=== PATIENT | male | born 1935 | race Caucasian/White ===

== ENCOUNTER 2017-09-07 17:22 | Inpatient (IN) | payer MEDICARE, MEDICAID ==
[2017-09-07] MEDS: IPRATROPIUM 0.5MG/ALBUTEROL 2.5MG INH SOL UD 3ML (DUONEB)(J7620) NEB ×3 (19:32)
[2017-09-07 21:39] LABS: BASO % 0.5 % (0.0-1.0); EOS # 0.1 10^3/uL (0.0-0.50); EOS % 0.8 % (0.0-3.0); HEMATOCRIT 44.6 % (42.0-52.0); HEMOGLOBIN 14.3 g/dl (14.0-18.0); IMMATURE GRANULOCYTE % 0.5 % (0-0); LYMPH # 0.6 10^3/uL (1.5-4.5); LYMPH % 8.6 % (24.0-44.0); MEAN CORPUSCULAR HEMOGLOBIN 29.2 pg (27.0-33.0); MEAN CORPUSCULAR HGB CONC 32.1 g/dl (32.0-36.5); MONO # 0.8 10^3/uL (0.0-0.8); MONO % 11.8 % (0.0-5.0); NEUTROPHILS # 5.1 10^3/uL (1.8-7.7); NEUTROPHILS % 77.8 % (36.0-66.0); PLATELET COUNT, AUTOMATED 203 10^3/uL (150-450); RED CELL DISTRIBUTION WIDTH 14.1 % (11.5-14.5); WHITE BLOOD COUNT 6.5 10^3/uL (4.0-10.0)
[2017-09-07 21:44] LABS: VENOUS BASE EXCESS 1.9 (-2.0-2.0); VENOUS HCO3 29.7 MEQ/L (23.0-27.0); VENOUS PARTIAL PRESSURE CO2 60.1 mmHg (38.0-50.0); VENOUS PARTIAL PRESSURE O2 45.7 mmHg (30.0-50.0); VENOUS PH 7.312 UNITS (7.330-7.430); VENOUS STANDARD HCO3 25.6 MEQ/L; VENOUS TOTAL CO2 31.6 MEQ/L (24.0-28.0)
[2017-09-07 22:04] LABS: LACTIC ACID SEPSIS PROTOCOL 1.9 MMOL/L (0.4-2.0)
[2017-09-07 22:06] LABS: ALBUMIN 3.6 GM/DL (3.2-5.2); ALKALINE PHOSPHATASE 68 U/L (45-117); ALT/SGPT 26 U/L (12-78); ANION GAP 6 MEQ/L (8-16); AST/SGOT 12 U/L (7-37); BILIRUBIN,DIRECT 0.2 MG/DL (0.0-0.2); BILIRUBIN,TOTAL 0.5 MG/DL (0.2-1.0); BLOOD UREA NITROGEN 23 MG/DL (7-18); C REACTIVE PROTEIN QUANTITATIV 3.38 MG/DL (0.00-0.30); CALCIUM LEVEL 8.3 MG/DL (8.8-10.2); CARBON DIOXIDE LEVEL 29 MEQ/L (21-32); CHLORIDE LEVEL 104 MEQ/L (98-107); CPK CREATINE PHOSPHOKINASE 77 U/L (39-308); GLOMERULAR FILTRATION RATE > 60.0 (>35); GLUCOSE, FASTING 155 MG/DL (83-110); POTASSIUM SERUM 4.3 MEQ/L (3.5-5.1); SODIUM LEVEL 139 MEQ/L (136-145); THYROXINE (T4) 8.3 UG/DL (4.5-12.0); TOTAL PROTEIN 6.6 GM/DL (6.4-8.2); TROPONIN I < 0.02 NG/ML (< 0.10)
[2017-09-07 22:11] LABS: CK-MB VALUE MASS 1.6 NG/ML (0.0-3.6); MB/CK RELATIVE INDEX 2.07 (< OR =4); NT-PRO BNP 329 PG/ML (<450); THYROID STIMULATING HORMONE 0.772 uIU/ML (0.358-3.740)
[2017-09-07] MEDS ORDERED: ISOVUE-370 76% 100ML VIAL (Q9967) As Ordered (22:22)
[2017-09-07] MEDS ORDERED: ONDANSETRON 4MG/2ML VIAL (J2405) IV (22:30)
[2017-09-07] MEDS: CEFTRIAXONE SOD 2 GM in APPROPRIATE DILUENT 1 EA IV (22:49)
[2017-09-07] MEDS: FUROSEMIDE 40 MG/4 ML VIAL (J1940) IV (22:49)
[2017-09-07] MEDS: methylPREDNISolone INJ 125 MG/2 ML VIAL (J2930) IV (22:49)
[2017-09-07] MEDS: AZITHROMYCIN INJ 500 MG, VIAL MATE ADAPTER 1 EACH in D5W 250 ML IV (23:31)
[2017-09-08] MEDS: CYANOCOBALAMIN 500 MCG TAB PO ×2 (02:34→21:46)
[2017-09-08] MEDS: VITAMIN D 1,000 INTERNATIONAL UNITS TABLET PO ×2 (02:34→21:46)
[2017-09-08] MEDS: guaiFENesin ER 600 MG TAB PO ×3 (02:35→21:46)
[2017-09-08] MEDS: LOSARTAN 50 MG TAB PO ×2 (02:35→21:47)
[2017-09-08] MEDS: BENZONATATE 100 MG CAP PO ×4 (02:38→21:46)
[2017-09-08 07:09] LABS: MEAN CORPUSCULAR HEMOGLOBIN 28.9 pg (27.0-33.0); MEAN CORPUSCULAR HGB CONC 31.8 g/dl (32.0-36.5); MEAN CORPUSCULAR VOLUME 90.7 fl (80.0-96.0); PLATELET COUNT, AUTOMATED 191 10^3/uL (150-450); RED BLOOD COUNT 4.85 10^6/uL (4.30-6.10); RED CELL DISTRIBUTION WIDTH 14.2 % (11.5-14.5); WHITE BLOOD COUNT 5.9 10^3/uL (4.0-10.0)
[2017-09-08] MEDS: IPRATROPIUM 0.5MG/ALBUTEROL 2.5MG INH SOL UD 3ML (DUONEB)(J7620) NEB ×5 (07:13→23:36)
[2017-09-08 07:22] LABS: ANION GAP 4 MEQ/L (8-16); BLOOD UREA NITROGEN 27 MG/DL (7-18); CALCIUM LEVEL 8.6 MG/DL (8.8-10.2); CARBON DIOXIDE LEVEL 31 MEQ/L (21-32); CHLORIDE LEVEL 101 MEQ/L (98-107); CREATININE FOR GFR 1.19 MG/DL (0.70-1.30); GLOMERULAR FILTRATION RATE > 60.0 (>35); GLUCOSE, FASTING 227 MG/DL (83-110); MAGNESIUM LEVEL 2.4 MG/DL (1.8-2.4); POTASSIUM SERUM 4.8 MEQ/L (3.5-5.1); SODIUM LEVEL 136 MEQ/L (136-145)
[2017-09-08] MEDS: methylPREDNISolone INJ 40 MG/1 ML VIAL (J2920) IV ×4 (07:41→22:25)
[2017-09-08] MEDS: HEPARIN SOD (PORCINE) 5000 UNITS/ML VIAL SC (07:41)
[2017-09-08] MEDS: PANTOPRAZOLE 40MG TAB (PROTONIX) PO (09:17)
[2017-09-08] MEDS: AZITHROMYCIN 250 MG TAB PO (09:17)
[2017-09-08] MEDS: SPIRONOLACTONE 25 MG TAB PO (09:17)
[2017-09-08] MEDS: hydroCHLOROthiazide 25 MG TAB PO (09:17)
[2017-09-08] MEDS: ENOXAPARIN 40 MG/0.4 ML SYRINGE (J1650) SC (12:24)
[2017-09-08] MEDS: CEFTRIAXONE SOD 1 GM in APPROPRIATE DILUENT 1 EA IV (22:25)
[2017-09-09] MEDS: IPRATROPIUM 0.5MG/ALBUTEROL 2.5MG INH SOL UD 3ML (DUONEB)(J7620) NEB ×5 (04:00→20:56)
[2017-09-09] MEDS: methylPREDNISolone INJ 40 MG/1 ML VIAL (J2920) IV ×4 (05:55→22:31)
[2017-09-09 07:37] LABS: HEMATOCRIT 43.3 % (42.0-52.0); HEMOGLOBIN 13.6 g/dl (14.0-18.0); MEAN CORPUSCULAR HEMOGLOBIN 28.5 pg (27.0-33.0); MEAN CORPUSCULAR HGB CONC 31.4 g/dl (32.0-36.5); MEAN CORPUSCULAR VOLUME 90.6 fl (80.0-96.0); PLATELET COUNT, AUTOMATED 214 10^3/uL (150-450); RED BLOOD COUNT 4.78 10^6/uL (4.30-6.10); WHITE BLOOD COUNT 8.8 10^3/uL (4.0-10.0)
[2017-09-09 07:59] LABS: ANION GAP 4 MEQ/L (8-16); BLOOD UREA NITROGEN 35 MG/DL (7-18); CALCIUM LEVEL 8.8 MG/DL (8.8-10.2); CARBON DIOXIDE LEVEL 32 MEQ/L (21-32); CHLORIDE LEVEL 100 MEQ/L (98-107); CREATININE FOR GFR 1.17 MG/DL (0.70-1.30); GLOMERULAR FILTRATION RATE > 60.0 (>35); GLUCOSE, FASTING 172 MG/DL (83-110); MAGNESIUM LEVEL 2.7 MG/DL (1.8-2.4); POTASSIUM SERUM 4.6 MEQ/L (3.5-5.1); SODIUM LEVEL 136 MEQ/L (136-145)
[2017-09-09] MEDS: BENZONATATE 100 MG CAP PO ×3 (09:23→21:19)
[2017-09-09] MEDS: hydroCHLOROthiazide 25 MG TAB PO (09:23)
[2017-09-09] MEDS: guaiFENesin ER 600 MG TAB PO ×2 (09:23→21:18)
[2017-09-09] MEDS: ENOXAPARIN 40 MG/0.4 ML SYRINGE (J1650) SC (09:23)
[2017-09-09] MEDS: SPIRONOLACTONE 25 MG TAB PO (09:23)
[2017-09-09] MEDS: PANTOPRAZOLE 40MG TAB (PROTONIX) PO (09:23)
[2017-09-09] MEDS: AZITHROMYCIN 250 MG TAB PO (09:23)
[2017-09-09] MEDS: ALBUTEROL SULFATE 2.5 MG/0.5 ML INH NEB SOLN INH (15:13)
[2017-09-09 20:24] LABS: BEDSIDE GLUCOSE 237 MG/DL (83-110)
[2017-09-09] MEDS: CYANOCOBALAMIN 500 MCG TAB PO (21:18)
[2017-09-09] MEDS: VITAMIN D 1,000 INTERNATIONAL UNITS TABLET PO (21:18)
[2017-09-09] MEDS: LOSARTAN 50 MG TAB PO (21:19)
[2017-09-10] MEDS: IPRATROPIUM 0.5MG/ALBUTEROL 2.5MG INH SOL UD 3ML (DUONEB)(J7620) NEB ×6 (00:09→21:08)
[2017-09-10 02:52] LABS: BEDSIDE GLUCOSE 269 MG/DL (83-110)
[2017-09-10] MEDS: methylPREDNISolone INJ 40 MG/1 ML VIAL (J2920) IV ×3 (05:58→21:15)
[2017-09-10 07:08] LABS: HEMATOCRIT 42.7 % (42.0-52.0); HEMOGLOBIN 13.6 g/dl (14.0-18.0); MEAN CORPUSCULAR HEMOGLOBIN 29.1 pg (27.0-33.0); MEAN CORPUSCULAR HGB CONC 31.9 g/dl (32.0-36.5); MEAN CORPUSCULAR VOLUME 91.4 fl (80.0-96.0); PLATELET COUNT, AUTOMATED 218 10^3/uL (150-450); RED BLOOD COUNT 4.67 10^6/uL (4.30-6.10); RED CELL DISTRIBUTION WIDTH 14.1 % (11.5-14.5); WHITE BLOOD COUNT 8.8 10^3/uL (4.0-10.0)
[2017-09-10 07:30] LABS: ANION GAP 5 MEQ/L (8-16); BLOOD UREA NITROGEN 42 MG/DL (7-18); CALCIUM LEVEL 8.8 MG/DL (8.8-10.2); CARBON DIOXIDE LEVEL 32 MEQ/L (21-32); CHLORIDE LEVEL 97 MEQ/L (98-107); CREATININE FOR GFR 1.22 MG/DL (0.70-1.30); GLOMERULAR FILTRATION RATE > 60.0 (>35); GLUCOSE, FASTING 217 MG/DL (83-110); MAGNESIUM LEVEL 2.6 MG/DL (1.8-2.4); SODIUM LEVEL 134 MEQ/L (136-145)
[2017-09-10] MEDS: PANTOPRAZOLE 40MG TAB (PROTONIX) PO (09:33)
[2017-09-10] MEDS: guaiFENesin ER 600 MG TAB PO ×2 (09:33→21:16)
[2017-09-10] MEDS: hydroCHLOROthiazide 25 MG TAB PO (09:33)
[2017-09-10] MEDS: SPIRONOLACTONE 25 MG TAB PO (09:33)
[2017-09-10] MEDS: ENOXAPARIN 40 MG/0.4 ML SYRINGE (J1650) SC (09:34)
[2017-09-10] MEDS: BENZONATATE 100 MG CAP PO ×3 (09:34→21:16)
[2017-09-10] MEDS: ACETAMINOPHEN TAB 650MG DOSE (2X325MG) PO (09:39)
[2017-09-10] MEDS: CYANOCOBALAMIN 500 MCG TAB PO (21:16)
[2017-09-10] MEDS: VITAMIN D 1,000 INTERNATIONAL UNITS TABLET PO (21:16)
[2017-09-10] MEDS: LOSARTAN 50 MG TAB PO (21:16)
[2017-09-11] MEDS: IPRATROPIUM 0.5MG/ALBUTEROL 2.5MG INH SOL UD 3ML (DUONEB)(J7620) NEB ×6 (04:00→20:14)
[2017-09-11] MEDS: methylPREDNISolone INJ 40 MG/1 ML VIAL (J2920) IV ×2 (05:43→12:57)
[2017-09-11 06:54] LABS: HEMATOCRIT 43.7 % (42.0-52.0); HEMOGLOBIN 14.2 g/dl (14.0-18.0); MEAN CORPUSCULAR HEMOGLOBIN 28.7 pg (27.0-33.0); MEAN CORPUSCULAR HGB CONC 32.5 g/dl (32.0-36.5); MEAN CORPUSCULAR VOLUME 88.5 fl (80.0-96.0); PLATELET COUNT, AUTOMATED 233 10^3/uL (150-450); RED BLOOD COUNT 4.94 10^6/uL (4.30-6.10); RED CELL DISTRIBUTION WIDTH 13.8 % (11.5-14.5); WHITE BLOOD COUNT 7.7 10^3/uL (4.0-10.0)
[2017-09-11 07:19] LABS: ANION GAP 4 MEQ/L (8-16); BLOOD UREA NITROGEN 36 MG/DL (7-18); CALCIUM LEVEL 8.6 MG/DL (8.8-10.2); CARBON DIOXIDE LEVEL 31 MEQ/L (21-32); CHLORIDE LEVEL 99 MEQ/L (98-107); CREATININE FOR GFR 1.12 MG/DL (0.70-1.30); GLOMERULAR FILTRATION RATE > 60.0 (>35); GLUCOSE, FASTING 189 MG/DL (83-110); MAGNESIUM LEVEL 2.7 MG/DL (1.8-2.4); SODIUM LEVEL 134 MEQ/L (136-145)
[2017-09-11 07:21] LABS: POTASSIUM SERUM 5.2 MEQ/L (3.5-5.1)
[2017-09-11] MEDS: ENOXAPARIN 40 MG/0.4 ML SYRINGE (J1650) SC (08:51)
[2017-09-11] MEDS: hydroCHLOROthiazide 25 MG TAB PO (08:52)
[2017-09-11] MEDS: BENZONATATE 100 MG CAP PO ×3 (08:52→20:19)
[2017-09-11] MEDS: guaiFENesin ER 600 MG TAB PO ×2 (08:52→20:19)
[2017-09-11] MEDS: ACETAMINOPHEN TAB 650MG DOSE (2X325MG) PO ×2 (08:52→12:57)
[2017-09-11] MEDS: SPIRONOLACTONE 25 MG TAB PO (08:52)
[2017-09-11] MEDS: PANTOPRAZOLE 40MG TAB (PROTONIX) PO (08:52)
[2017-09-11] MEDS: ADVAIR HFA 230/21MCG INHALER INH ×2 (09:00→20:11)
[2017-09-11] MEDS: amLODIPine 5 MG TAB PO (14:51)
[2017-09-11] MEDS: CYANOCOBALAMIN 500 MCG TAB PO (20:18)
[2017-09-11] MEDS: LOSARTAN 50 MG TAB PO (20:19)
[2017-09-11] MEDS: VITAMIN D 1,000 INTERNATIONAL UNITS TABLET PO (20:19)
[2017-09-12] MEDS: methylPREDNISolone INJ 40 MG/1 ML VIAL (J2920) IV (01:03)
[2017-09-12] MEDS: IPRATROPIUM 0.5MG/ALBUTEROL 2.5MG INH SOL UD 3ML (DUONEB)(J7620) NEB ×6 (01:36→20:00)
[2017-09-12 07:13] LABS: HEMATOCRIT 44.4 % (42.0-52.0); HEMOGLOBIN 14.3 g/dl (14.0-18.0); MEAN CORPUSCULAR HEMOGLOBIN 28.8 pg (27.0-33.0); MEAN CORPUSCULAR HGB CONC 32.2 g/dl (32.0-36.5); MEAN CORPUSCULAR VOLUME 89.5 fl (80.0-96.0); PLATELET COUNT, AUTOMATED 222 10^3/uL (150-450); RED BLOOD COUNT 4.96 10^6/uL (4.30-6.10); RED CELL DISTRIBUTION WIDTH 13.7 % (11.5-14.5)
[2017-09-12 07:31] LABS: ANION GAP 4 MEQ/L (8-16); BLOOD UREA NITROGEN 34 MG/DL (7-18); CALCIUM LEVEL 8.8 MG/DL (8.8-10.2); CARBON DIOXIDE LEVEL 33 MEQ/L (21-32); CHLORIDE LEVEL 98 MEQ/L (98-107); CREATININE FOR GFR 1.19 MG/DL (0.70-1.30); GLOMERULAR FILTRATION RATE > 60.0 (>35); GLUCOSE, FASTING 196 MG/DL (83-110); MAGNESIUM LEVEL 2.8 MG/DL (1.8-2.4); SODIUM LEVEL 135 MEQ/L (136-145)
[2017-09-12 07:36] LABS: POTASSIUM SERUM 5.2 MEQ/L (3.5-5.1)
[2017-09-12] MEDS: ADVAIR HFA 230/21MCG INHALER INH ×2 (07:40→20:23)
[2017-09-12] MEDS: guaiFENesin ER 600 MG TAB PO ×2 (08:39→21:06)
[2017-09-12] MEDS: ENOXAPARIN 40 MG/0.4 ML SYRINGE (J1650) SC (08:39)
[2017-09-12] MEDS: PANTOPRAZOLE 40MG TAB (PROTONIX) PO (08:40)
[2017-09-12] MEDS: BENZONATATE 100 MG CAP PO ×3 (08:40→21:06)
[2017-09-12] MEDS: SPIRONOLACTONE 25 MG TAB PO (08:40)
[2017-09-12] MEDS: hydroCHLOROthiazide 25 MG TAB PO (08:40)
[2017-09-12] MEDS: amLODIPine 5 MG TAB PO (08:42)
[2017-09-12] MEDS: predniSONE 20 MG TAB PO ×2 (11:17→21:07)
[2017-09-12] MEDS: ACETAMINOPHEN TAB 650MG DOSE (2X325MG) PO (17:07)
[2017-09-12] MEDS: VITAMIN D 1,000 INTERNATIONAL UNITS TABLET PO (21:06)
[2017-09-12] MEDS: LOSARTAN 50 MG TAB PO (21:07)
[2017-09-12] MEDS: CYANOCOBALAMIN 500 MCG TAB PO (21:07)
[2017-09-13] MEDS: IPRATROPIUM 0.5MG/ALBUTEROL 2.5MG INH SOL UD 3ML (DUONEB)(J7620) NEB ×2 (00:01→03:40)
[2017-09-13 06:49] LABS: HEMATOCRIT 44.4 % (42.0-52.0); HEMOGLOBIN 14.4 g/dl (14.0-18.0); MEAN CORPUSCULAR HEMOGLOBIN 28.7 pg (27.0-33.0); MEAN CORPUSCULAR HGB CONC 32.4 g/dl (32.0-36.5); MEAN CORPUSCULAR VOLUME 88.6 fl (80.0-96.0); PLATELET COUNT, AUTOMATED 241 10^3/uL (150-450); RED BLOOD COUNT 5.01 10^6/uL (4.30-6.10); RED CELL DISTRIBUTION WIDTH 13.8 % (11.5-14.5); WHITE BLOOD COUNT 8.2 10^3/uL (4.0-10.0)
[2017-09-13 07:04] LABS: ANION GAP 5 MEQ/L (8-16); BLOOD UREA NITROGEN 34 MG/DL (7-18); CALCIUM LEVEL 8.7 MG/DL (8.8-10.2); CARBON DIOXIDE LEVEL 32 MEQ/L (21-32); CHLORIDE LEVEL 98 MEQ/L (98-107); GLOMERULAR FILTRATION RATE > 60.0 (>35); GLUCOSE, FASTING 204 MG/DL (83-110); MAGNESIUM LEVEL 2.6 MG/DL (1.8-2.4); POTASSIUM SERUM 4.8 MEQ/L (3.5-5.1); SODIUM LEVEL 135 MEQ/L (136-145)
[2017-09-13] MEDS: ADVAIR HFA 230/21MCG INHALER INH (08:14)
[2017-09-13] MEDS: ENOXAPARIN 40 MG/0.4 ML SYRINGE (J1650) SC (08:19)
[2017-09-13] MEDS: BENZONATATE 100 MG CAP PO (08:19)
[2017-09-13] MEDS: amLODIPine 5 MG TAB PO (08:19)
[2017-09-13] MEDS: guaiFENesin ER 600 MG TAB PO (08:19)
[2017-09-13] MEDS: SPIRONOLACTONE 25 MG TAB PO (08:19)
[2017-09-13] MEDS: SOD POLYSTYRENE SULFONATE SUSP 15 GM/60 ML UD PO (08:19)
[2017-09-13] MEDS: predniSONE 20 MG TAB PO (08:19)
[2017-09-13] MEDS: PANTOPRAZOLE 40MG TAB (PROTONIX) PO (08:19)
[2017-09-13] MEDS: hydroCHLOROthiazide 25 MG TAB PO (08:19)
== END 2017-09-13 11:57 | disposition home or self-care (01) | DRG 190 ==
LOC: M MS5PR 09-08 01:10 → M ED 17:22 → M ED INP 22:30
DX: J44.1 Chronic obstructive pulmonary disease with (acute) exacerbation (principal); J96.01 Acute respiratory failure with hypoxia; Z68.43 Body mass index [BMI] 50.0-59.9, adult; I10 Essential (primary) hypertension; M19.90 Unspecified osteoarthritis, unspecified site; B97.4 Respiratory syncytial virus as the cause of diseases classified elsewhere; E66.01 Morbid (severe) obesity due to excess calories; Z85.118 Personal history of other malignant neoplasm of bronchus and lung; Z90.2 Acquired absence of lung [part of]; Z96.612 Presence of left artificial shoulder joint; Z79.899 Other long term (current) drug therapy; Z88.8 Allergy status to other drugs, medicaments and biological substances

== ENCOUNTER 2018-10-30 14:21 | Inpatient (IN) | payer MEDICARE, MEDICAID ==
[~2018-10-30] VITALS: Ht 182.9 cm; Wt 160.7 kg
[~2018-10-30 14:21] MED LIST: ADV250INH INH; ALBU83IN INH; AMLO5TAB6 PO; D 1010004 PO; FURO40TA2 PO; LOSA100T50 PO; MELO7.5T7 PO; MUCI600T37 PO; PRED10TA2 PO; SPIR1TAB34 PO; VITA500T53 PO; vitamin B 12 PO; vitamin D 3 PO
[2018-10-30] MEDS ORDERED: [UNRECOGNIZED DRUG - CODE] (14:34)
[2018-10-30] MEDS ORDERED: GLIP5TAB20 PO (14:34)
[2018-10-30] MEDS ORDERED: TRAMADOL (14:34)
[2018-10-30] MEDS ORDERED: XARE20TA PO (14:34)
[2018-10-30] MEDS ORDERED: ATOR1TAB19 PO (14:34)
[2018-10-30] MEDS ORDERED: COZA50TA PO (14:34)
[2018-10-30] MEDS ORDERED: CARV6.25 PO (14:39)
[2018-10-30 15:01] LABS: BASO % 0.6 % (0.0-1.0); EOS # 0.1 10^3/uL (0.0-0.50); EOS % 1.9 % (0.0-3.0); HEMATOCRIT 41.8 % (42.0-52.0); HEMOGLOBIN 13.2 g/dl (13.5-17.5); LYMPH # 0.9 10^3/uL (1.5-4.5); LYMPH % 12.9 % (24.0-44.0); MEAN CORPUSCULAR HEMOGLOBIN 27.5 pg (27.0-33.0); MEAN CORPUSCULAR HGB CONC 31.6 g/dl (32.0-36.5); MEAN CORPUSCULAR VOLUME 87.1 fl (80.0-96.0); MONO # 0.8 10^3/uL (0.0-0.8); MONO % 11.2 % (0.0-5.0); PLATELET COUNT, AUTOMATED 260 10^3/uL (150-450); WHITE BLOOD COUNT 6.8 10^3/uL (4.0-10.0)
[2018-10-30 15:14] LABS: INR 1.41; PARTIAL THROMBOPLASTIN TIME 31.1 SECONDS (25.4-37.6); PROTHROMBIN TIME 17.5 SECONDS (12.1-14.4)
[2018-10-30 15:40] LABS: ALBUMIN 3.5 GM/DL (3.2-5.2); ALT/SGPT 29 U/L (12-78); BILIRUBIN,DIRECT 0.2 MG/DL (0.0-0.2); BILIRUBIN,TOTAL 0.5 MG/DL (0.2-1.0); BLOOD UREA NITROGEN 20 MG/DL (7-18); CALCIUM LEVEL 7.8 MG/DL (8.8-10.2); CARBON DIOXIDE LEVEL 27 MEQ/L (21-32); CHLORIDE LEVEL 104 MEQ/L (98-107); CREATININE FOR GFR 1.19 MG/DL (0.70-1.30); GLOMERULAR FILTRATION RATE > 60.0 (>35); GLUCOSE, FASTING 97 MG/DL (70-100); LIPASE 147 U/L (73-393); POTASSIUM SERUM 4.6 MEQ/L (3.5-5.1); SODIUM LEVEL 138 MEQ/L (136-145); TOTAL PROTEIN 6.2 GM/DL (6.4-8.2)
[2018-10-30] MEDS ORDERED: ISOVUE-370 76% 100ML VIAL (Q9967) As Ordered ONE (15:53)
[2018-10-30] MEDS ORDERED: NS 500 ML IV ONE (16:00)
--- NOTE | 2018-10-30 16:41 | REP ---
CT ABDOMEN AND PELVIS WITH IV CONTRAST: TECHNIQUE: Axial contrast enhanced images from the lung bases to the pubic symphysis using 100 mL Isovue 370 intravenous contrast material with multiplanar reformations. In the visualized lung base there is a stable pulmonary nodule in the right lower lobe measuring 9 mm in diameter. There is elevation of the left hemidiaphragm with stable fibro atelectatic change along the left hemidiaphragm. Heart is not enlarged. The liver demonstrates a cyst in the right lobe measuring 1.8 cm. Spleen, adrenals, and pancreas are unremarkable. There is no hydronephrosis bilaterally. There is a small cyst in the mid right kidney. There are a couple of left renal cysts, larger is in the left lower pole measuring about 6.3 cm in maximum diameter. There is moderate atherosclerotic calcification of the abdominal aorta without aneurysm. There is no adenopathy. There is no free air or free fluid. No bowel wall thickening is seen. There is no evidence of appendicitis. There is sigmoid diverticulosis without acute diverticulitis. I see no pelvic mass. Urinary bladder is mildly distended and grossly unremarkable. There are bilateral inguinal hernias containing fat, larger on the right side. There are degenerative changes of the spine. IMPRESSION: No acute abnormalities. No appendicitis. Sigmoid diverticulosis without acute diverticulitis. No free air or free fluid. Bilateral inguinal hernias. Sigmoid diverticulosis without acute diverticulitis. Electronically Signed by Steven Mcdaniel MD 11/02/2018 12:06 P
--- NOTE | 2018-10-30 17:05 | REP ---
Chest x-ray: Single view. History: Near-syncope. Comparison study September 07, 2017. Findings: EKG monitoring electrodes overlie the chest. Oxygen delivery tubing is seen. A prosthetic left shoulder is noted in place. There is elevation of the left hemidiaphragm and tenting with blunting of its lateral pleural angle. These findings are unchanged from September 07, 2017 consistent with pleural fibrosis. There are surgical clips superimposed on the left apex. The lung up are clear. Heart is not enlarged. The aorta is somewhat tortuous. Impression: Chronic pleuroparenchymal scarring left base. Otherwise no acute disease. Electronically Signed by Jeremy Ferrera MD 10/30/2018 06:58 P
[2018-10-30] MEDS ORDERED: ADV250INH INH (17:17)
[2018-10-30] MEDS ORDERED: TRAM50TA2 PO (17:17)
[2018-10-30] MEDS ORDERED: MUPI2OI TOP (17:19)
--- NOTE | 2018-10-30 18:55 | ECGEPIP ---
Stationary ECG Study [facility] - ED Test Date: 2018-10-30 Pat Name: KRISTEL LUKE Department: Room: - Gender: M Patient Access Director: ct : 1935 Requested By: RAVEN Andrew Order Number: [id number] Reading MD: Finesse Sam Measurements Intervals [place] Rate: 73 P: ID: 0 QRS: -2 QRSD: 98 T: -2 QT: 379 QTc: 418 Interpretive Statements ATRIAL FIBRILLATION LOW QRS VOLTAGE IN PRECORDIAL LEADS INCOMPLETE RIGHT BUNDLE BRANCH BLOCK RHYTHM/RATE CHANGE COMPARED TO 09/07/17 Electronically Signed On 10-30-2018 18:55:18 EST by Finesse Sam
[2018-10-30 19:54] LABS: HEMATOCRIT 38.3 % (42.0-52.0); HEMOGLOBIN 12.2 g/dl (13.5-17.5)
[2018-10-30] MEDS ORDERED: ALBUTEROL SULFATE 2.5 MG/0.5 ML INH NEB SOLN INH PRN (20:00)
[2018-10-30] MEDS ORDERED: DEXTROSE 50% 50 ML SYRINGE IV PRN (20:15)
[2018-10-30] MEDS ORDERED: GLUCAGON FOR INJ 1 MG VIAL (J1610) SC PRN (20:15)
[2018-10-30] MEDS ORDERED: GLUCOSE 4 GM CHEW TABLET PO PRN (20:15)
[2018-10-30] MEDS ORDERED: ACETAMINOPHEN TAB 650MG DOSE (2X325MG) PO PRN (20:15)
[2018-10-30] MEDS ORDERED: ONDANSETRON 4MG/2ML VIAL (J2405) IV PRN (20:15)
[2018-10-30] MEDS ORDERED: PANTOPRAZOLE 40MG INJ (PROTONIX) (C9113) IV SCH (21:00)
[2018-10-30] MEDS: ATORVASTATIN 10 MG TAB PO SCH (21:00)
[2018-10-30] MEDS: CYANOCOBALAMIN 500 MCG TAB PO SCH (21:27)
[2018-10-30] MEDS: CARVedilol 6.25 MG TAB PO SCH (21:27)
[2018-10-30] MEDS: VITAMIN D 1,000 INTERNATIONAL UNITS TABLET PO SCH (21:27)
[2018-10-30] MEDS: NS 1,000 ML IV SCH (21:28)
--- NOTE | 2018-10-30 21:43 | HPE ---
DATE OF ADMISSION: 10/30/2018 CHIEF COMPLAINT: Rectal bleeding. HISTORY OF PRESENT ILLNESS: This is an 83-year-old gentleman with a past medical history of hypertension, chronic obstructive pulmonary disease (COPD), diabetes, atrial fibrillation on Xarelto, myocardial infarction (PA) in September 2017, requiring hospitalization at [facility], who presents with chief complaint of blood stools for the last couple of months, worse for two weeks. The patient reports that he has been on Xarelto for approximately one year for a diagnosis of atrial fibrillation. He did not have any rectal bleeding prior to two months ago. Beginning about two months ago, he started having rectal bleeding that had worsened over the last two weeks. He said his blood fills with bright red blood and his stool appears black at times. However in the last couple of days his stool has been entirely just bright red fresh blood. He denies ever having a colonoscopy, but does report that Dr. Garcia had planned on doing one. He does not know he has any diverticulosis, but does report a history of hemorrhoids. No significant history of nonsteroidal antiinflammatory drugs (NSAID) use. No significant history of alcohol abuse. He decided to come in today because he started to have symptoms of lightheadedness and near syncope. He denies any chest pain. In the emergency room, the patient was noted to be orthostatic. He was given 1 liter of fluid bolus. His hemoglobin was stable at 13.2, but he was admitted for observation given the new rectal bleeding. Dr. Garcia saw him while he was in the emergency room (ER) and recommended admission for observation. PAST MEDICAL HISTORY: As noted above in the history of present illness. 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 HOME MEDICATIONS: The patient's home medications are glipizide 5 mg daily, losartan 50 mg at bedtime (q.h.s.), Xarelto 20 mg at bedtime, tramadol 50 mg twice a day as needed for pain, Bactroban ointment topical as needed for itching, hydrochlorothiazide, spironolactone combination 25-25 mg one tab by mouth daily, albuterol every 6 hours as needed for shortness of breath, Lipitor 10 mg at bedtime, Coreg 6.25 mg twice a daily, vitamin D 1000 units daily, vitamin B12 500 mcg by mouth at bedtime (q.h.s.), Advair one puff inhaled twice daily as needed for shortness of breath. ALLERGIES: CORTISONE. SOCIAL HISTORY: The patient lives with his of 60 years. No smoking, alcohol or drugs. FAMILY HISTORY: Father had a history of leukemia. PHYSICAL EXAMINATION: On exam, the patient is currently hemodynamically stable with a blood pressure of 142/67, heart rate of 79, respirations 18, saturating while on room air. He was orthostatic and his sitting blood pressure had dropped to 101/55 from 120/60 and he met criteria for orthostasis. In general, he is an obese male, who is in no acute distress, breathing comfortably with normal color. HEENT exam: Oropharynx clear. CARDIOVASCULAR: He is irregularly irregular. No murmurs, rubs or gallops. LUNGS: Clear to auscultation bilaterally. ABDOMEN: Obese, nontender. Positive bowel sounds. EXTREMITIES: Trace edema, which is stable. NEURO: He is alert and oriented times three, follows simple commands. No focal neurologic deficits. SKIN: Intact. PSYCHIATRIC: Mood stable. LABORATORY: Admission complete blood count (CBC) with a white count of 6.8, hemoglobin of 13.2, hematocrit of 41, platelets of 260. His hemoglobin repeat at 7:30 is 12.2. His chemistry shows a creatinine of 1.19, which is stable for him, potassium 4.6. Coags show an INR of 1.4, PT of 1.41. Imaging shows an abdominal CT that shows no acute abnormalities, no appendicitis or sigmoid diverticulosis without diverticulitis. Chest x-ray shows chronic pleural parenchymal scarring at the left base, otherwise no acute disease. ASSESSMENT AND PLAN: This is an 83-year-old gentleman with past medical history of atrial fibrillation on Xarelto, diabetes who presents with chief complaint of rectal bleeding for two months, worse for two weeks. PROBLEMS: 1. Rectal bleeding. At this time, the patient is hemodynamically stable with no bleeding in the emergency room (ER). He was guaiac by the emergency room doctor and it was positive. Dr. Garcia from general surgery saw the patient and recommended to continue following his hemoglobin and hematocrit. He may have a colonoscopy this admission or as an outpatient. For now, we will put him on nothing by mouth IV fluids and check hemoglobin and hematocrit every 6 hours. I will put him on IV proton pump inhibitor (PPI) twice daily. He is going to be admitted to the PCU for closer monitoring. I will also obviously hold his home Xarelto in the setting of gastrointestinal (GI) bleed. 2. Near syncope. Of note, the patient is also having these episodes of lightheadedness. This could be from the rectal bleeding and orthostasis. However, will evaluate him for cardiac etiology. He follows with Dr. Walsh in [place] as his mid level clinician: He does report a myocardial infarction (PA) in 2018, which was "mild". I will place him on telemetry and check an echocardiogram. He also did not have troponins checked in the emergency room, so I will check for that as well. He is currently denying any chest pain. 3. Atrial fibrillation. Obviously, the patient's home Xarelto will be held. I am going to continue his home Coreg for rate control He is currently rate controlled in atrial fibrillation. 4. Hypertension. At this time, I am holding his home losartan, hydrochlorothiazide and spironolactone in the setting of gastrointestinal (GI) bleed. 5. Diabetes. I am holding his oral hypoglycemics and will place him on a sliding scale. 6. Fluid, electrolytes and nutrition. At this time, he is nothing by mouth and on IV fluids. 7. Deep vein thrombosis (DVT) prophylaxis. Not indicated at this time. MTDD
[2018-10-30 23:30] VITALS: BP 141/63
[2018-10-31 04:00] VITALS: BP 114/53
[2018-10-31 05:01] LABS: HEMATOCRIT 36.3 % (42.0-52.0); HEMOGLOBIN 11.4 g/dl (13.5-17.5); MEAN CORPUSCULAR HEMOGLOBIN 27.3 pg (27.0-33.0); MEAN CORPUSCULAR HGB CONC 31.4 g/dl (32.0-36.5); MEAN CORPUSCULAR VOLUME 86.8 fl (80.0-96.0); PLATELET COUNT, AUTOMATED 203 10^3/uL (150-450); RED BLOOD COUNT 4.18 10^6/uL (4.30-6.10); WHITE BLOOD COUNT 5.5 10^3/uL (4.0-10.0)
[2018-10-31 05:29] LABS: BLOOD UREA NITROGEN 18 MG/DL (7-18); CALCIUM LEVEL 7.7 MG/DL (8.8-10.2); CARBON DIOXIDE LEVEL 28 MEQ/L (21-32); CHLORIDE LEVEL 104 MEQ/L (98-107); CREATININE FOR GFR 1.11 MG/DL (0.70-1.30); GLOMERULAR FILTRATION RATE > 60.0 (>35); GLUCOSE, FASTING 96 MG/DL (70-100); POTASSIUM SERUM 3.8 MEQ/L (3.5-5.1); SODIUM LEVEL 136 MEQ/L (136-145)
[2018-10-31] MEDS: HumaLOG INSULIN (NovoLOG) PER UNIT SC SCH ×5 (06:00→21:33)
[2018-10-31] MEDS: NS 1,000 ML IV SCH (06:15)
[2018-10-31] MEDS: ADVAIR HFA 115/21MCG INHALER INH PRN ×2 (07:39→20:36)
[2018-10-31 08:00] VITALS: BP 139/63
--- NOTE | 2018-10-31 09:36 | IPN ---
DATE OF SERVICE: 10/31/2018 Zach is seen in PCU. He was admitted with lower gastrointestinal (GI) bleed. He is on Xarelto for thromboembolic prophylaxis, for atrial fibrillation. He has history of coronary artery disease with myocardial infarction ([place]) 10/12, hypertension, type 2 diabetes. Denies any further rectal bleeding. Denies chest pain or shortness of breath. Surgery has already been consulted. Dr. Garcia is on the case. Blood pressure is 139/63, vital signs are stable. General appearance: Resting comfortable, no distress. Lung: Clear. Heart: Regular rate and rhythm. Abdomen obese, nontender, no masses. Trace peripheral edema. Moves arms and legs with equal strength. LABS: White count 5.5, hemoglobin is down to 11.4, platelets 203. Electrolytes unremarkable. IMPRESSION: 1. Gastrointestinal bleed probably lower. Patient's hemoglobin is fairly stable when accounting for hydration. I have got a communication out to Dr. Garcia to find out when they plan colonoscopy. Put him on a clear liquid diet pending the procedure. His Xarelto is on hold. 2. Atrial fibrillation. His rate is controlled. His Xarelto is on hold. 3. Diabetes. He is on sliding scale of insulin with fingerstick blood sugars per protocol. 4. Hyperlipidemia. Continue atorvastatin 10 mg daily.
[2018-10-31] MEDS: CARVedilol 6.25 MG TAB PO SCH ×2 (09:38→21:22)
[2018-10-31] MEDS ORDERED: SLF 3 ML SYR IV PRN (10:00)
[2018-10-31] MEDS: PANTOPRAZOLE 40MG TAB (PROTONIX) PO SCH (10:11)
--- NOTE | 2018-10-31 11:01 | IPN ---
DATE: 10/31/2018 The patient seems to be doing well since last night, has not had any additional rectal bleeding. He has not any bowel movements and states that when he does not have any bowel movements, he does not have bleeding. Thus, I do feel that two possibilities of diverticular versus hemorrhoidal bleeding are the most likely etiologies, and I discussed with him other possibilities, which include benign versus malignant lesions. He understands at this point and will see how he does by starting him up with some suppositories and stool softeners, and if he has ongoing rectal bleeding with the minimal treatment or minimal bowel movements, we may need to stop these and wait another 24-48 hours prior to starting some gentle bowel prep. Will see how the stool softeners work with him and determine our next step based on that.
--- NOTE | 2018-10-31 11:16 | CR ---
DATE OF CONSULTATION: 10/30/2018 CHIEF COMPLAINT: Gastrointestinal (GI) bleeding with feeling faint. BRIEF HISTORY OF PRESENT ILLNESS: The patient has had some rectal bleeding that is been quite heavy for the last couple months and worse in the last 2 weeks. He thought it was his hemorrhoids giving him problems for awhile now. Is on anticoagulation and presents now for additional recommendations given that he has been quite faint and was concerned about his GI blood loss. States that it is a significant amount. When he has bowel movement, it is bright red blood. He has had no nausea or vomiting. No weight loss issues. He has not had any blood per rectum since earlier this morning since his first bowel movement. He has had a polyp removed in the past he describes and I am not sure if that was associated with some hemorrhoids that were treated but he states he has not had a colonoscopy previously. PAST MEDICAL HISTORY: Significant for: History of chronic obstructive pulmonary disease (COPD). Diabetes mellitus. Atrial fibrillation on Xarelto. Myocardial infarction in 2018. History of hemorrhoids, hemorrhoid surgery. MEDICATIONS: Include: - glipizide - Losartan - Xarelto - tramadol - Bactroban - spironolactone - albuterol - Lipitor - Coreg - vitamin D - vitamin B12 - Advair PHYSICAL EXAM: Reveals a morbidly obese male who looks stated age. HEENT is unremarkable. Neck: Supple without adenopathy. Lungs are clear to auscultation anteriorly, diminished posteriorly. Heart is regular. Abdomen: Regular with multiple irregular beats. Abdomen is morbidly obese, nontender without guarding, without rebound. No peritoneal signs. Extremities: Warm, well-perfused. IMPRESSION AND PLAN: The patient has rectal bleeding, seems as though it is bright red blood per rectum. Most likely etiology is diverticular bleeding, although diverticular bleeding that has been occurring for several weeks is unlikely but still possible. The most recent bleeding associated with the orthostasis is diverticular although it also could be hemorrhoidal bleeding given the Xarelto. I do feel that it is reasonable to keep him n.p.o., IV fluids and see how he does over the next 12-24 hours and then start him on clear liquid diet and progress his diet depending on his symptoms and depending on his bleeding. I anticipate this should resolve with time as his Xarelto gets out of his system. I have discussed with him benign versus malignant etiologies for his rectal bleeding and any of the above could be the source. He understands and would like to proceed with colonoscopy while he is in the hospital and we will plan on this once his anticoagulation has been out of his system for long enough. However if he develops urgent or emergent bleeding, then we can decide on the next course of action which may include endoscopy versus angiography, etc..
[2018-10-31 12:00] VITALS: BP 122/63
[2018-10-31] MEDS ORDERED: PREPARATION H SUPP (HEMORRHOID) PR ONE (12:00)
[2018-10-31] MEDS: SENNA 8.6 MG TAB (SENOKOT) PO SCH ×2 (12:49→21:21)
[2018-10-31] MEDS: DOCUSATE SODIUM 100 MG CAP PO SCH ×2 (12:49→21:20)
--- NOTE | 2018-10-31 13:10 | ECHO ---
DATE OF PROCEDURE: 10/31/2018 REFERRING PHYSICIAN: Dr. Jannie Martinez INDICATION: Syncope. Weight is 155 kg. Height is 180 cm. DIMENSIONS: IVS: 1.1 LV: 3.5 LVPW: 1.1 LA: 4.2 Mitral E wave velocity : 61 A wave: 79 E prime septal: 6.3 E prime lateral: 6.0 IVC: 2.8 FINDINGS: The study is of extremely limited technical quality corresponding to patient's body habitus. Left ventricle is of normal size. I cannot comment on systolic function. Based on very limited views, it looks probably normal. But the visualization was so poor that I cannot be certain. Right ventricle surprisingly also does not look grossly enlarged. Both atria are at least mildly enlarged. There was limited visualization of aortic and mitral valves that appear grossly normal. Right-sided valves were not visualized. No pericardial effusion, but pericardial fat pad is noted. Inferior vena cava is dilated. Aortic root is normal. Aortic arch grossly appears normal. Abdominal aorta was not visualized. Doppler interrogation was very limited. There is no gross mitral and aortic valvular disease. Mitral inflow pattern and tissue Doppler imaging of mitral annulus reveal grade 1 diastolic dysfunction. CONCLUSIONS: 1. Study is of very limited technical quality. 2. Probably normal or near normal systolic function based on limited views. This is not very reliable information. 3. No significant aortic and mitral valvular disease. 4. Likely high central venous pressure. 5. Unable to estimate pulmonary artery pressure. COMMENT: Subacute bacterial endocarditis (SBE) prophylaxis is not recommended. Study does not provide much useful information due to poor visualization. [facility]
[2018-10-31] MEDS: SLF 3 ML SYR IV SCH ×2 (14:00→21:24)
[2018-10-31 16:00] VITALS: BP 135/67
[2018-10-31 20:00] VITALS: BP 105/58
[2018-10-31] MEDS: VITAMIN D 1,000 INTERNATIONAL UNITS TABLET PO SCH (21:00)
[2018-10-31] MEDS: ATORVASTATIN 10 MG TAB PO SCH (21:22)
[2018-10-31] MEDS: CYANOCOBALAMIN 500 MCG TAB PO SCH (21:22)
[2018-10-31] MEDS: PREPARATION H SUPP (HEMORRHOID) PR SCH (21:23)
[2018-11-01] VITALS (7 sets, daily range): BP systolic 108–141; BP diastolic 58–69
[2018-11-01] MEDS: SLF 3 ML SYR IV SCH ×3 (04:59→20:48)
[2018-11-01 05:36] LABS: HEMATOCRIT 35.5 % (42.0-52.0); HEMOGLOBIN 11.3 g/dl (13.5-17.5); MEAN CORPUSCULAR HEMOGLOBIN 27.6 pg (27.0-33.0); MEAN CORPUSCULAR HGB CONC 31.8 g/dl (32.0-36.5); MEAN CORPUSCULAR VOLUME 86.8 fl (80.0-96.0); PLATELET COUNT, AUTOMATED 198 10^3/uL (150-450); RED BLOOD COUNT 4.09 10^6/uL (4.30-6.10)
[2018-11-01 06:01] LABS: BLOOD UREA NITROGEN 15 MG/DL (7-18); CALCIUM LEVEL 7.9 MG/DL (8.8-10.2); CARBON DIOXIDE LEVEL 26 MEQ/L (21-32); CHLORIDE LEVEL 106 MEQ/L (98-107); CREATININE FOR GFR 1.06 MG/DL (0.70-1.30); GLOMERULAR FILTRATION RATE > 60.0 (>35); GLUCOSE, FASTING 103 MG/DL (70-100); POTASSIUM SERUM 3.8 MEQ/L (3.5-5.1); SODIUM LEVEL 138 MEQ/L (136-145)
[2018-11-01] MEDS: ADVAIR HFA 115/21MCG INHALER INH PRN ×2 (07:24→20:16)
[2018-11-01] MEDS: HumaLOG INSULIN (NovoLOG) PER UNIT SC SCH ×4 (07:30→20:48)
[2018-11-01] MEDS: PREPARATION H SUPP (HEMORRHOID) PR SCH ×2 (08:25→20:33)
[2018-11-01] MEDS: SENNA 8.6 MG TAB (SENOKOT) PO SCH ×2 (08:25→20:31)
[2018-11-01] MEDS: DOCUSATE SODIUM 100 MG CAP PO SCH ×2 (08:25→20:30)
[2018-11-01] MEDS: PANTOPRAZOLE 40MG TAB (PROTONIX) PO SCH (08:25)
[2018-11-01] MEDS: CARVedilol 6.25 MG TAB PO SCH ×2 (08:26→20:32)
[2018-11-01] MEDS ORDERED: MOM 30ML SUSPENSION UDC PO ONE (13:00)
[2018-11-01] MEDS: MAGNESIUM CITRATE 300 ML BTL PO SCH ×3 (14:18→22:14)
[2018-11-01] MEDS: ATORVASTATIN 10 MG TAB PO SCH (20:30)
[2018-11-01] MEDS: CYANOCOBALAMIN 500 MCG TAB PO SCH (20:30)
[2018-11-01] MEDS: VITAMIN D 1,000 INTERNATIONAL UNITS TABLET PO SCH (20:31)
[2018-11-01] MEDS: MOM 30ML SUSPENSION UDC PO SCH ×2 (20:32→22:14)
[2018-11-02 04:32] LABS: HEMATOCRIT 37.1 % (42.0-52.0); HEMOGLOBIN 11.7 g/dl (13.5-17.5); MEAN CORPUSCULAR HEMOGLOBIN 27.6 pg (27.0-33.0); MEAN CORPUSCULAR HGB CONC 31.5 g/dl (32.0-36.5); MEAN CORPUSCULAR VOLUME 87.5 fl (80.0-96.0); PLATELET COUNT, AUTOMATED 204 10^3/uL (150-450); RED BLOOD COUNT 4.24 10^6/uL (4.30-6.10); WHITE BLOOD COUNT 5.5 10^3/uL (4.0-10.0)
[2018-11-02 04:45] VITALS: BP 122/64
[2018-11-02 04:53] LABS: CALCIUM LEVEL 8.3 MG/DL (8.8-10.2); CREATININE FOR GFR 1.24 MG/DL (0.70-1.30); GLOMERULAR FILTRATION RATE 59.6 (>35); POTASSIUM SERUM 3.9 MEQ/L (3.5-5.1)
[2018-11-02] MEDS: SLF 3 ML SYR IV SCH ×3 (05:43→20:58)
[2018-11-02] MEDS: HumaLOG INSULIN (NovoLOG) PER UNIT SC SCH ×4 (07:30→20:56)
[2018-11-02 08:00] VITALS: BP 112/61
[2018-11-02] MEDS: SENNA 8.6 MG TAB (SENOKOT) PO SCH (08:49)
[2018-11-02] MEDS: MAGNESIUM CITRATE 300 ML BTL PO SCH (08:49)
[2018-11-02] MEDS: MOM 30ML SUSPENSION UDC PO SCH (08:49)
[2018-11-02] MEDS: PANTOPRAZOLE 40MG TAB (PROTONIX) PO SCH (08:50)
[2018-11-02] MEDS: DOCUSATE SODIUM 100 MG CAP PO SCH (08:50)
[2018-11-02] MEDS: CARVedilol 6.25 MG TAB PO SCH ×2 (08:51→20:58)
[2018-11-02] MEDS: PREPARATION H SUPP (HEMORRHOID) PR SCH ×2 (09:00→20:55)
--- NOTE | 2018-11-02 09:03 | IPN ---
DATE: 11/01/2018 Patient in the progressive care unit. He was admitted with lower gastrointestinal (GI) bleed. He is on Xarelto for thromboembolic prophylaxis for atrial fibrillation, history of coronary artery disease with myocardial infarction 09/2017, hypertension, type 2 diabetes. Consult was obtained from Dr. Garcia. Blood pressure 127/65, pulse 69, respirations 20, temperature 99, oxygen saturation 95% on room air. Patient is alert and oriented times three. Pharynx, tongue and gums pink and moist. Tongue is midline. Neck is supple without lymphadenopathy, no thyromegaly. No goiter. Chest clear to auscultation without wheeze or retraction. Heart is regular. Abdomen is sotf. Bowel sounds positive. Genitourinary ()/rectal not done. Extremities no cyanosis, clubbing or edema. Peripheral pulses equal and palpable bilaterally. Skin is warm and dry. IMPRESSION/PLAN: Gastrointestinal (GI) bleed. Xarelto remains on hold. Per consult of Dr. Garcia feels two possibilities, diverticular versus hemorrhoidal bleeding as the most likely etiologies. Other possibilities include benign versus malignant lesions. He has been placed on stool softeners. I spoke with Dr. Garcia. He stated he was going to discuss with Dr. Mercado to see if he could do a colonoscopy on him. If it is hemorrhoids, Dr. Garcia can band them in the office on Friday. Will plan a colonoscopy when his Xarelto has been out of his system long enough. He is on a clear liquid diet. Atrial fibrillation. Rhythm is controlled. Xarelto remains on hold. Diabetes. Continue sliding scale insulin with fingerstick blood sugars. Hyperlipidemia. Continue with atorvastatin 10 mg daily. MTDD
--- NOTE | 2018-11-02 10:09 | IPN ---
DATE: 11/02/2018 Zach is seen in the progressive care unit (PCU). He has had no recurrence of rectal bleeding. His Xarelto is on hold and he has a colonoscopy pending today, per patient. He has atrial fibrillation and his rate is well controlled. He diabetes is managed with fingerstick blood sugars and sliding scale coverage. No rectal bleeding chest pain or shortness of breath. PHYSICAL EXAMINATION: Vital signs stable. Blood pressure 112/61. General appearance: Well-developed, well-nourished, resting comfortably. Lungs clear. Heart irregular rate and rhythm. Rate of 60. Abdomen soft, nontender. No masses. No peripheral edema. LABS: White count 5.1, hemoglobin 11.7, platelets 204. Sodium 142, potassium 3.9, BUN 14, creatinine 1.2, glucose 118. IMPRESSION: 1. Rectal bleeding probably hemorrhoidal. Colonoscopy is pending. 2. Atrial fibrillation: Xarelto is on hold. This is to be restarted after discharge. 3. Diabetes: Sliding scale insulin till he is back on an assured diabetic diet. 4. Echocardiogram was ordered on admission. I am not sure why, but it looks essentially normal.
--- NOTE | 2018-11-02 12:03 | IPNPDOC ---
Text Note Date of Service The patient was seen on 11/02/18. NOTE 83y/o male with lower GI bleeding. He was evaluated by Dr. Garcia, and Dr. Mercado over the weekend. He had colonoscopy planned for this am, but Dr. Mercado is unavailable now. Therefore, I have been asked to do the procedure. No more complaints of bleeding overnight, and he claims that the prep worked well. He will be scheduled for the procedure this am. No changes to the H+P, consent is signed. Orville Meraz DO VS,Zack, I+O VS, Zack, I+O Laboratory Tests 11/02/18 04:20 Red Blood Count 4.24 L, Mean Corpuscular Volume 87.5, Mean Corpuscular Hemoglobin 27.6, Mean Corpuscular Hemoglobin Concent 31.5 L, Red Cell D istribution Width 14.9 H, Calcium Level 8.3 L Vital Signs Date Time Temp Pulse Resp B/P (MAP) Pulse Ox O2 Delivery O2 Flow Rate FiO2 11/02/18 08:51 64 112/61 11/02/18 08:00 98.0 18 99 10/30/18 15:07 Nasal Cannula 2.0 I&O- Last 24 Hours up to 6 AM 11/02/18 05:59 Intake Total 3000 ml Output Total 570 ml Balance 2430 ml KOFI MERAZ DO Nov 02, 2018 12:03
[2018-11-02] MEDS ORDERED: PROPOFOL 500 MG/50 ML VIAL As Ordered ONE (13:25)
--- NOTE | 2018-11-02 13:49 | ROOR ---
Patient Name: Zach Herbert Procedure Date: 11/02/2018 1:22 PM Date of : 1935 Age: 83 Room: [facility] Gender: Male Note Status: Finalized Procedure: Colonoscopy Indications: Hematochezia Providers: DO Chandan Fraser MD: 2. Inpatient 2. Inpatient Requesting Provider: Medicines: Propofol per Anesthesia Complications: No immediate complications. Procedure: Pre-Anesthesia Assessment: - Prior to the procedure, a History and Physical was performed, and patient medications and allergies were reviewed. The patient is competent. The risks and benefits of the procedure and the sedation options and risks were discussed with the patient. All questions were answered and informed consent was obtained. Patient identification and proposed procedure were verified by the physician, the nurse, the anesthesiologist and the process maintenance technician in the endoscopy suite. Mental Status Examination: alert and oriented. Airway Examination: normal oropharyngeal airway and neck mobility. Respiratory Examination: clear to auscultation. CV Examination: normal. Prophylactic Antibiotics: The patient does not require prophylactic antibiotics. Prior Anticoagulants: The patient has taken no previous anticoagulant or antiplatelet agents. ASA Grade Assessment: III - A patient with severe systemic disease. After reviewing the risks and benefits, the patient was deemed in satisfactory condition to undergo the procedure. The anesthesia plan was to use monitored anesthesia care (MAC). Immediately prior to administration of medications, the patient was re-assessed for adequacy to receive sedatives. The heart rate, respiratory rate, oxygen saturations, blood pressure, adequacy of pulmonary ventilation, and response to care were monitored throughout the procedure. The physical status of the patient was re-assessed after the procedure. The Colonoscope was introduced through the anus and advanced to the cecum, identified by appendiceal orifice and ileocecal valve. The colonoscopy was performed without difficulty. The patient tolerated the procedure well. Findings: Hemorrhoids were found on perianal exam. The perianal exam findings include non-thrombosed internal hemorrhoids and internal hemorrhoids that prolapse with straining, but spontaneously regress to the resting position (Grade II). Multiple small and large-mouthed diverticula were found in the entire colon. A 9 mm polyp was found in the ascending colon. The polyp was semi-pedunculated. The polyp was removed with a hot snare. Resection and retrieval were complete. Estimated blood loss was minimal. The exam was otherwise without abnormality on direct and retroflexion views. Impression: - Hemorrhoids found on perianal exam. - Non-thrombosed internal hemorrhoids and internal hemorrhoids that prolapse with straining, but spontaneously regress to the resting position (Grade II) found on perianal exam. - Diverticulosis in the entire examined colon. - One 9 mm polyp in the ascending colon, removed with a hot snare. Resected and retrieved. - The examination was otherwise normal on direct and retroflexion views. Recommendation: - [facility]. - Resume regular diet today. Steven Meraz DO 11/02/2018 1:49:16 PM This report has been signed electronically. Number of Addenda: 0 Note Initiated On: 11/02/2018 1:22 PM Estimated Blood Loss: Estimated blood loss was minimal.
[2018-11-02 14:45] VITALS: BP 140/58
[2018-11-02 16:00] VITALS: BP 148/62
[2018-11-02] MEDS: ADVAIR HFA 115/21MCG INHALER INH PRN (19:35)
[2018-11-02 20:00] VITALS: BP 164/72
[2018-11-02] MEDS: CYANOCOBALAMIN 500 MCG TAB PO SCH (20:55)
[2018-11-02] MEDS: ATORVASTATIN 10 MG TAB PO SCH (20:56)
[2018-11-02] MEDS: VITAMIN D 1,000 INTERNATIONAL UNITS TABLET PO SCH (20:56)
[2018-11-03] VITALS: BP 119/57
[2018-11-03 04:00] VITALS: BP 137/65
[2018-11-03] MEDS: SLF 3 ML SYR IV SCH (04:41)
[2018-11-03 06:13] LABS: HEMATOCRIT 34.8 % (42.0-52.0); HEMOGLOBIN 10.9 g/dl (13.5-17.5); MEAN CORPUSCULAR HEMOGLOBIN 27.4 pg (27.0-33.0); MEAN CORPUSCULAR HGB CONC 31.3 g/dl (32.0-36.5); MEAN CORPUSCULAR VOLUME 87.4 fl (80.0-96.0); PLATELET COUNT, AUTOMATED 192 10^3/uL (150-450); RED BLOOD COUNT 3.98 10^6/uL (4.30-6.10); WHITE BLOOD COUNT 5.1 10^3/uL (4.0-10.0)
[2018-11-03 06:41] LABS: BLOOD UREA NITROGEN 18 MG/DL (7-18); CALCIUM LEVEL 7.9 MG/DL (8.8-10.2); CARBON DIOXIDE LEVEL 29 MEQ/L (21-32); CHLORIDE LEVEL 107 MEQ/L (98-107); CREATININE FOR GFR 1.15 MG/DL (0.70-1.30); GLOMERULAR FILTRATION RATE > 60.0 (>35); GLUCOSE, FASTING 101 MG/DL (70-100); POTASSIUM SERUM 3.8 MEQ/L (3.5-5.1); SODIUM LEVEL 141 MEQ/L (136-145)
[2018-11-03] MEDS: ADVAIR HFA 115/21MCG INHALER INH PRN (07:14)
[2018-11-03] MEDS: HumaLOG INSULIN (NovoLOG) PER UNIT SC SCH ×2 (07:30→12:00)
[2018-11-03 08:00] VITALS: BP 137/65
[2018-11-03 08:38] VITALS: BP 146/52
[2018-11-03] MEDS: PREPARATION H SUPP (HEMORRHOID) PR SCH (08:38)
[2018-11-03] MEDS: PANTOPRAZOLE 40MG TAB (PROTONIX) PO SCH (08:38)
[2018-11-03] MEDS: CARVedilol 6.25 MG TAB PO SCH (08:38)
--- NOTE | 2018-11-03 21:49 | DSES ---
DATE OF ADMISSION: 10/30/2018 DATE OF DISCHARGE: 11/03/2018 CONSULTANTS: General surgery. PRIMARY CARE PROVIDER: Payal GUTIERREZ DIAGNOSES: Lower GI bleed. Atrial fibrillation. Diabetes. Chronic obstructive pulmonary disease (COPD). Hypertension. History of myocardial infarction ([place]). Morbid Obesity HOSPITALIZATION COURSE: Patient is 83-year-old male, presented to [facility] on October 30, 2018 with a complaint of blood per rectum. Patient seen by general surgery in the emergency room. Patient admitted under hospitalist service, place nothing by mouth, supported by IV fluids. Hemoglobin and hematocrit were monitored closely in the PCU. Patient Xarelto has been on hold since admission. Patient had a colonoscopy performed November 02, 2018. Patient was found to have hemorrhoids and diverticulosis. Patient tolerated the colonoscopy well. Later, patient restored on diet. Patient evaluated by physical therapy. On November 03, 2018, patient returned to his baseline. VITAL SIGNS ON DISCHARGE: Temperature 96.6, pulse 72, respiration rate is 20, blood pressure is 137/65, pulse oximetry 95% on room air. LABORATORY DATA ON DAY OF DISCHARGE: WBC 5.1, hemoglobin 10.9, hematocrit 34.8, platelet count is 192. Sodium is 141, potassium 3.8, chloride 107, carbon dioxide 29, BUN 19, creatinine 1.15. GFR greater than 60, fasting glucose is 101. Calcium is 7.9. IMAGING STUDIES: CT of the abdomen and pelvis with IV contrast demonstrated no acute abnormalities. No appendicitis. Sigmoid diverticulosis without acute diverticulitis. No free air or free fluid. Bilateral inguinal hernias. Sigmoid diverticulosis without acute diverticulitis. Chest x-ray demonstrates chronic pleural parenchymal scarring in left base. Otherwise, no acute disease. DISCHARGE MEDICATIONS: - albuterol 2.5 mg inhalation every 6 hours as needed for shortness of breath - atorvastatin 10 mg by mouth at bedtime - carvedilol 6.25 mg by mouth twice a day - vitamin D 1000 units by mouth at bedtime - vitamin B12 500 mcg by mouth at bedtime - glipizide 5 mg by mouth every day - hydrochlorothiazide/spironolactone 1 tablet by mouth every day - losartan 50 mg by mouth at bedtime - Xarelto 20 mg by mouth at bedtime - Advair 1 puff inhalation twice a day as needed - tramadol 50 mg by mouth twice a day as needed for pain DISCHARGE INSTRUCTIONS: Discontinue lines. Discharge home. Activity as tolerated. Low salt consistent carbohydrate diet as tolerated. Patient should followup with primary care provider in one week. Due to the significant cardiac history risks and benefits explained to the patient. Patient agreed with starting the Xarelto, but he is aware of the recurrence of the bleeding and patient instructed to contact healthcare provider if there is a recurrence of the symptoms. Patient is instructed to followup with primary care provider in one week after discharge. DISCHARGE CONDITION: Fair. DISCHARGE TIME: Greater than 30 minutes. MTDD
== END 2018-11-03 12:55 | disposition home or self-care (01) | DRG 378 ==
LOC: M ED 14:21 → M ED INP 20:03 → M PCU 22:45
PROVIDERS: ADMIT Internal Medicine; ATTEND Internal Medicine
PROC: 0DBK8ZX Excision of Ascending Colon, Via Natural or Artificial Opening Endoscopic, Diagnostic (ICD-10-PCS; principal; 2018-11-02 15:00)
DX: K62.5 Hemorrhage of anus and rectum (principal); Z68.42 Body mass index [BMI] 45.0-49.9, adult; K64.1 Second degree hemorrhoids; I10 Essential (primary) hypertension; J44.9 Chronic obstructive pulmonary disease, unspecified; E11.9 Type 2 diabetes mellitus without complications; I48.91 Unspecified atrial fibrillation; I25.2 Old myocardial infarction; E66.01 Morbid (severe) obesity due to excess calories; K57.31 Diverticulosis of large intestine without perforation or abscess with bleeding; D12.2 Benign neoplasm of ascending colon; Z79.01 Long term (current) use of anticoagulants; Z96.612 Presence of left artificial shoulder joint; Z90.2 Acquired absence of lung [part of]; Z79.891 Long term (current) use of opiate analgesic; Z79.84 Long term (current) use of oral hypoglycemic drugs; Z79.899 Other long term (current) drug therapy; Z88.8 Allergy status to other drugs, medicaments and biological substances

== ENCOUNTER 2018-11-20 14:39 | Observation (INO) | payer MEDICARE, MEDICAID ==
[~2018-11-20] VITALS: Ht 182.9 cm; Wt 160.2 kg
[~2018-11-20 14:39] MED LIST changes: +ATOR1TAB19 PO; +CARV6.25 PO; +COZA50TA PO; +GLIP5TAB20 PO; +MUPI2OI TOP; +TRAM50TA2 PO; +TRAMADOL; +XARE20TA PO; +[UNRECOGNIZED DRUG - CODE]
[2018-11-20] MEDS ORDERED: CARB1CAP3 PO (15:14)
[2018-11-20] MEDS ORDERED: VALA1TAB2 PO (15:14)
[2018-11-20] MEDS ORDERED: NS 1,000 ML IV SCH (15:18)
[2018-11-20 15:25] LABS: BASO % 0.4 % (0.0-1.0); HEMATOCRIT 41.4 % (42.0-52.0); HEMOGLOBIN 13.4 g/dl (13.5-17.5); LYMPH % 9.5 % (24.0-44.0); MEAN CORPUSCULAR HGB CONC 32.4 g/dl (32.0-36.5); MEAN CORPUSCULAR VOLUME 86.6 fl (80.0-96.0); MONO # 0.9 10^3/uL (0.0-0.8); MONO % 9.1 % (0.0-5.0); NEUTROPHILS # 8.2 10^3/uL (1.8-7.7); NEUTROPHILS % 80.4 % (36.0-66.0); PLATELET COUNT, AUTOMATED 322 10^3/uL (150-450); RED BLOOD COUNT 4.78 10^6/uL (4.30-6.10); WHITE BLOOD COUNT 10.1 10^3/uL (4.0-10.0)
[2018-11-20 15:30] LABS: INR 1.36
[2018-11-20] MEDS ORDERED: PANTOPRAZOLE 40MG INJ (PROTONIX) (C9113) IV ONE (15:30)
[2018-11-20 15:42] LABS: ALBUMIN 3.5 GM/DL (3.2-5.2); ALT/SGPT 26 U/L (12-78); BILIRUBIN,DIRECT 0.1 MG/DL (0.0-0.2); BILIRUBIN,TOTAL 0.4 MG/DL (0.2-1.0); BLOOD UREA NITROGEN 27 MG/DL (7-18); CALCIUM LEVEL 8.7 MG/DL (8.8-10.2); CARBON DIOXIDE LEVEL 25 MEQ/L (21-32); CHLORIDE LEVEL 103 MEQ/L (98-107); CK-MB VALUE MASS < 1.0 NG/ML (<3.6); CPK CREATINE PHOSPHOKINASE 40 U/L (39-308); GLOMERULAR FILTRATION RATE 56.4 (>35); GLUCOSE, FASTING 89 MG/DL (70-100); LIPASE 196 U/L (73-393); POTASSIUM SERUM 4.7 MEQ/L (3.5-5.1); SODIUM LEVEL 137 MEQ/L (136-145); TOTAL PROTEIN 6.3 GM/DL (6.4-8.2); TROPONIN I < 0.02 NG/ML (< 0.10)
--- NOTE | 2018-11-20 16:10 | REP ---
CT abdomen and pelvis without IV or oral contrast: History: Gastrointestinal bleeding. Comparison CT study October 30, 2018. 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 The lung bases show fibroatelectatic changes in the left lung base, unchanged from the comparison study. There is a cyst in the right lobe of the liver, which is also unchanged. This measures 2.1 cm in greatest diameter. No other focal lesion is seen in the liver. The spleen is unremarkable. There is a small accessory splenule. No adrenal lesion is seen. No pancreatic abnormality is observed. There are renal cysts bilaterally including a hyperdense cyst at the mid pole level on the right which measures 1.8 cm, a lower pole cyst on the left measuring 7.7 cm, and an upper pole cyst on the left measuring 2.3 cm in diameter. There is no evidence of hydronephrosis on either side. No intrarenal calculus is seen. Vascular calcifications noted. No retroperitoneal mass or adenopathy is seen. Small bowel loops are unremarkable. There is diverticulosis affecting the colon. There is evidence of a small bowel anastomosis to the right of midline as before. No colonic mass lesion is seen. There is no CT evidence of diverticulitis. The diverticulosis is most pronounced in the left colon. Seminal vesicles, prostate and urinary bladder are unremarkable. Impression: Pancolonic diverticulosis. Status post small bowel anastomosis. Bilateral renal cortical cysts. Otherwise negative. Electronically Signed by Jeremy Ferrera MD 11/20/2018 04:28 P
[2018-11-20] MEDS ORDERED: GLUCAGON FOR INJ 1 MG VIAL (J1610) SC PRN (19:00)
[2018-11-20] MEDS ORDERED: ALBUTEROL SULFATE 2.5 MG/0.5 ML INH NEB SOLN INH PRN (19:00)
[2018-11-20] MEDS ORDERED: GLUCOSE 4 GM CHEW TABLET PO PRN (19:00)
[2018-11-20] MEDS ORDERED: ADVAIR HFA 115/21MCG INHALER INH PRN (19:00)
[2018-11-20] MEDS ORDERED: DEXTROSE 50% 50 ML SYRINGE IV PRN (19:00)
[2018-11-20] MEDS: NS 1,000 ML IV SCH (20:19)
--- NOTE | 2018-11-20 20:23 | HPE ---
DATE OF ADMISSION: 11/20/2018 This is an 83-year-old male with a past medical history of non-oxygen dependant COPD, diabetes, atrial fibrillation on Xarelto, coronary artery disease status-post MO in 09/2017 who presents to the emergency room with a chief complaint of bright red blood per rectum during bowel movements. It is painless in nature, similar to what he had in his prior admission where he was discharged approximately 2 weeks ago for the same thing. Dr. Garcia did a colonoscopy which did not show any obvious sites for bleeding. Patient was sent home on Xarelto once again and patient stated as of 2 days ago he started having active bleeding again but again he says it is only during his bowel movements. He denies any chest pain, shortness of breath, abdominal pain, nausea or vomiting, vertigo or headache. Vitals are stable. He will be admitted for further management. PAST MEDICAL HISTORY: Non-oxygen dependant COPD, history of atrial fibrillation on Xarelto, coronary artery disease status-post MO 09/2017. ALLERGIES: Cortisone. FAMILY HISTORY: Noncontributory. SOCIAL HISTORY: Patient denies tobacco, alcohol or illicit drugs. MEDICATIONS AT HOME: Albuterol as needed, atorvastatin 10 mg orally at bedtime, carbamazepine 200 mg twice a day, Coreg 6.25 mg orally twice a day, cholecalciferol 1000 units orally at bedtime, cyanocobalamin 500 mcg orally at bedtime, glipizide 5 mg orally daily, hydrochlorothiazide / spironolactone 1 tablet orally daily, losartan 50 mg orally at bedtime, rivaroxaban 20 mg orally at bedtime, fluticasone 1 puff inhaled twice daily as needed, valacyclovir 1 mg by mouth three times a day. REVIEW OF SYSTEMS: Negative for all 10 major systems except what was mentioned in the HPI. VITALS: Blood pressure 123/70, heart rate 73 and regular, respiratory rate 16, temperature 98.5, oxygen saturation 95% on room air. Head is atraumatic normocephalic. Neck is supple with no JVD Lungs are clear to auscultation S1, S2 audible. No murmurs appreciated. Abdomen soft and positive bowel sounds. No pedal edema. Skin is intact. Neurologic examination, patient is awake and alert times three. LABS: WBC 10.1, hemoglobin 13.4, hematocrit 41.4, platelets 322,000, sodium 137, potassium 4.7, chloride 103, CO2 25, BUN 27, creatinine 1.3, glucose 89. IMPRESSION: 1. GI bleed. PLAN: The patient is to be admitted to med-surg floor. I feel this is likely secondary to hemorrhoidal bleeding. Since only 2 weeks ago the colonoscopy was clean patient did note that after he wipes, he does not have another blood bowel movement until he has another bowel movement. We will not get Dr. Garcia just yet, I think we should observe this patient for 24 hours without Xarelto. If the patient does not have any further bleeding he should what his intended plan was as an outpatient with Dr. Garcia to have the hemorrhoids removed. We will continue his other preadmission medications other than Xarelto and monitor his hemoglobin and hematocrit. We will continue his care on the med-surg floor.
[2018-11-20 21:00] VITALS: BP 162/92
[2018-11-20] MEDS: VITAMIN D 1,000 INTERNATIONAL UNITS TABLET PO SCH (21:49)
[2018-11-20] MEDS: CYANOCOBALAMIN 500 MCG TAB PO SCH (21:49)
[2018-11-20] MEDS: ATORVASTATIN 10 MG TAB PO SCH (21:49)
[2018-11-20] MEDS: LOSARTAN 50 MG TAB PO SCH (21:50)
[2018-11-20] MEDS: CARVedilol 6.25 MG TAB PO SCH (21:50)
[2018-11-20 22:25] VITALS: BP 140/88
[2018-11-20] MEDS: carBAMazepine XR 100 MG TAB PO SCH (22:26)
[2018-11-21] MEDS: NS 1,000 ML IV SCH ×3 (01:38→21:52)
[2018-11-21 06:00] VITALS: BP 100/51
[2018-11-21 06:13] LABS: BASO % 0.6 % (0.0-1.0); EOS # 0.1 10^3/uL (0.0-0.50); HEMATOCRIT 37.8 % (42.0-52.0); LYMPH # 1.3 10^3/uL (1.5-4.5); LYMPH % 19.4 % (24.0-44.0); MEAN CORPUSCULAR HEMOGLOBIN 27.3 pg (27.0-33.0); MEAN CORPUSCULAR HGB CONC 31.7 g/dl (32.0-36.5); MEAN CORPUSCULAR VOLUME 85.9 fl (80.0-96.0); MONO # 0.9 10^3/uL (0.0-0.8); MONO % 12.5 % (0.0-5.0); NEUTROPHILS # 4.5 10^3/uL (1.8-7.7); NEUTROPHILS % 65.9 % (36.0-66.0); PLATELET COUNT, AUTOMATED 245 10^3/uL (150-450); WHITE BLOOD COUNT 6.8 10^3/uL (4.0-10.0)
[2018-11-21 06:32] LABS: BLOOD UREA NITROGEN 24 MG/DL (7-18); CARBON DIOXIDE LEVEL 25 MEQ/L (21-32); CHLORIDE LEVEL 105 MEQ/L (98-107); CREATININE FOR GFR 1.16 MG/DL (0.70-1.30); GLOMERULAR FILTRATION RATE > 60.0 (>35); GLUCOSE, FASTING 76 MG/DL (70-100); POTASSIUM SERUM 3.8 MEQ/L (3.5-5.1); SODIUM LEVEL 139 MEQ/L (136-145)
[2018-11-21] MEDS ORDERED: HumaLOG INSULIN (NovoLOG) PER UNIT SC SCH (07:30)
[2018-11-21] MEDS ORDERED: GLUCAGON FOR INJ 1 MG VIAL (J1610) SC PRN (07:45)
[2018-11-21] MEDS ORDERED: DEXTROSE 50% 50 ML SYRINGE IV PRN (07:45)
[2018-11-21] MEDS ORDERED: GLUCOSE 4 GM CHEW TABLET PO PRN (07:45)
[2018-11-21] MEDS: SPIRONOLACTONE 25 MG TAB PO SCH (09:11)
[2018-11-21] MEDS: carBAMazepine XR 100 MG TAB PO SCH ×2 (09:11→21:50)
[2018-11-21] MEDS: hydroCHLOROthiazide 25 MG TAB PO SCH (09:11)
[2018-11-21] MEDS: CARVedilol 6.25 MG TAB PO SCH ×2 (09:15→21:51)
[2018-11-21] MEDS: traMADol 50 MG TAB PO PRN ×2 (11:30→21:54)
[2018-11-21] MEDS: HumaLOG INSULIN (NovoLOG) PER UNIT SC SCH ×3 (12:00→21:46)
[2018-11-21 14:00] VITALS: BP 112/62
[2018-11-21] MEDS: VITAMIN D 1,000 INTERNATIONAL UNITS TABLET PO SCH (21:50)
[2018-11-21] MEDS: LOSARTAN 50 MG TAB PO SCH (21:50)
[2018-11-21] MEDS: ATORVASTATIN 10 MG TAB PO SCH (21:51)
[2018-11-21] MEDS: CYANOCOBALAMIN 500 MCG TAB PO SCH (21:51)
[2018-11-21 22:00] VITALS: BP 124/59
[2018-11-22 06:00] VITALS: BP 149/72
--- NOTE | 2018-11-22 07:13 | IPN ---
DATE OF VISIT: 11/21/2018 SUBJECTIVE: Patient is seen and examined in the room today. The patient's last bowel movement was yesterday in the morning. Since then, the patient has not had any stool production. So, he is not sure whether he is continuing to have gastrointestinal (GI) bleed. During the encounter, patient is complaining about headache on the right temporal region. The patient had a similar episode in the past. The patient denies any acute complaints. OBJECTIVE: VITAL SIGNS: Temperature 97.9, pulse 61, respirations 18, blood pressure 100/51, pulse oximetry 94% in room air. GENERAL: Patient is alert and awake, mild distress, persistent right sided headache. HEENT: Normocephalic, atraumatic. Extraocular motors grossly intact. CARDIOVASCULAR: Positive S1 and S2. Regular rate. LUNGS: Clear to auscultation bilaterally. ABDOMEN: Soft, nontender, nondistended. Bowel sounds present. EXTREMITIES: No edema. LABORATORY DATA: WBC is 6.8, hemoglobin 12, hematocrit 37.8, platelet count is 245, sodium is 139, potassium 3.8, chloride 105, carbon dioxide 25, BUN 24, creatinine 1.16, GFR greater than 65, hemoglobin 76, calcium is 8. ASSESSMENT/PLAN: 1. Lower GI bleed. The patient had a similar episode previously. Patient was hospitalized from October 30 through November 03, 2018. The patient had a colonoscopy performed at that time. The patient was thought to have prolapsing internal hemorrhoids and patient also has diverticulosis throughout the entire colon. On the day of his last hospitalization, the patient's bleeding stopped, however due to significant cardiac history the patient's anticoagulant was restarted. According to the patient, the patient's bleeding started 2-3 days after discharge. Since admission, the patient has not had any stool production. Continue to follow the hemoglobin and hematocrit. The Xarelto is on hold at this moment. 2. Atrial fibrillation. Due to GI bleed, Xarelto is on hold. The patient's heart rate has been in the satisfactory range. The patient is on Coreg. 3. Diabetes, on insulin. The patient is currently nothing by mouth. 4. Chronic obstructive pulmonary disease (COPD). No exacerbation at this moment. 5. History of myocardial infarction in September 2017, on Coreg and atorvastatin. 6. Hypertension. On Coreg, hydrochlorothiazide, Cozaar. 7. Headache. Trial of tramadol. 8. Deep vein thrombosis (DVT) prophylaxis. Due to current GI bleed, anticoagulation is on hold. The patient will be on thromboembolic deterrent stockings (TEDS) and compression devices.
[2018-11-22] MEDS: HumaLOG INSULIN (NovoLOG) PER UNIT SC SCH ×4 (07:26→21:00)
[2018-11-22 08:32] LABS: HEMATOCRIT 37.4 % (42.0-52.0); HEMOGLOBIN 11.8 g/dl (13.5-17.5); MEAN CORPUSCULAR HEMOGLOBIN 27.5 pg (27.0-33.0); MEAN CORPUSCULAR HGB CONC 31.6 g/dl (32.0-36.5); MEAN CORPUSCULAR VOLUME 87.2 fl (80.0-96.0); PLATELET COUNT, AUTOMATED 209 10^3/uL (150-450); RED BLOOD COUNT 4.29 10^6/uL (4.30-6.10); WHITE BLOOD COUNT 5.9 10^3/uL (4.0-10.0)
[2018-11-22 08:51] LABS: BLOOD UREA NITROGEN 21 MG/DL (7-18); CALCIUM LEVEL 7.7 MG/DL (8.8-10.2); CARBON DIOXIDE LEVEL 27 MEQ/L (21-32); CHLORIDE LEVEL 105 MEQ/L (98-107); CREATININE FOR GFR 1.12 MG/DL (0.70-1.30); GLOMERULAR FILTRATION RATE > 60.0 (>35); GLUCOSE, FASTING 85 MG/DL (70-100); MAGNESIUM LEVEL 2.3 MG/DL (1.8-2.4); POTASSIUM SERUM 4.1 MEQ/L (3.5-5.1); SODIUM LEVEL 137 MEQ/L (136-145)
[2018-11-22] MEDS: carBAMazepine XR 100 MG TAB PO SCH ×2 (08:55→21:15)
[2018-11-22] MEDS: SPIRONOLACTONE 25 MG TAB PO SCH (08:56)
[2018-11-22] MEDS: hydroCHLOROthiazide 25 MG TAB PO SCH (08:56)
[2018-11-22] MEDS: CARVedilol 6.25 MG TAB PO SCH ×2 (08:59→21:17)
[2018-11-22] MEDS: traMADol 50 MG TAB PO PRN ×2 (09:01→21:16)
[2018-11-22] MEDS ORDERED: MIRALAX *UNIT DOSE* 17GM PACKET PO PRN (11:45)
[2018-11-22 14:00] VITALS: BP 141/66
--- NOTE | 2018-11-22 15:07 | IPNPDOC ---
Text Note Date of Service The patient was seen on 11/22/18. NOTE SUBJECTIVE: Patient is seen and examined in the room today. Patient has had no bowel movement since admission. He is not sure if he has active GI bleeding. Headache improved. Denies fever or chill. OBJECTIVE: VITAL SIGNS: Listed below. GENERAL: Alert and awake. No distress. HEENT: Normocephalic, atraumatic. Extraocular motors grossly intact. CARDIOVASCULAR: Positive S1 and S2. Regular rate. LUNGS: Clear to auscultation bilaterally. ABDOMEN: Soft, nontender, nondistended. Bowel sounds present. EXTREMITIES: No edema. LABORATORY DATA: Listed below. ASSESSMENT/PLAN: #. Lower GI bleed. - Similar episode occurred previously and patient was hospitalized from October 30 through November 03, 2018. Colonoscopy on 11/02/18 demonstrated prolapsing internal hemorrhoids and diverticulosis throughout the entire colon. Bleeding started 2-3 days after he restarted. - Since admission, the patient has not had any stool production. Continue to follow the hemoglobin and hematocrit. The Xarelto is on hold at this moment. Restart oral diet. - Physical therapy ordered. #. Atrial fibrillation. - Due to GI bleed, Xarelto is on hold. The patient's heart rate has been in the satisfactory range. The patient is on Coreg. #. Diabetes, on insulin. The patient is currently nothing by mouth. #. Chronic obstructive pulmonary disease (COPD). - No exacerbation at this moment. #. History of myocardial infarction in September 2017, on Coreg and atorvastatin. #. Hypertension. On Coreg, hydrochlorothiazide, Cozaar. #. Headache. Trial of tramadol. #. Deep vein thrombosis (DVT) prophylaxis. - Due to current GI bleed, anticoagulation is on hold. The patient will be on thromboembolic deterrent stockings (TEDS) and compression devices. VS,Fishbone, I+O VS, Fishbone, I+O Laboratory Tests 11/22/18 08:05 Red Blood Count 4.29 L, Mean Corpuscular Volume 87.2, Mean Corpuscular Hemoglobin 27.5, Mean Corpuscular Hemoglobin Concent 31.6 L, Red Cell Distribution Width 15.1 H, Calcium Level 7.7 L Vital Signs Date Time Temp Pulse Resp B/P (MAP) Pulse Ox O2 Delivery O2 Flow Rate FiO2 11/22/18 09:31 18 11/22/18 08:59 62 114/56 11/22/18 06:00 97.4 92 11/20/18 20:17 Room Air I&O- Last 24 Hours up to 6 AM 11/22/18 06:00 Intake Total 2850 ml Output Total 2775 ml Balance 75 ml LYNETTE CHUA DO Nov 22, 2018 15:07
[2018-11-22] MEDS: CYANOCOBALAMIN 500 MCG TAB PO SCH (21:14)
[2018-11-22] MEDS: LOSARTAN 50 MG TAB PO SCH (21:14)
[2018-11-22] MEDS: VITAMIN D 1,000 INTERNATIONAL UNITS TABLET PO SCH (21:14)
[2018-11-22] MEDS: ATORVASTATIN 10 MG TAB PO SCH (21:16)
[2018-11-22 22:00] VITALS: BP 123/57
[2018-11-23 06:00] VITALS: BP 138/69
[2018-11-23 06:08] LABS: HEMATOCRIT 37.1 % (42.0-52.0); HEMOGLOBIN 11.9 g/dl (13.5-17.5); MEAN CORPUSCULAR HEMOGLOBIN 27.7 pg (27.0-33.0); MEAN CORPUSCULAR HGB CONC 32.1 g/dl (32.0-36.5); MEAN CORPUSCULAR VOLUME 86.5 fl (80.0-96.0); PLATELET COUNT, AUTOMATED 196 10^3/uL (150-450); RED BLOOD COUNT 4.29 10^6/uL (4.30-6.10); WHITE BLOOD COUNT 5.4 10^3/uL (4.0-10.0)
[2018-11-23 06:35] LABS: BLOOD UREA NITROGEN 22 MG/DL (7-18); CALCIUM LEVEL 8.3 MG/DL (8.8-10.2); CARBON DIOXIDE LEVEL 27 MEQ/L (21-32); CHLORIDE LEVEL 105 MEQ/L (98-107); CREATININE FOR GFR 1.14 MG/DL (0.70-1.30); GLOMERULAR FILTRATION RATE > 60.0 (>35); GLUCOSE, FASTING 101 MG/DL (70-100); MAGNESIUM LEVEL 2.2 MG/DL (1.8-2.4); POTASSIUM SERUM 3.9 MEQ/L (3.5-5.1); SODIUM LEVEL 138 MEQ/L (136-145)
[2018-11-23] MEDS: HumaLOG INSULIN (NovoLOG) PER UNIT SC SCH ×2 (07:30→12:52)
[2018-11-23] MEDS: carBAMazepine XR 100 MG TAB PO SCH (09:20)
[2018-11-23] MEDS: SPIRONOLACTONE 25 MG TAB PO SCH (09:20)
[2018-11-23] MEDS: hydroCHLOROthiazide 25 MG TAB PO SCH (09:21)
[2018-11-23 09:24] VITALS: BP 114/68
[2018-11-23] MEDS: CARVedilol 6.25 MG TAB PO SCH (09:24)
--- NOTE | 2018-11-23 18:24 | DSES ---
DATE OF ADMISSION: 11/20/2018 DATE OF DISCHARGE: 11/23/2018 CONSULTANTS: None. PROCEDURES: None. PRIMARY CARE PROVIDER: YOLA Renae DISCHARGE DIAGNOSES: 1. Lower gastrointestinal (GI) bleed. 2. Atrial fibrillation on Xarelto. 3. Diabetes. 4. Chronic obstructive pulmonary disease (COPD). 5. History of myocardial infarction. 6. Hypertension. 7. Chronic headaches. HOSPITALIZATION COURSE: Patient is an 83-year-old gentleman who presented to [facility] on 11/20/2018 with complaint of lower GI bleed. Patient is admitted under hospitalist service. Patient's Xarelto is on hold. Patient's hemoglobin and hematocrit were observed closely, no transfusion needed. Prior to current admission, patient had a similar episode in the last hospitalization. Patient had a colonoscopy performed. Patient was found to have diverticulosis throughout the whole colon. Patient also has prolapsing hemorrhoid. The risks and benefits for anticoagulation were explained to the patient. On 11/23/2018, patient was determined to be stable for discharge. Patient has established with Dr. Garcia with regard to his internal hemorrhoids. After a long discussion, patient agreed to continue to hold the Xarelto. Patient will have possible prolapsing internal hemorrhoid fixation by Dr. Garcia within a week and patient should be evaluated by his senior it engineer and primary care provider with regard to his Xarelto continuation. OBJECTIVE: VITAL SIGNS: Temperature 97.9, pulse 80, respiratory rate 17, blood pressure 138/69, pulse oximetry 91% in room air. LABORATORY DATA: WBC 5.4, hemoglobin 11.9, hematocrit 37.1, platelet count 196, sodium 138, potassium 3.9, chloride 105, carbon dioxide 27, BUN 22, creatinine 1.14, GFR greater than 60, fasting glucose 101, calcium 8.3, magnesium 2.2. IMAGING STUDIES: CT of the abdomen and pelvis without contrast demonstrates pericolonic diverticulosis. Status post small bowel anastomosis. Bilateral renal cortical cysts. DISCHARGE MEDICATIONS: - albuterol 2.5 mg inhalation every 6 hours as needed for shortness of breath - atorvastatin 10 mg by mouth nightly - carbamazepine 100 mg by mouth twice a day - carvedilol 6.25 mg by mouth twice a day - vitamin D 1000 units by mouth nightly - vitamin B12 500 mcg by mouth nightly - glipizide 5 mg by mouth daily - hydrochlorothiazide/spironolactone 25/25 one tablet by mouth daily - losartan 50 mg by mouth nightly - Advair one puff inhalation twice a day as needed for shortness of breath DISCHARGE INSTRUCTIONS: Discontinue lines. Discharge home. Activity as tolerated. Consistent carbohydrate diet as tolerated. Patient agreed to continue to hold Xarelto. Patient has established with Dr. Garcia in the outpatient setting. Patient should follow with Dr. Garcia in 1 week with regard to his prolapsing internal hemorrhoid and patient should be evaluated by primary care provider and senior it engineer with regard to his long-term anticoagulation. DISCHARGE TIME: Greater than 30 minutes. DISCHARGE CONDITION: Fair.
== END 2018-11-23 17:06 | disposition home or self-care (01) ==
LOC: M ED 14:39 → M ED INP 17:46 → M MSPAV 20:45
PROVIDERS: ADMIT Internal Medicine; ATTEND Internal Medicine
DX: K92.2 Gastrointestinal hemorrhage, unspecified (principal); I48.91 Unspecified atrial fibrillation; Z79.01 Long term (current) use of anticoagulants; E11.9 Type 2 diabetes mellitus without complications; J44.9 Chronic obstructive pulmonary disease, unspecified; I25.10 Atherosclerotic heart disease of native coronary artery without angina pectoris; I25.2 Old myocardial infarction; I10 Essential (primary) hypertension; R51 Headache; K57.90 Diverticulosis of intestine, part unspecified, without perforation or abscess without bleeding; Z79.51 Long term (current) use of inhaled steroids; Z79.84 Long term (current) use of oral hypoglycemic drugs; Z79.899 Other long term (current) drug therapy
CPT/HCPCS: 36415; 74176; 80048; 80076; 81001; 82550; 82553; 83690; 83735; 84484; 85025; 85027; 85610; 86850; 86900; 86901; 93041; 94640; 96361; 96374; 97161; 99285; C9113; G0378

== ENCOUNTER → 2018-12-04 | Outpatient (CLI) | payer MEDICARE, MEDICAID ==
[~2018-12-04] MED LIST changes: +CARB1CAP3 PO; +VALA1TAB2 PO; +VITA500T17 PO; -VITA500T53 PO
--- NOTE | 2018-12-04 15:17 | REP ---
CT BRAIN WITHOUT CONTRAST: HISTORY: Occipital neuralgia. Neck pain. Comparison head CT study is from December 11, 2010. CT FINDINGS: Digital preliminary tub attendant radiograph is unremarkable. The patient is edentulous. Bone window settings demonstrate an intact bony calvarium. There is partial opacification of the left maxillary sinus. Other paranasal sinuses are clear. Vascular calcification is seen in the distal carotid and distal vertebral artery distribution. There is diffuse cerebral atrophy again noted. There is no evidence of intracranial hemorrhage, extra-axial fluid collection, mass, or infarction. IMPRESSION: Vascular calcification and diffuse atrophy. Otherwise negative. No acute intracranial abnormality. Electronically Signed by Jeremy Ferrera MD 12/04/2018 08:08 P
--- NOTE | 2018-12-04 15:24 | REP ---
Study of the cervical spine without contrast: History: Occipital neuralgia. Neck pain. Spondylosis. Numbness. Comparison CT study of the cervical spine is from December 11, 2010. Technique: Helical scanning is acquired. 2 mm axial high resolution images are reformatted. Coronal and sagittal MPR images are generated. CT findings: Cervical vertebral body heights are preserved. There are degenerative spondylosis changes. 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 Osteoarthritic facet changes are noted in the mid cervical spine bilaterally. The right C2-3 facet joint is ankylosed. There is partial fusion of the C2-3 disc. There is no evidence of fracture or collapse. No malalignment is seen. A mild levoconvex curvature is noted on coronal multiplanar reformation images. No bony destructive lesion is seen. At the C4-5 disc level, there is moderate left-sided uncovertebral spurring producing neural foraminal narrowing. At C5-6, there is diffuse disc bulging and posterior osteophytic ridging. This appears to narrow the central canal. Bilateral uncovertebral spurring is present at C5-6. At C6-C7 and C7-T1, there is no significant abnormality. Impression: Degenerative spondylosis as noted above. Uncovertebral spurring is noted bilaterally at C5-6 and on the left at C4-5. These findings appear somewhat more prominent than on the November 2010 prior study. Electronically Signed by Jeremy Ferrera MD 12/04/2018 08:09 P
== END ==
LOC: M RAD 11:51
PROVIDERS: ATTEND Psychiatry & Neurology Neurology
DX: M54.81 Occipital neuralgia (principal); M54.2 Cervicalgia; M47.812 Spondylosis without myelopathy or radiculopathy, cervical region

== ENCOUNTER 2019-03-21 13:34 | Emergency (ER) | payer MEDICARE, MEDICAID ==
[~2019-03-21] VITALS: Ht 182.9 cm; Wt 154.6 kg
[2019-03-21 14:27] LABS: BASO % 0.5 % (0.0-1.0); EOS # 0.1 10^3/uL (0.0-0.50); EOS % 2.2 % (0.0-3.0); HEMOGLOBIN 13.7 g/dl (13.5-17.5); LYMPH # 0.9 10^3/uL (1.5-4.5); LYMPH % 15.7 % (24.0-44.0); MEAN CORPUSCULAR HEMOGLOBIN 27.8 pg (27.0-33.0); MEAN CORPUSCULAR HGB CONC 31.9 g/dl (32.0-36.5); MEAN CORPUSCULAR VOLUME 87.2 fl (80.0-96.0); MONO # 0.7 10^3/uL (0.0-0.8); MONO % 12.6 % (0.0-5.0); NEUTROPHILS # 3.8 10^3/uL (1.8-7.7); NEUTROPHILS % 68.6 % (36.0-66.0); PLATELET COUNT, AUTOMATED 234 10^3/uL (150-450); RED BLOOD COUNT 4.93 10^6/uL (4.30-6.10); WHITE BLOOD COUNT 5.6 10^3/uL (4.0-10.0)
[2019-03-21 14:57] LABS: BLOOD UREA NITROGEN 30 MG/DL (7-18); CARBON DIOXIDE LEVEL 25 MEQ/L (21-32); CHLORIDE LEVEL 107 MEQ/L (98-107); CPK CREATINE PHOSPHOKINASE 55 U/L (39-308); CREATININE FOR GFR 1.21 MG/DL (0.70-1.30); GLOMERULAR FILTRATION RATE > 60.0 (>35); GLUCOSE, FASTING 116 MG/DL (70-100); MB/CK RELATIVE INDEX 1.82 (< OR =4); POTASSIUM SERUM 4.6 MEQ/L (3.5-5.1); SODIUM LEVEL 140 MEQ/L (136-145); TROPONIN I < 0.02 NG/ML (< 0.10)
[2019-03-21 15:30] LABS: NT-PRO BNP 260 PG/ML (<450)
[2019-03-21] MEDS ORDERED: ISOVUE-370 76% 100ML VIAL (Q9967) As Ordered ONE (15:37)
[2019-03-21] MEDS ORDERED: MECLIZINE 25 MG TABLET PO ONE (17:00)
[2019-03-21] MEDS ORDERED: MECL-68 PO (18:48)
[2019-03-21 18:57] VITALS: BP 113/56
--- NOTE | 2019-03-21 21:31 | ECGEPIP ---
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
--- NOTE | 2019-03-22 07:53 | REP ---
CT of the chest with IV contrast, CT pulmonary angiography: The study is performed contiguous with the abdomen/pelvis CT. There are no emboli in the pulmonary trunk. There are no emboli in the pulmonary artery lobe or segment branches. There are no infiltrates. There are no pleural effusions. There is a 1.1 cm nodule in the right lower lobe on image 57. This nodule measured 1.0 cm 12/11/2010. This nodule measured 1.1 centimeters on 09/07/2017. This is a stable lung nodule. No other lung nodules or masses are identified. There are no mediastinal, hilar or axillary, enlarged lymph nodes. The thoracic aorta is unremarkable. Cardiac size is normal. Impression: There are no pulmonary emboli. There are no infiltrates or pleural effusions. There is a stable right lower lobe 11 mm lung nodule Electronically Signed by Steven Mojica MD 03/21/2019 04:01 P
--- NOTE | 2019-03-22 07:53 | REP ---
CT of the abdomen and pelvis with IV contrast, without bowel contrast: The study is performed contiguous with the chest CT. Comparison is 11/20/2018. There is a hypodensity in the right lobe of the liver, unchanged, compatible with cyst. The hepatic parenchyma is otherwise unremarkable. The gallbladder is unremarkable. The pancreas, spleen, adrenals and kidneys are unchanged. There is a Bosniak type 1 right renal 2.0 cm cyst, unchanged. There is a Bosniak type 1 2.3 cm left renal cyst, unchanged. There is a Bosniak type 1 6.9 cm left renal cyst, unchanged. There is no hydronephrosis. No solid renal masses are identified. The abdominal aorta is R. There is no retroperitoneal adenopathy or mass. There is no bowel distension or obstruction. There is a small bowel anastomosis. This is unchanged. There are diverticula in the descending colon and sigmoid colon. There is no CT evidence of diverticulitis. Pelvis: The appendix is unremarkable. The terminal ileum is unremarkable. The bladder is unremarkable. There is no adenopathy or ascites. The pelvic bowel loops are unremarkable except for diverticulosis without diverticulitis. Impression: Descending colon and sigmoid colon diverticulosis without diverticulitis. Hepatic cyst, unchanged. Bilateral renal cortical cysts, unchanged. The appendix and terminal ileum are unremarkable. Electronically Signed by Steven Mojica MD 03/21/2019 04:07 P
--- NOTE | 2019-03-23 16:30 | REP ---
Portable chest, 02:09 p.m., single AP view with the patient semi upright: Comparisons are the PA and lateral chest day 09/07/2017 and portable chest dated 10/30/2018. There is chronic effacement of the left costophrenic angle, unchanged from both prior studies, likely a combination of parenchymal scarring and pleural adhesion. Lung up otherwise clear. Cardiac size is normal. The jimmie, mediastinum, skeletal structures are unremarkable. Impression: No acute cardiopulmonary findings. 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 Electronically Signed by Steven Mojica MD 03/21/2019 02:42 P
== END 2019-03-21 19:09 | disposition home or self-care (01) ==
LOC: M ED 13:34
DX: R06.00 Dyspnea, unspecified (principal); I44.0 Atrioventricular block, first degree; R91.1 Solitary pulmonary nodule; R42 Dizziness and giddiness; K57.30 Diverticulosis of large intestine without perforation or abscess without bleeding; K76.89 Other specified diseases of liver; N28.1 Cyst of kidney, acquired; I48.91 Unspecified atrial fibrillation; I25.10 Atherosclerotic heart disease of native coronary artery without angina pectoris; I25.2 Old myocardial infarction; I10 Essential (primary) hypertension; E78.5 Hyperlipidemia, unspecified; J44.9 Chronic obstructive pulmonary disease, unspecified; G89.29 Other chronic pain; R51 Headache; Z87.891 Personal history of nicotine dependence; E11.9 Type 2 diabetes mellitus without complications; Z79.84 Long term (current) use of oral hypoglycemic drugs; Z79.899 Other long term (current) drug therapy; Z88.8 Allergy status to other drugs, medicaments and biological substances
CPT/HCPCS: 71045; 71275; 74177; 80048; 82550; 82553; 83880; 84484; 85025; 93005; 93041; 94760; 99285; Q9967

== ENCOUNTER 2020-09-10 15:12 | Inpatient (IN) | payer MEDICARE, MEDICAID ==
[~2020-09-10] VITALS: Ht 182.9 cm; Wt 170.7 kg
[~2020-09-10 15:12] MED LIST changes: +AMLO1TAB24 PO; -AMLO5TAB6 PO; +MECL1TAB31 PO; -VALA1TAB2 PO; +VALA1TAB5 PO
--- OUTSIDE RECORDS SUMMARY | 2020-09-10 15:19 | CCD ---
Author Author [facility] Organization [facility] Address [address] [place] [address] Phone Care Team Providers Care Logistics Team Lead Name Role Phone Gama Fu PP [phone] [place], [facility] Unavailable [phone] [facility] Nurse, Practitioners Unavailable [phone] Ekta FARFAN, Dhaval Unavailable [phone] Serena FARFAN, Stanley Unavailable [phone] Reason for Referral No Reason for Referral Recorded Problems Includes: Active, inactive, and resolved Problems All Visits Effective Date(s) Provider Condition Stat us Sprain Thoracic 03/15/2020 Mackenzie L Ray DO Active Chest Pain 03/15/2020 Mackenzie L Ray DO Active Carcinoma in situ of skin, unspecified 04/22/2019 Donna white RN Active Note: per dermatology note d ated 04/22/19- located on upper back #1. Here for suture removal. Basal cell carcinoma of skin, unspecified 04/07/2019 Donna Andrade RN Active Note: per dermatology note d ated 04/07/19-BCC located on his upper back #2. by carolyn Irby Squamous cell carcinoma of skin, unspecified 04/07/2019 Annia Andrade RN Active Note: per dermatology note d ated 04/07/19- scc located on upper back #1 - carolyn Irby History of falling 02/03/2019 Pito Cheng DO Active Other abnormalities of gait and mobility 02/03/2019 Pito Cheng DO Active Mixed hyperlipidemia 01/05/2019 [facility] Nurse Active Hemorrhoids External 12/01/2018 [facility] Nurse Active Note: Dr. Edwards- enlarged an d needs to be excised under general anesthesia. Surgery will be scheduled in the near future. Blood in the Stool 11/05/2018 Gama JENNINGS Active Note: Unchanged - see 11/04 n ote Basal cell carcinoma skin/ right upper limb, inc shoulder Donna Andrade RN Active Note: 09/01/18- Carolyn Obri en DIE STAMPING PRESS OPERATOR 04/22/19 per dermatology note- located on upper back #2. Here for suture removal Sinusitis 07/06/2018 Kathryn Manley NP Active Headache Syndromes 11/24/2017 Gama JENNINGS Active Note: 12/09/17 [facility]--headache has improved signigicantly after prednisone and antibiotic treatment Diabetes Mellitus 10/20/2017 Gama JENNINGS Active Note: Unchanged Atrial Fibrillation 10/20/2017 Gama JENNINGS Active Note: Unchanged Heart disease, unspecified 12/25/2016 Gama JENNINGS Ac tive Note: 12/25/16 - [facility], Physician Care - Diastolic dysfunction12/09/17- cardiology consult-started atorvastatin Encounter for screening, unspecified 12/25/2016 Gama White Active Note: 12/25/16 - [facility], Physician Care Cardiology - Rish and functional assessment Imaging Studies Nonspecific Abnormal Findings Heart an d Coronary Circulation 12/13/2016 Gama JENNINGS Active Note: Steven Alcala 0 12/13L [facility] , mildly enlarged, L Ventricular - Pts ejection fractions estimated to be 60-65%. LV diastolic doppler - Altered Ventriculat relaxation with reversal of E/A pattern of flow. Mitral valve - mild valve insufficency . 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/2016 Gama JENNINGS Active Note: Unchanged - wall thick ening with hydrocele, referral to urology for eval Osteoarthritis Knee 09/17/2016 Gama JENNINGS Active Note: Unchanged Lumbar Radiculopathy 09/17/2016 Gama JENNINGS Active Note: Unchanged Vitamin D deficiency, unspecified 09/17/2016 Gama JENNINGS Active Note: Unchanged Chronic Obstructive Pulmonary Disease 07/14/2015 Pito Cheng DO Active Difficulty Breathing (dyspnea) 03/19/2015 Gama Callahan Active Note: Unchanged - baseline s abhishek lung changes, seen by dr garcía post infection, declines workup-- weight loss encouraged-- Esophageal Reflux 03/19/2015 Gama JENNINGS Active Note: Unchanged Impaired Fasting Glucose 03/19/2015 Gama JENNINGS Acti ve Note: Unchanged Internal Derangement of Knee 03/19/2015 Gama JENNINGS Active Note: Unchanged - 09/2015 [facility]- aggressive weight loss, options of vascosupplementation, cane use, physical therapy Obesity 11/30/2013 Gama JENNINGS Active Note: Unchanged - patient is working on activity-- LARYNGOPHARYNGEAL REFLUX 04/12/2013 Gama JENNINGS Acti ve Note: 06/09/12 ENT consult Sameera Kenny Seborrheic Keratosis 03/03/2013 Gama JENNINGS Active Note: 03/01/13 Carolyn Montelongo en, DIE STAMPING PRESS OPERATOR. Vitamin B12 Deficiency 01/20/2012 [place] JENNINGS Acti ve Note: Recheck 04/05. Allergic Rhinitis - Pollen 12/31/2011 Gama JENNINGS Ac tive Edema 12/31/2011 [place] JENNINGS Active Essential Hypertension Benign 12/31/2011 Gama JENNINGS Active Vocal Cord Polyp 12/31/2011 Gama JENNINGS Active Note: benign pathology Speech Phonation Dysphonia 09/26/2011 [place] JENNINGS Active Note: See report from Dr. Chu jackson dated 09/03/11. Assessment: reflux disease, right vocal process granuloma, a mass of the cricoid region on the left. Barium swallow will be done. Ulcer 08/01/2011 [place] JENNINGS Active Note: ulcer right vocal cord see report from [facility] dated 07/12/11 Concussion Unspecified 12/24/2010 [place] JENNINGS Acti ve Plan of Treatment Pending Tests Order Diagnosis Results Due Ordering Provi dixon Lab D-DIMER 05/22/20 Gama JENNINGS Lab PROBNP 05/22/20 Gama JENNINGS Referrals To Diagnosis Dermatology Routine General Medi beatriz Examination At a Health Care [facility] Note: Please schedule patient with provi dixon [facility] FOR EVAL AND REMOVAL RAISED LESION LEFT CHEEK AND BEHIND LEFT EAR, FULL SKIN CHECK, PT'S CONTACT #[phone] Cardiology Benign Essential Hyp ertension Note: patient with hx abnormal EKG, comp laining of CP and SOB, 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 see 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 yard 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 Dr Lyons for cataract clearance before april 12 patient's contact # [phone] Ortho Unilateral primary o steoarthritis, unspecified knee Note: Please schedule patient with [facility] for ongoing bilateral knee pain Ultrasound Referral Spermatocele of epid idymis, unspecified Note: Please schedule patient for test- dx is testicular pain and swelling Urology Left testicular pain Note: Please schedule patient with provi dixon swelling bilat, large hydroceles with wall thickening, enlarging, notes to Dr Dash please Cardiology Essential (primary) hypertension Note: Please schedule patient with provi dixon testicular surgery next friday, needs cardiac clearance [facility] please GI Lexx Cabrera Note: Anthony - sees Radha- erika eds colonoscopy General Surgery Melfely Note: Please schedule patient with provi dixon suzie Ortezjose for hemmorhoids hospital f.u for blood in stool, he saw him there-- Neurology Migraine w/o aura, n ot intractable, with status migrainosus Note: Please schedule patient with provi dixon sharp, right sided, recurrent headaches, to dr valentin's group please General Surgery Gaurang Cabrera Note: blood in the stool-- needs surgeon dr mock--hospital f.u bleeding, causing weakness ? internal hemmorhoids-- daily-- on xarelto-- has appt derm for basal cell removal fri and friday CT of his head-- Home Health Other abnormalities of gait and mobility Note: Please schedule patient with provi dixon for home health services- SN, PT Future Appointments Date Time Location Provider Chronic Disease Follow-up 09/11/2020 2:30PM [facility] Gama JENNINGS Future Tests Order Diagnosis Results Due Ordering Provid er Lab (CBC)COMPLETE BLOOD CNT 10/22/20 Gama JENNINGS Lab COMPREHENSIVE METABOLIC PANEL 10/22/20 Gama JENNINGS Lab HEMOGLOBIN A1C 10/22/20 Gama JENNINGS Lab LIPID PANEL 10/22/20 Gama JENNINGS Lab PROBNP 10/22/20 Gama JENNINGS Lab TSH 10/22/20 G[facility] JENNINGS Lab Vitamin D,25-HYDROXY 10/22/20 Gama JENNINGS Findings Encounter Date Ordered Clinical summary transmitted to referring provider electronically with reasonable certainty of receipt or receiving provider electronically through [employer] [facility] Acute L2 with Gama JENNINGS 05/22/2020 Ordered return to the clinic if conditio n worsens or new symptoms arise 6 months, sooner if quest or problems Acute L2 with Gama JENNINGS 05/22/2020 Ordered Clinical summary transmitted to referring provider electronically with reasonable certainty of receipt or receiving provider electronically through [employer] [facility] Acute L2 with Gama JENNINGS 04/18/2020 Ordered return to the clinic if conditio n worsens or new symptoms arise 6 months, sooner if quest or problems Acute L2 with Gama JENNINGS 04/18/2020 Ordered Clinical summary transmitted to referring provider electronically with reasonable certainty of receipt or receiving provider electronically through [employer] IO AHR with Gama JENNINGS 04/04/2020 Ordered return to the clinic if conditio n worsens or new symptoms arise 6 months, sooner if quest or problems AHR with Gama JENNINGS 04/04/2020 Ordered Clinical summary transmitted to referring provider electronically with reasonable certainty of receipt or receiving provider electronically through [employer] Acute L2 with Yi Drake FOREST FIRE EQUIPMENT OPERATOR 03/23/2020 Ordered Clinical summary transmitted to referring provider electronically with reasonable certainty of receipt or receiving provider electronically through [employer] [facility] Acute L1 with Mackenzie L Ray DO 03/15/2020 Return to the clinic if condition worsens or new sympt oms arise Acute L1 with Mackenzie L Ray DO 03/15/2020 Ordered Clinical summary transmitted to referring provider electronically with reasonable certainty of receipt or receiving provider electronically through [employer] [facility] Chronic Disease Follow-up with Gama JENNINGS 11/24/2019 Ordered return to the clinic if conditio n worsens or new symptoms arise 6 months, sooner if quest or problems Chronic Disease Follow-up with Gama JENNINGS 11/24/2019 Ordered Clinical summary transmitted to referring provider electronically or receiving provider electronically through [facility] Chronic Disease Follow-up with Gama JENNINGS 05/25/2019 Ordered return to the clinic if conditio n worsens or new symptoms arise 6 months, sooner if quest or problems Chronic Disease Follow-up with Gama JENNINGS 05/25/2019 Ordered Clinical summary transmitted to referring provider electronically or receiving provider electronically through [facility] AHR with Gama JENNINGS 02/02/2019 Ordered return to the clinic if condition worsens or n ew symptoms arise AHR with Gama JENNINGS 02/02/2019 Ordered Clinical summary transmitted to referring provider electronically or receiving provider electronically through [facility] Follow-up with Gama JENNINGS 11/30/2018 Ordered follow-up visit 7-10 days , any worsening symptoms before surgeon appt warrants reeval to the ER and stat surgeon referral due to weakness and continued bleeding he agrees, he also has recheck with dr madiha rangel this month Hospital Follow-up with Gama JENNINGS 11/30/2018 Ordered return to the clinic if condition worsens or n ew symptoms arise Hospital Follow-up with Gama JENNINGS 11/30/2018 Ordered Clinical summary transmitted to referring provider electronically or receiving provider electronically through [facility] Walk-In with Gama JENNINGS 11/20/2018 Ordered follow-up visit 3 months, any w orsening symptoms before surgeon appt warrants reeval to the ER he agrees, he also has recheck with dr madiha rnagel next month-- Walk-In with Gama JENNINGS 11/20/2018 Ordered return to the clinic if condition worsens or n ew symptoms arise Walk-In with Gama JENNINGS 11/20/2018 Ordered Clinical summary transmitted to referring provider electronically or receiving provider electronically through [facility] Hospital Follow-up with Gama JENNINGS 11/04/2018 Ordered follow-up visit 3 months, any w orsening symptoms before surgeon appt warrants reeval to the ER he agrees, he also has recheck with dr madiha rangel next month-- Hospital Follow-up with Gama JENNINGS 11/04/2018 Ordered return to the clinic if condition worsens or n ew symptoms arise Hospital Follow-up with Gama JENNINGS 11/04/2018 Ordered Clinical summary transmitted to referring provider electronically or receiving provider electronically through [employer] [facility] Chronic Disease Follow-up with Gama JENNINGS 09/21/2018 Ordered return to the clinic if condition worsens or n ew symptoms arise Chronic Disease Follow-up with Gama JENNINGS 09/21/2018 Ordered Clinical summary transmitted to referring provider electronically or receiving provider electronically through [employer] [facility] Walk-In with Pito Cheng DO 09/11/2018 Ordered fluids Walk-In with iPto Cheng DO 08/25 Ordered return to the clinic if condition worsens or n ew symptoms arise Walk-In with Pito Cheng DO 09/11/2018 Ordered Clinical summary transmitted to referring provider electronically or receiving provider electronically through [employer] [facility] Walk-In with Kathryn Manley NP 07/06/2018 Ordered return to the clinic if condition worsens or n ew symptoms arise Walk-In with Kathryn Manley NP 07/06/2018 Ordered Clinical summary transmitted to referring provider electronically or receiving provider electronically through [employer] [facility] Chronic Disease Follow-up with Gama JENNINGS 05/26/2018 Ordered return to the clinic if condition worsens or n ew symptoms arise Chronic Disease Follow-up with Gama JENNINGS 05/26/2018 Ordered Clinical summary transmitted to referring provider electronically or receiving provider electronically through [employer] [facility] Walk-In with Bessie Hayes NP 05/06/2018 Ordered disposition - Patient or zahra dhaliwal was instructed in use of antipyretics and decongestants. Also, the patient is to return if there is persistnece of fever for more than 48 hours, pain or other new significant symptoms Walk-In with Bessie Hayes NP 05/06/2018 Ordered return to the clinic if condition worsens or n ew symptoms arise Walk-In with Bessie Hayes NP 05/06/2018 Ordered Clinical summary transmitted to referring provider electronically or receiving provider electronically through [employer] [facility] Chronic Disease Follow-up with Gama JENNINGS 01/07/2018 Ordered return to the clinic if condition worsens or n ew symptoms arise Chronic Disease Follow-up with Gama JENNINGS 01/07/2018 Ordered Clinical summary transmitted to referring provider electronically or receiving provider electronically through [facility] Walk-In with Gama JENNINGS 11/28/2017 Ordered disposition - Also, the patient is to return or call for appointment if there is persistence of fever for more than 48 hours, pain or other new significant symptoms Walk-In with Gama JENNINGS 11/28/2017 Ordered follow-up visit Walk-In with Gama JENNINGS 01/2018 Ordered return to the clinic if condition worsens or n ew symptoms arise Walk-In with Gama JENNINGS 11/28/2017 Ordered Clinical summary transmitted to referring provider electronically or receiving provider electronically through [facility] Walk-In with Kathryn Manley NP 11/24/2017 Ordered return to the clinic if condition worsens or n ew symptoms arise Walk-In with Kathryn Manley NP 11/24/2017 Ordered Clinical summary transmitted to referring provider electronically or receiving provider electronically through [facility] Chronic Disease Follow-up with Gama JENNINGS 11/21/2017 Ordered return to the clinic if conditio n worsens or new symptoms arise keep appt in December sooner if quest or problems Chronic Disease Follow-up with Gama JENNINGS 11/21/2017 Ordered Clinical summary transmitted to referring provider electronically or receiving provider electronically through [facility] Hospital Follow-up with Gama JENNINGS 10/20/2017 Ordered return to the clinic if conditio n worsens or new symptoms arise with cardiology as discussed and here in 6 weeks, sooner if quest or problems Hospital Follow-up with Gama JENNINGS 10/20/2017 Ordered an ECG Emergency with Gama JENNINGS 2017 Ordered hospitalization admission to the emergency department (ER) to ER via ACLS; ER notified Emergency with Gama JENNINGS 10/14/2017 Ordered patient will call for appointment as needed Em ergency with Gama JENNINGS 10/14/2017 Ordered return to the clinic if condition worsens or n ew symptoms arise Emergency with Gama JENNINGS 10/14/2017 Ordered follow-up visit 6 months AHR--soooner if ques tions or problems Chronic Disease Follow-up with Gama JENNINGS 09/23/2017 Ordered home range of motion exercises Chronic Disease Follow-up with Gama JENNINGS 09/23/2017 Ordered moist heat Chronic Disease Follow-up with Gama JENNINGS 09/23/2017 Ordered return to the clinic if condition worsens or n ew symptoms arise Chronic Disease Follow-up with Gama JENNINGS 09/23/2017 Ordered Transition in care, clinical sum gama provided electronically through [employer] Chronic Disease Follow-up with Gama JENNINGS 09/23/2017 Ordered follow-up visit 6 months AHR--soooner if ques tions or problems Chronic Disease Follow-up with Gama JENNINGS 05/19/2017 Ordered home range of motion exercises Chronic Disease Follow-up with Gama JENNINGS 05/19/2017 Ordered moist heat Chronic Disease Follow-up with Gama JENNINGS 05/19/2017 Ordered return to the clinic if condition worsens or n ew symptoms arise Chronic Disease Follow-up with Gama JENNINGS 05/19/2017 Ordered Transition in care, clinical sum gama provided electronically through [employer] [facility] Chronic Disease Follow-up with Gama JENNINGS 05/19/2017 Ordered follow-up visit 6 months AHR--soooner if ques tions or problems Pre Op with Gama JENNINGS 12/09/2016 Ordered home range of motion exercises Pre Op with Gama JENNINGS 12/09/2016 Ordered moist heat Pre Op with Gama JENNINGS 7 Ordered return to the clinic if condition worsens or n ew symptoms arise Pre Op with Gama JENNINGS 12/09/2016 Ordered Transition in care, clinical sum gama provided electronically through [employer] [facility] Pre Op with Gama JENNINGS 12/09/2016 Ordered return to the clinic if condition worsens or n ew symptoms arise Same Day- In House Add On with Gama JENNINGS 10/31/2016 Ordered follow-up visit 6 months AHR--soooner if ques tions or problems Chronic Disease Follow-up with Gama JENNINGS 09/16/2016 Ordered home range of motion exercises Chronic Disease Follow-up with Gama JENNINGS 09/16/2016 Ordered moist heat Chronic Disease Follow-up with Gama JENNINGS 09/16/2016 Ordered return to the clinic if condition worsens or n ew symptoms arise Chronic Disease Follow-up with Gama JENNINGS 09/16/2016 Instructions for patient Walk-In with Pito Cheng DO 08/15/2016 Ordered follow-up visit Walk-In with Pito Cheng DO 08/15/2016 Ordered return to the clinic if condition worsens or n ew symptoms arise Walk-In with Pito Cheng DO 08/15/2016 OTC pain and fever relief as needed O TC plain Mucinex as needed push clear liquids finish all antibiotics as directed f/u if no improvement pt verbalizes understanding of plan of care Walk-In with Marisela Baltazar NP 07/24/2016 Ordered return to the clinic if condition worsens or n ew symptoms arise Walk-In with Marisela Baltazar NP 07/24/2016 Advised to push oral fluids and increa se rest. Call if no improvement in 48 hours or sooner with any new or worsening symptoms. Patient expressed understanding and agreed with plan Walk-In with Aidee Lopez NP 06/25/2016 Ordered return to the clinic if condition worsens or n ew symptoms arise Walk-In with Aidee Lopez NP 06/25/2016 Ordered follow-up visit 6 months AHR--soooner if ques tions or problems HTN Follow-up with Gama JENNINGS 03/12/2016 Ordered return to the clinic if condition worsens or n ew symptoms arise HTN Follow-up with Gama JENNINGS 03/12/2016 Ordered follow-up visit 6 months HTN an d chronic review--soooner if questions or problems AHR with Gama JENNINGS 09/13/2015 Ordered return to the clinic if condition worsens or n ew symptoms arise AHR with Gama JENNINGS 09/13/2015 Ordered return to the clinic if condition worsens or n ew symptoms arise Walk-In with Pito Cheng DO 07/07/2015 Ordered fluids Follow-up Acute with Gama juan NP 04/21/2015 Ordered return to the clinic if condition worsens or n ew symptoms arise Follow- up Acute with Gama Zambrano NP 04/21/2015 Ordered disposition - tylenol and/or mo akin as needed for pain or fever, and warm salt water gargles if tolerated. Change toothbrush in 2-3 days. Finish all antibiotics. Also, the patient is to return or call for appointment if there is persistence of fever for more than 48 hours, pain or other new significant symptoms Walk-In with Gama JENNINGS 04/12/2015 Ordered fluids Walk-In with Gama JENNINGS 04/12/20 15 Ordered return to the clinic if condition worsens or n ew symptoms arise Walk-In with Gama JENNINGS 04/12/2015 Ordered soft diet Walk-In with Gama JENNINGS 04/12/20 15 Ordered follow-up visit 4 months AHR, sooner if quest or problems HTN Follow-up with Gama JENNINGS 03/13/2015 Ordered return to the clinic if condition worsens or n ew symptoms arise HTN Follow-up with Gama JENNINGS 03/13/2015 Ordered follow-up visit 3 months for ht n and dyspnea, sooner if quest or problems Chronic Disease Follow-up with Gama JENNINGS 08/25 Ordered return to the clinic if condition worsens or n ew symptoms arise Chronic Disease Follow-up with Gama JENNINGS 09/05/2014 Ordered return to the clinic if condition worsens or n ew symptoms arise Diabetes Follow-up with Gama JENNINGS 07/04/2014 Ordered disposition - Patient or zahra dhaliwal was instructed in use of tylenol and/or motrin as needed for pain or fever, and mucinex if tolerated. Fluids, rest was advised. Also, the patient is to return or call for appointment if there is persistence of fever for more than 48 hours, pain or other new significant symptoms FOLLOW UP RECHECK with Gama JENNINGS 06/15/2014 Ordered return to the clinic if condition worsens or n ew symptoms arise FOLLOW UP RECHECK with Gama JENNINGS 06/15/2014 Ordered return to the clinic if conditio n worsens or new symptoms arise f/u three months, sooner if quest or problems HTN Follow-up with Gama JENNINGS 06/01/2014 Ordered follow-up visit 6 months HTN an d chronic review--soooner if questions or problems AHR with Gama JENNINGS 11/30/2013 Ordered return to the clinic if condition worsens or n ew symptoms arise AHR with Gama JENNINGS 11/30/2013 Discussed concerns about exercise Chronic Disease Foll ow-up with Gama JENNINGS 07/16/2013 Ordered follow-up visit three -four months, sooner if quest or problems Chronic Disease Follow-up with Gama JENNINGS 07/16/2013 Patient education about a proper diet Chronic Disease Follow-up with Gama JENNINGS 07/16/2013 Patient education about pain management Chronic Diseas e Follow-up with Gama JENNINGS 07/16/2013 Plan of care reviewed and agreed to : hypertension ma nagement Chronic Disease Follow-up with Gama JENNINGS 07/16/2013 This note to be sent along with proble m list, labs and EKG (if ordered) once reviewed. f/u here for chronic review, htn, etc in Nov, sooner if questions or problems PATIENT IS CLEARED FOR CATARACT SURGERY THE CASE WAS DISCUSSED WITH DR YESICA DAVEY WHO DID NOT SEE THE PATIENT BUT AGREES WITH PLAN OF CARE HTN Follow-up with Gama JENNINGS 03/22/2013 Ordered return to the clinic if condition worsens or n ew symptoms arise HTN Follow-up with Gama JENNINGS 03/22/2013 Discussed concerns about exercise Medication Follow-up with Gama JENNINGS 12/21/2012 Ordered follow-up visit three months, sooner if quest or problems Medication Follow-up with Gama JENNINGS 12/21/2012 Patient education about a proper diet Medication Follo w-up with Gama JENNINGS 12/21/2012 Patient education about pain management Medication Fol low-up with Gama JENNINGS 12/21/2012 Plan of care reviewed and agreed to : hypertension ma nagement Medication Follow-up with Gama JENNINGS 12/21/2012 Ordered follow-up visit in 3 months with Gama Gibson PA-C M 20 Minutes with Virginia JENNINGS 09/24/2012 Ordered return to the clinic if condition worsens or n ew symptoms arise M 20 Minutes with Virginia JENNINGS 09/24/2012 Ordered follow-up visit in 6 months M 20 Minutes with Garrick JENNINGS 07/06/2012 Ordered return to the clinic if condition worsens or n ew symptoms arise M 20 Minutes with Virginia JENNINGS 07/06/2012 Ordered follow-up visit in 6 months M 20 Minutes with Garrick JENNINGS 12/31/2011 Ordered return to the clinic if condition worsens or n ew symptoms arise M 20 Minutes with Virginia JENNINGS 12/31/2011 OTC MEDS [place] PRN PAIN. I WILL GRAN T REQUEST FOR ROUTINE MEDS HE HAS A F/U APPT WITH PCP MARLENA. [facility] IS AWARE THAT I GRANTED REQUEST M Same Day with Gama Zambrano NP 10/07/2011 Ordered return to the clinic if condition worsens or n ew symptoms arise M Same Day with Gama Zambrano [employer] O[employer] 10/07/2011 Ordered cool mist vaporizer M Same Day with Niya Larsen NP 09/10/2011 Ordered fluids M Same Day with Niya Larsen NP 09/10 Ordered return to the clinic if condition worsens or n ew symptoms arise M Same Day with Niya Larsen NP 09/10/2011 Ordered follow-up visit in 3 months M 20 Minutes with Garrick JENNINGS 07/16/2011 Ordered return to the clinic if condition worsens or n ew symptoms arise M 20 Minutes with Virginia JENNINGS 07/16/2011 Ordered return to the clinic if condition worsens or n ew symptoms arise M Same Day with Pito Cheng DO 07/04/2011 Ordered follow-up visit S/P hospitalization for lung resection M 20 Minutes with Virginia JENNINGS 01/15/2011 Ordered return to the clinic if condition worsens or n ew symptoms arise M 20 Minutes with Virginia JENNINGS 01/15/2011 Ordered follow-up visit in one week. Dr. Cheng read EKG as well, no acute problems, EKG sent to [facility]. Will call patient with results of labs and xray once available M 20 Minutes with Virginia JENNINGS 01/07/2011 Ordered return to the clinic if condition worsens or n ew symptoms arise M 20 Minutes with Virginia JENNINGS 01/07/2011 Ordered return to the clinic if condition worsens or n ew symptoms arise M 20 Minutes with Virginia JENNINGS 12/20/2010 Ordered return to the clinic if condition worsens or n ew symptoms arise M Same Day with Virginia JENNINGS 11/22/2010 Ordered fluids soft mechanical diet ad vised until ENT eval, will send paperwork to Dr smith for eval on Friday am-- spoke to his bilingual secretary today who will fax us a referral form, but advised pt as it is already 4pm, we will be unable to get him an appt time and date until early next week-- M Same Day with Gama JENNINGS 11/09/2010 Ordered return to the clinic if condition worsens or n ew symptoms arise M Same Day with Gama JENNINGS 11/09/2010 Assessments Includes: Assessments for all patient encounters Findings Encounter Date Atrial fibrillation rate controlled, fo llows with Dr Walsh--- changed to eliquis-- some dyspnea at times VERY LIMITED ACTIVITY-- Acute L2 with Gama JENNINGS 05/22/2020 Chest pain or discomfort none since las t visit CARDIOLOGY AWARE-- REFUSES FURTHER IMAGING AT THIS TIME Acute L2 with Gama JENNINGS 05/22/2020 Chronic obstructive pulmonary disease neb as needed - =- Acute L2 with Gama JENNINGS 05/22/2020 Diabetes mellitus new onset-- continue glipizide 5mg XL , watch diet--110 -120 no falls since last visit -- encouraged watching sugars to prevent hypoglycemia-- denies dizziness or symptoms at the time-- Acute L2 with Gama JENNINGS 05/22/2020 Disturbance of gait sitting takes 15-20 minutes to get his breathing but states this is due to his weight and declines further workup-- has to sleep on his left side refuses further workup 46 MINUTES face to face time spent with pt >50% counseling, coordination of care Acute L2 with Gama JENNINGS 05/22/2020 Headache syndromes improved-- sun and a llergies are triggers saw neuro-- doesnt feel he needs f.u had injection Acute L2 with Gama JENNINGS 05/22/2020 Herpes zoster (shingles) much improved, pain resolved, crusting now-- ok for flu shot, will do shingrix in the spring Acute L2 with Gama JENNINGS 05/22/[address] walsh-- chronic goals rev iewed-- Acute L2 with Gama MeghanDamaris JENNINGS 05/22/2020 Localized primary osteoarthritis of knee having weakness and pain-- tramadol helpful-- declines PT-- declines ortho -- not really moving-- Acute L2 with Gama Rosemadeline JENNINGS 05/22/2020 Morbid obesity bilat knee pain, still h aving some weakness but better than last visit-- really limiting mobiility due to knee pain and pt doesn't want to go back to ortho-- he finally agrees to PT-- no longer taking tramadol-- doesnt want anything controlled Acute L2 with Gama MeghanDamaris JENNINGS 05/22/2020 Atrial fibrillation rate controlled, fo llows with Dr Walsh--- changed to eliquis-- some dyspnea at times VERY LIMITED ACTIVITY-- Acute L2 with Gama MeghanDamaris JENNINGS 04/18/2020 Chest pain or discomfort STATES THE LEF T SIDED PAIN IS CHRONIC AND CARDIOLOGY AWARE-- REFUSES FURTHER IMAGING AT THIS TIME Acute L2 with Gama JENNINGS 04/18/2020 Chronic obstructive pulmonary disease neb as needed - =- Acute L2 with Gama JENNINGS 04/18/2020 Diabetes mellitus new onset-- continue glipizide 5mg XL , watch diet--110 fall per pt tripped over rug since last visit, was diff for to get him up-- encouraged watching sugars to prevent hypoglycemia-- denies dizziness or symptoms at the time-- Acute L2 with Gama MeghanDamaris JENNINGS 04/18/2020 Disturbance of gait sitting takes 15-20 minutes to get his breathing but states this is due to his weight and declines further workup-- has to sleep on his left side 46 MINUTES face to face time spent with pt >50% counseling, coordination of care Acute L2 with Gama MeghanDamaris JENNINGS 04/18/2020 Headache syndromes improved-- sun and a llergies are triggers saw neuro-- doesnt feel he needs f.u Acute L2 with Gama JENNINGS 04/18/2020 Herpes zoster (shingles) much improved, pain resolved , crusting now-- Acute L2 with Gama JENNINGS 04/18/[address] walsh-- chronic goals rev iewed-- Acute L2 with Gama JENNINGS 04/18/2020 Localized primary osteoarthritis of knee having weakness and pain-- tramadol helpful-- declines PT-- declines ortho -- not really moving-- Acute L2 with Gama JENNINGS 04/18/2020 Morbid obesity bilat knee pain, still h aving some weakness but better than last visit-- really limiting mobiility due to knee pain and pt doesn't want to go back to ortho-- he finally agrees to PT-- no longer taking tramadol-- doesnt want anything controlled Acute L2 with Gama JENNINGS 04/18/2020 Atrial fibrillation rate controlled, fo llows with Dr Walsh--- changed to eliquis-- some dyspnea at times VERY LIMITED ACTIVITY-- AHR with Gama JENNINGS 04/04/2020 Benign essential hypertension medicatio ns reviewed in detail today, see scanned hospital reports, imaging, discharge from 10/14 admission-- AHR with Gama JENNINGS 04/04/2020 Chest pain back, will check labs with scot mena today, see scanned ekg-- cardio appt-- AHR with Gama JENNINGS 04/04/2020 Chest pain or discomfort STATES THE LEF T SIDED PAIN IS CHRONIC AND CARDIOLOGY AWARE-- REFUSES FURTHER IMAGING AT THIS TIME AHR with Gama JENNINGS 04/04/2020 Chronic obstructive pulmonary disease neb as needed - =- AHR with Gama JENNINGS 04/04/2020 Diabetes mellitus new onset-- continue glipizide 5mg XL , watch diet--110 AHR with Gama JENNINGS 04/04/2020 Disturbance of gait sitting takes 15-20 minutes to get his breathing-- has to sleep on his left side 48 MINUTES face to face time spent with pt >50% counseling, coordination of care AHR with Gama JENNINGS 04/04/2020 Headache syndromes improved-- sun and a llergies are triggers saw neuro-- doesnt feel he needs f.u AHR with Gama JENNINGS 04/04/2020 Herpes zoster (shingles) MEDS BELOW DUE TO SEVERITY OF PAIN AND SYMPTOMS, RECHECK NEXT WEEK-- WATCH FOR S.S INFECTION-- KEEP COVERED UNTIL CRUSTING-- AHR with Gama JENNINGS 04/04/[address] walsh-- chronic goals rev iewed-- AHR with Gama JENNINGS 04/04/2020 Localized primary osteoarthritis of knee having weakness and pain-- tramadol helpful-- declines PT-- declines ortho -- not really moving-- AHR with Gama JENNINGS 04/04/2020 Morbid obesity AHR with Gama JENNINGS 04/04/2020 Routine history and physical AHR with Gama JENNINGS 06/2020 Herpes zoster without complications Acute L2 with Yi Drake [employer] OPERATOR 03/23/2020 Chest pain XR right ribs and PA ches t today showed no acute disease. EKG performed today in the office showed no changes. His oxygen saturation is not dropping even with ambulation so the likelihood of a pulmonary embolus is low. I explained to patient that I feel since his pain is reproducible on exam and located in the area of his back over his right ribs he may have sprained the area. It is possible that he is not using his cane in her with his walker correctly. He is agreed to go to physical therapy to see if they can help with his symptoms. He was advised that if his symptoms get significantly worse or are not improving in 2 weeks after going to physical therapy, he needs to contact our office and let us know. Greater than 40 minutes spent in office and coordinating care Acute L1 with Mackenzie Gavin DO 03/15/2020 Thoracic sprain Acute L1 with Mackenzie Gavin DO 03/15/2020 Atrial fibrillation rate controlled, fo llows with Dr Walsh--- changed to eliquis-- some dyspnea at times Chronic Disease Follow-up with Gama JENNINGS 11/24/2019 Benign essential hypertension medicatio ns reviewed in detail today, see scanned hospital reports, imaging, discharge from 10/14 admission-- Chronic Disease Follow-up with Gama JENNINGS 11/24/2019 Chest pain back, will check labs with scot mena today, see scanned ekg-- cardio appt-- Chronic Disease Follow-up with Gama JENNINGS 08/2019 Chest pain or discomfort states sharp scto steward, new lasting a few seconds on his left side- made cardiology aware today, also has le edema, labs ordered, furosemide started-- they will check on sooner appt-- he has been eating a lot of canned soups and processed foods-- encouraged to hold on this-- Chronic Disease Follow-up with Gama JENNINGS 11/24/2019 Chronic obstructive pulmonary disease neb as needed - =- Chronic Disease Follow- up with Gama JENNINGS 11/24/2019 Diabetes mellitus new onset-- continue glipizide 5mg XL , watch diet--110 Chronic Disease Follow-up with Gama JENNINGS 11/24/2019 Disturbance of gait sitting takes 15-20 minutes to get his breathing-- has to sleep on his left side one hour face to face time spent with pt >50% counseling, coordination of care Chronic Disease Follow-up with Gama JENNINGS 11/24/2019 Grief reaction prlonged, offered meds, counseling, pt declines, has good support with and family- grandchildren-- monitor-- if ANY worse before next appt sooner or call--he does nto want further meds at this time -- Chronic Disease Follow-up with Gama JENNINGS 11/24/2019 Headache syndromes improved-- sun and a llergies are triggers saw neuro-- doesnt feel he needs f.u Chronic Disease Follow-up with Gama JENNINGS 11/24/[address] walsh-- chronic goals rev iewed-- Chronic Disease Follow-up with Gama JENNINGS 11/24/2019 Localized primary osteoarthritis of knee having weakness and pain-- tramadol helpful-- declines PT-- declines ortho -- not really moving-- Chronic Disease Follow-up with Gama JENNINGS 11/24/2019 Morbid obesity Chronic Disease Follow-up with Gama JENNINGS 11/24/2019 Atrial fibrillation rate controlled, fo llows with Dr Walsh--- changed to eliquis-- some dyspnea at times Chronic Disease Follow-up with Gama JENNINGS 05/25/2019 Benign essential hypertension medicatio ns reviewed in detail today, see scanned hospital reports, imaging, discharge from 10/14 admission-- Chronic Disease Follow-up with Gama JENNINGS 05/25/2019 Chest pain left sided improved-- Chronic Disease Foll ow-up with Gama JENNINGS 05/25/2019 Chronic obstructive pulmonary disease neb as needed - =- Chronic Disease Follow- up with Gama JENNINGS 05/25/2019 Diabetes mellitus new onset-- continue glipizide 5mg XL , watch diet--110 Chronic Disease Follow-up with Gama JENNINGS 05/25/2019 Disturbance of gait sitting takes 15-20 minutes to get his breathing-- has to sleep on his left side 46 minutes face to face time spent with pt >50% counseling, coordination of care Chronic Disease Follow-up with Gama JENNINGS 05/25/2019 Grief reaction prlonged, offered meds, counseling, pt declines, has good support with and family- grandchildren-- monitor-- if ANY worse before next appt sooner or call-- Chronic Disease Follow-up with Gama JENNINGS 05/25/2019 Headache syndromes improved-- sun and a llergies are triggers saw neuro-- cleared for yearly on 05/10 visit Chronic Disease Follow-up with Gama JENNINGS 05/25/[address] walsh-- chronic goals rev iewed-- Chronic Disease Follow-up with Gama JENNINGS 05/25/2019 Localized primary osteoarthritis of knee having weakness and pain-- tramadol helpful-- declines PT-- declines ortho -- Chronic Disease Follow-up with Gama JENNINGS 05/25/2019 Morbid obesity Chronic Disease Follow-up with Gama JENNINGS 05/25/2019 Atrial fibrillation rate controlled, fo llows with Dr Walsh--- was admitted to [facility] sep and november AHR with Gama JENNINGS 02/02/2019 Benign essential hypertension medicatio ns reviewed in detail today, see scanned hospital reports, imaging, discharge from 10/14 admission-- AHR with Gama JENNINGS 02/02/2019 Chest pain left sided improved-- AHR with Gama Callahan 02/02/2019 Chronic obstructive pulmonary disease n eb as needed -=- bronchitis resolved from apr AHR with Gama JENNINGS 02/02/2019 Diabetes mellitus new onset-- continue glipizide 5mg XL , watch diet--blood sugar 167 yest, missed breakfast-- == doing great with weight loss, continue AHR with Gama JENNINGS 02/02/2019 Disturbance of gait a walker with brake s and seat wheels extra large due to limited mobility, bilat knee pain, osteo has been trialing reg old walker but has diff moving without wheels and cane is limited-- needs for ADLs room to room in house, walking, tolieting and needs seat due to COPD needs to rest between rooms AHR with Gama JENNINGS 02/02/2019 Headache syndromes improved-- sun and a llergies are triggers 48 minutes face to face time spent with pt >50% counseling, coordination of care AHR with Gama JENNINGS 02/02/[address] walsh-- chronic goals rev iewed-- AHR with Gama JENNINGS 02/02/2019 Localized primary osteoarthritis of knee refuses PT-- encouraged weight loss, activities-- will call if weakness or increased symptoms--did fall using lawnmower will send PT to the home for gait and balance eval and LE strengthening-- s.s reviewed AHR with Gama JENNINGS 02/02/2019 Routine history and physical AHR with Gama JENNINGS 06/2019 Abdominal pain Hospital Follow-up with Gama JENNINGS 11/30/2018 Atrial fibrillation rate controlled, co ntinue xarelto, -- sent back to ER last week for bleeding-- Hospital Follow-up with Gama JENNINGS 11/30/2018 Benign essential hypertension Hospital Follow-up with Gama JENNINGS 11/30/2018 Blood in the stool hospitalized from 10/30 to 11/03 for blood in the stool, CT, colonoscopy and endoscopy showed only a polyp and hemmorhoids-- path pending-- referred back last visit-- requesting new referral to surgeon because he can't be seen in [place] for 6 more weeks-- Hospital Follow-up with Gama JENNINGS 11/30/2018 Chronic obstructive pulmonary disease w as a bit tight with cold weather on dx but improving-- no wheezing or productive cough, will monitor-- Hospital Follow- up with Gama JENNINGS 11/30/2018 Diabetes mellitus noninsulin dept, a1c 6.1% at hospital per pt-- -- he will continue his oral meds and his sugars are ranging 110-120 without hypoglycemia-- his has been helping him watch his diet at home-- risk factors reviewed-- Hospital Follow-up with Gama JENNINGS 11/30/2018 Headache syndromes feels better since " shots in his head" at neuro-- helping=- follow up wiht them please-- 50 minutes face to face time with pt, on eval, plan of care >50% counseling, coordination of care Hospital Follow-up with Gama JENNINGS 11/30/2018 Migraine headache Hospital Follow-up with Gama JENNINGS 11/30/2018 Osteoarthritis of knee bothersome daily -- exericise encouraged, will help stools as well-- declines Pt- or ortho f.u-- Hospital Follow-up with Gama JENNINGS 11/30/2018 Trigeminal neuralgia ? causing headache s?? -- "shots in my head" from neuro--feeling a bit better-- Hospital Follow-up with Gama JENNINGS 11/30/2018 Abdominal pain Walk-In with Gama JENNINGS 11/21/19 19 Atrial fibrillation rate controlled, co ntinue xarelto, -- to the ER if recurrent GI bleeding-- sent by car today as not currently bleeding and vitals stable, Carolynn will drive-- Walk-In with Gama JENNINGS 11/20/2018 Benign essential hypertension Walk-In with Gama Callahan 11/20/2018 Blood in the stool hospitalized from 10/30 to 11/03 for blood in the stool, CT, colonoscopy and endoscopy showed only a polyp and hemmorhoids-- path pending-- requesting referral to dr orellana for hemorrhoid, done last visit but never heard, now again three days of symptoms with weakness and wobbly, sent back to the ER Walk-In with Gama JENNINGS 11/20/2018 Chronic obstructive pulmonary disease w as a bit tight with cold weather on dx but improving-- no wheezing or productive cough, will monitor-- Walk-In with Gama JENNINGS 11/20/2018 Diabetes mellitus noninsulin dept, a1c 6.1% at hospital per pt-- -- he will continue his oral meds and his sugars are ranging 110-120 without hypoglycemia-- his has been helping him watch his diet at home-- risk factors reviewed-- Walk-In with Gama JENNINGS 11/20/2018 Headache syndromes recurrent sinus infe ction and headache but maybe blood loss which pt now states has been the past couple of months but never said anything-- risks discussed and reviewed s/s stroke and to call 911 if occurs-- at this point will start referral to neuro for discharge because of recurrent, significant symptoms 45 minutes face to face time with pt, on eval, plan of care >50% counseling, coordination of care Walk-In with Gama JENNINGS 11/20/2018 Migraine headache Walk-In with Gama JENNINGS 11/21/19 19 Osteoarthritis of knee bothersome today -- exericise encouraged, will help stools as well-- declines Pt- or ortho f.u-- Walk-In with Gama JENNINGS 11/20/2018 Atrial fibrillation rate controlled, co ntinue xarelto, -- to the ER if recurrent GI bleeding-- HTN meds reviewed-- continue current and dr walsh aware -- Hospital Follow-up with Gama JENNINGS 11/04/2018 Benign essential hypertension Hospital Follow-up with Gama JENNINGS 11/04/2018 Blood in the stool hospitalized from 10/30 to 11/03 for blood in the stool, CT, colonoscopy and endoscopy showed only a polyp and hemmorhoids-- path pending-- requesting referral to dr orellana for hemorrhoid, done today-- Hospital Follow- up with Gama JENNINGS 11/04/2018 Chronic obstructive pulmonary disease w as a bit tight with cold weather on dx but improving-- no wheezing or productive cough, will monitor-- Hospital Follow- up with Gama JENNINGS 11/04/2018 Diabetes mellitus noninsulin dept, a1c 6.1% at hospital per pt-- -- he will continue his oral meds and his sugars are ranging 110-120 without hypoglycemia-- his has been helping him watch his diet at home-- risk factors reviewed-- will keep log for next visit-- Hospital Follow-up with Gama JENNINGS 11/04/2018 Headache syndromes recurrent sinus infe ction and headache but maybe blood loss which pt now states has been the past couple of months but never said anything-- risks discussed and reviewed s/s stroke and to call 911 if occurs-- will monitor-- 43minutes face to face time with pt, on eval, plan of care >50% counseling, coordination of care Hospital Follow-up with Gama JENNINGS 11/04/2018 Osteoarthritis of knee bothersome today -- exericise encouraged, will help stools as well-- declines Pt- or ortho f.u-- Hospital Follow-up with Gama JENNINGS 11/04/2018 Atrial fibrillation rate controlled, fo llows with Dr Walsh--- was admitted to [facility] sep and november Chronic Disease Follow-up with Gama JENNINGS 09/21/2018 Benign essential hypertension medicatio ns reviewed in detail today, see scanned hospital reports, imaging, discharge from 10/14 admission-- Chronic Disease Follow-up with Gama JENNINGS 09/21/2018 Chest pain left sided improved-- Chronic Disease Foll ow-up with Gama JENNINGS 09/21/2018 Chronic obstructive pulmonary disease n eb as needed -=- bronchitis resolved from apr Chronic Disease Follow-up with Gama JENNINGS 08/26 Diabetes mellitus new onset-- continue glipizide 5mg XL well controlled with diet changes-- long discussion on exercise and risk factors-- -- take sugars at home running 118-130's == doing great with weight loss, continue Chronic Disease Follow-up with Gama JENNINGS 09/21/2018 Headache syndromes improved-- has occas ional runny nose but watching allergy and sinus symptoms-- headaches improved since treated for infection-- 45 minutes face to face time spent with pt >50% counseling, coordination of care Chronic Disease Follow-up with Gama JENNINGS 09/21/[address] walsh-- chronic goals rev iewed-- Chronic Disease Follow-up with Gama JENNINGS 09/21/2018 Localized primary osteoarthritis of knee refuses PT-- encouraged weight loss, activities-- will call if weakness or increased symptoms-- Chronic Disease Follow-up with Gama JENNINGS 09/21/2018 Sinusitis improving, meds as ordered-- labs reviewed as below-- had previous temporal biopsy and CT due to significant symptoms previously-- Chronic Disease Follow-up with Gama JENNINGS 09/21/2018 Benign essential hypertension Walk-In with Pito tong DO 09/11/2018 Headache syndromes Walk-In with Pito Cheng DO 08/25 Hematochezia Walk-In with Pito Cheng DO 08/25 Sinusitis Walk-In with Pito Cheng DO 08/25 Sinusitis Walk-In with Kathryn Manley NP 07/06 Atrial fibrillation rate controlled, fo tiburcio with Dr Walsh--- was admitted to Sep and november Chronic Disease Follow-up with Gama JENNINGS 05/26/2018 Benign essential hypertension medicatio ns reviewed in detail today, see scanned hospital reports, imaging, discharge from 10/14 admission-- Chronic Disease Follow-up with Gama JENNINGS 05/26/2018 Chest pain left sided improved-- Chronic Disease Foll ow-up with Gama JENNINGS 05/26/2018 Chronic obstructive pulmonary disease n eb as needed -=- bronchitis resolved from apr Chronic Disease Follow-up with Gama JENNINGS 09/2017 Diabetes mellitus new onset-- continue glipizide 5mg XL well controlled with diet changes-- long discussion on exercise and risk factors-- -- take sugars at home running 118-130's == doing great with weight loss, continue Chronic Disease Follow-up with Gama JENNINGS 05/26/2018 Headache syndromes improved-- has occas ional runny nose but watching allergy and sinus symptoms-- headaches improved since treated for infection-- 45 minutes face to face time spent with pt >50% counseling, coordination of care Chronic Disease Follow-up with Gama JENNINGS 05/26/[address] walsh-- chronic goals rev iewed-- Chronic Disease Follow-up with Gama JENNINGS 05/26/2018 Localized primary osteoarthritis of knee refuses PT-- encouraged weight loss, activities-- will call if weakness or increased symptoms-- Chronic Disease Follow-up with Gama JENNINGS 05/26/2018 Assessment of cough Walk-In with Bessie Hayes NP 018 Bronchitis - EXACERBATION Walk-In with Bessie Hayes NP 05/06/2018 Atrial fibrillation rate controlled, fo tiburcio with Dr Walsh--- was admitted to [facility] sep Chronic Disease Follow-up with Gama JENNINGS 12/23 Benign essential hypertension medicatio ns reviewed in detail today, see scanned hospital reports, imaging, discharge from 10/14 admission-- Chronic Disease Follow-up with Gama JENNINGS 01/07/2018 Chest pain left sided improved-- Chronic Disease Foll ow-up with Gama JENNINGS 01/07/2018 Chronic obstructive pulmonary disease H Reynaldo HAS HIS NEBULIZER WHICH HE HASN'T USED UNTIL HIS HOSPITAL VISIT-- Chronic Disease Follow-up with Gama JENNINGS 01/07/2018 Diabetes mellitus new onset-- starting glipizide 5mg XL now that he is out of hospital-- take sugars at home running 118-130's == doing great with weight loss, continue Chronic Disease Follow-up with Gama JENNINGS 12/23 Headache syndromes resolved since sinus treatment last month 47 minutes face to face time spent with pt >50% counseling, coordination of care Chronic Disease Follow-up with Gama JENNINGS 01/07/2018 Hypertension Chronic Disease Follow-up with Gama JENNINGS 01/07/2018 Sinusitis resolved Chronic Disease Follow-up with Gama JENNINGS 01/07/2018 Atrial fibrillation rate controlled, continue current meds Walk-In with Gama JENNINGS 11/28/2017 Diabetes mellitus watch sugars while on prednisone-- s.s reviewed-- he will monitor and control with diet and lifestyle-- Walk-In with Gama JENNINGS 11/28/2017 Headache syndromes likely sinus at this point-- workup so far negative- though I did ask pt to watch for s.s worsening headache, stroke, etc and to call 911 this weekend if needed-- his and pt agree with plan of care today-- the case was discussed with dr Cheng who did not see the pt but agrees with plan of care today 50 minutes face to face time spent with pt >50% counseling, coordination of care see scanned ER notes labs imaging reviewed today Walk-In with Gama JENNINGS 11/28/2017 Hypertension encouraged no decongestant s, mucinex only-- fluids, saline nasal spray-- Walk-In with Gama JENNINGS 11/28/2017 Sinusitis Walk-In with Gama JENNINGS 11/29/19 18 Headache syndromes Walk-In with Kathryn Manley NP 11/24 Atrial fibrillation rate controlled, mcarthur s appt with Dr Walsh on the -- was admitted to [facility] Chronic Disease Follow-up with Gama JENNINGS 11/21/2017 Benign essential hypertension medicatio ns reviewed in detail today, see scanned hospital reports, imaging, discharge from 10/14 admission-- Chronic Disease Follow-up with Gama JENNINGS 11/21/2017 Chest pain left sided improved-- Chronic Disease Foll ow-up with Gama JENNINGS 11/21/2017 Chronic obstructive pulmonary disease H E HAS HIS NEBULIZER WHICH HE HASN'T USED UNTIL HIS HOSPITAL VISIT-- Chronic Disease Follow-up with Gama JENNINGS 11/21/2017 Diabetes mellitus new onset-- starting glipizide 5mg XL now that he is out of hospital-- take sugars at home running 120's == 47 minutes face to face time spent with pt today >50% counseling, coordination of care Chronic Disease Follow-up with Gama JENNINGS 11/21/2017 Atrial fibrillation rate controlled, mcarthur s appt with Dr Walsh on the -- was admitted to [facility] last visit Hospital Follow-up with Gama JENNINGS 10/20/2017 Benign essential hypertension medicatio ns reviewed in detail today, see scanned hospital reports, imaging, discharge from 10/14 admission-- Hospital Follow-up with Gama JENNINGS 10/20/2017 Chest pain left sided improved-- Hospital Follow-up with Rodolfo JENNINGS 10/20/2017 Chronic obstructive pulmonary disease H E HAS HIS NEBULIZER WHICH HE HASN'T USED UNTIL HIS HOSPITAL VISIT-- Hospital Follow-up with Gama JENNINGS 10/20/2017 Diabetes mellitus new onset-- starting glipizide 5mg XL now that he is out of hospital-- take sugars at home and call to donna BENNETT as previously discussed-- 45 minutes face to face time spent with pt today >50% counseling, coordination of care Hospital Follow-up with Gama JENNINGS 10/20/2017 Angina pectoris ? vs recurrent pneumoni a? 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 and states "why is my pulse not regular"-- 109 sugar today in office-- will address sugars after discharge-- 45 minutes total face to face time with pt on eval, coordination of care and transfer today-- med, allergy, problem list and last hospital visit from [facility] was sent with pt-- pt agrees to call here for f.u upon discharge and will have all notes, labs, imaging and EKGs sent here for chart Emergency with Gama JENNINGS 10/14/2017 Working diagnosis of acute myocardial infarction Emerg ency with Gama JENNINGS 10/14/2017 Allergic rhinitis due to pollen , dyspne a on exertion related to this and weight but states he feels good; pt declines further workup, will monitor-- has neb on hadn for winter if needed Chronic Disease Follow-up with Gama JENNINGS 09/23/2017 Asthma better, watch triggers-- decline s further pulm workup, healthy weight loss encouraged Chronic Disease Follow-up with Gama JENNINGS 08/27 Benign essential hypertension goals as below meds per cardiology Chronic Disease Follow-up with Gama JENNINGS 09/23/2017 Chronic obstructive pulmonary disease wi th exacerbation finish any antibiotics from the ER -- I am sending him to the lab now for recheck on imaging, today-- since his cough is still productive-- otherwise medications were reviewed and deep breath and cough exercises were encouraged-- neb three times daily this week as needed Chronic Disease Follow-up with Gama JENNINGS 08/27 Esophageal reflux well controlled, watch diet-- Chron ic Disease Follow-up with Gama JENNINGS 09/23/2017 Impaired fasting glucose his a1c is hig h but this is his first and in the setting of prednisone -- we will recheck off meds and I will see him after we recheck labs again in three weeks-- Chronic Disease Follow-up with Gama JENNINGS 09/23/2017 Localized primary osteoarthritis of knee has meloxicam, which works for him, I would rather not raise as it can affect renal function, he agrees-- exercise is encouraged-- or other options for treatment since symptoms are really limiting his ADLs, but saw Dr Preston and surgery is not an option-- Chronic Disease Follow-up with Gama JENNINGS 09/23/2017 Lumbar radiculopathy continue exercises at home, no longer using gabapentin, no new weakness or issues, will monitor 47 minutes face to face time with pt >50% counseling, coordination of care Chronic Disease Follow-up with Gama JENNINGS 09/23/2017 Obesity , morbidgoals as below, as well as health reminders, reviewed with pt today Chronic Disease Follow-up with Gama JENNINGS 08/27 Pneumonia Chronic Disease Follow-up with Gama JENNINGS 09/23/2017 Testicular hydrocele resolved with surgery with dr mikhail ansari in november-- Chronic Disease Follow-up with Gama JENNINGS 09/23/2017 Vitamin B12 deficiency due for labs, ordered-- Chroni c Disease Follow-up with Gama JENNINGS 09/23/2017 Allergic rhinitis due to pollen , dyspne a on exertion related to this and weight but states he feels good; pt declines further workup, will monitor-- has neb on hadn for winter if needed Chronic Disease Follow-up with Gama JENNINGS 05/19/2017 Asthma better, watch triggers-- decline s further pulm workup, healthy weight loss encouraged Chronic Disease Follow-up with Gama JENNINGS 04/26 Benign essential hypertension goals as below meds per cardiology Chronic Disease Follow-up with Gama JENNINGS 05/19/2017 Esophageal reflux well controlled, watch diet-- Chron ic Disease Follow-up with Gama JENNINGS 05/19/2017 Localized primary osteoarthritis of knee has meloxicam, which works for him, I would rather not raise as it can affect renal function, he agrees-- exercise is encouraged-- or other options for treatment since symptoms are really limiting his ADLs, but saw Dr Preston and surgery is not an option-- Chronic Disease Follow-up with Gama JENNINGS 05/19/2017 Lumbar radiculopathy continue exercises at home, no longer using gabapentin, no new weakness or issues, will monitor 47 minutes face to face time with pt >50% counseling, coordination of care Chronic Disease Follow-up with Gama JENNINGS 05/19/2017 Obesity , morbidgoals as below, as well as health reminders, reviewed with pt today Chronic Disease Follow-up with Gama JENNINGS 04/26 Testicular hydrocele resolved with surgery with dr mikhail ansari in november-- Chronic Disease Follow-up with Gama JENNINGS 05/19/2017 Vitamin B12 deficiency due for labs, ordered-- Chroni c Disease Follow-up with Gama JENNINGS 05/19/2017 Allergic rhinitis due to pollen , dyspne a on exertion related to this and weight but states he feels good; pt declines further workup, will monitor-- goals as below discussed nebulizer helpful Pre Op with Gama JENNINGS 12/09/2016 Asthma better, watch triggers-- decline s further pulm workup, healthy weight loss encouraged Pre Op with Gama JENNINGS 12/09/2016 Benign essential hypertension goals as below Pre Op with Rodolfo JENNINGS 12/09/2016 Esophageal reflux well controlled, watch diet-- Pre Op with Gama JENNINGS 12/09/2016 Localized primary osteoarthritis of the knee agrees to see ortho to consider effluxa since pt cannot tolerate cortisone-- or other options for treatment since symptoms are really limiting his ADLs, but saw Dr Preston and surgery is not an option-- Pre Op with Gama JENNINGS 12/09/2016 Lumbar radiculopathy continue exercises at home, as well as gabapentin, no new weakness or issues, will monitor 47 minutes face to face time with pt >50% counseling, coordination of care Pre Op with Gama JENNINGS 12/09/2016 Obesity , morbidgoals as below, as well as health reminders, reviewed with pt today Pre Op with Gama JENNINGS 12/09/2016 Testicular hydrocele plans for surgery through urology next friday but will need cardiology clearance first, from a medical standpoint, labs pending, but chronic conditions are optimally controlled for upcoming surgery exept cardio and dyspnea--pt is aware of moderate risk with obesity and risk factors-- Pre Op with Gama JENNINGS 12/09/2016 Vitamin B12 deficiency due for labs, ordered-- Pre Op with Gama JENNINGS 12/09/2016 Testicular neoplasm benign, with hydroc eles, enlarging-- thickening scrotum wall on US-- referred to urology Same Day- In House Add On with Gama JENNINGS 10/31/2016 Allergic rhinitis due to pollen , dyspne a on exertion related to this and weight but states he feels good; pt declines further workup, will monitor-- goals as below discussed nebulizer helpful Chronic Disease Follow-up with Gama JENNINGS 09/16/2016 Asthma better, watch triggers-- decline s further pulm workup, healthy weight loss encouraged Chronic Disease Follow-up with Gama JENNINGS 08/26 Benign essential hypertension goals as below Chronic Disease Follow-up with Gama JENNINGS 09/16/2016 Esophageal reflux well controlled, watch diet-- Chron ic Disease Follow-up with Gama JENNINGS 09/16/2016 Gastroenteritis fluids,rest, conservati ve care, symptoms are improving-- with viral component of cough and cold symptoms which he will watch Chronic Disease Follow-up with Gama JENNINGS 09/16/2016 Localized primary osteoarthritis of the knee agrees to see ortho to consider effluxa since pt cannot tolerate cortisone-- or other options for treatment since symptoms are really limiting his ADLs, but saw Dr Preston and surgery is not an option-- Chronic Disease Follow-up with Gama JENNINGS 08/26 Lumbar radiculopathy continue exercises at home, as well as gabapentin, no new weakness or issues, will monitor 47 minutes face to face time with pt >50% counseling, coordination of care Chronic Disease Follow-up with Gama JENNINGS 09/16/2016 Obesity goals as below, as well as health reminders, reviewed with pt today Chronic Disease Follow-up with Gama JENNINGS 09/16/2016 Vitamin B12 deficiency due for labs, ordered-- Chroni c Disease Follow-up with Gama JENNINGS 09/16/2016 Bulging lumbar disc Walk-In with Pito Cheng DO 07/26 Spermatocele on right Walk-In with Pito Cheng DO Acute sinusitis Walk-In with Marisela Baltazar [employer]MENT OPER[employer] 07/24 Acute suppurative otitis media left Walk-In with Marisela Baltazar [employer] E[employer]IPMENT OPERATOR 07/24/2016 Bronchitis Walk-In with Aidee Lopez NP 06/25/2016 Chronic obstructive pulmonary disease Walk-In with Aidee manzo NP 06/25/2016 Allergic rhinitis due to pollen , dyspne a on exertion related to this and weight but states he feels good; pt declines further workup, will monitor-- goals as below discussed nebulizer helpful HTN Follow-up with Gama JENNINGS 03/12/2016 Asthma better, watch triggers-- HTN Follow-up with Gama JENNINGS 03/12/2016 Benign essential hypertension goals as below HTN Foll ow-up with Gama JENNINGS 03/12/2016 Esophageal reflux well controlled, watch diet-- HTN F ollow-up with Gama JENNINGS 03/12/2016 Localized primary osteoarthritis of the knee agrees to see ortho to consider effluxa since pt cannot tolerate cortisone-- or other options for treatment since symptoms are really limiting his ADLs, but saw Dr Preston and surgery is not an option-- 40 min time spent with pt >50% counseling, coordination of care HTN Follow-up with Gama JENNINGS 03/12/2016 Obesity goals as below, as well as health reminders, reviewed with pt today HTN Follow-up with Gama JENNINGS 03/12/2016 Vitamin B12 deficiency due for labs, ordered-- HTN Fo llow-up with Gama JENNINGS 03/12/2016 Allergic rhinitis due to pollen , dyspne a on exertion related to this and weight; pt declines further workup, will monitor-- goals as below discussed nebulizer helpful AHR with Gama JENNINGS 09/13/2015 Asthma AHR with Gama JENNINGS 09/13/2015 Benign essential hypertension goals as below AHR with Gama JENNINGS 09/13/2015 Esophageal reflux well controlled, watch diet-- AHR with Rodolfo JENNINGS 09/13/2015 Localized primary osteoarthritis of the knee agrees to see ortho to consider effluxa since pt cannot tolerate cortisone-- or other options for treatment since symptoms are really limiting his ADLs AHR with Gama JENNINGS 09/13/2015 Normal routine history and physical see updated problem list above for impression and plan of any problems addressed today AHR with Gama JENNINGS 09/13/2015 Obesity goals as below, as well as health reminders, reviewed with pt today AHR with Gama JENNINGS 09/13/2015 Vitamin B12 deficiency due for labs, ordered-- AHR with Mino JENNINGS 09/13/2015 Acute bronchitis Walk-In with Pito Cheng DO 06/25 Benign essential hypertension Walk-In with Pito tong DO 07/07/2015 Acute bronchitis Follow-up Acute with Gama Smith yessica MEDEL 04/21/2015 Allergic rhinitis watch triggers-- Walk-In with Gama White 04/12/2015 Bronchitis tx as below-- declines nebs for home-- will treat allergies as well 44 min time spent with pt >50% counseling and coordination of care Walk-In with Gama JENNINGS 04/12/2015 Pharyngitis strep test was negative today Walk-In with Gama JENNINGS 04/12/2015 Allergic rhinitis due to pollen well controlled in winter HTN Follow-up with Gama JENNINGS 03/13/2015 Benign essential hypertension nuclear s tress, etc in 2010 wnl, pt declines further heart workup HTN Follow-up with Gama JENNINGS 03/13/2015 Esophageal reflux well controlled HTN Follow-up with Gama JENNINGS 03/13/2015 Grief reaction son passed this year-- g ood support with family, grieving discussed in detail 45 minutes time spent with pt and on eval, plan of care >50% counseling and coordination HTN Follow-up with Gama JENNINGS 03/13/2015 Impaired fasting glucose last labs revi ewed, watch refined sugars in the diet, carbs-- keep active, will continue to monitor HTN Follow-up with Gama JENNINGS 03/13/2015 Internal derangement of knee right want s to trial brace before imaging, ortho or PT HTN Follow-up with Gama JENNINGS 03/13/2015 Obesity HTN Follow-up with Gama JENNINGS Vitamin B12 deficiency HTN Follow-up with Gama JENNINGS 03/13/2015 Vocal cord polyp chronic, has seen spec ialist in the past, declines further workup HTN Follow-up with Gama JENNINGS 03/13/2015 Acute bronchitis with bronchospasm Walk-In with Chong Jacobs Do wney RPA-C 11/21/2014 Allergic rhinitis due to pollen well controlled in winter Chronic Disease Follow-up with Gama JENNINGS 09/05/2014 Benign essential hypertension nuclear s tress, etc in 2010 wnl, pt declines further heart workup for recent dypnea symptoms-- we had a long discussion on increasing activity and trying to get to a more healthy weight, and he agrees-- will incorporate less snacking and encouraged daily activity such as walking etc Chronic Disease Follow-up with Gama JENNINGS 08/25 Esophageal reflux well controlled Chronic Disease Fol low-up with Gama JENNINGS 09/05/2014 Impaired fasting glucose last labs revi ewed, watch refined sugars in the diet, carbs-- keep active, will continue to monitor Chronic Disease Follow-up with Gama JENNINGS 09/05/2014 Obesity Chronic Disease Follow-up with Gama JENNINGS 09/05/2014 Vitamin B12 deficiency Chronic Disease Follow-up with Gama JENNINGS 09/05/2014 Vocal cord polyp chronic, has seen spec ialist in the past, declines further workup Chronic Disease Follow-up with Gama JENNINGS 08/25 Hypertension much improved, continue your current med ications Diabetes Follow- up with Gama JENNINGS 07/04/2014 Internal derangement of knee rom, heat or ice- PT encouraged pt to do improved walking per pt Diabetes Follow-up with Gama JENNINGS 07/04/2014 Pneumonia 99% clinically improved per pt, check xray 07/16/2014 Diabetes Follow-up with Gama JENNINGS 07/04/2014 Urinary frequency resolved-- urine wnl Diabetes Follo w-up with Gama JENNINGS 07/04/2014 Hypertension improved when sitting in o ffice-- will monitor as symptoms improve FOLLOW UP RECHECK with Gama JENNINGS 06/15/2014 Internal derangement of knee rom, heat or ice- PT enc ouraged pt to do FOLLOW UP RECHECK with Gama JENNINGS 06/15/2014 Pneumonia see cxr, improved with zithro max, but still with fatigue and symptoms, and not cleared on xray-- will cover with levaquin-- FOLLOW UP RECHECK with Gama JENNINGS 06/15/2014 Urinary frequency recent, check urine, no gross hemat uria per pt FOLLOW UP RECHECK with Gama JENNINGS 06/15/2014 Allergic rhinitis due to pollen HTN Follow-up with Gama JENNINGS 06/01/2014 Benign essential hypertension HTN Follow-up with Gama White 06/01/2014 Impaired fasting glucose HTN Follow-up with Gama JENNINGS 06/01/2014 Internal derangement of knee bilateral arthritis-- will trial PT-- meloxicam, so will check labs to monitor renal function HTN Follow-up with Gama JENNINGS 06/01/2014 Obesity encouraged activities-- exercis e as tolerated-- portion control discussed HTN Follow-up with Gama JENNINGS 06/01/2014 Open wound next to right eye-- 2 weeks, 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 call 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 editor if not resolving in 1-2 weeks, continue aloe as ordered HTN Follow-up with Gama JENNINGS 06/01/2014 Pneumonia found on CXR< hold flu shot-- treatment as below-- meds discussed with and pt HTN Follow-up with Gama JENNINGS 06/01/2014 Vitamin B12 deficiency HTN Follow-up with Gama JENINNGS 06/01/2014 Essential hypertriglyceridemia Lab Order with Veronica KAUR 04/13/2014 Vitamin D deficiency Lab Order with Veronica KAUR 03/26 Allergic rhinitis due to pollen , dyspne a on exertion related to this and weight; pt declines further workup at this time, will monitor-- goals as below discussed AHR with Gama JENNINGS 11/30/2013 Benign essential hypertension goals as below AHR with Gama JENNINGS 11/30/2013 Esophageal reflux well controlled, watch diet-- AHR with Rodolfo JENNINGS 11/30/2013 Normal routine history and physical see updated problem list above for impression and plan of any problems addressed today. patient agrees to watch breathing and symptoms until next appt and let us know if worse, changes before AHR with Gama JENNINGS 11/30/2013 Obesity goals as below, as well as health reminders, reviewed with pt today AHR with Gama JENNINGS 11/30/2013 Vitamin B12 deficiency due for labs, ordered-- AHR with Mino JENNINGS 11/30/2013 Allergic rhinitis due to pollen zyrtec as needed, prosper ch triggers Chronic Disease Follow-up with Gama JENNINGS 07/16/2013 Assessment of the speech was dysphonic has had workup - benign, no new changes Chronic Disease Follow-up with Gama JENNINGS 07/16/2013 Benign essential hypertension goal <140 /90 watch salt, tolerating losartan, lasix for edema-- watching potassium levels LV wnl, fm hx -- sees Cardiology Dr Dumont Chronic Disease Follow-up with Gama JENNINGS 06/26 Familial hypertriglyceridemia due for labs, low chol diet ordered Chronic Disease Follow-up with Gama JENNINGS 07/16/2013 Obesity sob with exertion, wheezing at times, pt aware weight loss to help with joint pain, fatigue, etc declines sleep apnea eval Chronic Disease Follow-up with Gama JENNINGS 07/16/2013 Routine general medical exam at a health care facility Chronic Disease Follow-up with Gama JENNINGS 07/16/2013 Vitamin B12 deficiency per hx, will macrina ck with next set of labs, some fatigue per pt., blames on weight on daily replacement oral, which has been effective Chronic Disease Follow-up with Gama JENNINGS 07/16/2013 Benign essential hypertension cardiac c learance attached, pt is cleared from a cardiology standpoint for surgery HTN Follow-up with Gama JENNINGS 03/22/2013 Cataract postop care per opthamology HTN Follow-up with Mino JENNINGS 03/22/2013 Lung mass no malignancy per Dr García 06/2013, no further followup was needed, will send for pulmonary eval after surgery, can follow with oxygen saturations and monitoring throughout procedure period. CXR shows linear density, stable, no new changes HTN Follow-up with Gama JENNINGS 03/22/2013 Normal routine history and physical ; SEE UPDATED PROBLEM LIST FOR FURTHER DISCUSSION OF IMPRESSION AND PLAN FOR TODAYS PROBLEMS which are optimally controlled for upcoming surgery HTN Follow-up with Gama JENNINGS 03/22/2013 Vitamin B12 deficiency 03/08 labs show b12 wnl, contin ue current treatment HTN Follow-up with Gama JENNINGS 03/22/2013 Benign essential hypertension Medication Follow-up with Gama JENNINGS 12/21/2012 Familial hypertriglyceridemia Medication Follow-up with Gama JENNINGS 12/21/2012 Routine general medical exam at a health care facility Medication Follow-up with Gama JENNINGS 12/21/2012 Vitamin B12 deficiency Medication Follow-up with Gama MeghanDamaris White 12/21/2012 Benign essential hypertension M 20 Minutes with Virginia avelar PA 09/24/2012 Vitamin B12 deficiency M 20 Minutes with Virginia Conde P A 09/24/2012 Benign essential hypertension M 20 Minutes with Virginia avelar PA 07/06/2012 Essential hypertriglyceridemia M 20 Minutes with Virginia fritz PA 07/06/2012 Vitamin B12 deficiency M 20 Minutes with Virginia Conde P A 07/06/2012 Allergic rhinitis due to pollen M 20 Minutes with Virginia Conde PA 12/31/2011 Benign essential hypertension M 20 Minutes with Virginia avelar PA 12/31/2011 Acute upper respiratory infection M Same Day with Gama Zambrano [employer] OPERATOR 10/07/2011 Hypertension M Same Day with Gama kontt [employer]MENT OPERATOR 10/07/2011 Acute sinusitis M Same Day with Niya Larsen [employer]IPMENT OPERATOR 09/10 Hypertension M 20 Minutes with Virginia Conde PA 1 09/15/2010 Chronic bronchitis He has been coughin g up colored sputum intermittently for a month and more antibiotic and Mucinex. Discussed chest x-ray if not resolving His chronic cough may certainly be exacerbated by his FRANKLIN inhibitor I would switch that to an angiotensin receptor nagi M Same Day with Pito Cheng DO 07/04/2011 Hypertension not controlled meds titrated M Same Day with Pito Cheng DO 07/04/2011 Lung mass M 20 Minutes with Virginia JENNINGS 0 01/15/2011 Concussion M 20 Minutes with Virginia JENNINGS 0 12/20/2010 Dysphagia M Same Day with Virginia Conde PA Lung mass STEFFI 3.7cm M Same Day with Virginia JENNINGS 0 11/22/2010 Pneumonia M Same Day with Virginia Conde PA Dysphagia elevated bp-- bottom high, n ervous due to growth, will have patient come in for recheck as no documented HTN-- M Same Day with Gama JENNINGS 11/09/2010 Instructions Instructions not supported for this document typeNo Instructions Recorded Medical Equipment - Implanted Devices Includes: Current and historical DevicesNo Medical Equipment Recorded Medications Includes: Current and historical Medications Current Medications (continue as prescribed) glipiZIDE XL 5 MG Oral Tablet Extended Release 24 Hour 07/14 - 04/10/2021 Provider: Gama JENNINGS Diagnosis: Type 2 diabetes allen itus with hypoglycemia without coma once a day traMADol HCl 50 MG Oral Tablet 06/02/2020 Provider: Gama JENNINGS Diagnosis: Unilateral primary o steoarthritis, unspecified knee twice a day One tablet PO BID MDD=2 tablets Gabapentin 100 MG Oral Capsule 04/04/2020 Provider: Gama JENNINGS 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 Walsh's office Eliquis 5 MG Oral Tablet 04/04/2020 Provider: Diagnosis: Spironolactone-HCTZ 25-25 MG Oral Tablet 04/03/2020 - 2020 Provider: Gama JENNINGS Diagnosis: Essential (primary) hypertension once a day Furosemide 20 MG Oral Tablet 02/22/2020 Provider: Gama JENNINGS Diagnosis: once a day Albuterol Sulfate (2.5 MG/3ML) 0.083% Inhalation Nebul ization solution 02/17/2020 - 09/14/2020 Provider: Gama JENNINGS Diagnosis: Unspecified chronic bronchitis four times a day PRN Alcohol Pads 70% 12/16/2019 - 10/11/2020 Provider: Gama JENNINGS Diagnosis: Type 2 diabetes allen itus with hypoglycemia without coma as directed Test blood sugars BID, fasting in AM and 2 hours after supper Accu-Chek Jody Plus In Vitro Strip 12/16/2019 - 10/11/2020 Provider: Gama JENNINGS Diagnosis: Type 2 diabetes allen itus with hypoglycemia without coma twice a day Test fasting am and 2 hours after supper dx: E11 .649 Losartan Potassium 100 MG Oral Tablet 11/01/2019 - 0 Provider: Gama JENNINGS Diagnosis: Essential (primary) hypertension once a day Vitamin D 1000 UNIT Oral Tablet 05/25/2019 Provider : Diagnosis: Vitamin B12 100 MCG Oral Tablet 05/25/2019 Provider : Diagnosis: Atorvastatin Calcium 10MG Oral Tablet 09/21/2018 Pr ovider: Gama JENNINGS Diagnosis: Persistent atrial fi brillation once a day Advair Diskus 250-50MCG/DOSE Inhalation Aerosol Powder Breath Activated 09/21/2018 Provider: Gama JENNINGS Diagnosis: Essential (primary) hypertension one puff bid rinse after Past Medications on file traMADol HCl 50 MG OR TABS 06/02/2020 - 07/14/2020 Provider: Diagnosis: Unilateral primary o steoarthritis, unspecified knee One tablet PO BID MDD=2 tablets predniSONE 20 MG Oral Tablet 04/04/2020 - 05/22/2020 Provide r: Gama JENNINGS 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 traMADol HCl 50 MG Oral Tablet 03/27/2020 - 04/04/2020 Provi dixon: Gama JENNINGS Diagnosis: Unilateral primary o steoarthritis, unspecified knee twice a day one tablet PO BID MDD 2 tablets Lidocaine 5% External Cream 03/23/2020 - 04/22/2020 Provider : Yi Drake NP Diagnosis: Zoster without compl ications Apply topically 3-4 times per day traMADol HCl 50 MG Oral Tablet 01/11/2020 - 03/27/2020 Provi dixon: Gama JENNINGS Diagnosis: Unilateral primary o steoarthritis, unspecified knee twice a day one tablet PO BID MDD 2 tablets Accu-Chek FastClix Lancets Miscellaneous 12/16/2019 - 2019 Provider: Gama JENNINGS Diagnosis: Type 2 diabetes allen itus with hypoglycemia without coma as directed Test blood sugars BID, fasti ng AM and 2 hours after supper dx:E11.649 Furosemide 20 MG Oral Tablet 11/24/2019 - 02/22/2020 Provide r: Gama JENNINGS Diagnosis: once a day traMADol HCl 50 MG Oral Tablet 11/01/2019 - 01/11/2020 Provi dixon: Gama JENNINGS Diagnosis: Unilateral primary o steoarthritis, unspecified knee twice a day one tablet PO BID MDD 2 tablets glipiZIDE XL 5 MG Oral Tablet Extended Release 24 Hour 10/04 - 07/14/2020 Provider: Gama JENNINGS Diagnosis: Type 2 diabetes allen itus with hypoglycemia without coma once a day traMADol HCl 50 MG Oral Tablet 08/23/2019 - 11/01/2019 Provi dixon: Gama JENNINGS Diagnosis: Unilateral primary o steoarthritis, unspecified knee twice a day one tablet PO BID MDD 2 tablets traMADol HCl 50 MG OR TABS 08/23/2019 - 10/04/2019 Provider: Diagnosis: Unilateral primary o steoarthritis, unspecified knee one tablet PO BID MDD 2 traMADol HCl 50 MG OR TABS 08/20/2019 - 08/23/2019 Provider: Diagnosis: Unilateral primary o steoarthritis, unspecified knee traMADol HCl 50 MG OR TABS 08/19/2019 - 08/23/2019 Provider: Diagnosis: Unilateral primary o steoarthritis, unspecified knee twice a day as needed for pain MDD: 2 Tablets Spironolactone-HCTZ 25-25 MG Oral Tablet 07/07/2019 - 2019 Provider: Gama JENNINGS Diagnosis: Essential (primary) hypertension once a day traMADol HCl 50 MG Oral Tablet 05/25/2019 - 08/19/2019 Provi dixon: Gama JENNINGS Diagnosis: Unilateral primary o steoarthritis, unspecified knee twice a day as needed for pain mdd: two tablets Eliquis 5 MG Oral Tablet 05/25/2019 - 04/04/2020 Provider: Diagnosis: Carvedilol 6.25 MG Oral Tablet 05/25/2019 - 04/04/2020 Provi dixon: Diagnosis: debbie Wallace @ Dr[facility]'s office traMADol HCl 50MG Oral Tablet 04/06/2019 - 05/25/2019 Provid er: Gama JENNINGS Diagnosis: twice a day as needed for pain mdd: two tablets Vitamin D 1000UNIT Oral Tablet 02/02/2019 - 05/25/2019 Provi dixon: Diagnosis: Vitamin B12 100MCG Oral Tablet 02/02/2019 - 05/25/2019 Provi dixon: Diagnosis: Carvedilol 6.25MG Oral Tablet 02/02/2019 - 05/25/2019 Provid er: Diagnosis: debbie Wallace @ Dr[facility] office traMADol HCl 50MG Oral Tablet 02/02/2019 - 04/06/2019 Provid er: Gama JENNINGS Diagnosis: twice a day as needed for pain mdd: two tablets Carvedilol 6.25MG Oral Tablet 12/29/2018 - 02/02/2019 Provid er: Diagnosis: debbie Wallace @ Dr[facility] office traMADol HCl 50MG Oral Tablet 11/26/2018 - 02/02/2019 Provid er: Pito Cheng DO Diagnosis: twice a day as needed for pain mdd: two tablets valACYclovir HCl 1GM Oral Tablet 11/15/2018 - 11/30/2018 Pro vider: Diagnosis: predniSONE 20MG Oral Tablet 11/15/2018 - 11/30/2018 Provider : Diagnosis: carBAMazepine ER 100MG Oral Capsule Extended Release 1 2 Hour 11/15/2018 - 11/30/2018 Provider: Diagnosis: TraMADol HCl 50MG Oral Tablet 09/21/2018 - 11/26/2018 Provid er: Gama JENNINGS Diagnosis: twice a day as needed for pain mdd: two tablets Xarelto 20MG Oral Tablet 09/21/2018 - 11/30/2018 Provider: Gama JENNINGS Diagnosis: Persistent atrial fi brillation once a day Accu-Chek Jody Plus In Vitro Strip 09/21/2018 - 12/16/2019 Provider: Gama JENNINGS Diagnosis: Type 2 diabetes allen itus with hypoglycemia without coma twice a day Test fasting am and 2 hours after supper dx: E11 .649 Albuterol Sulfate (2.5 MG/3ML)0.083% Inhalation Nebuli zation solution 09/21/2018 - 02/17/2020 Provider: Gama JENNINGS Diagnosis: Unspecified chronic bronchitis four times a day PRN Vitamin D 1000UNIT Oral Tablet 09/21/2018 - 02/02/2019 Provi dixon: Diagnosis: Alcohol Pads 70% 09/21/2018 - 12/16/2019 Provider: Gama JENNINGS Diagnosis: Type 2 diabetes allen itus with hypoglycemia without coma as directed Test blood sugars BID, fasting in AM and 2 hours after supper Vitamin B12 100MCG Oral Tablet 09/21/2018 - 02/02/2019 Provi dixon: Diagnosis: Spironolactone-HCTZ 25-25MG Oral Tablet 09/21/2018 - 019 Provider: Gama JENNINGS Diagnosis: Essential (primary) hypertension once a day Losartan Potassium 100MG Oral Tablet 09/21/2018 - 11/01/2019 Provider: Gama JENNINGS Diagnosis: Essential (primary) hypertension once a day GlipiZIDE XL 5MG Oral Tablet Extended Release 24 Hour 2018 - 10/04/2019 Provider: Gama JENNINGS Diagnosis: Type 2 diabetes allen itus with hypoglycemia without coma once a day Carvedilol 6.25MG Oral Tablet 09/21/2018 - 12/29/2018 Provid er: Gama JENNINGS Diagnosis: Persistent atrial fi brillation once a day Accu-Chek FastClix Lancets Miscellaneous 09/21/2018 - 2019 Provider: Gama JENNINGS Diagnosis: Type 2 diabetes allen itus with hypoglycemia without coma as directed Test blood sugars BID, fasti ng AM and 2 hours after supper dx:E11.649 PredniSONE 10MG Oral Tablet 09/11/2018 - 09/21/2018 Provider : Pito Cheng DO Diagnosis: Chronic sinusitis, u nspecified as directed 3 for 3 days then 2 for 3 days then 1 for 3 days Augmentin 875-125MG Oral Tablet 09/11/2018 - 11/04/2018 Prov ider: Pito Cheng DO Diagnosis: Chronic sinusitis, u nspecified twice a day RF by day 10 if not 100%- RF exp in 14 days Augmentin 875-125MG Oral Tablet 07/06/2018 - 09/21/2018 Prov ider: Kathryn Manley NP Diagnosis: twice a day TraMADol HCl 50MG Oral Tablet 07/06/2018 - 09/21/2018 Provid er: Kathryn Manley NP Diagnosis: twice a day as needed for pain mdd: two tablets PredniSONE 20MG Oral Tablet 07/06/2018 - 09/21/2018 Provider : Kathryn Manley NP Diagnosis: once a day TraMADol HCl 50MG Oral Tablet 05/26/2018 - 07/06/2018 Provid er: Gama JENNINGS Diagnosis: twice a day as needed for pain mdd: two tablets Alcohol Pads 70% 05/08/2018 - 09/21/2018 Provider: Pito Cheng DO Diagnosis: Type 2 diabetes allen itus with hypoglycemia without coma as directed Test blood sugars BID, fasting in AM and 2 hours after supper PredniSONE 20MG Oral Tablet 05/06/2018 - 05/26/2018 Provider : Bessie Hayes NP Diagnosis: once a day Augmentin 875-125MG Oral Tablet 05/06/2018 - 05/26/2018 Prov ider: Bessie Dillon Hayes LIZY Diagnosis: twice a day Atorvastatin Calcium 10MG Oral Tablet 01/07/2018 - 9 Provider: Gama JENNINGS Diagnosis: Persistent atrial fi brillation once a day Albuterol Sulfate (2.5 MG/3ML)0.083% Inhalation Nebuli zation solution 01/07/2018 - 09/21/2018 Provider: Gama JENNINGS Diagnosis: Unspecified chronic bronchitis four times a day PRN Xarelto 20MG Oral Tablet 01/07/2018 - 09/21/2018 Provider: Gama JENNINGS Diagnosis: Persistent atrial fi brillation once a day Spironolactone-HCTZ 25-25MG Oral Tablet 01/07/2018 - 019 Provider: Gama JENNINGS Diagnosis: Essential (primary) hypertension once a day Vitamin D 1000UNIT Oral Tablet 01/07/2018 - 09/21/2018 Provi dixon: Diagnosis: Vitamin B12 100MCG Oral Tablet 01/07/2018 - 09/21/2018 Provi dixon: Diagnosis: CVS Vitamin D3 [id number] Oral Capsule 01/07/2018 - 8 Provider: Diagnosis: Accu-Chek FastClix Lancets Miscellaneous 01/07/2018 - 2018 Provider: Gama JENNINGS Diagnosis: Type 2 diabetes allen itus with hypoglycemia without coma as directed Test blood sugars BID, fasti ng AM and 2 hours after supper dx:E11.649 Alcohol Pads 70% 01/07/2018 - 05/08/2018 Provider: Gama JENNINGS Diagnosis: Type 2 diabetes allen itus with hypoglycemia without coma as directed Test blood sugars BID, fasting in AM and 2 hours after supper Advair Diskus 250-50MCG/DOSE Inhalation Aerosol Powder Breath Activated 01/07/2018 - 09/21/2018 Provider: Gama JENNINGS Diagnosis: Essential (primary) hypertension one puff bid rinse after Accu-Chek Jody Plus In Vitro Strip 01/07/2018 - 09/21/2018 Provider: Gama JENNINGS Diagnosis: Type 2 diabetes allen itus with hypoglycemia without coma twice a day Test fasting am and 2 hours after supper dx: E11 .649 Losartan Potassium 100MG Oral Tablet 01/07/2018 - 09/21/2018 Provider: Gama JENNINGS Diagnosis: Essential (primary) hypertension once a day GlipiZIDE XL 5MG Oral Tablet Extended Release 24 Hour 2017 - 09/21/2018 Provider: Gama JENNINGS Diagnosis: Type 2 diabetes allen itus with hypoglycemia without coma once a day Carvedilol 6.25MG Oral Tablet 01/07/2018 - 09/21/2018 Provid er: Gama JENNINGS Diagnosis: Persistent atrial fi brillation once a day Naproxen 250MG Oral Tablet 12/10/2017 - 01/07/2018 Provider: Diagnosis: prn Losartan Potassium 50MG Oral Tablet 12/10/2017 - 01/07/2018 Provider: Diagnosis: Carvedilol 6.25MG Oral Tablet 12/10/2017 - 01/07/2018 Provid er: Diagnosis: Atorvastatin Calcium 10MG Oral Tablet 12/10/2017 - 8 Provider: Diagnosis: Losartan Potassium 100MG Oral Tablet 11/28/2017 - 12/10/2017 Provider: Diagnosis: 1 tab at bed time AmLODIPine Besylate 5MG Oral Tablet 11/28/2017 - 01/07/2018 Provider: Diagnosis: 1 tab daily per samritan PredniSONE 20MG Oral Tablet 11/28/2017 - 01/07/2018 Provider : Gama JENNINGS Diagnosis: Other acute sinusiti s once a day Augmentin 875-125MG Oral Tablet 11/28/2017 - 01/07/2018 Prov ider: Gama JENNINGS Diagnosis: Other acute sinusiti s twice a day Xarelto 20MG Oral Tablet 11/21/2017 - 01/07/2018 Provider: Diagnosis: Losartan Potassium 100MG Oral Tablet 11/21/2017 - 12/10/2017 Provider: Diagnosis: Carvedilol 3.125MG Oral Tablet 11/21/2017 - 12/10/2017 Provi dixon: Diagnosis: Meloxicam 7.5MG Oral Tablet 11/21/2017 - 01/06/2018 Provider : Diagnosis: Alcohol Pads 70% 10/20/2017 - 01/07/2018 Provider: Gama JENNINGS Diagnosis: Type 2 diabetes allen itus with hypoglycemia without coma as directed Test blood sugars BID, fasting in AM and 2 hours after supper Accu-Chek Jody Plus In Vitro Strip 10/20/2017 - 01/07/2018 Provider: Gama JENNINGS Diagnosis: Type 2 diabetes allen itus with hypoglycemia without coma twice a day Test fasting am and 2 hours after supper dx: E11 .649 Accu-Chek Jody Device 10/20/2017 - 01/07/2018 Provider: Gama JENNINGS Diagnosis: Type 2 diabetes allen itus with hypoglycemia without coma as directed Test blood sugars fasting in AM and 2 hours afte r supper Alcohol Pads 70% PADS 10/20/2017 - 01/07/2018 Provider: Diagnosis: Type 2 diabetes allen itus with hypoglycemia without coma Test blood sugars BID, fasting in AM and 2 hours after suppe r Accu-Chek FastClix Lancets MISC 10/20/2017 - 11/28/2017 Prov ider: Diagnosis: Type 2 diabetes allen itus with hypoglycemia without coma Test blood sugars BID, fasting AM and 2 hours after supper Accu-Chek Jody Plus STRP 10/20/2017 - 01/07/2018 Provide r: Diagnosis: Type 2 diabetes allen itus with hypoglycemia without coma Test fasting am and 2 hours after supper Accu-Chek Jody NEW 10/20/2017 - 11/28/2017 Provider: Diagnosis: Type 2 diabetes allen itus with hypoglycemia without coma Test blood sugars fasting in AM and 2 hours after supper Accu-Chek Jody NEW 10/20/2017 - 10/20/2017 Provider: Diagnosis: Type 2 diabetes allen itus with hypoglycemia without coma Test blood sugars fasting in AM and 2 hours after supper GlipiZIDE XL 5MG Oral Tablet Extended Release 24 Hour 2017 - 01/07/2018 Provider: Gama JENNINGS Diagnosis: Type 2 diabetes allen itus with hypoglycemia without coma once a day Advair Diskus 250-50MCG/DOSE Inhalation Aerosol Powder Breath Activated 10/20/2017 - 01/07/2018 Provider: Gama JENNINGS Diagnosis: one puff bid rinse after Accu-Chek FastClix Lancets Miscellaneous 10/20/2017 - 2017 Provider: Gama JENNINGS Diagnosis: Type 2 diabetes allen itus with hypoglycemia without coma as directed Test blood sugars BID, fasti ng AM and 2 hours after supper dx:E11.649 Advair Diskus 250-50MCG/DOSE Inhalation Aerosol Powder Breath Activated 10/17/2017 - 10/20/2017 Provider: Diagnosis: inhale BID Hydrocortisone 1% External Cream 10/17/2017 - 10/20/2017 Pro vider: Diagnosis: hospital discharge Cyanocobalamin 2500MCG Sublingual Tablet Sublingual 10/17/19 18 - 01/07/2018 Provider: Diagnosis: 5000mcg at bed time per samiritanhospital discharge Vitamin D 1000UNIT Oral Tablet 10/17/2017 - 01/07/2018 Provi dixon: Diagnosis: Spironolactone-HCTZ 25-25MG Oral Tablet 10/17/2017 - 018 Provider: Anselmo Walsh MD Cardio Diagnosis: 1 each PO QAM Losartan Potassium 100MG Oral Tablet 10/17/2017 - 11/28/2017 Provider: Diagnosis: 1 tab at bed time AmLODIPine Besylate 5MG Oral Tablet 10/17/2017 - 11/28/2017 Provider: Diagnosis: 1 tab daily per samritan Xarelto 20MG Oral Tablet 10/17/2017 - 11/28/2017 Provider: Diagnosis: with dinnerhospital discharge Carvedilol 3.125MG Oral Tablet 10/17/2017 - 11/28/2017 Provi dixon: Diagnosis: hospital discharge Advair Diskus 250-50MCG/DOSE Inhalation Aerosol Powder Breath Activated 09/23/2017 - 10/17/2017 Provider: Diagnosis: inhale BID PredniSONE 10MG Oral Tablet 09/23/2017 - 10/20/2017 Provider : Diagnosis: 4 tab po BID x 3 days, 1 tabs po qd x 3 days , 3 tabs po qd x 3 days , 2 tabs po qd x 3 days , 1 tab po qd x 3 days Mucinex 600MG Oral Tablet Extended Release 12 Hour - 10/20/2017 Provider: Diagnosis: 1 tab BID per samritan AmLODIPine Besylate 5MG Oral Tablet 09/23/2017 - 10/17/2017 Provider: Diagnosis: 1 tab daily per samritan Losartan Potassium 100MG Oral Tablet 09/23/2017 - 10/17/2017 Provider: Diagnosis: 1 tab at bed time Spironolactone-HCTZ 25-25MG Oral Tablet 09/23/2017 - 018 Provider: Anselmo Walsh MD Cardio Diagnosis: 1 each PO QAM Cyanocobalamin 2500MCG Sublingual Tablet Sublingual 09/23/19 - 10/17/2017 Provider: Diagnosis: 500mcg at bed time per samiritan Vitamin D 1000UNIT Oral Tablet 09/23/2017 - 10/17/2017 Provi dixon: Diagnosis: Cyanocobalamin 2500MCG Sublingual Tablet Sublingual 07/30/20 - 09/23/2017 Provider: Diagnosis: Albuterol Sulfate (2.5 MG/3ML)0.083% Inhalation Nebuli zation solution 05/19/2017 - 01/07/2018 Provider: Gama JENNINGS Diagnosis: Acute bronchitis, un specified four times a day PRN Vitamin D 1000UNIT Oral Tablet 05/19/2017 - 09/23/2017 Provi dixon: Diagnosis: Meloxicam 7.5MG Oral Tablet 05/19/2017 - 10/20/2017 Provider : Gama JENNINGS Diagnosis: Osteoarthritis of kn ee, unspecified TAKE ONE TABLET BY MOUTH ONCE DAILY Spironolactone-HCTZ 25-25MG Oral Tablet 05/19/2017 - 018 Provider: Anselmo Walsh MD Cardio Diagnosis: 1 each PO QAM Losartan Potassium 50MG Oral Tablet 05/19/2017 - 09/23/2017 Provider: Anselmo Walsh MD Cardio Diagnosis: Losartan Potassium 50MG Oral Tablet 12/25/2016 - 05/19/2017 Provider: Anselmo Walsh MD Cardio Diagnosis: Spironolactone-HCTZ 25-25MG Oral Tablet 12/25/2016 - 017 Provider: Anselmo Walsh MD Cardio Diagnosis: 1 each PO QAM Albuterol Sulfate (2.5 MG/3ML)0.083% Inhalation Nebuli zation solution 12/09/2016 - 05/19/2017 Provider: Gama JENNINGS Diagnosis: Acute bronchitis, un specified four times a day PRN Meloxicam 7.5MG Oral Tablet 12/09/2016 - 05/19/2017 Provider : Gama JENNINGS Diagnosis: Osteoarthritis of kn ee, unspecified TAKE ONE TABLET BY MOUTH ONCE DAILY ZyrTEC Allergy 10MG Oral Tablet 12/09/2016 - 05/19/2017 Prov ider: Gama JENNINGS Diagnosis: Other seasonal aller gic rhinitis once a day one tab po qday Cyanocobalamin 2500MCG Sublingual Tablet Sublingual 12/10/1905/19/2017 Provider: Diagnosis: once daily Vitamin D 1000UNIT Oral Tablet 12/09/2016 - 05/19/2017 Provi dixon: Diagnosis: [place] 450MG Oral Capsule 12/09/2016 - 05/19/2017 Prov ider: Diagnosis: 2 tabs bid Losartan Potassium 50MG Oral Tablet 12/09/2016 - 12/25/2016 Provider: Gama JENNINGS Diagnosis: Essential (primary) hypertension once a day Lasix 40MG Oral Tablet 12/09/2016 - 12/25/2016 Provider: Gama JENNINGS Diagnosis: Essential (primary) hypertension once a day Cyanocobalamin 2500MCG Sublingual Tablet Sublingual 11/21/19 - 12/09/2016 Provider: Diagnosis: once daily Vitamin D 1000UNIT Oral Tablet 11/20/2016 - 12/09/2016 Provi dixon: Diagnosis: Cetirizine HCl 10MG Oral Tablet 10/31/2016 - 12/09/2016 Prov ider: Gama JENNINGS Diagnosis: once a day Saw [place] 450 MG Capsule 09/16/2016 - 12/09/2016 Provider : Diagnosis: 2 tabs bid Meloxicam 7.5 MG Tablet 09/16/2016 - 12/09/2016 Provider: Gama JENNINGS Diagnosis: Osteoarthritis of kn ee, unspecified TAKE ONE TABLET BY MOUTH ONCE DAILY Lasix 40 MG Tablet 09/16/2016 - 12/09/2016 Provider: Gama JENNINGS Diagnosis: Essential (primary) hypertension once a day Vitamin D 1000 UNIT Tablet 09/16/2016 - 11/20/2016 Provider: Diagnosis: Gabapentin 300 MG Capsule 09/16/2016 - 12/09/2016 Provider: Gama JENNINGS Diagnosis: Other intervertebral disc displacement, lumbar region as directed 1 at bedtime 3 days, bid 3 days then tid after Albuterol Sulfate (2.5 MG/3ML) 0.083% Nebulization ricardo ution 09/16/2016 - 12/09/2016 Provider: Gama JENNINGS Diagnosis: Acute bronchitis, un specified four times a day PRN ZyrTEC Allergy 10 MG Tablet 09/16/2016 - 12/09/2016 Provider : Gama JENNINGS Diagnosis: Other seasonal aller gic rhinitis once a day one tab po qday Losartan Potassium 50 MG Tablet 09/16/2016 - 12/09/2016 Prov ider: Gama JENNINGS Diagnosis: Essential (primary) hypertension once a day Cyanocobalamin 2500 MCG Tablet Sublingual 09/16/2016 - 11/20 Provider: Diagnosis: once daily Meloxicam 7.5 MG Tablet 08/19/2016 - 09/16/2016 Provider: Gama JENNINGS Diagnosis: Osteoarthritis of kn ee, unspecified TAKE ONE TABLET BY MOUTH ONCE DAILY Gabapentin 300 MG Capsule 08/15/2016 - 09/16/2016 Provider: Pito Cheng DO Diagnosis: Other intervertebral disc displacement, lumbar region as directed 1 at bedtime 3 days, bid 3 days then tid after Vitamin D 1000 UNIT Tablet 08/15/2016 - 09/16/2016 Provider: Diagnosis: Doxycycline Hyclate 100 MG Tablet 07/24/2016 - 08/15/2016 Pr ovider: Marisela Baltazar [employer] Diagnosis: twice a day for 10 days Zithromax Z-Harry 250 MG Tablet 06/25/2016 - 07/24/2016 Provid er: Aidee Lopez NP Diagnosis: 2 tabs PO daily on day 1 then 1 tab PO daily on days 2-5 Losartan Potassium 50 MG Tablet 06/18/2016 - 09/16/2016 Prov ider: Pito Cheng DO Diagnosis: Essential (primary) hypertension once a day Lasix 40 MG Tablet 06/18/2016 - 09/16/2016 Provider: Pito Cheng DO Diagnosis: Essential (primary) hypertension once a day Saw [place] 450 MG Capsule 03/12/2016 - 09/16/2016 Provider : Diagnosis: 2 tabs bid Cyanocobalamin 2500 MCG Tablet Sublingual 03/12/2016 - 09/16 Provider: Diagnosis: once daily Meloxicam 7.5 MG Tablet 01/19/2016 - 08/19/2016 Provider: Gama JENNINGS Diagnosis: Osteoarthritis of kn ee, unspecified TAKE ONE TABLET BY MOUTH ONCE DAILY [place] 450 MG Capsule 09/13/2015 - 03/12/2016 Provider : Diagnosis: 2 tabs bid Vitamin D3 85447 UNIT Capsule 09/13/2015 - 08/15/2016 Provid er: Gama JENNINGS Diagnosis: Vitamin D deficiency , unspecified as directed one capsule once monthly ZyrTEC Allergy 10 MG Tablet 09/13/2015 - 09/16/2016 Provider : Gama JENNINGS Diagnosis: Other seasonal aller gic rhinitis once a day one tab po qday Lasix 40 MG Tablet 09/13/2015 - 06/18/2016 Provider: Gama JENNINGS Diagnosis: Essential (primary) hypertension once a day Losartan Potassium 50 MG Tablet 09/13/2015 - 06/18/2016 Prov ider: Gama JENNINGS Diagnosis: Essential (primary) hypertension once a day Albuterol Sulfate (2.5 MG/3ML) 0.083% Nebulization ricardo ution 09/13/2015 - 09/16/2016 Provider: Gama JENNINGS Diagnosis: Acute bronchitis, un specified four times a day PRN Cyanocobalamin 2500 MCG Tablet Sublingual 09/13/2015 - 03/12 Provider: Diagnosis: once daily Albuterol Sulfate (2.5 MG/3ML) 0.083% Nebulization ricardo ution 07/07/2015 - 09/13/2015 Provider: Pito Cheng DO Diagnosis: Acute bronchitis, un specified four times a day PRN Levofloxacin 500 MG Tablet 07/07/2015 - 09/13/2015 Provider: Pito Cheng DO Diagnosis: Acute bronchitis, un specified once a day Losartan Potassium 50 MG Tablet 06/23/2015 - 09/13/2015 Prov ider: Gaam JENNINGS Diagnosis: Essential (primary) hypertension once a day Lasix 40 MG Tablet 06/23/2015 - 09/13/2015 Provider: Gama JENNINGS Diagnosis: Essential (primary) hypertension once a day Meloxicam 7.5 MG Tablet 06/23/2015 - 01/19/2016 Provider: Gama JENNINGS Diagnosis: Osteoarthritis of kn ee, unspecified once a day ZyrTEC Allergy 10 MG Tablet 04/12/2015 - 09/13/2015 Provider : Gama JENNINGS Diagnosis: Allergic Rhinitis Du e to Other Allergen once a day one tab po qday Zithromax 250 MG Tablet 04/12/2015 - 04/21/2015 Provider: Gama JENNINGS Diagnosis: Acute Pharyngitis 2 tablets po qdaily x 5 days PredniSONE 20 MG Tablet 04/12/2015 - 04/12/2015 Provider: Gama JENNINGS Diagnosis: Acute Bronchitis once a day with food Saw [place] 450 MG Capsule, conventional 03/13/2015 - 09/13 Provider: Diagnosis: 2 tabs bid FRANKLIN Knee Brace Large/X-Large Miscellaneous (not specif ied) 03/13/2015 - 09/16/2016 Provider: Gama JENNINGS Diagnosis: Unspecified Internal Derangement of Knee fit to size, dx:717.9 use as directed Cyanocobalamin 2500 MCG Tablet, sublingual 03/13/2015 - 08/26 Provider: Diagnosis: 1qd ZyrTEC Allergy 10 MG Tablet 11/28/2014 - 04/12/2015 Provider : Gama JENNINGS Diagnosis: Allergic Rhinitis Du e to Other Allergen once a day one tab po qday Zithromax Z-Harry 250 MG Tablet 11/21/2014 - 03/13/2015 Provid er: Chong Novak RPA-C Diagnosis: 2 today then 1 daily Vitamin D3 1.25 MG (35455 UT) OR CAPS 09/05/2014 - 6 Provider: Gama JENNINGS Diagnosis: Unspecified Vitamin D Deficiency one capsule once monthly ZyrTEC Allergy 10 MG OR TABS 09/05/2014 - 11/28/2014 Provide r: Gama JENNINGS Diagnosis: Allergic Rhinitis Du e to Other Allergen one tab po qday Saw [place] 450 MG OR CAPS 09/05/2014 - 03/13/2015 Provider : Diagnosis: 2 tabs bid Meloxicam 7.5 MG OR TABS 09/05/2014 - 06/23/2015 Provider: Gama JENNINGS Diagnosis: OSTEOARTHRITIS LOCAL IZED KNEE Lasix 40 MG OR TABS 09/05/2014 - 06/23/2015 Provider: Gama JENNINGS Diagnosis: Hypertension Unspeci fied Essential Ventolin HFA 108 (90 Base) MCG/ACT IN [facility]ERS 09/05/2014 - 08/26 Provider: Gama JENNINGS Diagnosis: Bacterial Pneumonia Unspecified 2 puffs every 4 hours as needed for wheeze Cyanocobalamin 2500 MCG SL SUBL 09/05/2014 - 03/13/2015 Prov ider: Diagnosis: 1qd Losartan Potassium 50 MG OR TABS 09/05/2014 - 06/23/2015 Pro vider: Gama JENNINGS Diagnosis: Hypertension Unspeci fied Essential Levaquin 500 MG OR TABS 06/16/2014 - 07/04/2014 Provider: Gama JENNINGS Diagnosis: Ventolin HFA 108 (90 Base) MCG/ACT IN [facility]ERS 06/03/2014 - 08/25 Provider: Gama JENNINGS Diagnosis: Bacterial Pneumonia Unspecified 2 puffs tid x 14 days then every 4 hours as needed for wheez e Zithromax Z-Harry 250 MG OR TABS 06/03/2014 - 06/15/2014 Provi dixon: Gama JENNINGS Diagnosis: Bacterial Pneumonia Unspecified 2 tabs po day one, 1tab po daily days 2- 5 Meloxicam 7.5 MG OR TABS 06/01/2014 - 09/05/2014 Provider: Gama JENNINGS Diagnosis: OSTEOARTHRITIS LOCAL IZED KNEE Cyanocobalamin 2500 MCG SL SUBL 06/01/2014 - 09/05/2014 Prov ider: Diagnosis: 1qd Saw [place] 450 MG OR CAPS 06/01/2014 - 09/05/2014 Provider : Diagnosis: 2 tabs bid Lasix 40 MG OR TABS 06/01/2014 - 09/05/2014 Provider: Gama JENNINGS Diagnosis: Hypertension Unspeci fied Essential Losartan Potassium 50 MG OR TABS 06/01/2014 - 09/05/2014 Pro vider: Gama JENNINGS Diagnosis: Hypertension Unspeci fied Essential ZyrTEC Allergy 10 MG OR TABS 06/01/2014 - 09/05/2014 Provide r: Gama JENNINGS Diagnosis: Allergic Rhinitis Du e to Other Allergen one tab po qday [facility] Vitamin B-12 1000 MCG OR TABS 06/01/2014 - 09/05/2014 Pr ovider: Diagnosis: Vitamin D3 1.25 MG (97749 UT) OR CAPS 04/08/2014 - 5 Provider: Gama JENNINGS Diagnosis: Unspecified Vitamin D Deficiency one capsule once monthly Lasix 40 MG OR TABS 12/28/2013 - 06/01/2014 Provider: Gama JENNINGS Diagnosis: Hypertension Unspeci fied Essential Losartan Potassium 50 MG OR TABS 12/28/2013 - 06/01/2014 Pro vider: Gama JENNINGS Diagnosis: Hypertension Unspeci fied Essential Saw [place] 450 MG OR CAPS 11/30/2013 - 06/01/2014 Provider : Diagnosis: 2 tabs bid [facility] Vitamin B-12 1000 MCG OR TABS 11/30/2013 - 06/01/2014 Pr ovider: Diagnosis: Vitamin D3 1.25 MG (96672 UT) OR CAPS 11/30/2013 - 4 Provider: Gama JENNINGS Diagnosis: Unspecified Vitamin D Deficiency one capsule once monthly ZyrTEC Allergy 10 MG OR TABS 11/30/2013 - 06/01/2014 Provide r: Gama JENNINGS Diagnosis: Allergic Rhinitis Du e to Other Allergen one tab po qday Losartan Potassium 50 MG OR TABS 11/30/2013 - 12/28/2013 Pro vider: Gama JENNINGS Diagnosis: Hypertension Unspeci fied Essential Lasix 40 MG OR TABS 11/30/2013 - 12/28/2013 Provider: Gama JENNINGS Diagnosis: Hypertension Unspeci fied Essential Cyanocobalamin 2500 MCG SL SUBL 11/30/2013 - 06/01/2014 Prov ider: Diagnosis: 1qd Lasix 40 MG OR TABS 10/28/2013 - 11/30/2013 Provider: Gama JENNINGS Diagnosis: Hypertension Unspeci fied Essential Losartan Potassium 50 MG OR TABS 10/28/2013 - 11/30/2013 Pro vider: Gama JENNINGS Diagnosis: Hypertension Unspeci fied Essential ZyrTEC Allergy 10 MG OR TABS 07/29/2013 - 11/30/2013 Provide r: Gama JENNINGS Diagnosis: Allergic Rhinitis Du e to Other Allergen one tab po qday Losartan Potassium 50 MG OR TABS 07/29/2013 - 10/28/2013 Pro vider: Gama JENNINGS Diagnosis: Hypertension Unspeci fied Essential Lasix 40 MG OR TABS 07/29/2013 - 10/28/2013 Provider: Gama JENNINGS Diagnosis: Hypertension Unspeci fied Essential Vitamin D3 1.25 MG (80837 UT) OR CAPS 07/20/2013 - 4 Provider: Gama JENNINGS Diagnosis: Take one capsule once weekly for 12 weeks and then one capsu le once monthly [facility] Vitamin B-12 1000 MCG OR TABS 07/16/2013 - 11/30/2013 Pr ovider: Diagnosis: Cyanocobalamin 2500 MCG SL SUBL 07/16/2013 - 11/30/2013 Prov ider: Diagnosis: 1qd Saw [place] 450 MG OR CAPS 07/16/2013 - 11/30/2013 Provider : Diagnosis: 2 tabs bid ZyrTEC Allergy 10 MG OR TABS 06/29/2013 - 06/29/2013 Provide r: Gama JENNINGS Diagnosis: Allergic Rhinitis Du e to Other Allergen one tab po qday Losartan Potassium 50 MG OR TABS 06/29/2013 - 06/29/2013 Pro vider: Gama JENNINGS Diagnosis: Hypertension Unspeci fied Essential Lasix 40 MG OR TABS 06/29/2013 - 06/29/2013 Provider: Gama JENNINGS Diagnosis: Hypertension Unspeci fied Essential Cyanocobalamin 2500 MCG SL SUBL 03/22/2013 - 07/16/2013 Prov ider: Diagnosis: 1qd Vitamin B-12 1000 MCG OR TABS 03/22/2013 - 03/22/2013 Provid er: Diagnosis: Saw [place] 450 MG OR CAPS 03/22/2013 - 07/16/2013 Provider : Diagnosis: 2 tabs bid Cyanocobalamin 2500 MCG SL SUBL 12/21/2012 - 03/22/2013 Prov ider: Gama JENNINGS Diagnosis: one tab sl daily ZyrTEC Allergy 10 MG OR TABS 12/21/2012 - 06/29/2013 Provide r: Gama JENNINGS Diagnosis: Allergic Rhinitis Du e to Other Allergen one tab po qday Losartan Potassium 50 MG OR TABS 12/21/2012 - 06/29/2013 Pro vider: Gama JENNINGS Diagnosis: Hypertension Unspeci fied Essential Saw [place] 450 MG OR CAPS 12/21/2012 - 03/22/2013 Provider : Diagnosis: 2 tabs bid Lasix 40 MG OR TABS 12/21/2012 - 06/29/2013 Provider: Gama JENNINGS Diagnosis: Hypertension Unspeci fied Essential Saw [place] 450 MG OR CAPS 12/21/2012 - 12/21/2012 Provider : Diagnosis: 2 tabs bid Zostavax 06386 UNT/0.65ML SC SOLR 09/24/2012 - 12/21/2012 Pr ovider: Virginia JENNINGS Diagnosis: Benign Essential Hyp ertension one IM injection. ZyrTEC Allergy 10 MG OR TABS 07/06/2012 - 12/21/2012 Provide r: Virginia JENNINGS Diagnosis: one tab po qday Losartan Potassium 50 MG OR TABS 07/06/2012 - 12/21/2012 Pro vider: Virginia JENNINGS Diagnosis: Hypertension Unspeci fied Essential Lasix 40 MG OR TABS 07/06/2012 - 12/21/2012 Provider: Virginia JENNINGS Diagnosis: Hypertension Unspeci fied Essential Saw [place] 450 MG OR CAPS 07/06/2012 - 12/21/2012 Provider : Diagnosis: 2 tabs bid Fish Oil 1000 MG OR CAPS 07/06/2012 - 12/21/2012 Provider: Diagnosis: 2 tabs daily Cyanocobalamin 2500 MCG SL SUBL 01/20/2012 - 12/21/2012 Prov ider: Virginia JENNINGS Diagnosis: one tab sl daily Omeprazole 40 MG OR CPDR 12/31/2011 - 09/24/2012 Provider: Diagnosis: ZyrTEC Allergy 10 MG OR TABS 12/31/2011 - 07/06/2012 Provide r: Virginia JENNINGS Diagnosis: one tab po qday Losartan Potassium 50 MG OR TABS 12/31/2011 - 07/06/2012 Pro vider: Virginia JENNINGS Diagnosis: Hypertension Unspeci fied Essential Lasix 40 MG OR TABS 12/31/2011 - 07/06/2012 Provider: Virginia JENNINGS Diagnosis: Hypertension Unspeci fied Essential Zithromax Z-Harry 250 MG OR TABS 12/31/2011 - 07/06/2012 Provi dixon: Virginia JENNINGS Diagnosis: 2 tab po on day one, then 1 tab qday Losartan Potassium 50 MG OR TABS 10/07/2011 - 12/31/2011 Pro vider: Gama Zambrano [employer]MENT OPERATOR Diagnosis: Hypertension Unspeci fied Essential replaces lisinopril- (cough- intolerable) Lasix 40 MG OR TABS 10/07/2011 - 12/31/2011 Provider: Gama Zambrano [employer] EQUIPMENT OPERATOR Diagnosis: Hypertension Unspeci fied Essential Zithromax 250 MG OR TABS 10/07/2011 - 12/31/2011 Provider: Gama Zambrano [employer] EQUIPMENT OPERATOR Diagnosis: 2 TABS DAY 1, THEN 1 TAB DAILY DAYS 2 - 5 raNITIdine HCl 300 MG OR CAPS 10/07/2011 - 09/24/2012 Provid er: Diagnosis: 1 qhs Zithromax Z-Harry 250 MG OR TABS 09/10/2011 - 10/07/2011 Provi dixon: Niya Larsen NP Diagnosis: Sinusitis, Acute Uns pecified 2 tabs day 1 then 1 tab daily x 4 days Vitamin D3 1.25 MG (34398 UT) OR CAPS 07/19/2011 - 2 Provider: Virginia JENNINGS Diagnosis: one tab po qweek for 2 months then once every other week. Omeprazole 20 MG OR CPDR 07/16/2011 - 12/31/2011 Provider: Diagnosis: Dr. Zhang Lisinopril 5 MG OR TABS 07/04/2011 - 07/04/2011 Provider: Diagnosis: Dr. 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 Qiana Slater Lasix 40 MG OR TABS 07/04/2011 - 07/04/2011 Provider: Diagnosis: Dr. Stanley Lyons Zithromax Z-Harry 250 MG OR TABS 07/04/2011 - 07/16/2011 Provi dixon: Pito Cheng DO Diagnosis: Acute Bronchitis Lasix 20 MG OR TABS 01/07/2011 - 07/04/2011 Provider: Virginia JENNINGS Diagnosis: Doxycycline Hyclate 100 MG OR TABS 11/28/2010 - 12/20/2010 P rovider: Virginia JENNINGS Diagnosis: Pneumonia Organism U nspecified one tab po bid Misc. Devices MISC 11/28/2010 - 12/20/2010 Provider: Virginia JENNINGS Diagnosis: Pneumonia Organism U nspecified one neb machine and tubing Albuterol Sulf[facility] 1.25 MG/[facility]ML [facility] 11/28/2010 - 1 Provider: Virginia JENNINGS Diagnosis: Pneumonia Organism U nspecified disregard xopenex script, patient is wilfrido f payone neb inh [id number] prn sob/wheezing Xopenex 1.25 MG/3ML IN [facility] 11/28/2010 - 11/28/2010 Provider : Virginia JENNINGS Diagnosis: Pneumonia Organism U nspecified one neb inh [id number] prn sob/wheezing Proventil HFA 108 (90 Base) MCG[facility]ACT [facility] 11/28/2010 - Provider: Virginia JENNINGS Diagnosis: Pneumonia Organism U nspecified 2 puffs inh [id number] prn sob wheezing Doxycycline Hyclate 100 MG OR TABS 11/22/2010 - 12/20/2010 P rovider: Virginia JENNINGS Diagnosis: Pneumonia Organism U nspecified one tab po bid Calcium 1250 MG OR TABS 11/09/2010 - 07/04/2011 Provider: Diagnosis: Amoxicillin 500 MG OR TABS 09/16/2008 - 12/20/2010 Provider: Pito Cheng DO Diagnosis: REFILL BY DAY 10 IF SINUS SYMPTOMS ARE NOT CLEARED EXPIRES I N 14 DAYS Medications Administered Includes: Administered Medications in patient's chart Medications Administered Diagnosis Date Provi dixon Xopenex 1.25 MG/3ML IN [facility] Shortness of Breath 04/12/2015 Gama JENNINGS order per MMB along with 8L of 02 predniSONE 5 MG OR TABS 11/28/2017 Gama JENNINGS DuoNeb 0.5-2.5 (3) MG/3ML [facility] 11/21/2014 Braxton Novak RPA-C Vital Signs Includes: Vital Signs from 07/24/2019 through 07/24/2020 Vital Name 05/22/2020 09:35A 04/18/2020 08:22A 04/04/2020 04:08P 03/23/2020 02:21P 03/15/2020 01:52P Temp-Tympanic (F) 98.2 97.8 98 Weight (lb) 373.125 368 263 367 368 Pain Level 0 5 0 7 0 Oxygen Saturation (%) 93 96 95 95 96 Flow Rate (l/min) (None (Room Air)) (None (Room Air)) (None (Nereyda m Air)) (None (Room Air)) (None (Room Air)) FiO2 (%) 21 21 21 21 21 Blood Pressure Sitting L 112/68 100/58 126/80 126/72 BP Cuff Size Large Large Large Regular Large Pulse Rate-Sitting (bpm) 63 69 66 61 61 Pulse Rhythm Regular Regular Regular Regular Respiration Rate (breaths/min) 22 26 28 20 24 Blood Pressure Sitting R 98/56 Height (in) 72 Body Mass Index (kg/m2) 35.7 Body Surface Area (m2) 2.39 Temp-Oral (F) 99.2 Note: The patient am bulates with the assistance of a wheeled walker. Vital Name 11/24/2019 02:14P Temp-Tympanic (F) 98.9 Weight (lb) 370 Pain Level 0 Oxygen Saturation (%) 99 Flow Rate (l/min) (None (Room Air)) FiO2 (%) 21 Blood Pressure Sitting L 138/82 BP Cuff Size Large Pulse Rate-Sitting (bpm) 73 Pulse Rhythm Regular Respiration Rate (breaths/min) 28 Results Includes: Results from 07/24/2019 through 07/24/2020 PROBNP [facility] Ordered by Gama JENNINGS on 04/12/[address] [place] [address], [address] Collected: 04/12/2020 Reported: 04/18/2020 tel:[phone] Note: ADD TO 04/12 PROBNP 622 pg/mL (0-486) A (Abnormal) Note: The following cut-points have bee n suggested for the use of proBNP for the diagnostic evaluation of heart failure (HF) in patients with acute dyspnea: Modality Age Optimal Cut (years) Point Diagnosis (rule in HF) <50 450 pg/mL 50 - 75 900 pg/mL >75 1800 pg/mL Exclusion (rule out HF) Age independent 300 pg/mL Performed at: [facility] [address] [id number] Log Yard Manager: Dexter Stanton MD, Phone: [phone] Observer: PROBNP PROBNP [id number] [phone] (A) Reviewed by Gama JENNINGS on 2019; All test results are final unless otherwise noted. Reported Physicians [facility] Ordered by Gama JENNINGS on 04/12/[address] [place] [address], [address] Collected: 04/12/2020 Reported: 04/18/2020 tel:[phone] Reported Physicians See Note None Note: Reported Physicians:Ordering: Gama BainsAttending: Gama Gibson Reviewed by Gama JENNINGS on 2019; All test results are final unless otherwise noted. Lab Rejection [facility] Ordered by Gama JENNINGS on 04/12/[address] [place] [address], [address] Collected: 04/12/2020 Reported: 04/17/2020 tel:[phone] Note: CANT ADD ON DDIMER, TUBE NOT IN LA B-KF Lab Rejection Unable to Add On None Note: CANT ADD ON DDIMER, TUBE NOT IN L AB-KF We are unable to add on the additional testing, please submit new sample.Responsible Observer: Lab Rejection Lab Rejection 999.0100 (A) Reviewed by Gama JENNINGS on 2019; All test results are final unless otherwise noted. Reported Physicians [facility] Ordered by Gama JENNINGS on 04/12/[address] [place] [address], [address] Collected: 04/12/2020 Reported: 04/17/2020 tel:[phone] Reported Physicians See Note None Note: Reported Physicians:Ordering: Gama BainsAttending: Gama Gibson Reviewed by Gama JENNINGS on 2019; All test results are final unless otherwise noted. CBC w/ Auto Diff [facility] Ordered by Gama JENNINGS on 09/22/[address] [place] [address], [address] Collected: 04/12/2020 Reported: 04/12/2020 tel:[phone] BASO # (AUTO) 0.04 10\\^3/uL (0.00-0.20) N (Normal) Note: Responsible Observer: BASO # (AUTO ) BASO # (AUTO) 100.1500 (A) BASO % (AUTO) 0.5 % (0.0-2.0) N (Normal) Note: Responsible Observer: BASO % (AUTO ) BASO % (AUTO) 100.1250 (A) EOS # (AUTO) 0.13 10\\^3/uL (0.00-1.10) N (Normal) Note: Responsible Observer: EOS # (AUTO) EOS # (AUTO) 100.1450 (A) EOS % (AUTO) 1.7 % (0.0-11.0) N (Normal) Note: Responsible Observer: EOS % (AUTO) EOS % (AUTO) 100.1200 (A) GRAN # (AUTO) 5.23 10\\^3/uL (1.50-6.50) N (Normal) Note: Responsible Observer: GRAN # (AUTO ) GRAN #(AUTO) 100.1325 (A) GRAN % (AUTO) 70.0 % (42.0-75.0) N (Normal) Note: Responsible Observer: GRAN % (AUTO ) GRAN % (AUTO) 100.1000 (A) HEMATOCRIT 45.8 % (41.0-53.0) N (Normal) Note: Responsible Observer: HCT HEMATOCR IT 100.0400 (A) HEMOGLOBIN 14.5 G/DL (13.0-17.5) N (Normal) Note: Responsible Observer: HGB HEMOGLOB IN 100.0300 (A) IG # (AUTO) 0.1 10\\^3/uL (<0.5) None Note: Responsible Observer: IG # (AUTO) IG # (AUTO) 100.1260 (A) IG % (AUTO) 0.7 % (1.00-5.00) None Note: Responsible Observer: IG % (AUTO) IG % (AUTO) 100.1255 (A) LYMPH # (AUTO) 1.2 k/uL (1.0-5.0) N (Normal) Note: Responsible Observer: LYMPH # (AUT O) LYMPH # (AUTO) 100.1350 (A) LYMPH % (AUTO) 16.5 % (20.0-51.0) L (Low) Note: Responsible Observer: LYMPH % (AUT O) LYMPH % (AUTO) 100.1100 (A) MCH 29.2 PG (27.0-34.0) N (Normal) Note: Responsible Observer: MCH MCH 100 .0600 (A) MCHC 31.7 G/DL (32-36) L (Low) Note: Responsible Observer: MCHC MCHC 1 00.0650 (A) MCV 92.2 FL (80.0-100.0) N (Normal) Note: Responsible Observer: MCV MCV 100 .0550 (A) MONO # (AUTO) 0.79 k/uL (0.20-1.50) N (Normal) Note: Responsible Observer: MONO # (AUTO ) MONO # (AUTO) 100.1400 (A) MONO % (AUTO) 10.6 % (2.0-15.0) N (Normal) Note: Responsible Observer: MONO % (AUTO ) MONO% (AUTO) 100.1150 (A) MPV 9.7 FL (8.7-13.2) N (Normal) Note: Responsible Observer: MPV MPV 100 .0950 (A) PLATELET COUNT 243 10\\^3/uL (130-400) N (Normal) Note: Responsible Observer: PLT PLATELET COUNT 100.0850 (A) RED BLOOD COUNT 4.97 10\\^6/uL (4.30-5.80) N (Normal) Note: Responsible Observer: RBC RED BLOO D COUNT 100.0250 (A) RDW 14.6 % (11.5-14.5) H (High) Note: Responsible Observer: RDW RDW 100 .0700 (A) WHITE BLOOD COUNT 7.47 10\\^3/uL (4.00-10.50) N (Normal) Note: Responsible Observer: WBC WHITE BL OOD COUNT 100.0150 (A) Reviewed by Gmaa JENNINGS on 2019; All test results are final unless otherwise noted. COMPREHENSIVE METABOLIC PANEL [facility] Ordered by Gama JENNINGS on 09/22/[address], [address] Collected: 04/12/2020 Reported: 04/12/2020 tel:[phone] ALB/GLOB RATIO 2.6 G/DL (1.0-3.0) N (Normal) Note: Responsible Observer: A/G RATIO AL B/GLOB RATIO 300.4100 (A) ALBUMIN 3.9 G/DL (3.0-5.1) N (Normal) Note: Responsible Observer: ALB ALBUMIN 300.3900 (A) ALKALINE PHOSPHATASE 51 U/L (40-140) N (Normal) Note: Responsible Observer: ALK PHOS ALK SAMANTA PHOSPHATASE 300.3110 (A) ALT 21 U/L (5-48) N (Normal) Note: Responsible Observer: ALT/SGPT ALT 300.3100 (A) AST 9 U/L (5-40) N (Normal) Note: Responsible Observer: AST/SGOT AST 300.3050 (A) BUN/CREAT RATIO 27 (8-36) N (Normal) Note: Responsible Observer: BUN/CREAT RA MARQUIS BUN/CREAT RATIO 300.0450 (A) BILIRUBIN,TOTAL 0.7 MG/DL (0.1-1.3) N (Normal) Note: Responsible Observer: TOTAL BILI T OTAL BILIRUBIN 300.2700 (A) BLOOD UREA NITRO 33 MG/DL (7-25) H (High) Note: Responsible Observer: BUN BLOOD UR EA NITROGEN 300.0350 (A) CA 9.0 MG/DL (8.7-10.5) N (Normal) Note: Responsible Observer: CA CALCIUM 300.2200 (A) CHLORIDE 102 MEQ/L (94-110) N (Normal) Note: Responsible Observer: CL CHLORIDE 300.0200 (A) CARBON DIOXIDE 28 MEQ/L (22-33) N (Normal) Note: Responsible Observer: CO2 CARBON D IOXIDE 300.0250 (A) CREATININE 1.2 MG/DL (0.6-1.4) N (Normal) Note: Responsible Observer: CREAT CREATI NINE 300.0400 (A) ANION GAP 14 (5-16) N (Normal) Note: Responsible Observer: ANION GAP AN ION GAP 300.0300 (A) GFR 58.0 ML/MIN None Note: Stage G3a - Mildly to moderately decreased kidney function The GFR is an estimate of the Glomerular Filtration Rate. It is an aid to assess a patient's renal function. It is not a conclusive diagnosis of kidney disease. GFR normal is >=90 The MDRD GFR calculation is considered valid between the ages of 18 and 75 years only.Responsible Observer: GFR GFR 300.0410 (A) GLOBULIN 1.5 G/DL (1.5-3.5) N (Normal) Note: Responsible Observer: GLOB GLOBULI N 300.4050 (A) GLUCOSE 92 MG/DL (70-100) N (Normal) Note: Responsible Observer: GLU GLUCOSE 300.0500 (A) POTASSIUM 4.4 MEQ/L (3.5-5.3) N (Normal) Note: Responsible Observer: K POTASSIUM 300.0150 (A) SODIUM 140 MEQ/L (135-145) N (Normal) Note: Responsible Observer: NA SODIUM 3 00.0100 (A) TOTAL PROTEIN 5.4 G/DL (5.9-8.3) L (Low) Note: Responsible Observer: TP TOTAL PRO TEIN 300.3750 (A) Reviewed by Gama JENNINGS on 2019; All test results are final unless otherwise noted. GLYCOSYLATED HGBA1C [facility] Ordered by Gama JENNINGS on 09/22/[address] [place] [address], [address] Collected: 04/12/2020 Reported: 04/12/2020 tel:[phone] GLYCOSYLATED HGBA1C 5.9 % (4.1-6.5) N (Normal) Note: Responsible Observer: HGB A1C GLYC OSYLATED HGBA1C 300.0800 (A) Reviewed by Gama JENNINGS on 2019; All test results are final unless otherwise noted. LIPID PANEL [facility] Ordered by Gama JENNINGS on 09/22/[address] [place] [address], [address] Collected: 04/12/2020 Reported: 04/12/2020 tel:[phone] CHOL/HDL RATIO 2.8 (0-4.9) N (Normal) Note: Responsible Observer: CHOL/HDL RAT IO CHOL/HDL RATIO 300.4700 (A) CHOLESTEROL 145 MG/DL (125-200) N (Normal) Note: Responsible Observer: CHOL CHOLEST AGGIE 300.4350 (A) HDL CHOLESTEROL 52 MG/DL (39-96) N (Normal) Note: Responsible Observer: HDL HDL CHOL ESTEROL 300.4600 (A) LDL CHOLESTEROL 71 MG/DL (50-130) N (Normal) Note: Responsible Observer: LDL LDL CHOL ESTEROL 300.4400 (A) TRIGLYCERIDES 110 MG/DL (45-150) N (Normal) Note: Responsible Observer: TRIG TRIGLYC ERIDES 300.4300 (A) Reviewed by Gama JENNINGS on 2019; All test results are final unless otherwise noted. TSH [facility] Ordered by Gama JENNINGS on 09/22/[address] [place] [address], [address] Collected: 04/12/2020 Reported: 04/12/2020 tel:[phone] TSH 1.776 uIU/ML (0.470-4.200) N (Normal) Note: Patients should not be tested for 72 hours post fluorescein dye angiography. A false depression of result may occur.Responsible Observer: TSH TSH 300.5500 (A) Reviewed by Gama JENNINGS on 2019; All test results are final unless otherwise noted. Reported Physicians [facility] Ordered by Gama JENNINGS on 09/22/[address] [place] [address], [address] Collected: 04/12/2020 Reported: 04/12/2020 tel:[phone] Reported Physicians See Note None Note: Reported Physicians:Ordering: Gama BainsAttending: Gama Gibson Reviewed by Gama JENNINGS on 2019; All test results are final unless otherwise noted. Hgb A1c In-House Labs Ordered by Gama JENNINGS on 04/04/2020 Specimen Source: Whole blood Collected: 04/04/2020 R eported: 04/04/2020 Hgb A1c 6.1% A (Abnormal) Reviewed on 04/04/2020; All test result s are final unless otherwise noted. CBC w/ Auto Diff [facility] Ordered by Gama JENNINGS on 12/23/[address] [place] [address], [address] Collected: 11/24/2019 Reported: 11/24/2019 tel:[phone] BASO # (AUTO) 0.03 3/uL (0.00-0.20) N (Normal) Note: Responsible Observer: BASO # (AUTO ) BASO # (AUTO) 100.1500 (A) BASO % (AUTO) 0.5 % (0.0-2.0) N (Normal) Note: Responsible Observer: BASO % (AUTO ) BASO % (AUTO) 100.1250 (A) EOS # (AUTO) 0.10 3/uL (0.00-1.10) N (Normal) Note: Responsible Observer: EOS # (AUTO) EOS # (AUTO) 100.1450 (A) EOS % (AUTO) 1.5 % (0.0-11.0) N (Normal) Note: Responsible Observer: EOS % (AUTO) EOS % (AUTO) 100.1200 (A) GRAN # (AUTO) 4.77 3/uL (1.50-6.50) N (Normal) Note: Responsible Observer: GRAN # (AUTO ) GRAN #(AUTO) 100.1325 (A) GRAN % (AUTO) 72.9 % (42.0-75.0) N (Normal) Note: Responsible Observer: GRAN % (AUTO ) GRAN % (AUTO) 100.1000 (A) HEMATOCRIT 45.2 % (41.0-53.0) N (Normal) Note: Responsible Observer: HCT HEMATOCR IT 100.0400 (A) HEMOGLOBIN 14.3 G/DL (13.0-17.5) N (Normal) Note: Responsible Observer: HGB HEMOGLOB IN 100.0300 (A) IG # (AUTO) 0.0 3/uL (<0.5) None Note: Responsible Observer: IG # (AUTO) IG # (AUTO) 100.1260 (A) IG % (AUTO) 0.3 % (1.00-5.00) None Note: Responsible Observer: IG % (AUTO) IG % (AUTO) 100.1255 (A) LYMPH # (AUTO) 0.9 k/uL (1.0-5.0) L (Low) Note: Responsible Observer: LYMPH # (AUT O) LYMPH # (AUTO) 100.1350 (A) LYMPH % (AUTO) 14.2 % (20.0-51.0) L (Low) Note: Responsible Observer: LYMPH % (AUT O) LYMPH % (AUTO) 100.1100 (A) MCH 28.4 PG (27.0-34.0) N (Normal) Note: Responsible Observer: MCH MCH 100 .0600 (A) MCHC 31.6 G/DL (32-36) L (Low) Note: Responsible Observer: MCHC MCHC 1 00.0650 (A) MCV 89.7 FL (80.0-100.0) N (Normal) Note: Responsible Observer: MCV MCV 100 .0550 (A) MONO # (AUTO) 0.69 k/uL (0.20-1.50) N (Normal) Note: Responsible Observer: MONO # (AUTO ) MONO # (AUTO) 100.1400 (A) MONO % (AUTO) 10.6 % (2.0-15.0) N (Normal) Note: Responsible Observer: MONO % (AUTO ) MONO% (AUTO) 100.1150 (A) MPV 9.6 FL (8.7-13.2) N (Normal) Note: Responsible Observer: MPV MPV 100 .0950 (A) PLATELET COUNT 253 3/uL (130-400) N (Normal) Note: Responsible Observer: PLT PLATELET COUNT 100.0850 (A) RED BLOOD COUNT 5.04 6/uL (4.30-5.80) N (Normal) Note: Responsible Observer: RBC RED BLOO D COUNT 100.0250 (A) RDW 14.4 % (11.5-14.5) N (Normal) Note: Responsible Observer: RDW RDW 100 .0700 (A) WHITE BLOOD COUNT 6.54 3/uL (4.00-10.50) N (Normal) Note: Responsible Observer: WBC WHITE BL OOD COUNT 100.0150 (A) Reviewed by Gama JENNINGS on 2019; All test results are final unless otherwise noted. COMPREHENSIVE METABOLIC PANEL [facility] Ordered by Gama JENNINGS on 12/23/[address], [address] Collected: 11/24/2019 Reported: 11/24/2019 tel:[phone] Note: Has Patient Fasted For The Past 12 Hours? Y ALB/GLOB RATIO 3.5 G/DL (1.0-2.7) H (High) Note: Responsible Observer: A/G RATIO AL B/GLOB RATIO 300.4100 (A) ALBUMIN 4.5 G/DL (3.0-5.1) N (Normal) Note: Responsible Observer: ALB ALBUMIN 300.3900 (A) ALKALINE PHOSPHATASE 62 U/L (40-140) N (Normal) Note: Responsible Observer: ALK PHOS ALK SAMANTA PHOSPHATASE 300.3110 (A) ALT 23 U/L (5-48) N (Normal) Note: Responsible Observer: ALT/SGPT ALT 300.3100 (A) AST 13 U/L (5-40) N (Normal) Note: Responsible Observer: AST/SGOT AST 300.3050 (A) BUN/CREAT RATIO 24 (8-36) N (Normal) Note: Responsible Observer: BUN/CREAT RA MARQUIS BUN/CREAT RATIO 300.0450 (A) BILIRUBIN,TOTAL 0.6 MG/DL (0.1-1.3) N (Normal) Note: Responsible Observer: TOTAL BILI T OTAL BILIRUBIN 300.2700 (A) BLOOD UREA NITRO 29 MG/DL (7-25) H (High) Note: Responsible Observer: BUN BLOOD UR EA NITROGEN 300.0350 (A) CA 9.3 MG/DL (8.7-10.5) N (Normal) Note: Responsible Observer: CA CALCIUM 300.2200 (A) CHLORIDE 105 MEQ/L (94-110) N (Normal) Note: Responsible Observer: CL CHLORIDE 300.0200 (A) CARBON DIOXIDE 28 MEQ/L (22-33) N (Normal) Note: Responsible Observer: CO2 CARBON D IOXIDE 300.0250 (A) CREATININE 1.2 MG/DL (0.6-1.4) N (Normal) Note: Responsible Observer: CREAT CREATI NINE 300.0400 (A) ANION GAP 12 (5-16) N (Normal) Note: Responsible Observer: ANION GAP AN ION GAP 300.0300 (A) GFR 58.0 ML/MIN None Note: Stage G3a - Mildly to moderately decreased kidney function The GFR is an estimate of the Glomerular Filtration Rate. It is an aid to assess a patient's renal function. It is not a conclusive diagnosis of kidney disease. GFR normal is >=90 The MDRD GFR calculation is considered valid between the ages of 18 and 75 years only.Responsible Observer: GFR GFR 300.0410 (A) GLOBULIN 1.3 G/DL (1.5-3.5) L (Low) Note: Responsible Observer: GLOB GLOBULI N 300.4050 (A) GLUCOSE 91 MG/DL (70-100) N (Normal) Note: Responsible Observer: GLU GLUCOSE 300.0500 (A) POTASSIUM 4.7 MEQ/L (3.5-5.3) N (Normal) Note: Responsible Observer: K POTASSIUM 300.0150 (A) SODIUM 140 MEQ/L (135-145) N (Normal) Note: Responsible Observer: NA SODIUM 3 00.0100 (A) TOTAL PROTEIN 5.8 G/DL (5.9-8.3) L (Low) Note: Responsible Observer: TP TOTAL PRO TEIN 300.3750 (A) Reviewed by Gama JENNINGS on 2019; All test results are final unless otherwise noted. GLYCOSYLATED HGBA1C [facility] Ordered by Gama JENNINGS on 12/23/[address] [place] [address], [address] Collected: 11/24/2019 Reported: 11/24/2019 tel:[phone] Note: Has Patient Fasted For The Past 12 Hours? Y GLYCOSYLATED HGBA1C 6.4 % (4.1-6.5) N (Normal) Note: Responsible Observer: HGB A1C GLYC OSYLATED HGBA1C 300.0800 (A) Reviewed by Gama JENNINGS on 2019; All test results are final unless otherwise noted. LIPID PANEL [facility] Ordered by Gama JENNINGS on 12/23/[address] [place] [address], [address] Collected: 11/24/2019 Reported: 11/24/2019 tel:[phone] Note: Has Patient Fasted For The Past 12 Hours? Y CHOL/HDL RATIO 3.0 (0-4.9) N (Normal) Note: Responsible Observer: CHOL/HDL RAT IO CHOL/HDL RATIO 300.4700 (A) CHOLESTEROL 137 MG/DL (125-200) N (Normal) Note: Responsible Observer: CHOL CHOLEST AGGIE 300.4350 (A) HDL CHOLESTEROL 45 MG/DL (39-96) N (Normal) Note: Responsible Observer: HDL HDL CHOL ESTEROL 300.4600 (A) LDL CHOLESTEROL 67 MG/DL (50-130) N (Normal) Note: Responsible Observer: LDL LDL CHOL ESTEROL 300.4400 (A) TRIGLYCERIDES 125 MG/DL (45-150) N (Normal) Note: Responsible Observer: TRIG TRIGLYC ERIDES 300.4300 (A) Reviewed by Gama JENNINGS on 2019; All test results are final unless otherwise noted. TSH [facility] Ordered by Gama JENNINGS on 12/23/[address] [place] [address], [address] Collected: 11/24/2019 Reported: 11/24/2019 tel:[phone] Note: Has Patient Fasted For The Past 12 Hours? Y TSH 1.364 uIU/ML (0.470-4.200) N (Normal) Note: Patients should not be tested for 72 hours post fluorescein dye angiography. A false depression of result may occur.Responsible Observer: TSH TSH 300.5500 (A) Reviewed by Gama JENNINGS on 2019; All test results are final unless otherwise noted. PROBNP [facility] Ordered by Gama JENNINGS on 12/23/[address] [place] [address], [address] Collected: 11/24/2019 Reported: 11/26/2019 tel:[phone] PROBNP 524 pg/mL (0-486) A (Abnormal) Note: The following cut-points have bee n suggested for the use of proBNP for the diagnostic evaluation of heart failure (HF) in patients with acute dyspnea: Modality Age Optimal Cut (years) Point Diagnosis (rule in HF) <50 450 pg/mL 50 - 75 900 pg/mL >75 1800 pg/mL Exclusion (rule out HF) Age independent 300 pg/mL Performed at: - [address] [id number] Log Yard Manager: Dexter Stanton MD, Phone: [phone] Observer: PROBNP PROBNP [id number] 813.9001 (A) Reviewed by Gama JENNINGS on 2019; All test results are final unless otherwise noted. Reported Physicians [facility] Ordered by Gama JENNINGS on 12/23/[address] [place] [address], [address] Collected: 11/24/2019 Reported: 11/26/2019 tel:[phone] Reported Physicians See Note None Note: Reported Physicians:Ordering: Gama BainsAttending: Gama Gibson Reviewed by Gama JENNINGS on 2019; All test results are final unless otherwise noted. History of Present Illness History of Present Illness not supported for this document typeNo History of Present Illness Recorded Social History Description Last Updated Smoking status 04/04/2020 : Former smoker 04/20/2020 Alcohol use 04/04/2020 Denies alcohol consumption 03/25 Not using drugs 04/04/2020 04/04/2020 No secondhand cigarette smoke exposure 03/15/2020 Recent emotional stress 05/27/2019 Not a smoker Greater than 30 pack years 07/06/2018 No life circumstance event 10/20/2017 Social history [use for free text] 10/20/2017 Caffeine use tea 08/15/2016 No domestic violence 08/15/2016 No physical disability 08/15/2016 No tobacco use 08/15/2016 Not a current smoker quit in 1964 08/15/2016 Poor exercise habits 08/15/2016 Social history unchanged 08/15/2016 Procedures and Surgical/Medical History Includes: Procedures from 07/24/2019 through 07/24/2020 Procedures CPT-4 Diagnosis Performing Provider Service Location Service Date [facility] Visit, established patient G0467 Headache , Chronic obstructive pulmonary disease, unspecified, Essential (primary) hypertension, Type 2 diabetes mellitus without complications Gama JENNINGS [facility] 05/22/2020 Medicare Influenza virus vaccine, split virus, High Dose 906 62 Encounter for immunization Gama JENNINGS [facility] 05/22/2020 [facility] Visit, established patient G0467 Zoster w ith other complications, Chest pain, unspecified, Essential (primary) hypertension, Unilateral primary osteoarthritis, unspecified knee Gama JENNINGS [facility] 020 Hemoglobin; Glycated A1c 71978 Type 2 diabetes mellitu s without complications Gama JENNINGS [facility] 04/04/2020 [facility] Visit, IPPE or AWV G0468 Encntr for gener al adult medical exam w/o abnormal findings, Mixed hyperlipidemia, Other headache syndrome, Zoster without complications Gama JENNINGS [facility] 04/04/2020 [facility] -Subsequent Annual Wellness Visit G0439 En cntr for general adult medical exam w/o abnormal findings, Mixed hyperlipidemia, Other headache syndrome, Zoster without complications Gama ChristiansonDamaris Gibson [facility] 04/04/2020 [facility] Visit, established patient G0467 Zoster without c omplications Yi Adameloree MEDEL [facility] 03/23/2020 [facility] Visit, established patient G0467 Sprain o f ribs, initial encounter, Chest pain, unspecified Mackenzie L Ray [facility] 03/15/2020 Ekg With Interpretation and Report [id number] [facility] Noninvasive Ear or Pulse Oximetry for O[place] Saturation; [place] [address] Sprain of ribs, initial encounter [facility] 03/15/2020 Ekg With Interpretation and Report [id number] Chest pain, u nspecified Gama ChristiansonDamaris Gibson [facility] 11/24/2019 [facility] Visit, established patient (Signi/Sep Eval. & Man.) G04 67 Unspecified atrial fibrillation, Essential (primary) hypertension, Chest pain, unspecified, Chronic obstructive pulmonary disease, unspecified Gama ChristiansonDamaris Gibson [facility] 11/24/2019 Hemoglobin; Glycated A1c 95125 Diab d/t undrl cond w hyprosm w/o nonket hyprgly- hypros coma Gama Albino Gibson [facility] 11/24/2019 Surgical History Last Updated Surgical / procedural history 10/29/2018 refraction was performed OU ~Indication: Pseudophakia 05/31/2019 Medical History Last Updated Heavy OTC analgesic use discussed rebdrake nd headaches and tylenol use, he will stop this as has been using 4 daily for two weeks 12/05/2017 Not taking antibiotics 10/30/2017 Therapy noncompliance due to lack of comprehension due to complexity of regimen 10/20/2017 Therapy noncompliance for dietary reasons 10/20/2017 No history of coronary artery disease 10/20/2017 No history of essential hypertension 10/20/2017 No history of hyperlipidemia 10/20/2017 No history of type 2 diabetes mellitus 10/20/2017 Past medical/surgical history [use for free text] 09/26 Exposure to streptococcus 08/15/2016 No previous emergency room visit 08/15/2016 No recent change in medical history [facility] DR ADHIKARI REMOVED, BENIGN ABDOMEN-- ~MULTIPLE PAST SURGERIES PER PT ~FX BACK< [facility] 80's ~GROWTH, DR GARCÍA REMOVED 2011 BENIGN ~ROTATOR CUFF, DR REYES LEFT SIDE 1973,2O04 08/15/2016 Past medical history Please see Problem List for Acti ve Chronic Problems 08/15/2016 Standardized depression screening: negative for sympto ms 09/13/2015 Colonoscopy (fiberoptic) was performed REFUSED 2014 Patient screening 06/15/2014 Offered for HIV refused 04/12/2015 Education and counseling provided for chronic care go als and plan 11/30/2013 Ongoing management of hypertension - GO ALS: Your blood pressure goal is less than 140/90. PLAN: You should check your blood pressure periodically as directed by your provider and call the office if your blood pressure is greater than 160/100 or less than 90/60. You should also call the office or 911 for symptoms based on the hypertension self management sheet provided to you. You should eat a low sodium/salt diet and aim for at least 30 minutes of physical activity at least 5 days per week. You should also avoid nicotine use 11/30/2013 Ongoing management of overweight - GOAL S: Your goal is to lose 5-10% of your current weight and to keep it off. PLAN: You should begin reducing daily caloric intake and eat a low fat diet that limits processed foods and includes fresh fruits and vegetables and lean meats/proteins. You should aim for at least 30 minutes of physical activity at least 5 days per week 11/30/2013 Family History Includes: Family History in patient's chart Description Last Updated Family history [use for free text] 10/20/2017 No family history of acute myocardial infarction prio r to age 50 10/20/2017 No family history of early deaths 10/20/2017 No family history of heart disease 10/20/2017 Family history reviewed - unchanged since last visit 08/15/2016 Family history unchanged no fm hx early deaths ~broth er CABG and CVA 08/15/2016 Review of Systems Review of Systems not supported for this document typeNo Review of Systems Recorded Mental Status Mental Status not supported for this document typeNo Mental Status Recorded Functional Status Functional Status not supported for this document typeNo Functional Status Recorded Physical Exam Physical Exam not supported for this document typeNo Physical Exam Recorded Immunizations Includes: Immunizations in patient's chart Vaccine Dose # Date Site Reaction(s) Status Source Influenza 1 05/26/2008 Complete (Reported) Patient Influenza 2 05/22/2011 Complete (Reported) Patient Influenza 3 05/08/2012 Complete (Reported) Patient Influenza 4 05/20/2013 Complete (Reported) Patient Influenza 5 05/10/2015 Complete (Reported) Patient Influenza 6 05/16/2016 Complete (Reported) Patient Influenza 7 05/01/2017 Complete (Reported) Patient Influenza 8 05/22/2018 Complete (Reported) Patient Influenza 9 05/24/2019 Complete (Reported) Patient Influenza, high-dose (over 65) 1 05/22/2020 Left Deltoid Complete (Administered) [facility] PCV (Pneumovax 23) 1 05/22/2011 Complete (Reported ) Patient Prevnar 13 1 09/21/2014 Left Arm Complete (Administered) [facility] Note: KShannonLPN Tdap 1 11/30/2013 Right Arm Complete (Administered) [facility] Note: KShannonLPN Zostavax (Shingles) 1 05/20/2013 Complete (Reporte d) Patient Allergies Includes: Active, inactive, and resolved Allergies Substance Type Reaction Effective Status Cortisone Acetate Powder Allergy Skin Rashes, Hives, Reggie sea, Vomiting, Diarrhea 09/16/2008 Active Encounters Includes: Encounters from 07/24/2019 through 07/24/2020 Encounter Provider Location Date Diagnosis Lab Order Gama JENNINGS 07/24/2020 Acute L2 Gama JENNINGS [facility] 05/22/2020 Chest Pain Or Discomfort, Diabetes Mellitus, Herpes Zoster (shingles), Atrial Fibrillation, Hypertension (systemic), Chronic Obstructive Pulmonary Disease, Obesity Morbid, Headache Syndromes, Osteoarthritis Localized Primary Knee, Disturbance of Gait Correspondence Gama JENNINGS 04/18/2020 Acute L2 Gama JENNINGS [facility] 04/18/2020 Herpes Zoster (shingles), Chest Pain Or Discomfort, Diabetes Mellitus, Atrial Fibrillation, Hypertension (systemic), Chronic Obstructive Pulmonary Disease, Obesity Morbid, Headache Syndromes, Osteoarthritis Localized Primary Knee, Disturbance of Gait Lab Order Gama JENNINGS 04/14/2020 AHR Gama JENNINGS [facility] 04/04/2020 Herpes Zoster (shingles), Routine History and Physical, Chest Pain Or Discomfort, Diabetes Mellitus, Atrial Fibrillation, Hypertension (systemic), Chest Pain, Essential Hypertension Benign, Chronic Obstructive Pulmonary Disease, Obesity Morbid, Headache Syndromes, Osteoarthritis Localized Primary Knee, Disturbance of Gait Acute L2 Yi L Vidal MED[facility] 03/23/2020 Herp es Zoster Without Complications Acute L1 Mackenzie Gavin DO [facility] 03/15/2020 Chest Asif n, Sprain Thoracic Chronic Disease Follow-up Gama JENNINGS [facility] 2019 Chest Pain Or Discomfort, Diabetes Mellitus, Atrial Fibrillation, Hypertension (systemic), Chest Pain, Essential Hypertension Benign, Chronic Obstructive Pulmonary Disease, Obesity Morbid, Headache Syndromes, Osteoarthritis Localized Primary Knee, Disturbance of Gait, Adjustment Disorder Grief Reaction Chart Update Donna Andrade RN 11/08/2019 Insurance Includes: Active Insurance Policies Plan Name Member ID Group # Subscriber Relationship Effective Da stefanie 1 - [employer] [id number] Zach Herbert Self - Unknown 2 - Medicaid-[place] 414 [id number] Zach magallanes Self 11/23/2010 - Unknown Advance Directives Includes: Current Advance Directives Directive Pat Aware Third Green Party Effective Date Reviewed Status RHIO Yes 07/07/2012 Current and Ve rified Note: 07/06/12 packet given Pt Bill of Rights, Priv Prac, Ad Dir Yes 11/24/2019 Current and Verified Note: Pt declined AD packet Ebola Screening Performed Yes 05/22/2020 Current and Verified Note: Within the last month, have you traveled outside of the [place]? - NO Health Concerns Includes: Active Health Concerns Headache Syndromes Onset 11/24/2017 Sinusitis Onset 07/06/2018 Goals Includes: Active Goals Symptom relief. Added 11/24/2017 by Provider Health Concern: Headache Syndromes Symptom relief. Added 07/06/2018 by Provider Health Concern: Sinusitis Interventions Includes: Interventions for active Goals Patient has declined transportation to [facility] [place] by ambulance, he is going to have his S.O. drive him to [place] ED for evaluation and treatment, patient is stable upon leaving clinic. Please follow-up with PCP. Added 11/24/2017 Goal: Symptom relief. Medication as directed, he informs that he is NOT allergic to prednisone. Wants Augmentin as he says this is the only antibiotic that works for him. Supportive care as directed. Please follow-up with clinic if no relief or any worsening of symptoms. Added 07/06/2018 Goal: Symptom relief. Evaluations & Outcomes Includes: Evaluations & Outcomes for active Goals Goal converted from Patient Problem data . Goal is currently In Progress. Added 11/24/2017 - In Progress Goal: Symptom relief. Goal converted from Patient Problem data . Goal is currently In Progress. Added 07/06/2018 - In Progress Goal: Symptom relief.
--- OUTSIDE RECORDS SUMMARY | 2020-09-10 15:20 | CCD | Continuity of Care Document ---
Author Author [facility] Organization [facility] Address [address] [address] Phone Care Team Providers Care Senior Administrator Support Name Role Phone Paige, Payal PCP Payal Gibson AUTM Angie Novak Jr Attphys Allergies, Adverse Reactions, Alerts Allergen Type Severity Reaction Last Updated Verified Status cortisone Allergy Modera te RASH/HIVES June 15, 2020 1:42pm No Active Medications Medication Status Dose Units Route Sig Qty Days Start Date End Date Instructions Losartan Discontinued 50 MG PO 2 TIMES A DAY 180 December 25, 2016 11:38am December 25, 2016 4:05pm Spironolacton-Hydrochlorothiaz Discontinue d 1 EACH PO EVERY MORNING @0900 December 25, 2016 11:38am January 05, 2018 2:43pm Losartan Discontinued 50 MG PO 2 TIMES A DAY December 25, 2016 4:05pm [facility] 2017 12:54pm Fluticasone Propion-Salmeterol (Advair 2 50-50 Diskus) 250 MCG-50 MCG/DOSE blister with device Active 1 PUFF INHALATION 2 TIMES A DAY 1 October 31, 2017 12:2 4pm Carvedilol Discontinued 3.125 MG PO 2 TIMES A DAY 60 October 31, 2017 12:24pm October 31, 2017 12:54pm Naproxen Sodium (Aleve) 220 MG tablet Discontinued 220 MG PO NEEDED October 31, 2017 12:2 4pm December 10, 2018 1:04pm Glipizide Active 5 MG PO DAILY 90 October 31, 2017 12:24pm Rivaroxaban (Xarelto) 20 MG tablet D iscontinued 20 MG PO D AILY 30 October 31, 2017 12: 24pm January 05, 2018 2:43pm with food Losartan Discontinued 50 MG PO DAILY 90 October 31, 2017 12:54pm June 25, 2018 11:20am Losartan Discontinued 50 MG PO DAILY 90 October 31, 2017 12:54pm December 10, 2018 1:04pm Carvedilol Discontinued 6.25 MG PO 2 TIMES A DAY 180 October 31, 2017 12:54pm November 07, 2017 12:56pm Carvedilol Discontinued 6.25 MG PO 2 TIMES A DAY 180 November 07, 2017 12:56pm June 25, 2018 11:23am Carvedilol Discontinued 6.25 MG PO 2 TIMES A DAY 180 November 07, 2017 12:56pm December 10, 2018 1:02pm Atorvastatin Discontinued 10 MG PO EVERY EVENING 90 December 09, 2017 2:28pm December 10, 2018 1:49pm Atorvastatin Discontinued 10 MG PO EVERY EVENING 90 December 09, 2017 2:28pm June 25, 2018 11:35am Spironolacton-Hydrochlorothiaz Discontinue d 1 EACH PO EVERY MORNING @0900 January 05, 2018 2:43pm June 25, 2018 11:49am Spironolacton-Hydrochlorothiaz Active 1 EACH PO EVERY MORNING @0 900 90 January 05, 2018 2:43 pm Rivaroxaban (Xarelto) 20 MG tablet D iscontinued 20 MG PO D January 05, 2018 2:43 pm November 30, 2018 12:38pm with food Rivaroxaban (Xarelto) 20 MG tablet D iscontinued 20 MG PO D January 05, 2018 2:43 pm June 25, 2018 11:49am with food Tramadol Active 50 MG PO DAILY June 10, 2018 1:03pm Carvedilol Discontinued 6.25 MG PO 2 TIMES A DAY 180 December 29, 2018 11:18am December 14, 2019 2:17pm must administer with a meal/food Apixaban (Eliquis) 5 mg tablet Discontinue d 5 MG PO 2 TIMES A DAY 180 February 16, 2019 5: 54am December 14, 2019 2:17pm Apixaban (Eliquis) 5 mg tablet Active 5 MG PO 2 TIMES A DAY 180 February 22, 2020 8: 25pm Losartan Discontinued 50 MG PO EVERY MORNING @0900 December 10, 2016 9:43am December 25, 2016 11:38am Furosemide Discontinued 40 MG PO EVERY MORNING @0900 December 10, 2016 9:43am December 25, 2016 11:38am Albuterol Sulfate Active 2.5 MG IH EVERY 4 HOURS N EEDED December 10, 2016 9:4 3am Meloxicam Discontinued 7 .5 MG PO EVERY MORNING @0900 December 10, 2016 9:43am December 10, 2018 1:04pm Cholecalciferol (Vitamin D3) Active 1000 UNIT PO EVERY MORNING @0 900 December 10, 2016 9:4 3am [place] Discontinued 900 MG PO 2 TIMES A DAY December 10, 2016 9:43am February 27, 2017 12:42pm Cyanocobalamin (Vitamin B-12) (Vitamin B -12) 5,000 MCG tablet, sublingual Active 5000 MCG SL EVERY MORNING @0900 December 10, 2016 9:43am Ciprofloxacin Hcl Discontinued 500 MG PO 2 TIMES A DAY 10 December 30, 2016 3:36p m February 27, 2017 12:42pm Dhtbxvfmqu-Nfuiqzqekticz-Gbbb Discontinued 1 EACH PO EVERY 6 HOURS NEEDED November 24, 2017 7:56pm December 09, 2017 2:03pm TAKE NEEDED FOR HEADACHE Carvedilol Discontinued 12.5 MG PO 2 TIMES A DAY December 10, 2018 1:03pm December 29, 2018 11:19am Rivaroxaban (Xarelto) 20 mg tablet D iscontinued 20 MG PO d aily December 10, 2018 1:0 4pm December 10, 2018 1:12pm Atorvastatin Discontinued 10 MG PO EVERY EVENING 90 December 10, 2018 1:49pm December 14, 2019 2:17pm Losartan Active 100 MG PO daily June 14, 2019 12:47pm Apixaban (Eliquis) 5 mg tablet Discontinue d 5 MG PO 2 TIMES A DAY 180 December 14, 2019 2 :14pm February 22, 2020 8:25pm Atorvastatin Active 10 MG PO EVERY EVENING 90 December 14, 2019 2:14pm Carvedilol Active 6.25 MG PO 2 TIMES A DAY 180 December 14, 2019 2:14pm must administer with a meal/food Furosemide Active 20 MG PO daily December 14, 2019 2:16pm Problems Active Problems Medical Problem Onset Date Status History of colon resection Active Epididymitis Active Headache Active Mixed hyperlipidemia A ctive Diastolic dysfunction Active Persistent atrial fibrillation Active Mass of upper lobe of left lung Active Morbid obesity with BMI of 45.0-49.9, adult Active Hydrocele, bilateral A ctive Hypertension Active Hypertension Active Procedures No procedure information available. Relevant Diagnostic Tests and/or Laboratory Data No known relevant diagnostic tests and/or laboratory data. Health Concerns Health Concerns may be documented in an alternate section. Chief Complaint and Reason for Visit Chief Complaint LMOM 6 mo f/u Encounters Encounter Location(s) [facility]mit Date Discharge/Depart Date Provider(s) Departed Physician/Provider [facility] June 15, 2020 1:06pm June 15, 2020 2:23pm [place] PA Assessments No Assessments Information Available Family History Relationship Condition A ge at Onset Recorded Date/Time Not Specified Cardiac disease Unknown Parent Heart failure Unk nown Parkinson's disease Un known Parent Malignant neoplasm Unknown Sibling Cerebrovascular accident (CVA) Unknown Functional Status No Functional Status information available Goals Goals may be documented in an alternate section. Immunizations No Immunization Information Available Mental Status No Mental Status Information Available Medical Equipment No Medical Equipment Information available Insurance Providers Guarantor Zach Herbert Address [address] [place] [address] Contact Info. Home Phone: Payer Policy Id Coverage Id Subscriber's Name Subscriber Id Effective Date Expiration Date [place]ID [place] [id number] Zach Herbert [id number] 2016 MEDICARE [id number] Zach Herbert [id number] 2010 SELF PAY Self N/A Social History Smoking Status Status Date of Observation Ex-smoker (finding) June 15 1:21pm Observation Status Observation Response Khanh e of Response Current Alcohol use (within the last 12 months) No November 24, 2017 4:30pm Past Alcohol Use (greater than 12 months ago) No November 24, 2017 4:30pm HX or Present use of Recreational Drugs No November 24, 2017 4:30pm Tobacco Product Cigarettes June 15, 2020 1:21pm History of Smoking/Tobacco Use Forme r Smoker June 15, 2020 1:21pm Assigned Sex Male Vital Signs Vital Reading Result Ref erence Range Collection Date/Time Height 179.07 cm June 15, 2020 1:15pm Weight 169.30 kg June 15, 2020 1:15pm Body Temperature 96.9 [degF] 97.6-99.6 June 15, 2020 1:15pm Heart Rate 49 /min 60-100 June 15, 2020 1:15pm Respiratory rate 16 /min 12-20 June 15, 2020 1:15pm Oxygen saturation by Pulse oximetry 95 % 95- 100 June 15, 2020 1:15pm BP Systolic 122 mm[Hg] 9 0-139 June 15, 2020 1:48pm BP Diastolic 60 mm[Hg] 5 0-89 June 15, 2020 1:48pm BMI (Body Mass Index) 52.7 kg/m2 June 15, 2020 1:15pm
--- OUTSIDE RECORDS SUMMARY | 2020-09-10 15:21 | CCD ---
Author Author [facility] Organization [facility] Address Unknown Phone Unavailable Care Team Providers Care Cnc Manager Name Role Phone Ray, L Mackenzie Unavailable Unavailable Ray, L Mackenzie Unavailable Unavailable Ray, L Mackenzie Unavailable Unavailable Ray, L Mackenzie Unavailable Unavailable Ray, L Mackenzie Unavailable Unavailable Ray, L Mackenzie Unavailable Unavailable Ray, L Mackenzie Unavailable Unavailable Ray, L Mackenzie Unavailable Unavailable Ray, L Mackenzie Unavailable Unavailable Ray, L Mackenzie Unavailable Unavailable Ray, L Mackenzie Unavailable Unavailable Ray, L Mackenzie Unavailable Unavailable Ray, L Mackenzie Unavailable Unavailable Ray, L Mackenzie Unavailable Unavailable Ray, L Mackenzie Unavailable Unavailable Ray, L Mackenzie Unavailable Unavailable Ray, L Mackenzie Unavailable Unavailable Ray, L Mackenzie Unavailable Unavailable Ray, L Mackenzie Unavailable Unavailable Ray, L Mackenzie Unavailable Unavailable Ray, L Mackenzie Unavailable Unavailable Ray, L Mackenzie Unavailable Unavailable Ray, L Mackenzie Unavailable Unavailable Ray, L Mackenzie Unavailable Unavailable Ray, L Mackenzie Unavailable Unavailable Ray, L Mackenzie Unavailable Unavailable Ray, L Mackenzie Unavailable Unavailable Ray, L Mackenzie Unavailable Unavailable Ray, L Mackenzie Unavailable Unavailable Ray, L Mackenzie Unavailable Unavailable Ray, L Mackenzie Unavailable Unavailable Ray, L Mackenzie Unavailable Unavailable Ray, L Mackenzie Unavailable Unavailable Ray, L Mackenzie Unavailable Unavailable Ray, L Mackenzie Unavailable Unavailable Ray, L Mackenzie Unavailable Unavailable Ray, L Mackenzie Unavailable Unavailable Ray, L Mackenzie Unavailable Unavailable Ray, L Mackenzie Unavailable Unavailable Ray, L Mackenzie Unavailable Unavailable Ray, L Mackenzie Unavailable Unavailable Ray, L Mackenzie Unavailable Unavailable Ray, L Mackenzie Unavailable Unavailable Ray, L Mackenzie Unavailable Unavailable Ray, L Mackenzie Unavailable Unavailable Ray, L Mackenzie Unavailable Unavailable Ray, L Mackenzie Unavailable Unavailable Ray, L Mackenzie Unavailable Unavailable Ray, L Mackenzie Unavailable Unavailable Ray, L Mackenzie Unavailable Unavailable Ray, L Mackenzie Unavailable Unavailable Ray, L Mackenzie Unavailable Unavailable Ray, L Mackenzie Unavailable Unavailable Ray, L Mackenzie Unavailable Unavailable Ray, L Mackenzie Unavailable Unavailable Ray, L Mackenzie Unavailable Unavailable Ray, L Mackenzie Unavailable Unavailable Ray, L Mackenzie Unavailable Unavailable Ray, L Mackenzie Unavailable Unavailable Ray, L Mackenzie Unavailable Unavailable Ray, L Mackenzie Unavailable Unavailable Ray, L Mackenzie Unavailable Unavailable Ray, L Mackenzie Unavailable Unavailable Ray, L Mackenzie Unavailable Unavailable Ray, L Mackenzie Unavailable Unavailable Ray, L Mackenzie Unavailable Unavailable Ray, L Mackenzie Unavailable Unavailable Ray, L Mackenzie Unavailable Unavailable Ray, L Mackenzie Unavailable Unavailable Ray, L Mackenzie Unavailable Unavailable Ray, L Mackenzie Unavailable Unavailable Ray, L Mackenzie Unavailable Unavailable ANGIE, M PAYAL PA Unavailable Unavailable ANGIE, M PAYAL PA Unavailable Unavailable ANGIE, M PAYAL PA Unavailable Unavailable ANGIE, M PAYAL PA Unavailable Unavailable ANGIE, M PAYAL PA Unavailable Unavailable ANGIE, M PAYAL PA Unavailable Unavailable ANGIE, M PAYAL PA Unavailable Unavailable ANGIE, M PAYAL PA Unavailable Unavailable ANGIE, M PAYAL PA Unavailable Unavailable ANGIE, M PAYAL PA Unavailable Unavailable ANGIE, M PAYAL PA Unavailable Unavailable ANGIE, M PAYAL PA Unavailable Unavailable ANGIE, M PAYAL PA Unavailable Unavailable ANGIE, M PAYAL PA Unavailable Unavailable ANGIE, M PAYAL PA Unavailable Unavailable ANGIE, M PAYAL PA Unavailable Unavailable ANGIE, M PAYAL PA Unavailable Unavailable ANGIE, M PAYAL PA Unavailable Unavailable ANGIE, M PAYAL PA Unavailable Unavailable ANGIE, M PAYAL PA Unavailable Unavailable ANGIE, M PAYAL PA Unavailable Unavailable ANGIE, M PAYAL PA Unavailable Unavailable ANGIE, M PAYAL PA Unavailable Unavailable ANGEI, M PAYAL PA Unavailable Unavailable ANGIE, M PAYAL PA Unavailable Unavailable ANGIE, M PAYAL PA Unavailable Unavailable ANGIE, M PAYAL PA Unavailable Unavailable ANGIE, M PAYAL PA Unavailable Unavailable ANGIE, M PAYAL PA Unavailable Unavailable ANGIE, M PAYAL PA Unavailable Unavailable ANGIE, M PAYAL PA Unavailable Unavailable ANGIE, M PAYAL PA Unavailable Unavailable ANGIE, M PAYAL PA Unavailable Unavailable ANGIE, M PAYAL PA Unavailable Unavailable ANGIE, M PAYAL PA Unavailable Unavailable ANGIE, M PAYAL PA Unavailable Unavailable ANGIE, M PAYAL PA Unavailable Unavailable ANGIE, M PAYAL PA Unavailable Unavailable ANGIE, M PAYAL PA Unavailable Unavailable ANGIE, M PAYAL PA Unavailable Unavailable ANGIE, M PAYAL PA Unavailable Unavailable ANGIE, M PAYAL PA Unavailable Unavailable ANGIE, M PAYAL PA Unavailable Unavailable ANGIE, M PAYAL PA Unavailable Unavailable ANGIE, M PAYAL PA Unavailable Unavailable ANGIE, M PAYAL PA Unavailable Unavailable ANGIE, M PAYAL PA Unavailable Unavailable ANGIE, M PAYAL PA Unavailable Unavailable ANGIE, M PAYAL PA Unavailable Unavailable ANGIE, M PAYAL PA Unavailable Unavailable ANGIE, M PAYAL PA Unavailable Unavailable ANGIE, M PAYAL PA Unavailable Unavailable ANGIE, M PAYAL PA Unavailable Unavailable ANGIE, M PAYAL PA Unavailable Unavailable ANGIE, M PAYAL PA Unavailable Unavailable ANGIE, M PAYAL PA Unavailable Unavailable ANGIE, M PAYAL PA Unavailable Unavailable ANGIE, M PAYAL PA Unavailable Unavailable ANGIE, M PAYAL PA Unavailable Unavailable ANGIE, M PAYAL PA Unavailable Unavailable ANGIE, M PAYAL PA Unavailable Unavailable ANGIE, M PAYAL PA Unavailable Unavailable ANGIE, M PAYAL PA Unavailable Unavailable ANGIE, M PAYAL PA Unavailable Unavailable ANGIE, M PAYAL PA Unavailable Unavailable ANGIE, M PAYAL PA Unavailable Unavailable ANGIE, M PAYAL PA Unavailable Unavailable ANGIE, M PAYAL PA Unavailable Unavailable ANGIE, M PAYAL PA Unavailable Unavailable ANGIE, M PAYAL PA Unavailable Unavailable ANGIE, M PAYAL PA Unavailable Unavailable ANGIE, M PAYAL PA Unavailable Unavailable [place], R Lake PA Unavailable Unavailable [place], R Lake PA Unavailable Unavailable [place], R Lake PA Unavailable Unavailable [place], R Lake PA Unavailable Unavailable Kishore, R Lake PA Unavailable Unavailable [place], R Lake PA Unavailable Unavailable [place], R Lake PA Unavailable Unavailable Kishore, R Lake PA Unavailable Unavailable Kishore, R Lake PA Unavailable Unavailable Kishore, R Lake PA Unavailable Unavailable [place], R Lake PA Unavailable Unavailable Kishore, R Lake PA Unavailable Unavailable Kishore, R Lake PA Unavailable Unavailable [place], R Lake PA Unavailable Unavailable Kishore, R Lake PA Unavailable Unavailable [place], R Lake PA Unavailable Unavailable MICHAEL, L SUZIE MAINTAINER PLANT Unavailable Unavailable MICHAEL, L SUZIE MAINTAINER PLANT Unavailable Unavailable MICHAEL, L SUZIE MAINTAINER PLANT Unavailable Unavailable MICHAEL, L SUZIE MAINTAINER PLANT Unavailable Unavailable MICHAEL, L SUZIE MAINTAINER PLANT Unavailable Unavailable MICHAEL, L SUZIE MAINTAINER PLANT Unavailable Unavailable MICHAEL, L SUZIE MAINTAINER PLANT Unavailable Unavailable MICHAEL, L SUZIE MAINTAINER PLANT Unavailable Unavailable MICHAEL, L SUZIE MAINTAINER PLANT Unavailable Unavailable MICHAEL, L SUZIE MAINTAINER PLANT Unavailable Unavailable MICHAEL, L SUZIE MAINTAINER PLANT Unavailable Unavailable MICHAEL, L SUZIE MAINTAINER PLANT Unavailable Unavailable MICHAEL, L SUZIE MAINTAINER PLANT Unavailable Unavailable MICHAEL, L SUZIE MAINTAINER PLANT Unavailable Unavailable MICHAEL, L SUZIE MAINTAINER PLANT Unavailable Unavailable MICHAEL, L SUZIE MAINTAINER PLANT Unavailable Unavailable MICHAEL, L SUZIE MAINTAINER PLANT Unavailable Unavailable MICHAEL, L SUZIE MAINTAINER PLANT Unavailable Unavailable MICHAEL, L SUZIE MAINTAINER PLANT Unavailable Unavailable MICHAEL, L SUZIE MAINTAINER PLANT Unavailable Unavailable MICHAEL, L SUZIE MAINTAINER PLANT Unavailable Unavailable MICHAEL, L SUZIE MAINTAINER PLANT Unavailable Unavailable MICHAEL, L SUZIE MAINTAINER PLANT Unavailable Unavailable MICHAEL, L SUZIE MAINTAINER PLANT Unavailable Unavailable MICHAEL, L SUZIE MAINTAINER PLANT Unavailable Unavailable MICHAEL, L SUZIE MAINTAINER PLANT Unavailable Unavailable MICHAEL, L SUZIE MAINTAINER PLANT Unavailable Unavailable MICHAEL, L SUZIE MAINTAINER PLANT Unavailable Unavailable MICHAEL, L SUZIE MAINTAINER PLANT Unavailable Unavailable MICHAEL, L SUZIE MAINTAINER PLANT Unavailable Unavailable MICHAEL, L SUZIE MAINTAINER PLANT Unavailable Unavailable MICHAEL, L SUZIE MAINTAINER PLANT Unavailable Unavailable MICHAEL, L SUZIE MAINTAINER PLANT Unavailable Unavailable MICHAEL, L SUZIE MAINTAINER PLANT Unavailable Unavailable ANGIE, M PAYAL PA Unavailable Unavailable ANGIE, M PAYAL PA Unavailable Unavailable ANGIE, M PAYAL PA Unavailable Unavailable ANGIE, M PAYAL PA Unavailable Unavailable ANGIE, M PAYAL PA Unavailable Unavailable ANGIE, M PAYAL PA Unavailable Unavailable ANGIE, M PAYAL PA Unavailable Unavailable ANGIE, M PAYAL PA Unavailable Unavailable ANGIE, M PAYAL PA Unavailable Unavailable ANGIE, M PAYAL PA Unavailable Unavailable ANGIE, M PAYAL PA Unavailable Unavailable ANGIE, M PAYAL PA Unavailable Unavailable ANGIE, M PAYAL PA Unavailable Unavailable ANGIE, M PAYAL PA Unavailable Unavailable ANGIE, M PAYAL PA Unavailable Unavailable ANGIE, M PAYAL PA Unavailable Unavailable ANGIE, M PAYAL PA Unavailable Unavailable ANGIE, M PAYAL PA Unavailable Unavailable ANGIE, M PAYAL PA Unavailable Unavailable ANGIE, M PAYAL PA Unavailable Unavailable ANGIE, M PAYAL PA Unavailable Unavailable ANGIE, M PAYAL PA Unavailable Unavailable ANGIE, M PAYAL PA Unavailable Unavailable ANGIE, M PAYAL PA Unavailable Unavailable ANGIE, M PAYAL PA Unavailable Unavailable ANGIE, M PAYAL PA Unavailable Unavailable ANGIE, M PAYAL PA Unavailable Unavailable ANGIE, M PAYAL PA Unavailable Unavailable ANIGE, M PAYAL PA Unavailable Unavailable ANGIE, M PAYAL PA Unavailable Unavailable ANGIE, M PAYAL PA Unavailable Unavailable ANGIE, M PAYAL PA Unavailable Unavailable ANGIE, M PAYAL PA Unavailable Unavailable ANGIE, M PAYAL PA Unavailable Unavailable ANGIE, M PAYAL PA Unavailable Unavailable ANGIE, M PAYAL PA Unavailable Unavailable ANGIE, M PAYAL PA Unavailable Unavailable ANGIE, M PAYAL PA Unavailable Unavailable ANGIE, M PAYAL PA Unavailable Unavailable ANGIE, M PAYAL PA Unavailable Unavailable ANGIE, M PAYAL PA Unavailable Unavailable AGNIE, M PAYAL PA Unavailable Unavailable ANGIE, M PAYAL PA Unavailable Unavailable ANGIE, M PAYAL PA Unavailable Unavailable ANGIE, M PAYAL PA Unavailable Unavailable ANGIE, M PAYAL PA Unavailable Unavailable ANGIE, M PAYAL PA Unavailable Unavailable ANGIE, M PAYAL PA Unavailable Unavailable ANGIE, M PAYAL PA Unavailable Unavailable ANGIE, M PAYAL PA Unavailable Unavailable ANGIE, M PAYAL PA Unavailable Unavailable ANGIE, M PAYAL PA Unavailable Unavailable ANGIE, M PAYAL PA Unavailable Unavailable ANGIE, M PAYAL PA Unavailable Unavailable ANGIE, M PAYAL PA Unavailable Unavailable ANGIE, M PAYAL PA Unavailable Unavailable ANGIE, M PAYAL PA Unavailable Unavailable ANGIE, M PAYAL PA Unavailable Unavailable ANGIE, M PAYAL PA Unavailable Unavailable ANGIE, M PAYAL PA Unavailable Unavailable ANGIE, M PAYAL PA Unavailable Unavailable ANGIE, M PAYAL PA Unavailable Unavailable ANGIE, M PAYAL PA Unavailable Unavailable ANGIE, M PAYAL PA Unavailable Unavailable ANGIE, M PAYAL PA Unavailable Unavailable ANGIE, M PAYAL PA Unavailable Unavailable ANGIE, M PAYAL PA Unavailable Unavailable ANGIE, M PAYAL PA Unavailable Unavailable ANGIE, M PAYAL PA Unavailable Unavailable ANGIE, M PAYAL PA Unavailable Unavailable ANGIE, M PAYAL PA Unavailable Unavailable ANGIE, M PAYAL PA Unavailable Unavailable DONALD Andrade Elaine Unavailable ANGIE, M PAYAL PA Unavailable Unavailable ANGIE, M PAYAL PA Unavailable Unavailable ANGIE, M PAYAL PA Unavailable Unavailable ANGIE, M PAYAL PA Unavailable Unavailable ANGIE, M PAYAL PA Unavailable Unavailable ANGIE, M PAYAL PA Unavailable Unavailable ANGIE, M PAYAL PA Unavailable Unavailable ANGIE, M PAYAL PA Unavailable Unavailable ANGIE, M PAYAL PA Unavailable Unavailable ANGIE, M PAYAL PA Unavailable Unavailable ANGIE, M PAYAL PA Unavailable Unavailable ANGIE, M PAYAL PA Unavailable Unavailable ANGIE, M PAYAL PA Unavailable Unavailable ANGIE, M PAYAL PA Unavailable Unavailable ANGIE, M PAYAL PA Unavailable Unavailable ANGIE, M PAYAL PA Unavailable Unavailable ANGIE, M PAYAL PA Unavailable Unavailable ANGIE, M PAYAL PA Unavailable Unavailable ANGIE, M PAYAL PA Unavailable Unavailable ANGIE, M PAYAL PA Unavailable Unavailable ANGIE, M PAYAL PA Unavailable Unavailable ANGIE, M PAYAL PA Unavailable Unavailable ANGIE, M PAYAL PA Unavailable Unavailable ANGIE, M PAYAL PA Unavailable Unavailable ANGIE, M PAYAL PA Unavailable Unavailable ANGIE, M PAYAL PA Unavailable Unavailable ANGIE, M PAYAL PA Unavailable Unavailable ANGIE, M PAYAL PA Unavailable Unavailable ANGIE, M PAYAL PA Unavailable Unavailable ANGIE, M PAYAL PA Unavailable Unavailable ANGIE, M PAYAL PA Unavailable Unavailable ANGIE, M PAYAL PA Unavailable Unavailable ANGIE, M PAYAL PA Unavailable Unavailable ANGIE, M PAYAL PA Unavailable Unavailable ANGIE, M PAYAL PA Unavailable Unavailable ANGIE, M PAYAL PA Unavailable Unavailable ANGIE, M PAYAL PA Unavailable Unavailable ANGIE, M PAYAL PA Unavailable Unavailable ANGIE, M PAYAL PA Unavailable Unavailable ANGIE, M PAYAL PA Unavailable Unavailable ANGIE, M PAYAL PA Unavailable Unavailable ANGIE, M PAYAL PA Unavailable Unavailable ANGIE, M PAYAL PA Unavailable Unavailable ANGIE, M PAYAL PA Unavailable Unavailable ANGIE, M PAYAL PA Unavailable Unavailable ANGIE, M PAYAL PA Unavailable Unavailable ANGIE, M PAYAL PA Unavailable Unavailable ANGIE, M PAYAL PA Unavailable Unavailable ANGIE, M PAYAL PA Unavailable Unavailable ANGIE, M PAYAL PA Unavailable Unavailable ANGIE, M PAYAL PA Unavailable Unavailable ANIGE, M PAYAL PA Unavailable Unavailable ANGIE, M PAYAL PA Unavailable Unavailable ANGIE, M PAYAL PA Unavailable Unavailable ANGIE, M PAYAL PA Unavailable Unavailable ANGIE, M PAYAL PA Unavailable Unavailable ANGIE, M PAYAL PA Unavailable Unavailable ANGIE, M PAYAL PA Unavailable Unavailable ANGIE, M PAYAL PA Unavailable Unavailable ANGIE, M PAYAL PA Unavailable Unavailable ANGIE, M PAYAL PA Unavailable Unavailable ANGIE, M PAYAL PA Unavailable Unavailable ANGIE, M PAYAL PA Unavailable Unavailable ANGIE, M PAYAL PA Unavailable Unavailable ANGIE, M PAYAL PA Unavailable Unavailable ANGIE, M PAYAL PA Unavailable Unavailable ANGIE, M PAYAL PA Unavailable Unavailable ANGIE, M PAYAL PA Unavailable Unavailable ANGIE, M PAYAL PA Unavailable Unavailable ANGIE, M PAYAL PA Unavailable Unavailable ANGIE, M PAYAL PA Unavailable Unavailable ANGIE, M PAYAL PA Unavailable Unavailable Re-disclosure Warning The records that you are about to access may contain information from federally-assisted alcohol or drug abuse programs. If such information is present, then the following federally mandated warning applies: This information has been disclosed to you from records protected by federal confidentiality rules (42 CFR part 2). The federal rules prohibit you from making any further disclosure of this information unless further disclosure is expressly permitted by the written consent of the person to whom it pertains or as otherwise permitted by 42 CFR part 2. A general authorization for the release of medical or other information is NOT sufficient for this purpose. The Federal rules restrict any use of the information to criminally investigate or prosecute any alcohol or drug abuse patient.The records that you are about to access may contain highly sensitive health information, the redisclosure of which is protected by Article 27-F of the [facility] Public Health law. If you continue you may have access to information: Regarding HIV / AIDS; Provided by facilities licensed or operated by the [facility] Office of Mental Health; or Provided by the [facility] Office for People With Developmental Disabilities. If such information is present, then the following [facility] mandated warning applies: This information has been disclosed to you from confidential records which are protected by state law. State law prohibits you from making any further disclosure of this information without the specific written consent of the person to whom it pertains, or as otherwise permitted by law. Any unauthorized further disclosure in violation of state law may result in a fine or shelter sentence or both. A general authorization for the release of medical or other information is NOT sufficient authorization for further disc losure. 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 -NO Ebola Screening Performed completed Ebol a Screening Performed [facility] ([facility]) Note: Within the last month, have you tr aveled outside of the [place]? -NO Ebola Screening Performed completed Ebol a Screening Performed [facility] ([facility]) Note: Within the last month, have you tr aveled outside of the [place]? -NO Ebola Screening Performed completed Ebol a Screening Performed [facility] ([facility]) Note: Within the last month, have you tr aveled outside of the [place]? -NO packet given Pt Bill of Rights, Priv Prac, Ad Dir completed packet given Pt Bill of Rights, Priv Prac, Ad Dir [facility] ([facility]) Note: Pt declined AD packet Ebola Screening Performed completed Ebol a Screening [facility] Note: Within the last month, have you tr aveled outside of the [place]? -NO Allergies and Adverse Reactions Type Description Substance Reaction Status Data Source(s ) Drug allergy cortisone cortisone RASH/HIVES [facility] Drug allergy cortisone cortisone RASH/HIVES [facility] Family History Family Member Name Family Member Gender Family Member Status Date o f Status Description Data Source(s) Unknown Condition [facility] Unknown Condition [facility] Unknown Condition [facility] Unknown Condition [facility] Encounters Encounter Providers Location Date Indications Data Source(s ) Outpatient Attender: PAYAL JENNINGS 08/07/2020 01:42:00 P M EST Lab [facility] Lab Outpatient Attender: PAYAL JENNINGS 07/25/2020 09:06:00 A M EST Lab [facility] Obstetrics<td ID="encounterTypeDescripti onID0">Lab Order</td><td>Payal JENNINGS</td><td></td><td>07/24/2020</td><td></td> Attender: PAYAL JENNINGS 07/24/2020 04:28:00 PM EST - 07/24/2020 11:59:00 PM EST [facility] Outpatient Attender: [place]: PAYAL JENNINGS 06/15/2020 01:06:00 PM EDT - 06/15/2020 02:23:00 PM EDT LMOM 6 mo f/u [facility] LMOM 6 mo f/u Patient discharged. Outpatient<td ID="encounterTypeDescripti onID1">Acute L2</td><td>Payal JENNINGS</td><td>[facility]</td><td>05/22/2020</td><td><content ID="encounterDiagnosisID1-0">Chest Pain Or Discomfort</content>, <content ID="encounterDiagnosisID1-1">Diabetes Mellitus</content>, <content ID="encounterDiagnosisID1-2">Herpes Zoster (shingles)</content>, <content ID="encounterDiagnosisID1-3">Atrial Fibrillation</content>, <content ID="encounterDiagnosisID1-4">Hypertension (systemic)</content>, <content ID="encounterDiagnosisID1-5">Chronic Obstructive Pulmonary Disease</content>, <content ID="encounterDiagnosisID1-6">Obesity Morbid</content>, <content ID="encounterDiagnosisID1-7">Headache Syndromes</content>, <content ID="encounterDiagnosisID1-8">Osteoarthritis Localized Primary Knee</content>, <content ID="encounterDiagnosisID1-9">Disturbance of Gait</content></td> Attender: PAYAL JENNINGS [facility] 05/22/2020 09:04:00 AM EDT - 05/22/2020 10:07:13 AM EDT Disturbance of GaitOsteoarthritis Locali zed Primary KneeObesity MorbidHerpes Zoster (shingles)Disturbance of GaitOsteoarthritis Localized Primary KneeObesity MorbidHerpes Zoster (shingles)Chest Pain Or DiscomfortChest Pain Or DiscomfortHeadache SyndromesHeadache SyndromesAtrial FibrillationDiabetes MellitusAtrial FibrillationDiabetes MellitusChronic Obstructive Pulmonary DiseaseChronic Obstructive Pulmonary DiseaseHypertension (systemic)Hypertension (systemic) [facility] Disturbance of Gait Osteoarthritis Localized Primary Knee Obesity Morbid Herpes Zoster (shingles) Disturbance of Gait Osteoarthritis Localized Primary Knee Obesity Morbid Herpes Zoster (shingles) Chest Pain Or Discomfort Chest Pain Or Discomfort Headache Syndromes Headache Syndromes Atrial Fibrillation Diabetes Mellitus Atrial Fibrillation Diabetes Mellitus Chronic Obstructive Pulmonary Disease Chronic Obstructive Pulmonary Disease Hypertension (systemic) Hypertension (systemic) Unknown<td ID="encounterTypeDescriptionI D2">Correspondence</td><td>Payal JENNINGS</td><td></td><td>04/18/2020</td><td></td> Attender: PAYAL JENNINGS 04/18/2020 10:25:00 AM EDT - 04/18/2020 11:59:00 PM EDT [facility] Outpatient<td ID="encounterTypeDescripti onID3">Acute L2</td><td>Payal JENNINGS</td><td>[facility]</td><td>04/18/2020</td><td><content ID="encounterDiagnosisID3-0">Herpes Zoster (shingles)</content>, <content ID="encounterDiagnosisID3-1">Chest Pain Or Discomfort</content>, <content ID="encounterDiagnosisID3-2">Diabetes Mellitus</content>, <content ID="encounterDiagnosisID3-3">Atrial Fibrillation</content>, <content ID="encounterDiagnosisID3-4">Hypertension (systemic)</content>, <content ID="encounterDiagnosisID3-5">Chronic Obstructive Pulmonary Disease</content>, <content ID="encounterDiagnosisID3-6">Obesity Morbid</content>, <content ID="encounterDiagnosisID3-7">Headache Syndromes</content>, <content ID="encounterDiagnosisID3-8">Osteoarthritis Localized Primary Knee</content>, <content ID="encounterDiagnosisID3-9">Disturbance of Gait</content></td> Attender: PAYAL JENNINGS [facility] 04/18/2020 07:55:00 AM EDT - 04/18/2020 09:15:28 AM EDT Disturbance of GaitOsteoarthritis Locali zed Primary KneeObesity MorbidHerpes Zoster (shingles)Disturbance of GaitOsteoarthritis Localized Primary KneeObesity MorbidHerpes Zoster (shingles)Disturbance of GaitOsteoarthritis Localized Primary KneeObesity MorbidHerpes Zoster (shingles)Chest Pain Or DiscomfortChest Pain Or DiscomfortChest Pain Or DiscomfortHeadache SyndromesHeadache SyndromesHeadache SyndromesAtrial FibrillationDiabetes MellitusAtrial FibrillationDiabetes MellitusAtrial FibrillationDiabetes MellitusChronic Obstructive Pulmonary DiseaseChronic Obstructive Pulmonary DiseaseChronic Obstructive Pulmonary DiseaseHypertension (systemic)Hypertension (systemic)Hypertension (systemic) [facility] ([facility]) Disturbance of Gait Osteoarthritis Localized Primary Knee Obesity Morbid Herpes Zoster (shingles) Disturbance of Gait Osteoarthritis Localized Primary Knee Obesity Morbid Herpes Zoster (shingles) Disturbance of Gait Osteoarthritis Localized Primary Knee Obesity Morbid Herpes Zoster (shingles) Chest Pain Or Discomfort Chest Pain Or Discomfort Chest Pain Or Discomfort Headache Syndromes Headache Syndromes Headache Syndromes Atrial Fibrillation Diabetes Mellitus Atrial Fibrillation Diabetes Mellitus Atrial Fibrillation Diabetes Mellitus Chronic Obstructive Pulmonary Disease Chronic Obstructive Pulmonary Disease Chronic Obstructive Pulmonary Disease Hypertension (systemic) Hypertension (systemic) Hypertension (systemic) Obstetrics<td ID="encounterTypeDescripti onID4">Lab Order</td><td>Payal JENNINGS</td><td></td><td>04/14/2020</td><td></td> Attender: PAYAL JENNINGS 04/14/2020 01:04:00 PM EDT - 04/14/2020 11:59:00 PM EDT [facility] ([facility]) Outpatient Attender: PAYAL JENNINGS 04/12/2020 08:09:00 A M EDT lab 1 of 1 [facility] lab 1 of 1 Unknown<td ID="encounterTypeDescriptionI D5">AHR</td><td>Payal JENNINGS</td><td>[facility]</td><td>04/04/2020</td><td><content ID="encounterDiagnosisID5-0">Herpes Zoster (shingles)</content>, <content ID="encounterDiagnosisID5-1">Routine History and Physical</content>, <content ID="encounterDiagnosisID5-2">Chest Pain Or Discomfort</content>, <content ID="encounterDiagnosisID5-3">Diabetes Mellitus</content>, <content ID="encounterDiagnosisID5-4">Atrial Fibrillation</content>, <content ID="encounterDiagnosisID5-5">Hypertension (systemic)</content>, <content ID="encounterDiagnosisID5-6">Chest Pain</content>, <content ID="encounterDiagnosisID5-7">Essential Hypertension Benign</content>, <content ID="encounterDiagnosisID5-8">Chronic Obstructive Pulmonary Disease</content>, <content ID="encounterDiagnosisID5-9">Obesity Morbid</content>, <content ID="encounterDiagnosisID5-10">Headache Syndromes</content>, <content ID="encounterDiagnosisID5-11">Osteoarthritis Localized Primary Knee</content>, <content ID="encounterDiagnosisID5-12">Disturbance of Gait</content></td> Attender: PAYAL JENNINGS [facility] 04/04/2020 02:55:00 PM EDT - 04/04/2020 04:52:13 PM EDT Disturbance of GaitOsteoarthritis Locali zed Primary KneeObesity MorbidRoutine History and PhysicalHerpes Zoster (shingles)Disturbance of GaitOsteoarthritis Localized Primary KneeObesity MorbidRoutine History and PhysicalHerpes Zoster (shingles)Disturbance of GaitOsteoarthritis Localized Primary KneeObesity MorbidRoutine History and PhysicalHerpes Zoster (shingles)Disturbance of GaitOsteoarthritis Localized Primary KneeObesity MorbidRoutine History and PhysicalHerpes Zoster (shingles) Chest PainChest Pain Or DiscomfortChest PainChest Pain Or DiscomfortChest PainChest Pain Or DiscomfortChest PainChest Pain Or DiscomfortHeadache SyndromesHeadache SyndromesHeadache SyndromesHeadache SyndromesAtrial FibrillationDiabetes MellitusAtrial FibrillationDiabetes MellitusAtrial FibrillationDiabetes MellitusAtrial FibrillationDiabetes MellitusChronic Obstructive Pulmonary DiseaseChronic Obstructive Pulmonary DiseaseChronic Obstructive Pulmonary DiseaseChronic Obstructive Pulmonary DiseaseEssential Hypertension BenignHypertension (systemic)Essential Hypertension BenignHypertension (systemic)Essential Hypertension BenignHypertension (systemic)Essential Hypertension BenignHypertension (systemic) [facility]) Disturbance of Gait Osteoarthritis Localized Primary Knee Obesity Morbid Routine History and Physical Herpes Zoster (shingles) Disturbance of Gait Osteoarthritis Localized Primary Knee Obesity Morbid Routine History and Physical Herpes Zoster (shingles) Disturbance of Gait Osteoarthritis Localized Primary Knee Obesity Morbid Routine History and Physical Herpes Zoster (shingles) Disturbance of Gait Osteoarthritis Localized Primary Knee Obesity Morbid Routine History and Physical Herpes Zoster (shingles) Chest Pain Chest Pain Or Discomfort Chest Pain Chest Pain Or Discomfort Chest Pain Chest Pain Or Discomfort Chest Pain Chest Pain Or Discomfort Headache Syndromes Headache Syndromes Headache Syndromes Headache Syndromes Atrial Fibrillation Diabetes Mellitus Atrial Fibrillation Diabetes Mellitus Atrial Fibrillation Diabetes Mellitus Atrial Fibrillation Diabetes Mellitus Chronic Obstructive Pulmonary Disease Chronic Obstructive Pulmonary Disease Chronic Obstructive Pulmonary Disease Chronic Obstructive Pulmonary Disease Essential Hypertension Benign Hypertension (systemic) Essential Hypertension Benign Hypertension (systemic) Essential Hypertension Benign Hypertension (systemic) Essential Hypertension Benign Hypertension (systemic) Outpatient<td ID="encounterTypeDescripti onID6">Acute L2</td><td>Suzie Rodriguez [employer]</td><td>[facility]</td><td>03/23/2020</td><td><content ID="encounterDiagnosisID6-0">Herpes Zoster Without Complications</content></td> Attender: SUZIE RODRIGUEZ NP [facility] 03/23/2020 02:00:00 PM ED T - 03/23/2020 02:50:28 PM EDT Herpes Zoster Without ComplicationsHerpe s Zoster Without ComplicationsHerpes Zoster Without ComplicationsHerpes Zoster Without ComplicationsHerpes Zoster Without Complications [facility]) Herpes Zoster Without Complications Herpes Zoster Without Complications Herpes Zoster Without Complications Herpes Zoster Without Complications Herpes Zoster Without Complications Outpatient Attender: Mackenzie Gavin 03/15/2020 02:42:00 PM EDT Xray [facility] Xray Outpatient<td ID="encounterTypeDescripti onID7">Acute L1</td><td>Mackenzie Gavin DO</td><td>[facility]</td><td>03/15/2020</td><td><content ID="encounterDiagnosisID7-0">Chest Pain</content>, <content ID="encounterDiagnosisID7-1">Sprain Thoracic</content></td> Attender: Mackenzie Gavin [facility] 03/15/2020 01:36:00 PM EDT - 03/15/2020 04:53:00 PM EDT Sprain ThoracicChest PainSprain ThoracicChest PainSprain ThoracicChest PainSprain ThoracicChest PainSprain ThoracicChest PainSprain ThoracicChest Pain [facility] ([facility]) Sprain Thoracic Chest Pain Sprain Thoracic Chest Pain Sprain Thoracic Chest Pain Sprain Thoracic Chest Pain Sprain Thoracic Chest Pain Sprain Thoracic Chest Pain Outpatient Attender: Lake JENNINGS 12/15/2019 02:03:00 P M EDT [facility]ender: [place] Diggserrer: PAYAL JENNINGS 12/14/2019 01:39:00 PM EDT - 12/14/2019 02:53:00 PM EDT Follow Up 6 mo-Confirmed ( See Chart Note) [facility], Follow Up 6 mo-Confirmed ( See Chart Not e) Patient discharged. Outpatient Attender: PAYAL JENNINGS 11/24/2019 03:30:00 P M EDT Lab [facility] Lab Outpatient<td ID="encounterTypeDescripti onID8">Chronic Disease Follow- up</td><td>Payal JENNINGS</td><td>[facility]</td><td>11/24/2019</td><td><content ID="encounterDiagnosisID8-0">Chest Pain Or Discomfort</content>, <content ID="encounterDiagnosisID8-1">Diabetes Mellitus</content>, <content ID="encounterDiagnosisID8-2">Atrial Fibrillation</content>, <content ID="encounterDiagnosisID8-3">Hypertension (systemic)</content>, <content ID="encounterDiagnosisID8-4">Chest Pain</content>, <content ID="encounterDiagnosisID8-5">Essential Hypertension Benign</content>, <content ID="encounterDiagnosisID8-6">Chronic Obstructive Pulmonary Disease</content>, <content ID="encounterDiagnosisID8-7">Obesity Morbid</content>, <content ID="encounterDiagnosisID8-8">Headache Syndromes</content>, <content ID="encounterDiagnosisID8-9">Osteoarthritis Localized Primary Knee</content>, <content ID="encounterDiagnosisID8-10"> Disturbance of Gait</content>, <content ID="encounterDiagnosisID8-11">Adjustment Disorder Grief Reaction</content></td> Attender: PAYAL JENNINGS [facility] 11/24/2019 01:50:00 PM EDT - 11/24/2019 03:26:26 PM ED T Chest PainChest Pain Or DiscomfortChest PainChest Pain Or DiscomfortChest PainChest Pain Or DiscomfortChest PainChest Pain Or DiscomfortChest PainChest Pain Or DiscomfortChest PainChest Pain Or DiscomfortAdjustment Disorder Grief Reaction Disturbance of GaitOsteoarthritis Localized Primary KneeObesity MorbidAdjustment Disorder Grief ReactionDisturbance of GaitOsteoarthritis Localized Primary KneeObesity MorbidAdjustment Disorder Grief ReactionDisturbance of Gait Osteoarthritis Localized Primary KneeObesity MorbidAdjustment Disorder Grief ReactionDisturbance of GaitOsteoarthritis Localized Primary KneeObesity MorbidAdjustment Disorder Grief ReactionDisturbance of GaitOsteoarthritis Localized Primary KneeObesity MorbidAdjustment Disorder Grief ReactionDisturbance of GaitOsteoarthritis Localized Primary KneeObesity MorbidAdjustment Disorder Grief ReactionDisturbance of GaitOsteoarthritis Localized Primary KneeObesity MorbidChest PainChest Pain Or DiscomfortHeadache SyndromesHeadache SyndromesHeadache SyndromesHeadache SyndromesHeadache SyndromesHeadache SyndromesHeadache SyndromesAtrial FibrillationDiabetes MellitusAtrial FibrillationDiabetes MellitusAtrial FibrillationDiabetes MellitusAtrial FibrillationDiabetes MellitusAtrial FibrillationDiabetes MellitusAtrial FibrillationDiabetes MellitusAtrial FibrillationDiabetes MellitusChronic Obstructive Pulmonary DiseaseChronic Obstructive Pulmonary DiseaseChronic Obstructive Pulmonary DiseaseChronic Obstructive Pulmonary DiseaseChronic Obstructive Pulmonary DiseaseChronic Obstructive Pulmonary DiseaseChronic Obstructive Pulmonary DiseaseEssential Hypertension BenignHypertension (systemic)Essential Hypertension BenignHypertension (systemic)Essential Hypertension BenignHypertension (systemic)Essential Hypertension BenignHypertension (systemic)Essential Hypertension BenignHypertension (systemic)Essential Hypertension BenignHypertension (systemic)Essential Hypertension BenignHypertension (systemic) [facility] ([facility]) Chest Pain Chest Pain Or Discomfort Chest Pain Chest Pain Or Discomfort Chest Pain Chest Pain Or Discomfort Chest Pain Chest Pain Or Discomfort Chest Pain Chest Pain Or Discomfort Chest Pain Chest Pain Or Discomfort Adjustment Disorder Grief Reaction Disturbance of Gait Osteoarthritis Localized Primary Knee Obesity Morbid Adjustment Disorder Grief Reaction Disturbance of Gait Osteoarthritis Localized Primary Knee Obesity Morbid Adjustment Disorder Grief Reaction Disturbance of Gait Osteoarthritis Localized Primary Knee Obesity Morbid Adjustment Disorder Grief Reaction Disturbance of Gait Osteoarthritis Localized Primary Knee Obesity Morbid Adjustment Disorder Grief Reaction Disturbance of Gait Osteoarthritis Localized Primary Knee Obesity Morbid Adjustment Disorder Grief Reaction Disturbance of Gait Osteoarthritis Localized Primary Knee Obesity Morbid Adjustment Disorder Grief Reaction Disturbance of Gait Osteoarthritis Localized Primary Knee Obesity Morbid Chest Pain Chest Pain Or Discomfort Headache Syndromes Headache Syndromes Headache Syndromes Headache Syndromes Headache Syndromes Headache Syndromes Headache Syndromes Atrial Fibrillation Diabetes Mellitus Atrial Fibrillation Diabetes Mellitus Atrial Fibrillation Diabetes Mellitus Atrial Fibrillation Diabetes Mellitus Atrial Fibrillation Diabetes Mellitus Atrial Fibrillation Diabetes Mellitus Atrial Fibrillation Diabetes Mellitus Chronic Obstructive Pulmonary Disease Chronic Obstructive Pulmonary Disease Chronic Obstructive Pulmonary Disease Chronic Obstructive Pulmonary Disease Chronic Obstructive Pulmonary Disease Chronic Obstructive Pulmonary Disease Chronic Obstructive Pulmonary Disease Essential Hypertension Benign Hypertension (systemic) Essential Hypertension Benign Hypertension (systemic) Essential Hypertension Benign Hypertension (systemic) Essential Hypertension Benign Hypertension (systemic) Essential Hypertension Benign Hypertension (systemic) Essential Hypertension Benign Hypertension (systemic) Essential Hypertension Benign Hypertension (systemic) Unknown<td ID="encounterTypeDescriptionI D9">Chart Update</td><td>Donna Andrade RN</td><td></td><td>11/08/2019</td><td></td> Attender: Donna Andrade RN 11/08/2019 09:16:00 AM EDT - 11/08/2019 11:59:00 PM EDT [facility] ([facility]) Immunizations Vaccine Date Status Description Data Source(s) Influenza, high dose seasonal 05/22/2020 10:13:00 AM EDT complet ed Influenza, high-dose (over 65) 1 05/22/2020 Left Delto[facility] Complete [facility]Adm inistered[facility] Medications Medication Brand Name Start Date Product Form Dose Route Admi nistrative Instructions Pharmacy Instructions Status Indications Reaction Description Data Source(s) 50 mg 08/29/2020 12:00:00 AM EST tablet 60 TAKE ONE TABLET BY MOUTH TWICE A DAY MAXIMUM DAILY DOSE = 2 TAKE ONE TABLET BY MOUTH TWICE A DAY MAX IMUM DAILY DOSE = 2 SOLD: 08/29/2020 [facility] 100 mg 08/04/2020 12:00:00 AM EST tablet 90 TAKE ONE TABLET BY MOUTH EVERY DAY TAKE ONE TABLET BY MOUTH EVERY DAY SOLD: 08/05/2020 [facility] 5 mg 07/15/2020 12:00:00 AM EST tablet extended release 24hr 90 TAKE ONE TABLET BY MOUTH EVERY DAY TAKE ONE TABLET BY MOUTH EVERY DAY SOLD: 07/17/2020 [facility] glipiZIDE XL 5 MG Oral Tablet Extended Release 24 Hour glipiZIDE XL 5 MG Oral Tablet Extended Release 24 Hour 07/14/2020 12:00:00 AM EST 1 active glipiZIDE XL [facility] tramadol hydrochloride 50 MG Oral Tablet traMADol HCl 50 MG Oral Tablet traMADol HCl 50 MG Oral Tablet 06/02/2020 12:00:00 AM EDT 1 active tramadol hydrochloride 50 MG Oral Tablet [facility] tramadol hydrochloride 50 MG Oral Tablet traMADol HCl 50 MG OR TABS traMADol HCl 50 MG OR TABS 06/02/2020 12:00:00 AM EDT 1 abor betty tramadol hydrochloride 50 MG Oral Tablet [facility] ([facility]) 50 mg 06/02/2020 12:00:00 AM EDT tablet 60 TAKE ONE TABLET BY MOUTH TWICE A DAY * MAXIMUM DAILY DOSE = 2 TAKE ONE TABLET BY MOUTH TWICE A DAY * M AXIMUM DAILY DOSE = 2 SOLD: 06/05/2020 [facility] gabapentin 100 MG Oral Capsule Gabapentin 100 MG Oral Capsule Gabapentin 100 MG Oral Capsule 04/04/2020 12:00:00 AM EDT 1 activ e gabapentin 100 MG Oral Capsule [facility] ([facility]) Prednisone 20 MG Oral Tablet predniSONE 20 MG Oral Tab let predniSONE 20 MG Oral Tablet 04/04/2020 12:00:00 AM EDT 1 aborted prednisone 20 MG Oral Tablet [facility] ([facility]) 20 mg 04/04/2020 12:00:00 AM EDT tablet 7 TAKE ONE TABLET BY MOUTH EVERY DAY TAKE ONE TABLET BY MOUTH EVERY DAY SOLD: 04/04/2020 [facility] carvedilol 6.25 MG Oral Tablet Carvedilol 6.25 MG Oral Tablet Carvedilol 6.25 MG Oral Tablet 04/04/2020 12:00:00 AM EDT 1 active carvedilol 6.25 MG Oral Tablet [facility] ([facility]) apixaban 5 MG Oral Tablet [Eliquis] Eliquis 5 MG Oral Tablet Eliquis 5 MG Oral Tablet 04/04/2020 12:00:00 AM EDT 1 active apixaban 5 MG Oral Tablet [Eliquis] [facility] ([facility]) 100 mg 04/04/2020 12:00:00 AM EDT capsule 60 TAKE ONE CAPSULE BY MOUTH ONCE NIGHTLY FOR 5 DAYS THEN INCREASE TO 1 CAPSULE TWO TIMES A DAY TAKE ONE CAPSULE BY MOUTH ONCE NIGHTLY FOR 5 DAYS THEN INCREASE TO 1 CAPSULE TWO TIMES A DAY SOLD: 04/04/2020 [facility] 25-25 mg 04/03/2020 12:00:00 AM EDT tablet 90 TAKE ONE TABLET BY MOUTH EVERY DAY TAKE ONE TABLET BY MOUTH EVERY DAY SOLD: 04/04/2020 [facility] 25-25 mg 04/03/2020 12:00:00 AM EDT tablet 90 TAKE ONE TABLET BY MOUTH EVERY DAY TAKE ONE TABLET BY MOUTH EVERY DAY SOLD: 07/04/2020 [facility] Hydrochlorothiazide 25 MG / Spironolacto ne 25 MG Oral Tablet Spironolactone-HCTZ 25-25 MG Oral Tablet Spironolactone-HCTZ 25-25 MG Oral Tablet 04/03/2020 12:00:00 AM EDT 1 active hydrochlorothiazide 25 MG / spironolactone 25 MG Oral Tablet [facility]) 50 mg 03/28/2020 12:00:00 AM EDT tablet 60 TAKE ONE TABLET BY MOUTH TWICE A DAY MAXIMUM DAILY DOSE = 2 TAKE ONE TABLET BY MOUTH TWICE A DAY MAX IMUM DAILY DOSE = 2 SOLD: 03/29/2020 [facility] tramadol hydrochloride 50 MG Oral Tablet traMADol HCl 50 MG Oral Tablet traMADol HCl 50 MG Oral Tablet 03/27/2020 12:00:00 AM EDT 1 aborted tramadol hydrochloride 50 MG Oral Tablet [facility] ([facility]) Lidocaine 50 MG/ML Rectal Cream Lidocaine 5% External Cream Lidocaine 5% External Cream 03/23/2020 12:00:00 AM EDT com pleted lidocaine 50 MG/ML Rectal Cream [facility]) 5 mg 02/23/2020 12:00:00 AM EDT tablet 180 TAKE ONE TABLET BY MOUTH TWICE A DAY TAKE ONE TABLET BY MOUTH TWICE A DAY SOLD: 08/24/2020 [facility] 5 mg 02/23/2020 12:00:00 AM EDT tablet 180 TAKE ONE TABLET BY MOUTH TWICE A DAY TAKE ONE TABLET BY MOUTH TWICE A DAY SOLD: 05/26/2020 [facility] 5 mg 02/23/2020 12:00:00 AM EDT tablet 180 TAKE ONE TABLET BY MOUTH TWICE A DAY TAKE ONE TABLET BY MOUTH TWICE A DAY SOLD: 02/24/2020 [facility] apixaban 5 MG Oral Tablet Apixaban (Eliquis) 5 mg tabl et Apixaban (Eliquis) 5 mg tablet 02/22/2020 08:25:43 PM EDT TABLET 5 MG ORAL active [facility] 20 mg 02/22/2020 12:00:00 AM EDT tablet 90 TAKE ONE TABLET BY MOUTH EVERY DAY TAKE ONE TABLET BY MOUTH EVERY DAY SOLD: 08/14/2020 [facility] 20 mg 02/22/2020 12:00:00 AM EDT tablet 90 TAKE ONE TABLET BY MOUTH EVERY DAY TAKE ONE TABLET BY MOUTH EVERY DAY SOLD: 02/23/2020 [facility] Furosemide 20 MG Oral Tablet Furosemide 20 MG Oral Tablet 12:00:00 AM EDT 1 active furosemide 20 MG Oral Tablet [facility] ([facility]) 20 mg 02/22/2020 12:00:00 AM EDT tablet 90 TAKE ONE TABLET BY MOUTH EVERY DAY TAKE ONE TABLET BY MOUTH EVERY DAY SOLD: 05/26/2020 [facility] Albuterol 0.83 MG/ML Inhalant Solution A lbuterol Sulfate (2.5 MG/3ML) 0.083% Inhalation Nebulization solution Albuterol Sulfate (2.5 MG/3ML) 0.083% Inhalation Nebulization solution 02/17/2020 12:00:00 AM EDT 1 active albuterol 0.83 MG/ML Inhalation Solution [facility]) 2.5 mg /3 mL (0.083 %) 02/17/2020 12:00:00 AM EDT solu tion for nebulization 300 USE 1 AMP VIA NEBULIZER FOUR TIMES A DAY NEEDED USE 1 AMP VIA NEBULIZER FOUR TIMES A DAY NEEDED SOLD: 02/20/2020 [facility] 50 mg 01/12/2020 12:00:00 AM EDT tablet 60 TAKE ONE TABLET BY MOUTH TWICE A DAY MAXIMUM DAILY DOSE = 2 TAKE ONE TABLET BY MOUTH TWICE A DAY MAX IMUM DAILY DOSE = 2 SOLD: 01/13/2020 [facility] tramadol hydrochloride 50 MG Oral Tablet traMADol HCl 50 MG Oral Tablet traMADol HCl 50 MG Oral Tablet 01/11/2020 12:00:00 AM EDT 1 aborted tramadol hydrochloride 50 MG Oral Tablet [facility]) ALCOHOL ANTISEPTIC PADS 12/17/2019 12:00:00 AM EDT pads, med icated 100 USE TO TEST BLOOD SUGAR TWICE DAILY (FASTING IN THE MORNING, AND 2 HOURS AFTER SUPPER) USE TO TEST BLOOD SUGAR TWICE DAILY (FAS TING IN THE MORNING, AND 2 HOURS AFTER SUPPER) SOLD: 12/17/2019 [facility] 12/17/2019 12:00:00 AM EDT misc 100 USE TO TEST BLOOD SUGAR TWICE DAILY (FASTING IN THE MORNING, AND 2 HOURS AFTER SUPPER) USE TO TEST BLOOD SUGAR TWICE DAILY (FASTING IN THE MORNING, AND 2 HOURS AFTER SUPPER) SOLD: 12/17/2019 [facility] BLOOD SUGAR DIAGNOSTIC 12/17/2019 12:00:00 AM EDT strip 100 USE TO TEST BLOOD SUGAR TWICE DAILY (FASTING A.M. AND 2 HOURS AFTER SUPPER) USE TO TEST BLOOD SUGAR TWICE DAILY (FASTING A.M. AND 2 HOURS AFTER SUPPER) SOLD: 12/17/2019 [facility] ALCOHOL ANTISEPTIC PADS 12/17/2019 12:00:00 AM EDT pads, med icated 100 USE TO TEST BLOOD SUGAR TWICE DAILY (FASTING IN THE MORNING, AND 2 HOURS AFTER SUPPER) USE TO TEST BLOOD SUGAR TWICE DAILY (FAS TING IN THE MORNING, AND 2 HOURS AFTER SUPPER) SOLD: 07/04/[address] [facility] LANCETS 12/17/2019 12:00:00 AM EDT misc 100 USE TO TEST BLOOD SUGAR TWICE DAILY (FASTING IN THE MORNING, AND 2 HOURS AFTER SUPPER) USE TO TEST BLOOD SUGAR TWICE DAILY (FASTING IN THE MORNING, AND 2 HOURS AFTER SUPPER) SOLD: 07/04/2020 [facility] BLOOD SUGAR DIAGNOSTIC 12/17/2019 12:00:00 AM EDT strip 100 USE TO TEST BLOOD SUGAR TWICE DAILY (FASTING A.M. AND 2 HOURS AFTER SUPPER) USE TO TEST BLOOD SUGAR TWICE DAILY (FASTING A.M. AND 2 HOURS AFTER SUPPER) SOLD: 07/04/2020 [facility] Accu-Chek FastClix Lancets Miscellaneous Accu-Chek Fas tClix Lancets Miscellaneous 12/16/2019 12:00:00 AM EDT comp leted Accu-Chek FastClix Lancets [facility] Accu-Chek Jody Plus In Vitro Strip Accu-Chek Jody Plus In Vitro Strip 12/16/2019 12:00:00 AM EDT 1 active Accu-Chek Jody Plus [facility] Alcohol Pads 70% Alcohol Pads 70% 12/16/2019 12:00:00 AM EDT active Alcohol Pads [facility] carvedilol 6.25 MG Oral Tablet CARVEDILOL 12/15/2019 12:00:00 AM EDT tablet 180 TAKE ONE TABLET BY MOUTH TWICE A DAY WITH FOOD TAKE ON E TABLET BY MOUTH TWICE A DAY WITH FOOD SOLD: 07/04/2020 [facility] 10 mg 12/15/2019 12:00:00 AM EDT tablet 90 TAKE ONE TABLET BY MOUTH EVERY EVENING TAKE ONE TABLET BY MOUTH EVERY EVENING SOLD: 12/15/2019 [facility] carvedilol 6.25 MG Oral Tablet CARVEDILOL 12/15/2019 12:00:00 AM EDT tablet 180 TAKE ONE TABLET BY MOUTH TWICE A DAY WITH FOOD TAKE ON E TABLET BY MOUTH TWICE A DAY WITH FOOD SOLD: 04/03/2020 [facility] carvedilol 6.25 MG Oral Tablet CARVEDILOL 12/15/2019 12:00:00 AM EDT tablet 180 TAKE ONE TABLET BY MOUTH TWICE A DAY WITH FOOD TAKE ON E TABLET BY MOUTH TWICE A DAY WITH FOOD SOLD: 12/15/2019 [facility] atorvastatin 10 MG Oral Tablet ATORVASTATIN CALCIUM 12/15/2019 1 2:00:00 AM EDT tablet 90 TAKE ONE TABLET BY MOUTH EVERY E VENING TAKE ONE TABLET BY MOUTH EVERY EVENING SOLD: 03/27/2020 [facility] Furosemide 20 MG Oral Tablet Furosemide 12/14/2019 02:16:32 PM EDT TA BLET 20 MG ORAL active [facility] Furosemide 20 MG Oral Tablet Furosemide 12/14/2019 02:16:32 PM EDT TA BLET 20 MG ORAL [facility] carvedilol 6.25 MG Oral Tablet Carvedilol Carvedilol 2019 02:14:34 PM EDT TABLET 6.25 MG ORAL active [facility] carvedilol 6.25 MG Oral Tablet Carvedilol Carvedilol 2019 02:14:34 PM EDT TABLET 6.25 MG ORAL active [facility] atorvastatin 10 MG Oral Tablet Atorvastatin Atorvastatin 12/14/2019 02:14:29 PM EDT TABLET 10 MG ORAL active [facility] atorvastatin 10 MG Oral Tablet Atorvastatin Atorvastatin 12/14/2019 02:14:29 PM EDT TABLET 10 MG ORAL active [facility] apixaban 5 MG Oral Tablet Apixaban Apixaban 12/14/2019 02:14:15 PM EDT TABLET 5 MG ORAL [facility] 5 MG Oral Tablet Apixaban (Eliquis) 5 mg tabl et Apixaban (Eliquis) 5 mg tablet 12/14/2019 02:14:15 PM EDT TABLET 5 MG ORAL completed [facility] 20 mg 11/24/2019 12:00:00 AM EDT tablet 30 TAKE ONE TABLET BY MOUTH EVERY DAY TAKE ONE TABLET BY MOUTH EVERY DAY SOLD: 11/24/2019 [facility] 20 mg 11/24/2019 12:00:00 AM EDT tablet 30 TAKE ONE TABLET BY MOUTH EVERY DAY TAKE ONE TABLET BY MOUTH EVERY DAY SOLD: 01/15/2020 [facility] 20 mg 11/24/2019 12:00:00 AM EDT tablet 30 TAKE ONE TABLET BY MOUTH EVERY DAY TAKE ONE TABLET BY MOUTH EVERY DAY SOLD: 12/22/2019 [facility] Furosemide 20 MG Oral Tablet Furosemide 20 MG Oral Tablet 12:00:00 AM EDT 1 aborted furosemide 20 MG Oral Tablet [facility] ([facility]) 2 % 11/09/2019 12:00:00 AM EDT cream 15 APPLY SPARINGLY TO AFFECTED AREA THREE TIMES A DAY FOR 10 DAYS THEN NEEDED APPLY SPARINGLY TO AFFECTED AREA THREE TIMES A DAY FOR 10 DAYS THEN NEEDED SOLD: 11/10/2019 [facility] 100 mg 11/01/2019 12:00:00 AM EDT tablet 90 TAKE ONE TABLET BY MOUTH EVERY DAY TAKE ONE TABLET BY MOUTH EVERY DAY SOLD: 11/01/2019 [facility] 50 mg 11/01/2019 12:00:00 AM EDT tablet 60 TAKE ONE TABLET BY MOUTH TWICE A DAY MAXIMUM DAILY DOSE = 2 TAKE ONE TABLET BY MOUTH TWICE A DAY MAX IMUM DAILY DOSE = 2 SOLD: 11/01/2019 [facility] tramadol hydrochloride 50 MG Oral Tablet traMADol HCl 50 MG Oral Tablet traMADol HCl 50 MG Oral Tablet 11/01/2019 12:00:00 AM EDT 1 aborted tramadol hydrochloride 50 MG Oral Tablet [facility] ([facility]) Losartan Potassium 100 MG Oral Tablet Losartan Potassium 100 MG Oral Tablet 11/01/2019 12:00:00 AM EDT 1 active losartan potassium 100 MG Oral Tablet [facility] ([facility]) 100 mg 11/01/2019 12:00:00 AM EDT tablet 90 TAKE ONE TABLET BY MOUTH EVERY DAY TAKE ONE TABLET BY MOUTH EVERY DAY SOLD: 02/04/2020 [facility] 100 mg 11/01/2019 12:00:00 AM EDT tablet 90 TAKE ONE TABLET BY MOUTH EVERY DAY TAKE ONE TABLET BY MOUTH EVERY DAY SOLD: 05/04/2020 [facility] 5 mg 10/04/2019 12:00:00 AM EST tablet extended release 24hr 90 TAKE ONE TABLET BY MOUTH EVERY DAY TAKE ONE TABLET BY MOUTH EVERY DAY SOLD: 01/15/2020 [facility] 5 mg 10/04/2019 12:00:00 AM EST tablet extended release 24hr 90 TAKE ONE TABLET BY MOUTH EVERY DAY TAKE ONE TABLET BY MOUTH EVERY DAY SOLD: 10/06/2019 [facility] 5 mg 10/04/2019 12:00:00 AM EST tablet extended release 24hr 90 TAKE ONE TABLET BY MOUTH EVERY DAY TAKE ONE TABLET BY MOUTH EVERY DAY SOLD: 04/04/2020 [facility] glipiZIDE XL 5 MG Oral Tablet Extended Release 24 Hour glipiZIDE XL 5 MG Oral Tablet Extended Release 24 Hour 10/04/2019 12:00:00 AM EST 1 aborted glipiZIDE XL [facility] ([facility]) 50 mg 08/23/2019 12:00:00 AM EST tablet 60 TAKE ONE TABLET BY MOUTH TWICE A DAY MAXIMUM DAILY DOSE = 2 TAKE ONE TABLET BY MOUTH TWICE A DAY MAX IMUM DAILY DOSE = 2 SOLD: 08/23/2019 [facility] tramadol hydrochloride 50 MG Oral Tablet traMADol HCl 50 MG OR TABS traMADol HCl 50 MG OR TABS 08/23/2019 12:00:00 AM EST 1 abo rted tramadol hydrochloride 50 MG Oral Tablet [facility] ([facility]) tramadol hydrochloride 50 MG Oral Tablet traMADol HCl 50 MG Oral Tablet traMADol HCl 50 MG Oral Tablet 08/23/2019 12:00:00 AM EST 1 aborted tramadol hydrochloride 50 MG Oral Tablet [facility] ([facility]) tramadol hydrochloride 50 MG Oral Tablet traMADol HCl 50 MG OR TABS traMADol HCl 50 MG OR TABS 08/20/2019 12:00:00 AM EST 1 abo rted tramadol hydrochloride 50 MG Oral Tablet [facility] ([facility]) tramadol hydrochloride 50 MG Oral Tablet traMADol HCl 50 MG OR TABS traMADol HCl 50 MG OR TABS 08/19/2019 12:00:00 AM EST 1 abo rted tramadol hydrochloride 50 MG Oral Tablet [facility] ([facility]) 25-25 mg 07/08/2019 12:00:00 AM EST tablet 90 TAKE ONE TABLET BY MOUTH EVERY DAY TAKE ONE TABLET BY MOUTH EVERY DAY SOLD: 01/03/2020 [facility] 25-25 mg 07/08/2019 12:00:00 AM EST tablet 90 TAKE ONE TABLET BY MOUTH EVERY DAY TAKE ONE TABLET BY MOUTH EVERY DAY SOLD: 10/06/2019 [facility] Hydrochlorothiazide 25 MG / Spironolacto ne 25 MG Oral Tablet Spironolactone-HCTZ 25-25 MG Oral Tablet Spironolactone-HCTZ 25-25 MG Oral Tablet 07/07/2019 12:00:00 AM EST 1 aborted hydrochlorothiazide 25 MG / spironolactone 25 MG Oral Tablet [facility] ([facility]) apixaban 5 MG Oral Tablet [Eliquis] Eliquis 5 MG Oral Tablet Eliquis 5 MG Oral Tablet 05/25/2019 12:00:00 AM EDT 1 aborted apixaban 5 MG Oral Tablet [Eliquis] [facility] ([facility]) carvedilol 6.25 MG Oral Tablet Carvedilol 6.25 MG Oral Tablet Carvedilol 6.25 MG Oral Tablet 05/25/2019 12:00:00 AM EDT 1 abort ed carvedilol 6.25 MG Oral Tablet [facility] ([facility]) tramadol hydrochloride 50 MG Oral Tablet traMADol HCl 50 MG Oral Tablet traMADol HCl 50 MG Oral Tablet 05/25/2019 12:00:00 AM EDT 1 aborted tramadol hydrochloride 50 MG Oral Tablet [facility] ([facility]) apixaban 5 MG Oral Tablet Apixaban (Eliquis) 5 mg tabl et Apixaban (Eliquis) 5 mg tablet 02/16/2019 05:54:19 AM EDT [facility]T [email or web address] apixaban 5 MG Oral Tablet Apixaban Apixaban 02/16/2019 05:54:19 AM EDT TABLET 5 MG ORAL [facility] [place] [email or web address] 5 mg 02/16/2019 12:00:00 AM EDT tablet 180 TAKE ONE TABLET BY MOUTH TWICE A DAY TAKE ONE TABLET BY MOUTH TWICE A DAY SOLD: 11/19/2019 [facility] 5 mg 02/16/2019 12:00:00 AM EDT tablet 180 TAKE ONE TABLET BY MOUTH TWICE A DAY TAKE ONE TABLET BY MOUTH TWICE A DAY SOLD: 08/19/2019 [facility] 5 mg 01/21/2019 12:00:00 AM EDT tablet extended release 24hr 90 TAKE ONE TABLET BY MOUTH EVERY DAY TAKE ONE TABLET BY MOUTH EVERY DAY SOLD: 07/17/2019 [facility] carvedilol 6.25 MG Oral Tablet Carvedilol Carvedilol 2018 11:18:55 AM EDT TABLET 6.25 MG ORAL completed [place] [email or web address] carvedilol 6.25 MG Oral Tablet Carvedilol Carvedilol 2018 11:18:55 AM EDT TABLET 6.25 MG ORAL completed [facility] carvedilol 6.25 MG Oral Tablet CARVEDILOL 12/29/2018 12:00:00 AM EDT tablet 180 TAKE ONE TABLET BY MOUTH TWICE A DAY, MUST ADMINISTER WITH A MEAL / FOOD TAKE ONE TABLET BY MOUTH TWICE A DAY, MUST ADMINISTER WITH A MEAL / FOOD SOLD: 09/30/2019 [facility] atorvastatin 10 MG Oral Tablet Atorvastatin Atorvastatin 12/10/2018 01:49:04 PM EDT TABLET 10 MG ORAL completed [place] [email or web address] atorvastatin 10 MG Oral Tablet Atorvastatin Atorvastatin 12/10/2018 01:49:04 PM EDT TABLET 10 MG ORAL completed [place] [email or web address] 10 mg 12/10/2018 12:00:00 AM EDT tablet 90 TAKE ONE TABLET BY MOUTH EVERY EVENING TAKE ONE TABLET BY MOUTH EVERY EVENING SOLD: 09/15/2019 [facility] Accu-Chek Jody Plus In Vitro Strip Accu-Chek Jody Plus In Vitro Strip 09/21/2018 12:00:00 AM EST 1 aborted Accu-Chek Jody Plus [facility] ([facility]) Accu-Chek FastClix Lancets Miscellaneous Accu-Chek Fas tClix Lancets Miscellaneous 09/21/2018 12:00:00 AM EST abor betty Accu-Chek FastClix Lancets [facility] ([facility]) Losartan Potassium 100 MG Oral Tablet Losartan Potassi um 100MG Oral Tablet Losartan Potassium 100MG Oral Tablet 09/21/2018 12:00:00 AM EST 1 aborted losartan potassium 100 MG Oral T ablet [facility] ([facility]) GlipiZIDE XL 5MG Oral Tablet Extended Release 24 Hour GlipiZIDE XL 5MG Oral Tablet Extended Release 24 Hour 09/21/2018 12:00:00 AM EST 1 aborted glipiZIDE XL [facility] ([facility]) Albuterol 0.83 MG/ML Inhalant Solution A lbuterol Sulfate (2.5 MG/3ML)0.083% Inhalation Nebulization solution Albuterol Sulfate (2.5 MG/3ML)0.083% Inh alation Nebulization solution 09/21/2018 12:00:00 AM EST 1 aborted albuterol 0.83 MG/ML Inhalation Solution [facility] ([facility]) Alcohol Pads 70% Alcohol Pads 70% 09/21/2018 12:00:00 AM EST aborted Alcohol Pads [facility] ([facility]) Losartan Potassium 100 MG Oral Tablet LOSARTAN POTASSIUM 12:00:00 AM EST tablet 90 TAKE ONE TABLET BY MOUTH JING DAY TAKE ONE TABLET BY MOUTH EVERY DAY SOLD: 07/24/2019 [facility] Insurance Providers Payer name Policy type / Coverage type Policy ID Covered democrat ID Covered democrat's relationship to valver[place] Policy [place] Plan Information ROLANDO [id number] SP [id number] MEDICARE [id number] SP [id number] SELF PAY MEDICAID [facility] [id number] SP [id number] MEDICARE [id number] SP [id number] SELF PAY MEDICAID [facility] [id number] SP [id number] MEDICARE [id number] SP [id number] F36 Medicaid [facility] Individual Policy 0 Self 0 Medicare [place] Other 0 Self 0 SELF PAY MEDICAID [facility] [id number] SP AJ [id number] MEDICARE [id number] SP [id number] F36 Medicaid [facility] Individual Policy 0 Self 0 [place] Other 0 Self 0 Medicaid [facility] Individual Policy 0 Self 0 [place] Other 0 Self 0 SELF PAY MEDICAID [facility] [id number] SP AJ [id number] MEDICARE [id number] SP [id number] F36 Medicaid [facility] Individual Policy 0 Self 0 [place] Other 0 Self 0 Medicaid [facility] Individual Policy 0 Self 0 [place] Other 0 Self 0 Medicaid [facility] Individual Policy 0 Self 0 [place] Other 0 Self 0 SELF PAY MEDICAID [facility] [id number] SP AJ [id number] MEDICARE [id number] SP [id number] F36 SELF PAY MEDICAID [facility] [id number] SP AJ [id number] MEDICARE [id number] SP [id number] F36 SELF PAY MEDICAID [facility] [id number] SP AJ [id number] MEDICARE [id number] SP [id number] F36 [place] Individual Policy 0 Self 0 [place] Other 0 Self 0 SELF PAY MEDICAID [facility] [id number] SP AJ [id number] MEDICARE [id number] SP [id number] F36 [place] Individual Policy 0 Self 0 [place] Other 0 Self 0 SELF PAY MEDICAID [facility] [id number] SP AJ [id number] MEDICARE [id number] SP [id number] [id number] [place] Individual Policy 0 Self 0 [place] Other 0 Self 0 [place] Individual Policy 0 Self 0 [place] Other 0 Self 0 [place] Individual Policy 0 Self 0 [place] Other 0 Self 0 MEDICAID [id number] SP [id number] SELF PAY MEDICAID [facility] [id number] SP AJ [id number] MEDICARE [id number] SP [id number] F36 [place] Individual Policy 0 Self 0 [place] Other 0 Self 0 SELF PAY MEDICAID [facility] [id number] SP AJ [id number] MEDICARE [id number] SP [id number] F36 [place] Individual Policy 0 Self 0 [place] Other 0 Self 0 SELF PAY MEDICAID [facility] [id number] SP AJ [id number] MEDICARE [id number] SP [id number] F36 Medicaid [facility] Individual Policy 0 Self 0 Medicare [place] Other 0 Self 0 SELF PAY MEDICAID [facility] [id number] SP AJ [id number] MEDICARE [id number] SP [id number] MEDICARE [id number] Wendy [id number] F36 MEDICAID [id number] Wendy [id number] [place] Individual Policy 0 Self 0 Medicare [place] Other 0 Self 0 Medicare [id number] Medicare [id number] [id number] Medicaid - Catalog Spree Yolanda [id number] Medica id [id number] SELF PAY MEDICAID [facility] [id number] SP AJ [id number] MEDICARE [id number] SP [id number] A MEDICARE [id number] SP [id number] A [place] Individual Policy 0 Self 0 [place] Other 0 Self 0 [place] Individual Policy 0 Self 0 [place] Other 0 Self 0 SELF PAY MEDICAID [facility] [id number] SP AJ [id number] MEDICARE [id number] SP [id number] A SELF PAY MEDICAID [facility] [id number] SP AJ [id number] MEDICARE [id number] SP [id number] A [place] Individual Policy 0 Self 0 [place] Other 0 Self 0 [place] Individual Policy 0 Self 0 [place] Other 0 Self 0 [place] Individual Policy 0 Self 0 [place] Other 0 Self 0 MEDICAID [id number] S [id number] MEDICARE C [id number] S [id number] A [place] Individual Policy 0 Self 0 [place] Individual Policy 0 Wendy f 0 MEDICAID [facility] [id number] SP AJ [id number] MEDICARE [id number] SP [id number] A [place] Individual Policy 0 Self 0 Medicare [place] Individual Policy 0 Wendy f 0 [place] of [place] Individual Policy 0 Self 0 [place] Individual Policy 0 Wendy f 0 MEDICAID [facility] [id number] SP AJ [id number] [place] Individual Policy 0 Self 0 Medicare [place] Individual Policy 0 Wendy f 0 MEDICAID [facility] [id number] SP AJ [id number] MEDICARE [id number] SP [id number] A [place] Individual Policy 0 Self 0 Medicare [place] Individual Policy 0 Wendy f 0 [place] of [place] Individual Policy 0 Self 0 [place] Individual Policy 0 Wendy f 0 [place] of [place] Individual Policy 0 Self 0 [place] Individual Policy 0 Wendy f 0 MEDICAID PI PI MEDICARE PI PI MEDICARE [id number] Wendy [id number] A [place] Individual Policy 0 Self 0 Medicare [place] Individual Policy 0 Wendy f 0 [place] of [place] Individual Policy 0 Self 0 [place] Individual Policy 0 Wendy f 0 [place] Individual Policy 0 Self 0 [place] Individual Policy 0 Wendy f 0 [place] Individual Policy 0 Self 0 [place] Individual Policy 0 Wendy f 0 [place] Individual Policy 0 Self 0 Medicare [place] Individual Policy 0 Wendy f 0 [place] Individual Policy 0 Self 0 Medicare [place] Individual Policy 0 Wendy f 0 [place] Individual Policy 0 Self 0 [place] Individual Policy 0 Wendy f 0 [place] Individual Policy 0 Self 0 [place] Individual Policy 0 Wendy f 0 [place] Individual Policy 0 Self 0 [place] Individual Policy 0 Wendy f 0 [place] of [place] Individual Policy 0 Self 0 [place] Individual Policy 0 Wendy f 0 [place] Individual Policy 0 Self 0 Medicare [place] Individual Policy 0 Wendy f 0 MEDICAID [facility] [id number] SP AJ [id number] MEDICAID [facility] [id number] SP AJ [id number] MEDICAID [facility] [id number] SP AJ [id number] MEDICAID [facility] [id number] SP AJ [id number] MEDICAID [facility] [id number] SP AJ [id number] MEDICAID [facility] [id number] SP AJ [id number] SELF PAY 2 UNAVAILABLE 1 UNAVAILA BLE MEDICAID [facility] 3 [id number] MEDICAID [facility] [id number] SP AJ [id number] MEDICAID [facility] [id number] SP [id number] Problems, Conditions, and Diagnoses Code Display Name Description Problem Type Effective Dates Data Source(s) 786.50 Chest Pain Chest Pain Finding 03/15/2020 12:00:00 AM ED T [facility] 848.3 Sprain Thoracic Sprain Thoracic Problem 03/15/2020 12:0 0:00 AM EDT [facility] 786.50 Chest Pain Chest Pain Finding 03/15/2020 12:00:00 AM ED T [facility] 848.3 Sprain Thoracic Sprain Thoracic Problem 03/15/2020 12:0 0:00 AM EDT [facility] 786.50 Chest Pain Chest Pain Finding 03/15/2020 12:00:00 AM ED T [facility] 848.3 Sprain Thoracic Sprain Thoracic Problem 03/15/2020 12:0 0:00 AM EDT [facility] 786.50 Chest Pain Chest Pain Finding 03/15/2020 12:00:00 AM ED T [facility] 848.3 Sprain Thoracic Sprain Thoracic Problem 03/15/2020 12:0 0:00 AM EDT [facility] ([facility]) 786.50 Chest Pain Chest Pain Finding 03/15/2020 12:00:00 AM ED T [facility] ([facility]) 848.3 Sprain Thoracic Sprain Thoracic Problem 03/15/2020 12:0 0:00 AM EDT [facility] ([facility]) 786.50 Chest Pain Chest Pain Finding 03/15/2020 12:00:00 AM ED T [facility] ([facility]) 848.3 Sprain Thoracic Sprain Thoracic Problem 03/15/2020 12:0 0:00 AM EDT [facility] ([facility]) 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 I50.41 - Acute combined systolic (conges tive) and diastolic (congestive) heart failure Diagnosis 07/25/2020 09:06:00 AM EST [place] [email or web address] I51.89 Other ill-defined heart diseases I51.89 - Other ill-defined heart diseases Diagnosis 06/15/2020 01:06:00 PM EDT [facility] E78.2 Mixed hyperlipidemia E78.2 - Mixed hyperlipidemia Diag nosis 06/15/2020 01:06:00 PM EDT [facility] I10 Essential (primary) hypertension I10 - Essential (primary) hypertension Diagnosis 06/15/2020 01:06:00 PM EDT [facility] I48.19 I48.19 - Other persistent atrial fibrill ation I48.19 - Other persistent atrial fibrillation Diagnosis 06/15/2020 01:06:00 PM EDT [facility] E78.2 Mixed hyperlipidemia E78.2 - Mixed hyperlipidemia Diag nosis 04/12/2020 08:09:00 AM EDT [facility] R73.01 Impaired fasting glucose R73.01 - Impaired fasting glu cose Diagnosis 04/12/2020 08:09:00 AM EDT [facility] I51.9 Heart disease, unspecified I51.9 - Heart disease, unsp ecified Diagnosis 04/12/2020 08:09:00 AM EDT [email or web address] 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, R06.02 Shortness of breath R06.02 - Shortness of breath Diagn osis 11/24/2019 03:30:00 PM EDT [facility] I48.91 Unspecified atrial fibrillation I48.91 - Unspeci fied atrial fibrillation Diagnosis 11/24/2019 03:30:00 PM EDT [facility] I10 Essential (primary) hypertension I10 - Essential (primary) hypertension Diagnosis 11/24/2019 03:30:00 PM EDT [facility] E08.00 Diabetes mellitus due to und erlying condition with hyperosmolarity without nonketotic hyperglycemic-hyperosmolar coma ([facility]) E08.00 - Diabetes mellitus due to underlying condition with hyperosmolarity without nonketotic hyperglycemic-hyperosmolar coma ([facility]) Diagnosis 11/24/2019 03:30:00 PM EDT [facility] Surgeries/Procedures Procedure Description Date Indications Data Source(s) Medicare Influenza virus vaccine, split virus, High Do se Medicare Influenza virus vaccine, split virus, High Dose 05/22/2020 12:00:00 AM [facility]) [facility] visit, established patient; a medically-necessary, cmau-fa-gpha encounter (one-on-one) between an established patient and a [facility] practitioner during which time one or more [facility] services are rendered and includes a typical bundle of medicare-covered services that would be furnished press brake operator to a patient receiving a fq visit FQ Visit, established patient 05/22/2020 12:00:00 AM [facility] ([facility]) [address]696 Influenza virus vaccine, split virus, High Dose 41829 Influenza virus vaccine, split virus, High Dose 05/22/2020 12:00:00 AM [facility]) [facility] ([facility]) visit, established patient; a medically-necessary, eidb-le-wmzg encounter (one-on-one) between an established patient and a fq practitioner during which time one or more fq services are rendered and includes a typical bundle of medicare-covered services that would be furnished press brake operator to a patient receiving a fqhc visit FQHC Visit, established patient 04/18/2020 12:00:00 AM [facility] Annual wellness visit, includes a person alized prevention plan of service (pps), subsequent visit AHR -Subsequent Annual Wellness Visit 04/04/2020 12:00 :00 AM [facility] ([facility]) [facility] ([facility]) visit, ippe or awv; a fq visit that includes an initial preventive physical examination (ippe) or annual wellness visit (awv) and includes a typical bundle of medicare-covered services that would be furnished press brake operator to a patient receiving an ippe or awv FQ Visit, IPPE or AWV 04/04/2020 12:00:00 AM [facility]) Hemoglobin; Glycated A1c Hemoglobin; Glycated A1c 04/04/2020 12:00: 00 AM [facility] ([facility]) [facility]) visit, established patient; a medically-necessary, vref-yp-lnbl encounter (one-on-one) between an established patient and a [facility] practitioner during which time one or more fq services are rendered and includes a typical bundle of medicare-covered services that would be furnished press brake operator to a patient receiving a fqhc visit FQHC Visit, established patient 03/23/2020 12:00:00 AM [facility] ([facility]) Noninvasive Ear or Pulse Oximetry for Oxygen Saturatio n; Mul Noninvasive Ear or Pulse Oximetry for Oxygen Saturation; Mul 03/15/2020 12:00:00 AM [facility] Ekg With Interpretation and Report Ekg With Interpretation a nd Report 03/15/2020 12:00:00 AM [facility]) visit, established patient; a medically-necessary, nleq-am-bcmj encounter (one-on-one) between an established patient and a [facility] practitioner during which time one or more [facility] services are rendered and includes a typical bundle of medicare-covered services that would be furnished press brake operator to a patient receiving a fq visit FQHC Visit, established patient 03/15/2020 12:00:00 AM EDT [facility] ([facility]) Ekg With Interpretation and Report Ekg With Interpretation a nd Report 03/15/2020 12:00:00 AM EDT [facility] ([facility]) Noninvasive Ear or Pulse Oximetry for Oxygen Saturatio n; Mul Noninvasive Ear or Pulse Oximetry for Oxygen Saturation; Mul 03/15/2020 12:00:00 AM EDT [facility] ([facility]) Ekg With Interpretation and Report Ekg With Interpretation a nd Report 03/15/2020 12:00:00 AM EDT [facility] ([facility]) Hemoglobin; Glycated A1c Hemoglobin; Glycated A1c 11/24/2019 12:00: 00 AM EDT [facility] ([facility]) [facility] (fq) visit, established patient; a medically-necessary, utwc-ev-aenu encounter (one-on-one) between an established patient and a fq practitioner during which time one or more [facility] services are rendered and includes a typical bundle of medicare-covered services that would be furnished press brake operator to a patient receiving a fq visit FQ Visit, established patient (Signi/Sep Eval. & Man.) 11/24/2019 12:00:00 AM EDT [facility] ([facility]) Ekg With Interpretation and Report Ekg With Interpretation a nd Report 11/24/2019 12:00:00 AM EDT [facility] ([facility]) Electrocardiogram, Routine Ecg With At Least 12 Leads; Inter Electrocardiogram, Routine Ecg With At Least 12 Leads; Inter 11/24/2019 12:00:00 AM EDT [facility] Results ID Date Data Source [id number] 09/08/2020 12:00:00 AM EST [facility] Name Value Range Interpretation Code Description Data Ailyn rce(s) Supporting Document(s) 2019 Novel Coronavirus RNA Negative [facility] This lab was ordered by [facility] are and reported by [facility]. ID Date Data Source [id number] 08/07/2020 05:48:00 PM EST [facility] Name Value Range Interpretation Code Description Data Ailyn rce(s) Supporting Document(s) WHITE BLOOD COUNT 6.17 10^3/uL 4.00-10.50 N [place] [facility] RED BLOOD COUNT 4.81 10^6/uL 4.30-5.80 [facility] HEMOGLOBIN 13.7 G/DL 13.0-17.5 N [facility] HEMATOCRIT 44.7 % 41.0-53.0 N [facility] MCV 92.9 FL 80.0-100.0 N [facility] MCH 28.5 PG 27.0-34.0 N [facility] MCHC 30.6 G/DL 32-36 L [facility] RDW 14.2 % 11.5-14.5 N [facility] PLATELET COUNT 245 10^3/uL 130-400 N [facility] MPV 9.7 FL 8.7-13.2 N [facility] GRAN % (AUTO) 72.2 % 42.0-75.0 N [facility] LYMPH % (AUTO) 13.8 % 20.0-51.0 L [facility] MONO % (AUTO) 11.5 % 2.0-15.0 N [facility] EOS % (AUTO) 1.6 % 0.0-11.0 N [place] [email or web address] BASO % (AUTO) 0.6 % 0.0-2.0 N [facility] IG % (AUTO) 0.3 % 1.00-5.00 [facility] IG # (AUTO) 0.0 10^3/uL <0.5 [facility] GRAN # (AUTO) 4.45 10^3/uL 1.50-6.50 N [facility] LYMPH # (AUTO) 0.9 k/uL 1.0-5.0 L [facility] MONO # (AUTO) 0.71 k/uL 0.20-1.50 N [facility] EOS # (AUTO) 0.10 10^3/uL 0.00-1.10 N [facility] BASO # (AUTO) 0.04 10^3/uL 0.00-0.20 N [facility] ID Date Data Source [id number] 08/10/2020 10:55:00 AM EST [facility] Name Value Range Interpretation Code Description Data Ailyn rce(s) Supporting Document(s) Total Protein,S 5.8 g/dL 6.0-8.5 A [facility] Albumin,S 3.3 g/dL 2.9-4.4 [facility] Cwjfc-3-Nfczwvrk,S 0.2 g/dL 0.0-0.4 [facility] Ocwgp-5-Bckkxecp,S 0.9 g/dL 0.4-1.0 [facility] Beta Globulin,S 0.8 g/dL 0.7-1.3 [facility] Gamma Globulin,S 0.6 g/dL 0.4-1.8 [facility] M-Bereket,S Not Observed g/dL Not Observed [place] [facility] Globulin Total,S 2.5 g/dL 2.2-3.9 [facility] A/G Ratio,S 1.3 0.7-1.7 [facility] Please Note,S [facility] Protein electrophoresis scan will follo w via computer, mail, or fitness worker delivery. P E Intperpretation,S [facility] The SPE pattern appears unremarkable. E vidence of monoclonal protein is not apparent. Performed at: RN - [facility] [address] [id number] Medical Assistant Secretary: Lisa Gong MD, Phone: [phone] ID Date Data Source [id number] 08/09/2020 08:14:00 PM EST [facility] ADD ON [employer] Name Value Range Interpretation Code Description Data Ailyn rce(s) Supporting Document(s) BNP 54 PG/ML 0-100 [facility] BNP acts as a Vasodilator and has Natri uretic Properties. BNP Suppresses both Sympathetic Tone and the Renin-Angiotension System. These Physiologic effects serve to reduce Intraventricular Pressure and improve the Symptons of Congestive Heart Failure (CHF), thus BNP levels have been shown to be useful in the diagnosis of patients with symptons that are consistent with CHF. BNP levels > 100 pg/mL with patients that have shortness of breath (Dyspnea) is useful in the diagnosis of CHF. ID Date Data Source [id number] 08/10/2020 11:08:00 AM EST [facility] ADD ON [employer] Name Value Range Interpretation Code Description Data Ailyn rce(s) Supporting Document(s) Lab Rejection Unable to Add On [place] [facility] ADD ON DDIMER-KF We are unable to add on the additional testing, please submit new sample. ID Date Data Source [id number] 07/25/2020 01:52:00 PM EST [facility] Name Value Range Interpretation Code Description Data Ailyn rce(s) Supporting Document(s) WHITE BLOOD COUNT 6.00 10^3/uL 4.00-10.50 [facility] RED BLOOD COUNT 4.67 10^6/uL 4.30-5.80 [facility] HEMOGLOBIN 13.7 G/DL 13.0-17.5 N [facility] HEMATOCRIT 43.2 % 41.0-53.0 N [facility] MCV 92.5 FL 80.0-100.0 [facility] MCH 29.3 PG 27.0-34.0 N [facility] MCHC 31.7 G/DL 32-36 [facility] RDW 14.2 % 11.5-14.5 N [place] [email or web address] PLATELET COUNT 236 10^3/uL 130-400 N [place] [email or web address] MPV 9.8 FL 8.7-13.2 N [place] [email or web address] GRAN % (AUTO) 75.0 % 42.0-75.0 N [place] [email or web address] LYMPH % (AUTO) 11.3 % 20.0-51.0 L [place] [email or web address] MONO % (AUTO) 10.2 % 2.0-15.0 N [place] [email or web address] EOS % (AUTO) 2.5 % 0.0-11.0 N [place] [email or web address] BASO % (AUTO) 0.7 % 0.0-2.0 N [place] [email or web address] IG % (AUTO) 0.3 % 1.00-5.00 [facility] IG # (AUTO) 0.0 10^3/uL <0.5 [facility] GRAN # (AUTO) 4.50 10^3/uL 1.50-6.50 N [facility] LYMPH # (AUTO) 0.7 k/uL 1.0-5.0 L [facility] MONO # (AUTO) 0.61 k/uL 0.20-1.50 N [facility] EOS # (AUTO) 0.15 10^3/uL 0.00-1.10 N [facility] BASO # (AUTO) 0.04 10^3/uL 0.00-0.20 [facility] ID Date Data Source [id number] 07/25/2020 01:59:00 PM EST [facility] Name Value Range Interpretation Code Description Data Ailyn rce(s) Supporting Document(s) SODIUM 139 MEQ/L 135-145 [facility] POTASSIUM 4.7 MEQ/L 3.5-5.3 [facility] CHLORIDE 104 MEQ/L 94-110 [facility] CARBON DIOXIDE 30 MEQ/L 22-33 N [facility] ANION GAP 10 5-16 N [facility] BLOOD UREA NITRO 27 MG/DL 7-25 [facility] CREATININE 1.2 MG/DL 0.6-1.4 N [facility] GFR 58.0 ML/MIN [facility] Stage G3a - Mildly to moderately decrea sed kidney function The GFR is an estimate of the Glomerular Filtration Rate. It is an aid to assess a patient's renal function. It is not a conclusive diagnosis of kidney disease. GFR normal is >=90 The MDRD GFR calculation is considered valid between the ages of 18 and 75 years only. BUN/CREAT RATIO 22 8-36 N [facility] GLUCOSE 109 MG/DL 70-100 H [facility] CA 8.8 MG/DL 8.7-10.5 N [facility] BILIRUBIN,TOTAL 0.6 MG/DL 0.1-1.3 N [facility] AST 16 U/L 5-40 N [facility] ALT 24 U/L 5-48 N [facility] ALKALINE PHOSPHATASE 62 U/L 40-140 N [facility] TOTAL PROTEIN 5.4 G/DL 5.9-8.3 L [facility] ALBUMIN 4.0 G/DL 3.0-5.1 N [facility] GLOBULIN 1.4 G/DL 1.5-3.5 L [facility] ALB/GLOB RATIO 2.9 G/DL 1.0-3.0 N [facility] ID Date Data Source [id number] 07/27/2020 02:24:00 PM EST [facility] Name Value Range Interpretation Code Description Data Ailyn rce(s) Supporting Document(s) PROBNP 267 pg/mL 0-486 [facility] The following cut-points have been suganderson culp for the use of proBNP for the diagnostic evaluation of heart failure (HF) in patients with acute dyspnea: Modality Age Optimal Cut (years) Point Diagnosis (rule in HF) <50 450 pg/mL 50 - 75 900 pg/mL >75 1800 pg/mL Exclusion (rule out HF) Age independent 300 pg/mL Performed at: - [address] [id number] Medical Assistant Secretary: Dexter Stanton MD, Phone: [phone] ID Date Data Source [id number] 07/25/2020 01:59:00 PM EST [facility] Name Value Range Interpretation Code Description Data Ailyn rce(s) Supporting Document(s) GLYCOSYLATED HGBA1C 5.8 % 4.1-6.5 N [facility] [facility] ID Date Data Source [id number] 07/25/2020 01:59:00 PM [facility] [employer] Name Value Range Interpretation Code Description Data Ailyn rce(s) Supporting Document(s) TRIGLYCERIDES 81 MG/DL 45-150 N [facility] CHOLESTEROL 132 MG/DL 125-200 N [facility] LDL CHOLESTEROL 69 MG/DL 50-130 N [facility] HDL CHOLESTEROL 47 MG/DL 39-96 N [facility] CHOL/HDL RATIO 2.8 0-4.9 N [facility] ID Date Data Source [id number] 07/25/2020 01:59:00 PM EST [facility] Name Value Range Interpretation Code Description Data Ailyn rce(s) Supporting Document(s) Vitamin D,25-HYDROXY 37.5 ng/ml 30-100 N [facility] D Status Range De ficiency <20 ng/ml Insufficiency 20-29.9 ng/ml Sufficiency 30-100 ng/ml Toxicity >100 ng/ml Patients should not be tested for 72 hours post fluorescein dye angiography. A false elevation of result may occur. ID Date Data Source [id number] 07/25/2020 01:59:00 PM EST [facility] Name Value Range Interpretation Code Description Data Ailyn rce(s) Supporting Document(s) TSH 1.231 uIU/ML 0.470-4.200 N [facility] Patients should not be tested for 72 ho urs post fluorescein dye angiography. A false depression of result may occur. ID Date Data Source [id number] 06/15/2020 01:15:00 PM EDT [facility] Cardiology [address], [address] [place] [address] Cardiology Note : [id number] Signed Patient: Kristel Herbert Acct:[id number] Visit Date: 06/15/20 : 1935 Cardiology HPI History of present illness History of present illness: Mr. Herbert is a pleasant 84-year-old gentleman who comes to the office today for a follow up. His last office evaluation was on 12/14/19 due to abnormal electrocardiogram with atrial fibrillation at his primary care providers office on November 24, 2019. He has a past cardiac history that is significant for paroxysmal atrial fibrillation, hypertension, hyperlipidemia, diastolic dysfunction, and diabetes mellitus type 2. Today, he denies any signs or symptoms of ischemic heart disease and/or congestive heart failure. Si nce his last appointment, he was diagnosed with shingles and followed with his primary care provider. He reports that he continues to have symptoms of shortness of breath with exertion which improve with rest as well as symptoms of leg swelling which have remained unchanged; otherwise, he has been feeling well. He denies any chest tightness, chest pressure, palpitations, or any light headedness. Atrial fibrillation Type of atrial fibrillation: Permanent CHADS2-VASc score: 4 HAS BLED: 2 Heart failure Type of heart failure: Diastolic Current symptoms: Yes Dyspnea and Yes Edema NYHA classification: II. Symptoms with usual activity Date of last echocardiogram: 11/15/14 Last ejection fraction: 60 States activity of: Around the house and Walking Diet type: 2 gm sodium Fluid restriction of: 2,000 cc Dietary compliance: Good Medication compliance: Good Side effects: None Oxygen needs: None Hypertension Current cardiovascular symptoms: No Chest pain, Yes Dyspnea, Yes Edema, No Palpitations, No Weight gain and No Other Current cerebrovascular symptoms: No Diplopia, No Headache, No Numbness, No Vision loss, No Weaknessand No Other Current endocrine symptoms: No Diaphoretic episode, No Muscle aches and No Other Current symptoms of renal disease: No Fatigue, No Nausea, No Vomiting, No Weight loss and No Other Blood pressure monitoring: Health professional Blood pressure target: < 130/80 Compliance: good Side effects: None Diet type: Low fat and Low sodium Dietary compliance: Good Medication compliance: Good Intake Vital Signs 06/15/20 13:15 06/15/20 13:48 06/15/20 13:48 Height 5 ft 10.5 in Weight 169.3 kg BMI 52.7 BP 142/64 H 124/60 122/60 Blood Pressure Location Right Arm Left Arm Right Arm Position Sitting / Chair Sitting / Chair Sitting / Chair Respiration 16 Pulse 49 L Pulse Source O2 sat Monitor Temp 96.9 F L Temp Source Temporal Artery Scan Pulse Oximetry (%) 95 Oxygen Delivery Method room air Intake Patient Status Have you had an UC/ED visit and/or been admitted to the hospital since your last visit?: No Have you been diagnosed with COVID-19?: No Visit Reasons: LMOM 6 mo f/u Nurse Note: Pt SOB during upon exertion. Patient feels good, has a dry cough often. Pt has gained 1.5 kg. Pt acquired shingles March 25, 2020. Pt denies exposure to anyone who has tested positive for COVID-19. Pt denies any fever. Pt denies any recent travel outside of [facility] within the last 14 days. Primary Care Physician:: Payal Gibson Allergies cortisone [Cortisone] Allergy (Intermediate, Unverified 06/15/20 13:42) RASH/HIVES Home Medications - Last Reconciled 06/15/20 by Lake R Kishore Jr, PA albuterol sulfate 2.5 mg IH Q4HPRN PRN apixaban 5 mg tablet (Eliquis) 5 mg PO BID atorvastatin 10 mg tablet 10 mg PO QPM carvedilol 6.25 mg tablet 6.25 mg PO BID cholecalciferol (vitamin D3) 25 mcg (1,000 unit) capsule 1,000 units PO QAM cyanocobalamin (vitamin B-12) 5,000 mcg sublingual tablet (Vitamin B-12) 5,000 mcg SL QAM fluticasone 250 mcg-salmeterol 50 mcg/dose blistr powdr for inhalation (Advair Diskus) 1 puff inhalation BID furosemide 20 mg tablet 20 mg PO QDAY glipizide 5 mg tablet 5 mg PO DAILY losartan 100 mg tablet 100 mg PO QDAY spironolactone 25 mg-hydrochlorothiazide 25 mg tablet 1 ea PO QAM tramadol 50 mg tablet 50 mg PO DAILY History of Smoking/Tobacco Use: Former Smoker Tobacco Product: Cigarettes Annual Influenza Vaccine: Yes Pneumococcal Vaccine (+65): Yes Immunizations up to date: Yes (Last Tetanus Unknown) Recent Travel Travel Outside of the country in last 30 days?: No [place] - [place] PFSH [place] Medical History Allergic rhinitis Chronic obstructive pulmonary disease Diabetes mellitus Diastolic dysfunction Gastroesophageal reflux disease Hydrocele Hypertension Mixed hyperlipidemia OA (osteoarthritis) Persistent atrial fibrillation Surgical History Back Surgery 1980 Finger amputations History of colonoscopy with polypectomy History of hernia repair 2011 History of melanoma excision Face Leg surgery Right, 1980 Lung lesion removal Left, 2011 Right elbow surgery Status post rotator cuff repair Left, 2004 Throat lesion removal Family History Mother Heart failure Parkinson disease Father Cancer Brother Stroke Other Heart disease Social History Marital Status: Occupational status: retired Comment: Retired [employer] Education Level (current or highest level completed): High school High School Level: GED (General Equivalency Diploma) Caffeine: Yes Type: tea Physical Activity: walking and assisted ambulation Frequency: does not exercise Alcohol Use: None Substance Use: never Cardiology ROS Const Denies chills, Denies fatigue, Denies fever(s), Denies headache(s) and Denies weight loss Eyes Denies blurry vision ENT Ears, Nose, Mouth, Throat: denies difficulty swallowing and nosebleed Card Cardiovascular: Reports Leg swelling and Shortness of breath with activity; Denies Chest pain, Lightheadedness, Palpitations, Shortness of breath and Shortness of breath when lying down Resp Denies chest congestion, Denies cough, Denies hemoptysis, Denies dyspnea and Denies dyspnea on exertion GI Denies hematochezia, Denies dysphagia, Denies diarrhea, Denies loose stools and Denies nausea Denies hematuria and Denies dysuria Musc Denies back pain, Denies myalgias, Denies arthralgias and Denies muscle weakness Neuro Denies syncope, Denies headache(s) and Denies tremor(s) Endo Denies fatigue Cardiology Exam Const General: healthy appearing and no acute distress Nutritional Appearance: average body habitus and well nourished Orientation: alert, awake and oriented x3 Skin General skin exam: no rashes or lesions noted Neck Neck: normal visual inspection, full ROM and no lymphadenopathy Carotids: normal carotid upstroke and no bruits Chest Chest: normal inspection of the chest Resp Effort Inspection: normal respiratory effort Auscultation: clear to auscultation bilaterally, No crackles, No rales and no rhonchi heard Cardio Rate: regular rate Rhythm: abnormal rhythm (irregular) Heart Sounds: Yes S1 normal, S2 normal and gallop S4 gallop; No click or murmur Pulses: posterior tibial pulses present and dorsalis pedis present Extrem General: full ROM, capillary refill normal and edema Laterality: bilaterally (lower extremities) Severity: 1+ Assessment Plan (AMB) Assessment Plan (1) Persistent atrial fibrillation: Status: Chronic SNOMED Code(s): 397020142 Category: Medical (2) Hypertension: Status: Chronic SNOMED Code(s): 52120553 Category: Medical (3) Mixed hyperlipidemia: Status: Chronic Code(s): E78.2 - Mixed hyperlipidemia SNOMED Code(s): 744018524 Category: Medical (4) Diastolic dysfunction: Status: Chronic SNOMED Code(s): 4398229 Category: Medical Problems Did you add a problem (diagnosis code) to the patient?: Yes Plan: Recommendations: 1.To continue to advocate the importance of aggressive lifestyle interventions. We discussed this today. 2. To avoid seasoning food, salt and to avoid processed foods. 3. To avoid non-steroidal anti-inflammatory drugs. 4. Today his blood pressure was initially elevated; it did come down during the appointment and his ventricular rate to atrial fibrillation is controlled. I recommend that we continue his current dose of Carvedilol and losartan. 5. To continue anticoagulation therapy with the current dose of Eliquis based on his age, weight and renal function to prevent thromboembolic events. 6. His last fasting lipid panel met NCEP guidelines. I recommend that he continue his current dose of atorvastatin. 7. He continues to have symptoms of peripheral edema; however, these have been stable. I recommend that we continue his current dose of spironolactone-hydrochlorothiazide and furosemide. We will need to continue monitoring his renal function which has remained stabl e. 8. Mr. Herbert will have a follow-up appointment in our office in 6 months' time or sooner if clinically indicated. Comment: I personally performed the services described in this documentation. All medical record Comment: I personally performed the services described in this documentation. All medical record entries made by the scribe were at my direction and reviewed afterward. Scribed by Caron Brooks, on 06/15/20 at 1357 for Lake Novak Jr, PA. Quality [facility]138 Tobacco Use how long ago did patient quit smokin Coding Level of Care Code 19371 Estab Pt Level 4 History Expanded Problem Focused Exam Detailed Diagnoses Persistent atrial fibrillation I48.19 Hypertension I10 Mixed hyperlipidemia E78.2 Diastolic dysfunction I51.89 Signed By:Lake Novak <<Signature on File>> Signed Date/Time: 06/15/201434 Co-Signer: Anselmo Walsh MD Co-Signed Date/Time: 06/16/20 0534 Initializing User: Lake JENNINGS 06/15/205 14 14 Name Value Range Interpretation Code Description Data Ailyn rce(s) Supporting Document(s) ID Date Data Source [id number] 04/12/2020 01:57:00 PM EDT [facility] Name Value Range Interpretation Code Description Data Ailyn rce(s) Supporting Document(s) Reported Physicians See Note Reported Physicians [facility] ([facility]) Note: Reported Physicians:Ordering: Payal BainsAttending: Payal Gibson ID Date Data Source [id number] 04/12/2020 01:57:00 PM EDT [facility]) Name Value Range Interpretation Code Description Data Ailyn rce(s) Supporting Document(s) PROBNP 622 pg/mL Abnormal (applies to non-numeric res ults) PROBNP [facility] ([facility]) Note: The following cut-points have bee n suggested for the use of proBNP for the diagnostic evaluation of heart failure (HF) in patients with acute dyspnea: Modality Age Optimal Cut (years) Point Diagnosis (rule in HF) <50 450 pg/mL 50 - 75 900 pg/mL >75 1800 pg/mL Exclusion (rule out HF) Age independent 300 pg/mL Performed at: - [address] [id number] Medical Assistant Secretary: Dexter Stanton MD, Phone: [phone] Observer: PROBNP PROBNP [id number] 976.6710 (A) ID Date Data Source [id number] 04/18/2020 04:07:00 PM EDT [facility] ADD TO 04/12 Name Value Range Interpretation Code Description Data Ailyn rce(s) Supporting Document(s) PROBNP 622 pg/mL 0-486 A [facility] The following cut-points have been sugg ested for the use of proBNP for the diagnostic evaluation of heart failure (HF) in patients with acute dyspnea: Modality Age Optimal Cut (years) Point Diagnosis (rule in HF) <50 450 pg/mL 50 - 75 900 pg/mL >75 1800 pg/mL Exclusion (rule out HF) Age independent 300 pg/mL Performed at: [facility] [address] [id number] Medical Assistant Secretary: Dexter Stanton MD, Phone: [phone] ID Date Data Source [id number] 04/12/2020 09:11:00 AM EDT [facility] Name Value Range Interpretation Code Description Data Ailyn rce(s) Supporting Document(s) Reported Physicians See Note Reported Physicians [facility] ([facility]) Note: Reported Physicians:Ordering: Constance Bains: Payal Gibson ID Date Data Source [id number] 04/12/2020 09:11:00 AM EDT [employer] [facility] Name Value Range Interpretation Code Description Data Ailyn rce(s) Supporting Document(s) Lab Rejection Unable to Add On Lab Rejection [facility] ([facility]) Note: CANT ADD ON DDIMER, TUBE NOT IN L AB-KF We are unable to add on the additional testing, please submit new sample.Responsible Observer: Lab Rejection Lab Rejection [phone] (A) ID Date Data Source [id number] 04/17/2020 09:12:00 AM EDT [facility] CANT ADD ON DDIMER, TUBE NOT IN LAB-KF Name Value Range Interpretation Code Description Data Ailyn rce(s) Supporting Document(s) Lab Rejection Unable to Add On [facility] CANT ADD ON DDIMER, TUBE NOT IN LAB-KF We are unable to add on the additional testing, please submit new sample. ID Date Data Source [id number] 04/12/2020 08:16:00 AM EDT [employer] [facility] Name Value Range Interpretation Code Description Data Ailyn rce(s) Supporting Document(s) Reported Physicians See Note Reported Physicians [facility] ([facility]) Note: Reported Physicians:Ordering: Payal BainsAttending: Payal Gibson ID Date Data Source [id number] 04/12/2020 08:16:00 AM EDT [facility] ([facility]) Name Value Range Interpretation Code Description Data Ailyn rce(s) Supporting Document(s) Thyrotropin [Units/volume] in Serum or Plasma by Detec tion limit <= 0.05 mIU/L 1.776 uIU/ML Normal TSH [facility] ([facility]) Note: Patients should not be tested for 72 hours post fluorescein dye angiography. A false depression of result may occur.Responsible Observer: TSH TSH 300.5500 (A) ID Date Data Source [id number] 04/12/2020 08:16:00 AM EDT [facility] ([facility]) Name Value Range Interpretation Code Description Data Ailyn rce(s) Supporting Document(s) Deprecated Cholesterol.in LDL/Cholestero l.in HDL [Mass ratio] in Serum or Plasma 2.8 Normal CHOL/HDL RATIO [facility] ([facility] ) Note: Responsible Observer: CHOL/HDL RAT IO CHOL/HDL RATIO 300.4700 (A) Cholesterol in HDL [Mass/volume] in Serum or Plasma ultracen trifugate 52 MG/DL Normal HDL CHOLESTEROL [facility] ([facility]) Note: Responsible Observer: HDL HDL CHOL ESTEROL 300.4600 (A) Cholesterol crystals [Presence] in Stone by Infrared spectroscop y 145 MG/DL Normal CHOLESTEROL [facility] ([facility]) Note: Responsible Observer: CHOL CHOLEST AGGIE 300.4350 (A) Triglyceride [Mass/volume] in Serum or Plasma 110 MG/DL N ormal TRIGLYCERIDES [facility] ([facility]) Note: Responsible Observer: TRIG TRIGLYC ERIDES 300.4300 (A) Cholesterol in LDL [Mass/volume] in Serum or Plasma by Direct as say 71 MG/DL Normal LDL CHOLESTEROL [facility] ([facility]) Note: Responsible Observer: LDL LDL CHOL ESTEROL 300.4400 (A) ID Date Data Source [id number] 04/12/2020 08:16:00 AM EDT [facility] ([facility]) Name Value Range Interpretation Code Description Data Ailyn rce(s) Supporting Document(s) Hemoglobin A1c/Hemoglobin.total in Blood 5.9 % Normal GLYCOSYLATED HGBA1C [facility] ([facility]) Note: Responsible Observer: HGB A1C GLYC OSYLATED HGBA1C 300.0800 (A) ID Date Data Source [id number] 04/12/2020 08:16:00 AM EDT [facility] ([facility]) Name Value Range Interpretation Code Description Data Ailyn rce(s) Supporting Document(s) Albumin/Globulin [Mass Ratio] in Amniotic fluid 2.6 G/DL Normal ALB/GLOB RATIO [facility] ([facility]) Note: Responsible Observer: A/G RATIO AL B/GLOB RATIO 300.4100 (A) Alkaline phosphatase isoenzyme [Units/volume] in Serum or Plasma 51 U/L Normal ALKALINE PHOSPHATASE [facility] ([facility]) Note: Responsible Observer: ALK PHOS ALK SAMANTA PHOSPHATASE 300.3110 (A) Albumin [Mass/volume] in Synovial fluid 3.9 G/DL Normal ALBUMIN [facility] ([facility]) Note: Responsible Observer: ALB ALBUMIN 300.3900 (A) Alanine aminotransferase [Enzymatic activity/volume] in Seru m or Plasma 21 U/L Normal ALT [facility] ([facility]) Note: Responsible Observer: ALT/SGPT ALT 300.3100 (A) Aspartate aminotransferase [Enzymatic activity/volume] in Se rum or Plasma 9 U/L Normal AST [facility] ([facility]) Note: Responsible Observer: AST/SGOT AST 300.3050 (A) Urea nitrogen/Creatinine [Mass Ratio] in Serum or Plasma 27 Normal BUN/CREAT RATIO [facility] ([facility]) Note: Responsible Observer: BUN/CREAT RA MARQUIS BUN/CREAT RATIO 300.0450 (A) Bilirubin.total [Mass/volume] in Serum or Plasma 0.7 MG/DL Normal BILIRUBIN,TOTAL [facility] ([facility]) Note: Responsible Observer: TOTAL BILI T OTAL BILIRUBIN 300.2700 (A) BLOOD UREA NITRO 33 MG/DL Above high normal BLOOD UREA N ITRO [facility] ([facility]) Note: Responsible Observer: BUN BLOOD UR EA NITROGEN 300.0350 (A) Chloride [Moles/volume] in Serum, Plasma or Blood 102 MEQ/L Normal CHLORIDE [facility] ([facility]) Note: Responsible Observer: CL CHLORIDE 300.0200 (A) CA 9.0 MG/DL Normal CA [facility] ([facility]) Note: Responsible Observer: CA CALCIUM 300.2200 (A) Creatine/Creatinine [Mass Ratio] in Urine 1.2 MG/DL Ruba l CREATININE [facility] ([facility]) Note: Responsible Observer: CREAT CREATI NINE 300.0400 (A) Carbon dioxide, total [Moles/volume] in Serum or Plasma 28 MEQ/L Normal CARBON DIOXIDE [facility] ([facility]) Note: Responsible Observer: CO2 CARBON D IOXIDE 300.0250 (A) GFR 58.0 ML/MIN GFR [facility] ([facility]) Note: Stage G3a - Mildly to moderately [...] years only.Responsible Observer: GFR GFR 300.0410 (A) Anion gap in Blood 14 Normal ANION GAP [facility] ([facility]) Note: Responsible Observer: ANION GAP AN ION GAP 300.0300 (A) Globulin [Mass/volume] in Serum by calculation 1.5 G/DL Normal GLOBULIN [facility] ([facility]) Note: Responsible Observer: GLOB GLOBULI N 300.4050 (A) Glucose [Presence] in Urine 92 MG/DL Normal [facility] Note: Responsible Observer: GLU GLUCOSE 300.0500 (A) Potassium [Mass/volume] in Blood 4.4 MEQ/L Normal POT ASSIUM [facility] ([facility]) Note: Responsible Observer: K POTASSIUM 300.0150 (A) Sodium [Moles/volume] in Serum, Plasma or Blood 140 MEQ/L Normal SODIUM [facility] ([facility]) Note: Responsible Observer: NA SODIUM 3 00.0100 (A) Protein [Mass/volume] in Synovial fluid 5.4 G/DL B elow low normal TOTAL PROTEIN [facility] ([facility]) Note: Responsible Observer: TP TOTAL PRO TEIN 300.3750 (A) ID Date Data Source [id number] 04/12/2020 08:16:00 AM EDT [facility] ([facility]) Name Value Range Interpretation Code Description Data Ailyn rce(s) Supporting Document(s) BASO # (AUTO) 0.04 10\\^3/uL Normal BASO # (AUTO) [facility] ([facility]) Note: Responsible Observer: BASO # (AUTO ) BASO # (AUTO) 100.1500 (A) BASO % (AUTO) 0.5 % Normal BASO % (AUTO) [facility] ([facility]) Note: Responsible Observer: BASO % (AUTO ) BASO % (AUTO) 100.1250 (A) EOS # (AUTO) 0.13 10\\^3/uL Normal EOS # (AUTO) BEBA ( [facility]) Note: Responsible Observer: EOS # (AUTO) EOS # (AUTO) 100.1450 (A) EOS % (AUTO) 1.7 % Normal EOS % (AUTO) [facility] ([facility]) Note: Responsible Observer: EOS % (AUTO) EOS % (AUTO) 100.1200 (A) GRAN # (AUTO) 5.23 10\\^3/uL Normal GRAN # (AUTO) [facility] ([facility]) Note: Responsible Observer: GRAN # (AUTO ) GRAN #(AUTO) 100.1325 (A) GRAN % (AUTO) 70.0 % Normal GRAN % (AUTO) BE[facility] ([facility]) Note: Responsible Observer: GRAN % (AUTO ) GRAN % (AUTO) 100.1000 (A) Hematocrit [Volume Fraction] of Blood by Automated count 45.8 % Normal HEMATOCRIT [facility] ([facility]) Note: Responsible Observer: HCT HEMATOCR IT 100.0400 (A) Hemoglobin [Mass/volume] in Blood 14.5 G/DL Normal HE MOGLOBIN [facility] ([facility]) Note: Responsible Observer: HGB HEMOGLOB IN 100.0300 (A) IG # (AUTO) 0.1 10\\^3/uL IG # (AUTO) [facility] ([facility]) Note: Responsible Observer: IG # (AUTO) IG # (AUTO) 100.1260 (A) IG % (AUTO) 0.7 % IG % (AUTO) [facility] ([facility]) Note: Responsible Observer: IG % (AUTO) IG % (AUTO) 100.1255 (A) LYMPH # (AUTO) 1.2 k/uL Normal LYMPH # (AUTO) BE[facility] ( [facility]) Note: Responsible Observer: LYMPH # (AUT O) LYMPH # (AUTO) 100.1350 (A) Erythrocyte mean corpuscular hemoglobin [Entitic mass] by Automated count 29.2 PG Normal MCH [facility]BA ([facility]) Note: Responsible Observer: MCH MCH 100 .0600 (A) LYMPH % (AUTO) 16.5 % Below low normal LYMPH % (AUTO) GRE [facility] ([facility]) Note: Responsible Observer: LYMPH % (AUT O) LYMPH % (AUTO) 100.1100 (A) Erythrocyte mean corpuscular hemoglobin concentration [Mass/volume] by Automated count 31.7 G/DL Below low normal M[facility]C [facility] Note: Responsible Observer: MCHC MCHC 1 00.0650 (A) Erythrocyte mean corpuscular volume [Entitic volume] by Auto mated count 92.2 FL Normal MCV [facility] ([facility]) Note: Responsible Observer: MCV MCV 100 .0550 (A) MONO % (AUTO) 10.6 % Normal MONO % (AUTO) [facility] ([facility]) Note: Responsible Observer: MONO % (AUTO ) MONO% (AUTO) 100.1150 (A) MONO # (AUTO) 0.79 k/uL Normal MONO # (AUTO) [facility] ([facility]) Note: Responsible Observer: MONO # (AUTO ) MONO # (AUTO) 100.1400 (A) MPV 9.7 FL Normal [facility]PV [facility] Note: Responsible Observer: MPV MPV 100 .0950 (A) Platelets [#/volume] in Plasma by Automated count 243 10\\^3/uL Normal PLATELET COUNT [facility] ([facility]) Note: Responsible Observer: PLT PLATELET COUNT 100.0850 (A) Erythrocytes [#/volume] in Blood by Automated count 4.97 10\\^6/uL Normal RED BLOOD COUNT [facility] ([facility]) Note: Responsible Observer: RBC RED BLOO D COUNT 100.0250 (A) Leukocytes [#/volume] in Blood by Automated count 7.47 10\\^3/uL Normal WHITE BLOOD COUNT [facility] ([facility]) Note: Responsible Observer: WBC WHITE BL OOD COUNT 100.0150 (A) Erythrocyte distribution width [Ratio] by Automated count 14.6 % Above high normal RDW [facility] ([facility]) Note: Responsible Observer: RDW RDW 100 .0700 (A) ID Date Data Source [id number] 04/12/2020 01:33:00 PM EDT [facility] Name Value Range Interpretation Code Description Data Ailyn rce(s) Supporting Document(s) WHITE BLOOD COUNT 7.47 10^3/uL 4.00-10.50 [facility] RED BLOOD [facility] 4.97 10^6/uL 4.30-5.80 [facility] 14.5 G/DL 13.0-17.5 [facility] HEMATOCRIT 45.8 % 41.0-53.0 N [facility] MCV 92.2 FL 80.0-100.0 N [facility] MCH 29.2 PG 27.0-34.0 [facility]CHC 31.7 G/DL 32-36 L [facility] RDW 14.6 % 11.5-14.5 [facility] PLATELET COUNT 243 10^3/uL 130-400 [facility] MPV 9.7 FL 8.7-13.2 N [place] [email or web address] GRAN % (AUTO) 70.0 % 42.0-75.0 N [place] [email or web address] LYMPH % (AUTO) 16.5 % 20.0-51.0 L [place] [email or web address] MONO % (AUTO) 10.6 % 2.0-15.0 N [place] [email or web address] EOS % (AUTO) 1.7 % 0.0-11.0 N [place] [email or web address] BASO % (AUTO) 0.5 % 0.0-2.0 N [place] [email or web address] IG % (AUTO) 0.7 % 1.00-5.00 [email or web address] IG # (AUTO) 0.1 10^3/uL <0.5 [email or web address] GRAN # (AUTO) 5.23 10^3/uL 1.50-6.50 N [place] [email or web address] LYMPH # (AUTO) 1.2 k/uL 1.0-5.0 N [facility] MONO # (AUTO) 0.79 k/uL 0.20-1.50 N [place] [email or web address] EOS # (AUTO) 0.13 10^3/uL 0.00-1.10 N [place] [email or web address] BASO # (AUTO) 0.04 10^3/uL 0.00-0.20 [facility] ID Date Data Source [id number] 04/12/2020 02:35:00 PM EDT [facility] Name Value Range Interpretation Code Description Data Ailyn rce(s) Supporting Document(s) SODIUM 140 MEQ/L 135-145 N [facility] POTASSIUM 4.4 MEQ/L 3.5-5.3 N [facility] CHLORIDE 102 MEQ/L 94-110 N [facility] CARBON DIOXIDE 28 MEQ/L 22-33 N [facility] ANION GAP 14 5-16 N [facility] BLOOD UREA NITRO 33 MG/DL 7-25 H [facility] CREATININE 1.2 MG/DL 0.6-1.4 N [facility] GFR 58.0 ML/MIN [facility] Stage G3a - Mildly to moderately decrea sed kidney function The GFR is an estimate of the Glomerular Filtration Rate. It is an aid to assess a patient's renal function. It is not a conclusive diagnosis of kidney disease. GFR normal is >=90 The MDRD GFR calculation is considered valid between the ages of 18 and 75 years only. BUN/CREAT RATIO 27 8-36 [facility] GLUCOSE 92 MG/DL 70-100 [facility] CA 9.0 MG/DL 8.7-10.5 N [facility] BILIRUBIN,TOTAL 0.7 MG/DL 0.1-1.3 [facility] AST 9 U/L 5-40 [facility] ALT 21 U/L 5-48 [facility] ALKALINE PHOSPHATASE 51 U/L 40-140 [facility] TOTAL PROTEIN 5.4 G/DL 5.9-8.3 L [facility] ALBUMIN 3.9 G/DL 3.0-5.1 [facility] GLOBULIN 1.5 G/DL 1.5-3.5 [facility] ALB/GLOB RATIO 2.6 G/DL 1.0-3.0 [facility] ID Date Data Source [id number] 04/12/2020 02:35:00 PM [facility] Name Value Range Interpretation Code Description Data Ailyn rce(s) Supporting Document(s) GLYCOSYLATED HGBA1C 5.9 % 4.1-6.5 N [facility] ID Date Data Source [id number] 04/12/2020 02:35:00 PM [facility] Name Value Range Interpretation Code Description Data Ailyn rce(s) Supporting Document(s) TRIGLYCERIDES 110 MG/DL 45-150 N [facility] CHOLESTEROL 145 MG/DL 125-200 [facility] LDL CHOLESTEROL 71 MG/DL 50-130 [facility] HDL CHOLESTEROL 52 MG/DL 39-96 [facility] CHOL/HDL RATIO 2.8 0-4.9 [facility] ID Date Data Source [id number] 04/12/2020 02:35:00 PM EDT [facility] Name Value Range Interpretation Code Description Data Ailyn rce(s) Supporting Document(s) TSH 1.776 uIU/ML 0.470-4.200 N [facility] Patients should not be tested for 72 ho urs post fluorescein dye angiography. A false depression of result may occur. ID Date Data Source [id number] 04/04/2020 04:19:00 PM EDT [facility] ([facility]) Name Value Range Interpretation Code Description Data Ailyn rce(s) Supporting Document(s) Hemoglobin A1c/Hemoglobin.total in Blood 6.1% Abnormal (applies to non-numeric results) Hgb A1c [facility] ([facility]) ID Date Data Source [id number] 03/15/2020 03:09:00 [place] [address] Patient Name: Kristel Herbert Exam Date: 03/15/20 : 1935 Ordering Doctor: Mackenzie Gavin DO Attending Doctor: Mackenzie Gavin DO CC: FOUR VIEWS RIGHT RIBS WITH FRONTAL CHEST Indication: Right posterior rib pain Comparison: Chest x-ray 09/23/2017 Findings: Four views of the right ribs demonstrate no focal osseous lesion or fracture. Moderate degenerative changes are noted within the right shoulder. There has been prior left shoulder arthroplasty. The heart and mediastinum are normal configuration. The lungs are clear. There is no pleural abnormality. Impression: Negative right rib series. No evidence of acute pulmonary disease. Professional interpretation performed by [facility] . End of diagnostic report: [id number] Signed: Moose Kingsley MD 03/15/20 1549 Interpreted by: Eh KingsleyoTranscribed by: Moose Kingsley Name Value Range Interpretation Code Description Data Ailyn rce(s) Supporting Document(s) ID Date Data Source [id number] 12/15/2019 05:43:00 PM EDT [facility] Name Value Range Interpretation Code Description Data Ailyn rce(s) Supporting Document(s) SODIUM 141 MEQ/L 135-145 [facility] POTASSIUM 4.4 MEQ/L 3.5-5.3 [facility] CHLORIDE 103 MEQ/L 94-110 [facility] [place] [email or web address] CARBON DIOXIDE 30 MEQ/L 22-33 N [place] [email or web address] ANION GAP 12 5-16 [facility] BLOOD UREA NITRO 30 MG/DL 7-25 [facility] CREATININE 1.3 MG/DL 0.6-1.4 N [facility] GFR 52.9 ML/MIN [facility] Stage G3a - Mildly to moderately decrea sed kidney function The GFR is an estimate of the Glomerular Filtration Rate. It is an aid to assess a patient's renal function. It is not a conclusive diagnosis of kidney disease. GFR normal is >=90 The MDRD GFR calculation is considered valid between the ages of 18 and 75 years only. BUN/CREAT RATIO 23 8-36 N [facility] GLUCOSE 131 MG/DL 70-100 [facility] CA 9.2 MG/DL 8.7-10.5 N [facility] ID Date Data Source [id number] 12/14/2019 02:02:00 PM EDT [facility] Cardiology [address] [place] [address], [address] [place] [address] Cardiology Note : [id number] Signed Patient: Kristel Herbert Acct:[id number] Visit Date: 12/14/19 : 1935 Cardiology HPI History of present illness History of present illness: Mr. Herbert is a pleasant 84-year-old gentleman who comes to the office today for follow up due to abnormal electrocardiogram with atrial fibrillation at his primary care providers office on November 24, 2019. He was last evaluated in the office on 06/14/19. He has a past cardiac history that is significant for paroxysmal atrial fibrillation, hypertension, hyperlipidemia, diastolic dysfunction, and diabetes mellitus type 2. Today, he denies any signs or symptoms of ischemic heart disease and/or congestive heart failure. Since his last visit, he reports having symptoms of leg swelling which worsened and he followed up with his primary care provider. He reports he is taking furosemide with benefit and his leg swellinghas improved since then. He notes that his symptoms of shortness of breath have remained the same which are chronic. He does report having symptoms of palpitations and described these as a skipped beat. He complains of tenderness in his chest wall area. He denies any chest tightness, chest pressure, or light headedness. Atrial fibrillation Type of atrial fibrillation: Paroxysmal CHADS2-VASc score: 4 HAS BLED: 2 Heart failure Type of heart failure: Diastolic Current symptoms: Yes Dyspnea and Yes Edema NYHA classification: II. Symptoms with usual activity Date of last echocardiogram: 11/15/14 Last ejection fraction: 60 States activity of: Around the house and Walking Diet type: 2 gm sodium Fluid restriction of: 2,000 cc Dietary compliance: Good Medication compliance: Good Side effects: None Oxygen needs: None Hypertension Current cardiovascular symptoms: No Chest pain, Yes Dyspnea, Yes Edema, No Palpitations, No Weight gain and No Other Current cerebrovascular symptoms: No Diplopia, No Headache, No Numbness, No Vision loss, No Weaknessand No Other Current endocrine symptoms: No Diaphoretic episode, No Muscle aches and No Other Current symptoms of renal disease: No Fatigue, No Nausea, No Vomiting, No Weight loss and No Other Blood pressure monitoring: Health professional Blood pressure target: < 130/80 Compliance: good Side effects: None Diet type: Low fat and Low sodium Dietary compliance: Good Medication compliance: Good Intake Vital Signs 12/14/19 14:05 12/14/19 14:33 12/14/19 14:34 Height 5 ft 10.5 in Weight 167.8 kg BMI 52.3 BP 100/60 124/60 118/60 Blood Pressure Location Left Arm Left Arm Right Arm Position Sitting / Chair Sitting / Chair Sitting / Chair Respiration 18 Pulse 60 Pulse Source O2 sat Monitor Temp 98.3 F Temp Source Oral Pulse Oximetry (%) 94 L Oxygen Delivery Method room air Comment weight gain of 4 lbs. Intake Patient Status Have you had an UC/ED visit and/or been admitted to the hospital since your last visit?: No Visit Reasons: Follow Up 6 mo-Confirmed ( See Chart Note) Nurse Note: is here for a 6 month follow up today, he is also following up with chest pains . He states that about a month ago he had episodes of sharp "jabbing" chest pains, and then it turned into pressure. Reports he does have SOB but denies chest tightness. Supervisor Clam Bed Required: No Is patient in pain?: No Primary Care Physician:: Payal Gibson Have you smoked within the past year: No Allergies cortisone [Cortisone] Allergy (Intermediate, Unverified 12/14/19 14:30) RASH/HIVES Home Medications - Last Reconciled 12/14/19 by Lake Novak Jr, PA albuterol sulfate 2.5 mg IH Q4HPRN PRN apixaban 5 mg tablet (Eliquis) 5 mg PO BID atorvastatin 10 mg tablet 10 mg PO QPM carvedilol 6.25 mg tablet 6.25 mg PO BID cholecalciferol (vitamin D3) 25 mcg (1,000 unit) capsule 1,000 units PO QAM cyanocobalamin (vitamin B-12) 5,000 mcg sublingual tablet (Vitamin B-12) 5,000 mcg SL QAM fluticasone 250 mcg-salmeterol 50 mcg/dose blistr powdr for inhalation (Advair Diskus) 1 puff inhalation BID furosemide 20 mg tablet 20 mg PO QDAY glipizide 5 mg tablet 5 mg PO DAILY losartan 100 mg tablet 100 mg PO QDAY spironolactone 25 mg-hydrochlorothiazide 25 mg tablet 1 ea PO QAM tramadol 50 mg tablet 50 mg PO DAILY History of Smoking/Tobacco Use: Former Smoker Tobacco Product: Cigarettes Annual Influenza Vaccine: Yes Pneumococcal Vaccine (+65): Yes Immunizations up to date: No (Last Tetanus Unknown) Recent Travel Travel Outside of the country in last 30 days?: No [place]SH - [place] PFSH [place] Medical History Allergic rhinitis Chronic obstructive pulmonary disease Diabetes mellitus Diastolic dysfunction (Chronic) Gastroesophageal reflux disease Hydrocele Hypertension (Chronic) Mixed hyperlipidemia (Chronic) OA (osteoarthritis) Persistent atrial fibrillation (Chronic) Surgical History Back Surgery 1980 Finger amputations History of colonoscopy with polypectomy (Acute) History of hernia repair 2011 History of melanoma excision Face Leg surgery Right, 1980 Lung lesion removal Left, 2010 Right elbow surgery Status post rotator cuff repair Left, 2003 Throat lesion removal Family History Mother Heart failure Parkinson disease Father Cancer Brother Stroke Other Heart disease Social History Marital Status: Occupational status: retired Comment: Retired [employer] Education Level (current or highest level completed): High school High School Level: GED (General Equivalency Diploma) Caffeine: Yes Type: tea Physical Activity: walking and assisted ambulation Frequency: does not exercise Alcohol Use: None Substance Use: never Cardiology ROS Const Denies chills, Denies fatigue, Denies fever(s), Denies headache(s) and Denies weight loss Eyes Denies blurry vision ENT Ears, Nose, Mouth, Throat: denies difficulty swallowing and nosebleed Card Cardiovascular: Reports Leg swelling, Palpitations and Shortness of breath; Denies Chest pain, Lightheadedness, Shortness of breath with activity and Shortness of breath when lying down Resp Denies chest congestion, Denies cough, Denies hemoptysis, Denies dyspnea and Denies dyspnea on exertion GI Denies hematochezia, Denies dysphagia, Denies diarrhea, Denies loose stools and Denies nausea Denies hematuria and Denies dysuria Musc Denies back pain, Denies myalgias, Denies arthralgias and Denies muscle weakness Neuro Denies syncope, Denies headache(s) and Denies tremor(s) Endo Denies fatigue Cardiology Exam Const General: healthy appearing and no acute distress Nutritional Appearance: well nourished and overweight Orientation: alert, awake and oriented x3 Skin General skin exam: no rashes or lesions noted Neck Neck: normal visual inspection, full ROM and no lymphadenopathy Carotids: normal carotid upstroke and no bruits Chest Chest: normal inspection of the chest Resp Effort Inspection: normal respiratory effort Auscultation: clear to auscultation bilaterally, No crackles, No rales and no rhonchi heard Cardio Rate: regular rate Rhythm: abnormal rhythm (irregular) Heart Sounds: Yes S1 normal and S2 normal; No click, gallop or murmur Pulses: posterior tibial pulses present and dorsalis pedis present Extrem General: full ROM, capillary refill normal and edema (trace) Laterality: bilaterally (lower extremities) Assessment Plan (AMB) Assessment Plan (1) Persistent atrial fibrillation: Status: Chronic SNOMED Code(s): 291850054 Category: Medical (2) Hypertension: Status: Chronic SNOMED Code(s): 87645793 Category: Medical (3) Mixed hyperlipidemia: Status: Chronic Code(s): E78.2 - Mixed hyperlipidemia SNOMED Code(s): 117345219 Category: Medical (4) Diastolic dysfunction: Status: Chronic SNOMED Code(s): 2849097 Category: Medical Medications: Refilled: apixaban (Eliquis) 5 mg PO BID 180 tabs 3RF atorvastatin 10 mg PO QPM 90 tabs 3RF carvedilol must administer with a meal/food 6.25 mg PO BID 180 tabs 3RF Problems Did you add a problem (diagnosis code) to the patient?: Yes Plan: Recommendations: 1.To continue to advocate the importance of aggressive lifestyle interventions. We discussed this today. 2. To avoid seasoning food, salt and to avoid processed foods. 3. To avoid non-steroidal anti-inflammatory drugs. 4. Today his blood pressure is within JNC VIII recommendations. His ventricular rate to atrial fibrillation is well controlled. I recommend that we continue his current dose of Carvedilol and losartan. 5. Today on exam, he is euvolemic. I recommend that we continue his current dose of spironolactone-hydrochlorothiazide and furosemide. I would ask him to complete a basic metabolic panel to re-check his electrolytes and renal function since addition of furosemide by his PCP. If his renal function is stable, will continue with the current regimen. If his renal function declines, I will consider changing his spironolactone-hydrochlorothiazide to spironolactone and furosemide to torsemide. 6. His last fasting lipid panel met NCEP guidelines. I recommend that he continue his current dose of atorvastatin. 7. To continue anticoagulation therapy with the current dose of Eliquis based on his age, weight and renal function to prevent thromboembolic events. 8. We had discussion regarding his atrial fibrillation. He has minimum symptoms and these do not affect his quality of life. We discuss different options with cardioversion and antiarrhythmic medciations. I recommend that we continue with rate control strategy and monitor his symptoms. 9. Mr. Herbert will have a follow-up appointment in our office in 6 months' time or sooner if clinically indicated. Comment: I personally performed the services described in this documentation. All medical record Comment: I personally performed the services described in this documentation. All medical record entries made by the ashleyibe were at my direction and reviewed afterward. Scribed by Caron Brooks, on 12/14/19 at 1455 for Lake Novak Jr, PA. Other Orders: Orders: BASIC METABOLIC PANEL Today R60.9 Other Medications: Refilled: apixaban (Eliquis) 5 mg PO BID 180 tabs 3RF atorvastatin 10 mg PO QPM 90 tabs 3RF carvedilol must administer with a meal/food 6.25 mg PO BID 180 tabs 3RF Quality [facility] Tobacco Use how long ago did patient quit smokin Coding Level of Care Code 91188 Estab Pt Level 4 History Expanded Problem Focused Exam Detailed Diagnoses Persistent atrial fibrillation I48.19 Hypertension I10 Mixed hyperlipidemia E78.2 Diastolic dysfunction I51.89 Signed By:Lake Novak <<Signature on File>> Signed Date/Time: 12/14/19 4475 Co-Signer: Anselmo Walsh MD Co-Signed Date/Time: 12/15/19 0558 Initializing User: Lake JENNINGS 12/14/19 1402 01 140 Name Value Range Interpretation Code Description Data Ailyn rce(s) Supporting Document(s) ID Date Data Source [id number] 11/24/2019 03:34:00 PM EDT [facility] ([facility]) Name Value Range Interpretation Code Description Data Ailyn rce(s) Supporting Document(s) Reported Physicians See Note Reported Physicians [facility] ([facility]) Note: Reported Physicians:Ordering: Payal BainsAttending: Payal Gibson ID Date Data Source [id number] 11/24/2019 03:34:00 PM EDT [facility] ([facility]) Name Value Range Interpretation Code Description Data Ailyn rce(s) Supporting Document(s) PROBNP 524 pg/mL Abnormal (applies to non-numeric res ults) PROBNP [facility] ([facility]) Note: The following cut-points have bee n suggested for the use of proBNP for the diagnostic evaluation of heart failure (HF) in patients with acute dyspnea: Modality Age Optimal Cut (years) Point Diagnosis (rule in HF) <50 450 pg/mL 50 - 75 900 pg/mL >75 1800 pg/mL Exclusion (rule out HF) Age independent 300 pg/mL Performed at: [facility] [id number] Medical Assistant Secretary: Dexter Stanton MD, Phone: [phone] Observer: PROBNP PROBNP [id number] (A) ID Date Data Source [id number] 11/24/2019 03:34:00 PM EDT [facility] ([facility]) Name Value Range Interpretation Code Description Data Ailyn rce(s) Supporting Document(s) Thyrotropin [Units/volume] in Serum or Plasma by Detec tion limit <= 0.05 mIU/L 1.364 uIU/ML Normal TSH [facility] Note: Patients should not be tested for 72 hours post fluorescein dye angiography. A false depression of result may occur.Responsible Observer: TSH TSH 300.5500 (A) ID Date Data Source [id number] 11/24/2019 03:34:00 PM EDT [facility] ([facility]) Name Value Range Interpretation Code Description Data Ailyn rce(s) Supporting Document(s) Cholesterol crystals [Presence] in Stone by Infrared spectroscop y 137 MG/DL Normal CHOLESTEROL [facility] ([facility]) Note: Responsible Observer: CHOL CHOLEST AGGIE 300.4350 (A) Deprecated Cholesterol.in LDL/Cholestero l.in HDL [Mass ratio] in Serum or Plasma 3.0 Normal CHOL/HDL RATIO [place] ([facility] ) Note: Responsible Observer: CHOL/HDL RAT IO CHOL/HDL RATIO 300.4700 (A) Cholesterol in HDL [Mass/volume] in Serum or Plasma ultracen trifugate 45 MG/DL Normal HDL CHOLESTEROL [place] ([facility]) Note: Responsible Observer: HDL HDL CHOL ESTEROL 300.4600 (A) Cholesterol in LDL [Mass/volume] in Serum or Plasma by Direct as say 67 MG/DL Normal LDL CHOLESTEROL [place] ([facility]) Note: Responsible Observer: LDL LDL CHOL ESTEROL 300.4400 (A) Triglyceride [Mass/volume] in Serum or Plasma 125 MG/DL N ormal TRIGLYCERIDES [facility] ([facility]) Note: Responsible Observer: TRIG TRIGLYC ERIDES 300.4300 (A) ID Date Data Source [id number] 11/24/2019 03:34:00 PM EDT [place] ([facility]) Name Value Range Interpretation Code Description Data Ailyn rce(s) Supporting Document(s) Hemoglobin A1c/Hemoglobin.total in Blood 6.4 % Normal GLYCOSYLATED HGBA1C [place] ([facility]) Note: Responsible Observer: HGB A1C GLYC OSYLATED HGBA1C 300.0800 (A) ID Date Data Source [id number] 11/24/2019 03:34:00 PM EDT [place] ([facility]) Name Value Range Interpretation Code Description Data Ailyn rce(s) Supporting Document(s) Albumin/Globulin [Mass Ratio] in Amniotic fluid 3.5 G/DL Above high normal ALB/GLOB RATIO [place] ([facility]) Note: Responsible Observer: A/G RATIO AL B/GLOB RATIO 300.4100 (A) Albumin [Mass/volume] in Synovial fluid 4.5 G/DL Normal ALBUMIN [facility] ([facility]) Note: Responsible Observer: ALB ALBUMIN 300.3900 (A) Alanine aminotransferase [Enzymatic activity/volume] in Seru m or Plasma 23 U/L Normal ALT [facility] ([facility]) Note: Responsible Observer: ALT/SGPT ALT 300.3100 (A) Alkaline phosphatase isoenzyme [Units/volume] in Serum or Plasma 62 U/L Normal ALKALINE PHOSPHATASE [facility] ([facility]) Note: Responsible Observer: ALK PHOS ALK SAMANTA PHOSPHATASE 300.3110 (A) Urea nitrogen/Creatinine [Mass Ratio] in Serum or Plasma 24 Normal BUN/CREAT RATIO [facility] ([facility]) Note: Responsible Observer: BUN/CREAT RA MARQUIS BUN/CREAT RATIO 300.0450 (A) Bilirubin.total [Mass/volume] in Serum or Plasma 0.6 MG/DL Normal BILIRUBIN,TOTAL [facility] ([facility]) Note: Responsible Observer: TOTAL BILI T OTAL BILIRUBIN 300.2700 (A) Aspartate aminotransferase [Enzymatic activity/volume] in Serum or Plasma 13 U/L Normal AST [facility] ([facility]) Note: Responsible Observer: AST/SGOT AST 300.3050 (A) CA 9.3 MG/DL Normal CA [facility] ([facility]) Note: Responsible Observer: CA CALCIUM 300.2200 (A) BLOOD UREA NITRO 29 MG/DL Above high normal BLOOD UREA N ITRO [facility] ([facility]) Note: Responsible Observer: BUN BLOOD UR EA NITROGEN 300.0350 (A) Chloride [Moles/volume] in Serum, Plasma or Blood 105 MEQ/L Normal CHLORIDE [facility] ([facility]) Note: Responsible Observer: CL CHLORIDE 300.0200 (A) Creatine/Creatinine [Mass Ratio] in Urine 1.2 MG/DL Ruba l CREATININE [facility] ([facility]) Note: Responsible Observer: CREAT CREATI NINE 300.0400 (A) Carbon dioxide, total [Moles/volume] in Serum or Plasma 28 MEQ/L Normal CARBON DIOXIDE [facility] ([facility]) Note: Responsible Observer: CO2 CARBON D IOXIDE 300.0250 (A) Anion gap in Blood 12 Normal [facility] Note: Responsible Observer: ANION GAP AN ION GAP 300.0300 (A) Glucose [Presence] in Urine 91 MG/DL Normal GLUCOSE GR [place] ([facility]) Note: Responsible Observer: GLU GLUCOSE 300.0500 (A) GFR 58.0 ML/MIN GFR [facility] ([facility]) Note: Stage G3a - Mildly to moderately [...] years only.Responsible Observer: GFR GFR 300.0410 (A) Potassium [Mass/volume] in Blood 4.7 MEQ/L Normal POT ASSIUM [place] ([facility]) Note: Responsible Observer: K POTASSIUM 300.0150 (A) Globulin [Mass/volume] in Serum by calculation 1.3 G/DL Below low normal GLOBULIN [place] ([facility]) Note: Responsible Observer: GLOB GLOBULI N 300.4050 (A) Sodium [Moles/volume] in Serum, Plasma or Blood 140 MEQ/L Normal SODIUM [facility] ([facility]) Note: Responsible Observer: NA SODIUM 3 00.0100 (A) Protein [Mass/volume] in Synovial fluid 5.8 G/DL B elow low normal TOTAL PROTEIN [facility] ([facility]) Note: Responsible Observer: TP TOTAL PRO TEIN 300.3750 (A) ID Date Data Source [id number] 11/24/2019 03:34:00 PM EDT [facility] ([facility]) Name Value Range Interpretation Code Description Data Ailyn rce(s) Supporting Document(s) BASO # (AUTO) 0.03 3/uL Normal BASO # (AUTO) [facility] ([facility]) Note: Responsible Observer: BASO # (AUTO ) BASO # (AUTO) 100.1500 (A) BASO % (AUTO) 0.5 % Normal BASO % (AUTO) [facility] ([facility]) Note: Responsible Observer: BASO % (AUTO ) BASO % (AUTO) 100.1250 (A) EOS # (AUTO) 0.10 3/uL Normal EOS # (AUTO) [facility] ([facility]) Note: Responsible Observer: EOS # (AUTO) EOS # (AUTO) 100.1450 (A) GRAN # (AUTO) 4.77 3/uL Normal GRAN # (AUTO) [facility] ([facility]) Note: Responsible Observer: GRAN # (AUTO ) GRAN #(AUTO) 100.1325 (A) EOS % (AUTO) 1.5 % Normal EOS % (AUTO) [facility] ([facility]) Note: Responsible Observer: EOS % (AUTO) EOS % (AUTO) 100.1200 (A) Hematocrit [Volume Fraction] of Blood by Automated count 45.2 % Normal HEMATOCRIT [facility] ([facility]) Note: Responsible Observer: HCT HEMATOCR IT 100.0400 (A) Hemoglobin [Mass/volume] in Blood 14.3 G/DL Normal HE MOGLOBIN [facility] ([facility]) Note: Responsible Observer: HGB HEMOGLOB IN 100.0300 (A) GRAN % (AUTO) 72.9 % Normal GRAN % (AUTO) [facility] ([facility]) Note: Responsible Observer: GRAN % (AUTO ) GRAN % (AUTO) 100.1000 (A) IG # (AUTO) 0.0 3/uL IG # (AUTO) [facility] ([facility]) Note: Responsible Observer: IG # (AUTO) IG # (AUTO) 100.1260 (A) IG % (AUTO) 0.3 % IG % (AUTO) [facility] ([facility]) Note: Responsible Observer: IG % (AUTO) IG % (AUTO) 100.1255 (A) LYMPH % (AUTO) 14.2 % Below low normal LYMPH % (AUTO) GRE [place] ([facility]) Note: Responsible Observer: LYMPH % (AUT O) LYMPH % (AUTO) 100.1100 (A) Erythrocyte mean corpuscular hemoglobin [Entitic mass] by Automated count 28.4 PG Normal MCH [facility] ([facility]) Note: Responsible Observer: MCH MCH 100 .0600 (A) LYMPH # (AUTO) 0.9 k/uL Below low normal LYMPH # (AUTO) [facility] ([facility]) Note: Responsible Observer: LYMPH # (AUT O) LYMPH # (AUTO) 100.1350 (A) Erythrocyte mean corpuscular hemoglobin concentration [Mass/volume] by Automated count 31.6 G/DL Below low normal MCHC [facility] ([facility] re) Note: Responsible Observer: MCHC MCHC 1 00.0650 (A) Erythrocyte mean corpuscular volume [Entitic volume] by Auto mated count 89.7 FL Normal MCV [place] ([facility]) Note: Responsible Observer: MCV MCV 100 .0550 (A) MONO % (AUTO) 10.6 % Normal MONO % (AUTO) [facility] ([facility]) Note: Responsible Observer: MONO % (AUTO ) MONO% (AUTO) 100.1150 (A) MONO # (AUTO) 0.69 k/uL Normal MONO # (AUTO) [facility] ([facility]) Note: Responsible Observer: MONO # (AUTO ) MONO # (AUTO) 100.1400 (A) MPV 9.6 FL Normal MPV [facility] ([facility] e) Note: Responsible Observer: MPV MPV 100 .0950 (A) Platelets [#/volume] in Plasma by Automated count 253 3/uL Normal PLATELET COUNT [place] ([facility]) Note: Responsible Observer: PLT PLATELET COUNT 100.0850 (A) Erythrocyte distribution width [Ratio] by Automated count 14.4 % Normal RDW [place] ([facility]) Note: Responsible Observer: RDW RDW 100 .0700 (A) Erythrocytes [#/volume] in Blood by Automated count 5.04 6/uL Normal RED BLOOD COUNT [place] ([facility]) Note: Responsible Observer: RBC RED BLOO D COUNT 100.0250 (A) Leukocytes [#/volume] in Blood by Automated count 6.54 3/uL Normal WHITE BLOOD COUNT [place] ([facility]) Note: Responsible Observer: WBC WHITE BL OOD COUNT 100.0150 (A) ID Date Data Source [id number] 11/24/2019 05:36:00 PM [facility] Has Patient Fasted For The Past 12 Hour s? Y Has Patient Fasted For The Past 12 Hour s? Y Has Patient Fasted For The Past 12 Hour s? Y Has Patient Fasted For The Past 12 Hour s? Y Name Value Range Interpretation Code Description Data Ailyn rce(s) Supporting Document(s) WHITE BLOOD COUNT 6.54 10^3/uL 4.00-10.50 N [facility] RED BLOOD COUNT 5.04 10^6/uL 4.30-5.80 N [facility] HEMOGLOBIN 14.3 G/DL 13.0-17.5 N [facility] HEMATOCRIT 45.2 % 41.0-53.0 N [facility] MCV 89.7 FL 80.0-100.0 N [facility] MCH 28.4 PG 27.0-34.0 N [facility] MCHC 31.6 G/DL 32-36 L [facility] RDW 14.4 % 11.5-14.5 N [facility] PLATELET COUNT 253 10^3/uL 130-400 N [facility] MPV 9.6 FL 8.7-13.2 N [facility] GRAN % (AUTO) 72.9 % 42.0-75.0 N [facility] LYMPH % (AUTO) 14.2 % 20.0-51.0 L [facility] MONO % (AUTO) 10.6 % 2.0-15.0 N [facility] EOS % (AUTO) 1.5 % 0.0-11.0 N [facility] BASO % (AUTO) 0.5 % 0.0-2.0 N [facility] IG % (AUTO) 0.3 % 1.00-5.00 [facility] IG # (AUTO) 0.0 10^3/uL <0.5 [facility] GRAN # (AUTO) 4.77 10^3/uL 1.50-6.50 N [facility] LYMPH # (AUTO) 0.9 k/uL 1.0-5.0 L [facility] MONO # (AUTO) 0.69 k/uL 0.20-1.50 N [facility] EOS # (AUTO) 0.10 10^3/uL 0.00-1.10 N [facility] BASO # (AUTO) 0.03 10^3/uL 0.00-0.20 N [facility] ID Date Data Source [id number] 11/24/2019 05:52:00 PM EDT [facility] Has Patient Fasted For The Past 12 Hour s? Y Has Patient Fasted For The Past 12 Hour s? Y Has Patient Fasted For The Past 12 Hour s? Y Has Patient Fasted For The Past 12 Hour s? Y Name Value Range Interpretation Code Description Data Ailyn rce(s) Supporting Document(s) SODIUM 140 MEQ/L 135-145 N [facility] POTASSIUM 4.7 MEQ/L 3.5-5.3 N [facility] CHLORIDE 105 MEQ/L 94-110 N [facility] CARBON DIOXIDE 28 MEQ/L 22-33 N [facility] ANION GAP 12 5-16 N [facility] BLOOD UREA NITRO 29 MG/DL 7-25 [facility] CREATININE 1.2 MG/DL 0.6-1.4 N [facility] GFR 58.0 ML/MIN [facility] Stage G3a - Mildly to moderately decrea sed kidney function The GFR is an estimate of the Glomerular Filtration Rate. It is an aid to assess a patient's renal function. It is not a conclusive diagnosis of kidney disease. GFR normal is >=90 The MDRD GFR calculation is considered valid between the ages of 18 and 75 years only. BUN/CREAT RATIO 24 8-36 N [facility] GLUCOSE 91 MG/DL 70-100 N [facility] CA 9.3 MG/DL 8.7-10.5 N [facility] BILIRUBIN,TOTAL 0.6 MG/DL 0.1-1.3 N [facility] AST 13 U/L 5-40 N [facility] ALT 23 U/L 5-48 N [facility] ALKALINE PHOSPHATASE 62 U/L 40-140 N [facility] TOTAL PROTEIN 5.8 G/DL 5.9-8.3 L [facility] ALBUMIN 4.5 G/DL 3.0-5.1 N [facility] GLOBULIN 1.3 G/DL 1.5-3.5 L [facility] ALB/GLOB RATIO 3.5 G/DL 1.0-2.7 H [facility] ID Date Data Source [id number] 11/26/2019 02:07:00 PM EDT [facility] Has Patient Fasted For The Past 12 Hour s? Y Has Patient Fasted For The Past 12 Hour s? Y Has Patient Fasted For The Past 12 Hour s? Y Has Patient Fasted For The Past 12 Hour s? Y Name Value Range Interpretation Code Description Data Ailyn rce(s) Supporting Document(s) PROBNP 524 pg/mL 0-486 A [facility] The following cut-points have been sugg ested for the use of proBNP for the diagnostic evaluation of heart failure (HF) in patients with acute dyspnea: Modality Age Optimal Cut (years) Point Diagnosis (rule in HF) <50 450 pg/mL 50 - 75 900 pg/mL >75 1800 pg/mL Exclusion (rule out HF) Age independent 300 pg/mL Performed at: [address] [id number] Medical Assistant Secretary: Dexter Stanton MD, Phone: [phone] ID Date Data Source [id number] 11/24/2019 05:52:00 PM EDT [employer] Has Patient Fasted For The Past 12 Hour s? Y Has Patient Fasted For The Past 12 Hour s? Y Has Patient Fasted For The Past 12 Hour s? Y Has Patient Fasted For The Past 12 Hour s? Y Name Value Range Interpretation Code Description Data Ailyn rce(s) Supporting Document(s) GLYCOSYLATED HGBA1C 6.4 % 4.1-6.5 N [facility] ID Date Data Source [id number] 11/24/2019 05:52:00 PM T [employer] Has Patient Fasted For The Past 12 Hour s? Y Has Patient Fasted For The Past 12 Hour s? Y Has Patient Fasted For The Past 12 Hour s? Y Has Patient Fasted For The Past 12 Hour s? Y Name Value Range Interpretation Code Description Data Ailyn rce(s) Supporting Document(s) TRIGLYCERIDES 125 MG/DL 45-150 N [facility] CHOLESTEROL 137 MG/DL 125-200 N [facility] LDL CHOLESTEROL 67 MG/DL 50-130 N [facility] HDL CHOLESTEROL 45 MG/DL 39-96 N [facility] CHOL/HDL RATIO 3.0 0-4.9 N [facility] ID Date Data Source [id number] 11/24/2019 05:52:00 PM [facility] [employer] Has Patient Fasted For The Past 12 Hour s? Y Has Patient Fasted For The Past 12 Hour s? Y Has Patient Fasted For The Past 12 Hour s? Y Has Patient Fasted For The Past 12 Hour s? Y Name Value Range Interpretation Code Description Data Ailyn rce(s) Supporting Document(s) TSH 1.364 uIU/ML 0.470-4.200 N [facility] Patients should not be tested for 74 ho urs post fluorescein dye angiography. A false depression of result may occur. Procedure Social History Code Duration Value Status Description Data Source(s ) 06/15/2020 01:21:10 PM EDT Former Smoker completed Former Smoker [facility] 06/15/2020 01:21:10 PM EDT Cigarettes completed Cigarette s [facility] Smoking 06/15/2020 01:21:00 PM EDT Ex-smoker (finding) complet ed Ex-smoker (finding) [facility] Assertion 04/04/2020 12:00:00 AM EDT Finding relat ing to drug misuse behavior (finding) completed Finding relating to drug misuse behavior (finding) [facility] ([facility]) Assertion 04/04/2020 12:00:00 AM EDT Current drinker of al cohol (finding) completed Current drinker of alcohol (finding) [facility] ([facility]) Smoking 04/04/2020 12:00:00 AM EDT Ex-smoker (finding) complet ed Ex-smoker (finding) [facility] Smoking 03/23/2020 12:00:00 AM EDT Ex-smoker (finding) complet ed Ex-smoker (finding) [facility] ([facility]) Smoking 03/15/2020 12:00:00 AM EDT Ex-smoker (finding) complet ed Ex-smoker (finding) [facility] 12/14/2019 02:05:14 PM EDT Former Smoker completed Former Smoker [facility] 12/14/2019 02:05:14 PM EDT Cigarettes completed Cigarette s [facility] Smoking 12/14/2019 02:05:00 PM EDT Ex-smoker (finding) complet ed Ex-smoker (finding) [facility] Smoking 11/24/2019 12:00:00 AM EDT Ex-smoker (finding) complet ed Ex-smoker (finding) [facility] ([facility]) Smoking 11/24/2019 12:00:00 AM EDT Ex-smoker (finding) complet ed Ex-smoker (finding) [facility] Vital Signs ID Date Data Source UNK Name Value Range Interpretation Code Description Data Source(s) Diastolic blood pressure 60 mm[Hg] 60 mm[Hg] [facility] Systolic blood pressure 122 mm[Hg] 122 mm[Hg] [facility] Body mass index (BMI) [Ratio] 52.7 kg/m2 52.7 k g/m2 [facility] Oxygen saturation in Arterial blood by Pulse oximetry 95 % 95 % [facility] Respiratory rate 16 /min 16 /min [facility] Heart rate 49 /min 49 /min [facility] Body temperature 96.9 [degF] 96.9 [degF] [facility] Body weight 169.30 kg 169.30 kg [facility] Body height 179.07 cm 179.07 cm [facility] Respiratory rate 22 /min 22 /min [place] ([facility]) Heart rate rhythm 1 1 ([facility]) Heart rate 63 /min 63 /min [place] ([facility]) Diastolic blood pressure 68 mm[Hg] 68 mm[Hg] [place] ([facility]) Systolic blood pressure 112 mm[Hg] 112 mm[Hg] [facility] ([facility]) Inhaled oxygen concentration 21 % 21 % [place] ([facility]) Inhaled oxygen flow rate 0 L/min 0 L/min [place] ([facility]) Oxygen saturation in Arterial blood by Pulse oximetry 93 % 93 % [place] ([facility]) PhenX - pain, abdominal - type and intensity protocol 0 0 [place] ([facility]) Body weight 373.125 [lb_av] 373.125 [lb_av] [facility] ([facility]) Body temperature 98.2 [degF] 98.2 [degF] [facility] ([facility]) Respiratory rate 26 /min 26 /min [place] ([facility]) Heart rate rhythm 1 1 Y ([facility]) Heart rate 69 /min 69 /min [facility] ([facility] Diastolic blood pressure 56 mm[Hg] 56 mm[Hg] [facility] ([facility]) Systolic blood pressure 98 mm[Hg] 98 mm[Hg] G [facility] ([facility]) Inhaled oxygen concentration 21 % 21 % [place] ([facility] Inhaled oxygen flow rate 0 L/min 0 L/min [place] ([facility]) Oxygen saturation in Arterial blood by Pulse oximetry 96 % 96 % [place] ([facility]) PhenX - pain, abdominal - type and intensity protocol 5 5 [facility] ([facility]) Body weight 368 [lb_av] 368 [lb_av] [facility] ([facility]) Body temperature 97.8 [degF] 97.8 [degF] [facility] ([facility]) Respiratory rate 28 /min 28 /min [facility] ([facility]) Heart rate rhythm 1 1 Y ([facility]) Heart rate 66 /min 66 /min [facility] ([facility]) Diastolic blood pressure 58 mm[Hg] 58 mm[Hg] [facility] ([facility]) Systolic blood pressure 100 mm[Hg] 100 mm[Hg] [facility] ([facility]) Inhaled oxygen concentration 21 % 21 % [facility] ([facility]) Inhaled oxygen flow rate 0 L/min 0 L/min [place] ([facility]) Oxygen saturation in Arterial blood by Pulse oximetry 95 % 95 % [place] ([facility]) PhenX - pain, abdominal - type and intensity protocol 0 0 [place] ([facility]) Body surface area Derived from formula 2.39 m2 2.39 m2 [place] ([facility]) Body mass index (BMI) [Ratio] 35.7 kg/m2 35.7 k g/m2 [facility] ([facility]) Body weight 263 [lb_av] 263 [lb_av] [facility] ([facility]) Body height 72 [in_i] 72 [in_i] [facility] ([facility]) Respiratory rate 20 /min 20 /min [facility] ([facility]) Heart rate rhythm 1 1 Y ([facility]) Heart rate 61 /min 61 /min [facility] ([facility]) Diastolic blood pressure 80 mm[Hg] 80 mm[Hg] [facility] ([facility]) Systolic blood pressure 126 mm[Hg] 126 mm[Hg] G [place] ([facility]) Inhaled oxygen concentration 21 % 21 % [facility] ([facility]) Inhaled oxygen flow rate 0 L/min 0 L/min [place] ([facility]) Oxygen saturation in Arterial blood by Pulse oximetry 95 % 95 % [place] ([facility]) PhenX - pain, abdominal - type and intensity protocol 7 7 [facility] ([facility]) Body weight 367 [lb_av] 367 [lb_av] [facility] ([facility]) Body temperature 99.2 [degF] 99.2 [degF] [facility] ([facility]) Respiratory rate 24 /min 24 /min [facility] ([facility]) The patient ambulates with the assistanc e of a wheeled walker. Heart rate 61 /min 61 /min [facility] ([facility]) The patient ambulates with the assistanc e of a wheeled walker. Diastolic blood pressure 72 mm[Hg] 72 mm[Hg] [facility] ([facility]) The patient ambulates with the assistanc e of a wheeled walker. Systolic blood pressure 126 mm[Hg] 126 mm[Hg] [facility] [place] ([facility]) The patient ambulates with the assistanc e of a wheeled walker. Inhaled oxygen concentration 21 % 21 % [facility] ([facility]) The patient ambulates with the assistanc e of a wheeled walker. Inhaled oxygen flow rate 0 L/min 0 L/min [facility] ([facility]) The patient ambulates with the assistanc e of a wheeled walker. Oxygen saturation in Arterial blood by Pulse oximetry 96 % 96 % [facility] ([facility]) The patient ambulates with the assistanc e of a wheeled walker. PhenX - pain, abdominal - type and intensity protocol 0 0 [facility] ([facility]) The patient ambulates with the assistanc e of a wheeled walker. Body weight 368 [lb_av] 368 [lb_av] [facility] ([facility]) The patient ambulates with the assistanc e of a wheeled walker. Body temperature 98 [degF] 98 [degF] [facility] ([facility]) The patient ambulates with the assistanc e of a wheeled walker. Diastolic blood pressure 60 mm[Hg] 60 mm[Hg] [facility] Systolic blood pressure 118 mm[Hg] 118 mm[Hg] [facility] Body mass index (BMI) [Ratio] 52.3 kg/m2 52.3 k g/m2 [facility] Oxygen saturation in Arterial blood by Pulse oximetry 94 % 94 % [facility] Respiratory rate 18 /min 18 /min [facility] Heart rate 60 /min 60 /min [facility] Body temperature 98.3 [degF] 98.3 [degF] [facility] Body weight 167.79 kg 167.79 kg [facility] Body height 179.07 cm 179.07 cm [facility] Respiratory rate 28 /min 28 /min [place] ([facility]) Heart rate rhythm 1 1 [place] ([facility]) Heart rate 73 /min 73 /min [place] ([facility]) Diastolic blood pressure 82 mm[Hg] 82 mm[Hg] [facility] ([facility]) Systolic blood pressure 138 mm[Hg] 138 mm[Hg] [place] ([facility]) Inhaled oxygen concentration 21 % 21 % [place] ([facility]) Inhaled oxygen flow rate 0 L/min 0 L/min [place] ([facility]) Oxygen saturation in Arterial blood by Pulse oximetry 99 % 99 % [place] ([facility]) PhenX - pain, abdominal - type and intensity protocol 0 0 [place] ([facility]) Body weight 370 [lb_av] 370 [lb_av] [facility] ([facility]) Body temperature 98.9 [degF] 98.9 [degF] [facility] ([facility]) Patient Treatment Plan of Care Planned Activity Planned Date Details Description Data Source (s) glipiZIDE XL 5 MG Oral Tablet Extended Release 24 Hour 07/14/2020 12:00:[address] [facility] ([facility]) tramadol hydrochloride 50 MG Oral Tablet 06/02/2020 12:00:00 AM [facility] ([facility]) gabapentin 100 MG Oral Capsule 04/04/2020 12:00:00 AM [facility] ([facility]) Prednisone 20 MG Oral Tablet 04/04/2020 12:00:00 AM [facility] ([facility]) Hydrochlorothiazide 25 MG / Spironolactone 25 MG Oral Tablet 04/03/2020 12:00:00 AM [facility] ([facility]) tramadol hydrochloride 50 MG Oral Tablet 03/27/2020 12:00:00 AM [facility] ([facility]) Lidocaine 50 MG/ML Rectal Cream 03/23/2020 12:00:00 AM [facility] [facility]) Furosemide 20 MG Oral Tablet 02/22/2020 12:00:00 AM EDT [facility] ([facility]) Albuterol 0.83 MG/ML Inhalant Solution 02/17/2020 12:00:00 AM EDT [facility] ([facility]) tramadol hydrochloride 50 MG Oral Tablet 01/11/2020 12:00:00 AM EDT [facility] ([facility]) Alcohol Pads 70% 12/16/2019 12:00:00 AM EDT [facility] ([facility]) Accu-Chek FastClix Lancets Miscellaneous 12/16/2019 12:00:00 AM EDT [facility] ([facility]) Accu-Chek Jody Plus In Vitro Strip 12/16/2019 12:00:00 AM EDT [facility] ([facility]) Furosemide 20 MG Oral Tablet [facility] tramadol hydrochloride 50 MG Oral Tablet 11/01[facility] Losartan Potassium 100 MG Oral Tablet 11/01/2019 12:00:00 AM [facility] ([facility]) glipiZIDE XL 5 MG Oral Tablet Extended Release 24 Hour 10/04/2019 12:00:00 AM [facility] ([facility]) tramadol hydrochloride 50 MG Oral Tablet 08/23/2019 12:00:00 AM [facility] ([facility]) Hydrochlorothiazide 25 MG / Spironolactone 25 MG Oral Tablet 07/07/2019 12:00:00 AM EST [facility] ([facility]) tramadol hydrochloride 50 MG Oral Tablet 05/25/2019 12:00:00 AM ED [facility] ([facility]) Accu-Chek FastClix Lancets Miscellaneous 09/21/2018 12:00:00 AM EST [facility] ([facility]) GlipiZIDE XL 5MG Oral Tablet Extended Release 24 Hour 09/21/2018 12:00:00 AM EST [facility] ([facility]) Losartan Potassium 100 MG Oral Tablet 09/21/2018 12:00:00 AM EST [facility] ([facility]) Alcohol Pads 70% 09/21/2018 12:00:00 AM EST [facility] ([facility]) Albuterol 0.83 MG/ML Inhalant Solution 09/21/2018 12:00:[address] [facility] ([facility]) Accu-Chek Jody Plus In Vitro Strip 09/21/2018 12:00:[address] [facility] ([facility])
[2020-09-10 15:53] LABS: BASO % 0.4 % (0.0-1.0); EOS # 0.2 10^3/uL (0.0-0.5); EOS % 2.5 % (0.0-3.0); HEMATOCRIT 41.5 % (42.0-52.0); HEMOGLOBIN 12.5 g/dl (13.5-17.5); LYMPH # 0.7 10^3/uL (1.5-5.0); LYMPH % 10.5 % (24.0-44.0); MEAN CORPUSCULAR HGB CONC 30.1 g/dl (32.0-36.5); MEAN CORPUSCULAR VOLUME 92.8 fl (80.0-96.0); MONO # 0.8 10^3/uL (0.0-0.8); MONO % 12.1 % (0.0-5.0); NEUTROPHILS % 74.1 % (36.0-66.0); PLATELET COUNT, AUTOMATED 218 10^3/uL (150-450); RED BLOOD COUNT 4.47 10^6/uL (4.30-6.10); WHITE BLOOD COUNT 6.8 10^3/uL (4.0-10.0)
[2020-09-10 16:24] LABS: CALCIUM LEVEL 8.5 MG/DL (8.8-10.2); CREATININE FOR GFR 1.44 MG/DL (0.70-1.30); GLOMERULAR FILTRATION RATE 49.9 (>35); POTASSIUM SERUM 4.8 MEQ/L (3.5-5.1)
--- NOTE | 2020-09-10 16:33 | HPEPDOC ---
[facility] Medical History & Physical Date of Admission Sep 10, 2020 Date of Service: Sep 10, 2020 Attending Physician: Vicky Breen MD History and Physical CHIEF COMPLAINT: LLE swelling and pain HISTORY OF PRESENT ILLNESS: Patient is an 85-year-old male with extensive past medical history including atrial fibrillation on eliquis, COPD, hypertension, history of lung cancer, diabetes, hyperlipidemia, CAD status post [place] who presented to [facility] emergency room with increasing left lower extremity pain and swelling over the past several days. The patient states 7 days ago he had lost his balance and fell down 2 stairs at his home. He had a large wound on the anterior left kwan which has been getting treated at home by his with [id number] topical antibiotics and antibiotic spray. At baseline the patient uses a walker and has found it increasingly difficult to ambulate over the past 7 days. He also states his pain has been increasing with today it being 10/10, sharp, localized to the left lower extremity. He describes the left lower extremity wound is beginning to wheeze more and noticed increased swelling with erythema as well. The patient has been trying not to come to the hospital because he has a scheduled outpatient procedure for his cataracts but today the pain was so severe he came in to get evaluated. In the emergency room his vital signs were stable. WBC within normal limits, creatinine elevated at 1.44 (all prior creatinines were within normal limits). The patient had tenderness to palpation of the left lower extremity and had a large area of bruising behind the left knee and left calf. X-ray of the tib-fib was negative for dislocation or fracture. When attempted to be stood up patient could not stand and ambulate at his baseline and there was concern for fall in the emergency room. The patient was admitted for LLE pain/swelling 2/2 to left lower extremity cellulitis, r/o DVT, unsteadiness on his feet requiring evaluation by physical therapy. REVIEW OF SYSTEMS: Neg except mentioned above PMH: Atrial fibrillation on eliquis COPD Hypertension OA DJD Lung cancer DM type II HLD vertigo CAD s/p [place] morbid obesity Hx of GI bleed cataracts migraine headaches PSURGHX: L lung resection shrapnel removal right elbow repair surgery L rotator cuff repair Exploratory laparotomy Testicle removal FAMILY HISTORY: Father: Leukemia. at 49 y/o Mother: Asthma. at 90 y/o sister #1: Natural causes, at 77 y/o Sister #2: Natural causes, at 84 y/o SOCIAL HISTORY: Prior smoker for 10 years, quit 1963. Denies alcohol or drug use. Lives with his locally. Full Code. Ambulates with a walker. ALLERGIES: Please see below. HOME MEDICATIONS: Please see below. PHYSICAL EXAMINATION: VS: Please see below CONSTITUTIONAL: No acute distress, resting comfortably, AAO x 3 EYES: PERRLA, EOM intact HENT, MOUTH: Normocephalic, atraumatic, moist mucous membranes NECK: SUPPLE, no JVD, no lymphadenopathy, no carotid bruit, large diameter CV: Regular rate and rhythm, S1S2 normal, no murmurs/rubs/gallops RESPIRATORY: Clear to auscultation bilaterally, no rales/rhonchi/wheezes GI: obese abd, BS positive in 4 quadrants, soft, nontender, nondistended, no rebound or guarding, no organomegaly : Deferred MUSCULOSKELETAL: decreased ROM of LLE knee, ankle, increased swelling +1 pitting. No cyanosis, clubbing, joint deformity. +1 nonpitting edema in the RLE. INTEGUMENTARY: Anterior kwan wound, clean, nonsuppurative with surrounding erythema. Large area of bruising behind right knee/calf, tender to touch. NEUROLOGIC: Cranial Nerves II-XII are intact, no focal deficits PSYCHIATRIC: Mood and affect are normal LABORATORY DATA: Please see below IMAGING: CT tib/fib: f/u results Doppler LE: f/u results Tib/fib XR: No dislocation or fracture ASSESSMENT: Patient is an 85-year-old male with extensive past medical history including atrial fibrillation on eliquis, COPD, hypertension, history of lung cancer s/p resection, diabetes, hyperlipidemia, CAD status post [place] admitted for LLE pain/swelling 2/2 to left lower extremity cellulitis, r/o DVT, unsteadiness on his feet requiring evaluation by physical therapy. PLAN: LLE pain/swelling 2/2 cellulitis and hematoma, r/o DVT s/p trauma after mechanical fall -Wound appears nonsuppurative but entire leg below knee appears increasingly swollen, tender, bruised behind knee -Started on clindamycin IV, probiotic -PT/OT, pain control -F/u CT leg, doppler to r/o DVT Unsteady gait likely 2/2 to acute on chronic physical deconditioning, s/p mechanical fall -Uses walker at baseline, concerned for falling further with new LLE pain, wound -F/u PT/OT Acute kidney injury -Per patient his providers have been "watching" his kidneys but no diagnosis of CKD -All prior Cr on file here have been wnl -Starting on IVFs overnight, hold nephrotoxic meds Atrial fibrillation -C/w home medications -Holding eliquis for tonight with large bruise behind knee and CT pending COPD -Stable -C/w home med Hypertension -Stable -C/w home meds OA -Stable DM type II -ISS, FS AC/HS -Consistent carb diet HLD -statin CAD s/p [place] -C/w home meds, hold ARB, diuretic morbid obesity -complicates care, f/u PCP Hx of GI bleed -No s/s of bleeding, on chronic eliquis BID cataracts -Due to have laser surgery on 09/11/20 migraine headaches -C/w home med -Stable, f/u with neuro o/p DVT px -Holding tonight due to large bruise. Kimberly, scd. Resume eliquis BID when able DISPOSITION: Admitted as acute inpatient. PT/OT to evaluate. Plan is discharge home when medically improved. Vital Signs Vital Signs Date Time Temp Pulse Resp B/P (MAP) Pulse Ox O2 Delivery O2 Flow Rate FiO2 09/10/20 15:19 97.0 61 22 113/55 93 Room Air Laboratory Data Labs 24H Laboratory Tests 2 09/10/20 15:46: Immature Granulocyte % (Auto) 0.4, Neutrophils (%) (Auto) 74.1H, Lymphocytes (%) (Auto) 10.5L, Monocytes (%) (Auto) 12.1H, Eosinophils (%) (Auto) 2.5, Basophils (%) (Auto) 0.4, Neutrophils # (Auto) 5.0, Lymphocytes # (Auto) 0.7L, Monocytes # (Auto) 0.8, Eosinophils # (Auto) 0.2, Basophils # (Auto) 0.0, Nucleated Red Blood Cells % (auto) 0.0, Anion Gap 5L, Glomerular Filtration Rate 49.9, Calcium Level 8.5L 09/10/20 16:04: CBC/BMP Laboratory Tests 09/10/20 15:46 Home Medications Scheduled Apixaban (Eliquis) 5 Mg Tablet, 5 MG PO BID Atorvastatin Calcium (Atorvastatin Calcium) 10 Mg Tab, 10 MG PO QHS Carbamazepine (Carbamazepine ER) 100 Mg Cap, 100 MG PO BID Carvedilol (Carvedilol) 6.25 Mg Tab, 6.25 MG PO BID Cholecalciferol (Vitamin D3) (Vitamin D3) 1,000 Unit Cap, 1,000 UNIT PO QHS Cyanocobalamin (Vitamin B-12) (Vitamin B-12) 500 Mcg Tab, 500 MCG PO QHS Furosemide (Furosemide) 20 Mg Tablet, 20 MG PO DAILY Glipizide (Glipizide ER) 5 Mg Tab, 5 MG PO DAILY Losartan Potassium (Losartan Potassium) 100 Mg Tablet, 100 MG PO QHS Spironolact/Hydrochlorothiazid (Spironolactone-Hctz 25-25 Tab) 1 Ea Tab, 1 TAB PO DAILY Tramadol HCl (Tramadol HCl) 50 Mg Tablet, 50 MG PO BID Scheduled PRN Albuterol Sulf (Albuterol Sulfate) 2.5 Mg/3 Ml Nebu, 2.5 MG INH Q6H PRN for SHORTNESS OF BREATH Salmeterol/Fluticasone (Advair 250-50 Diskus) 14 Puff/Inhaler Aerp, 1 PUFF INH BID PRN for SHORTNESS OF BREATH Allergies Coded Allergies: cortisone (Verified Allergy, Mild, HVIES, 11/20/18) A-FIB/CHADSVASC A-FIB History Current/History of A-Fib/PAF?: Yes Current PO Anticoag Therapy: Yes Age/Risk Factor Scoring CHADSVASC: CHADSVASC Response (Comments) Value Age Risk Factor Age >/= 75 years old 2 Gender Risk Factor Male 0 Hx of CHF Yes 1 Hx of HTN Yes 1 Hx of Stroke/TIA/or VTE No 0 Hx of Diabetes Yes 1 Hx of Vascular Disease Yes 1 Total 6 Treatment Treatment ordered: Other Other anticoagulant ordered: scd Vicky Breen MD Sep 10, 2020 16:33
--- NOTE | 2020-09-10 16:43 | REP ---
INDICATION: fall, pain COMPARISON: None. TECHNIQUE: AP and lateral views obtained. FINDINGS: There is no evidence of acute fracture, dislocation, or intrinsic bone disease.There are moderate degenerative changes of the medial aspect of the knee joint. IMPRESSION: No fracture or dislocation. <Electronically signed by Steven Mcdaniel > 09/10/20 [id number]
[2020-09-10] MEDS ORDERED: ACETAMINOPHEN TAB 650MG DOSE (2X325MG) PO PRN (16:45)
[2020-09-10 16:46] LABS: INR 1.28; PROTHROMBIN TIME 16.3 SECONDS (12.5-14.3)
[2020-09-10 16:47] LABS: PARTIAL THROMBOPLASTIN TIME 30.8 SECONDS (24.2-38.5)
--- OUTSIDE RECORDS SUMMARY | 2020-09-10 16:48 | CCD ---
Author Author [facility] Organization [facility] Address Unknown Phone Unavailable Care Team Providers Care Mobile Application Engineer Name Role Phone Ray, L Mackenzie Unavailable [...] Unavailable ANGIE, M PAYAL PA Unavailable Unavailable NAGIE, M PAYAL PA Unavailable Unavailable ANGIE, M [...] Unavailable ANGIE, M PAYAL PA Unavailable Unavailable [place], R Lake PA Unavailable Unavailable [place], R Lake PA Unavailable Unavailable [place], R Lake PA Unavailable Unavailable [place], R Lake PA Unavailable Unavailable Kishore, R Lake PA Unavailable Unavailable [place], R Lake PA Unavailable Unavailable [place], R Lake PA Unavailable Unavailable Kishore, R Lake PA Unavailable Unavailable Kishore, R Lake PA Unavailable Unavailable Kishore, R Lake PA Unavailable Unavailable [place], R Lake PA Unavailable Unavailable Kishore, R Lake PA Unavailable Unavailable Kishore, R Lake PA Unavailable Unavailable [place], R Lake PA Unavailable Unavailable Kishore, R Lake PA Unavailable Unavailable [place], R Lake PA Unavailable Unavailable MICHAEL, L SUZIE BARROW WORKER Unavailable Unavailable MICHAEL, L SUZIE BARROW WORKER Unavailable Unavailable MICHAEL, L SUZIE BARROW WORKER Unavailable Unavailable MCIHAEL, L SUZIE BARROW WORKER Unavailable Unavailable MICHAEL, L SUZIE BARROW WORKER Unavailable Unavailable MICHAEL, L SUZIE BARROW WORKER Unavailable Unavailable MICHAEL, L SUZIE BARROW WORKER Unavailable Unavailable MICHAEL, L SUZIE BARROW WORKER Unavailable Unavailable MICHAEL, L SUZIE BARROW WORKER Unavailable Unavailable MICHAEL, L SUZIE BARROW WORKER Unavailable Unavailable MICHAEL, L SUZIE BARROW WORKER Unavailable Unavailable MICHAEL, L SUZIE BARROW WORKER Unavailable Unavailable MICHAEL, L SUZIE BARROW WORKER Unavailable Unavailable MICHAEL, L SUZIE BARROW WORKER Unavailable Unavailable MICHAEL, L SUZIE BARROW WORKER Unavailable Unavailable MICHAEL, L SUZIE BARROW WORKER Unavailable Unavailable MICHAEL, L SUZIE BARROW WORKER Unavailable Unavailable MICHAEL, L SUZIE BARROW WORKER Unavailable Unavailable MICHAEL, L SUZIE BARROW WORKER Unavailable Unavailable MICHAEL, L SUZIE BARROW WORKER Unavailable Unavailable MICHAEL, L SUZIE BARROW WORKER Unavailable Unavailable MICHAEL, L SUZIE BARROW WORKER Unavailable Unavailable MICHAEL, L SUZIE BARROW WORKER Unavailable Unavailable MICHAEL, L SUZIE BARROW WORKER Unavailable Unavailable MICHAEL, L SUZIE BARROW WORKER Unavailable Unavailable MICHAEL, L SUZIE BARROW WORKER Unavailable Unavailable IMCHAEL, L SUZIE BARROW WORKER Unavailable Unavailable MICHAEL, L SUZIE BARROW WORKER Unavailable Unavailable MICHAEL, L SUZIE BARROW WORKER Unavailable Unavailable MICHAEL, L SUZIE BARROW WORKER Unavailable Unavailable MICHAEL, L SUZIE BARROW WORKER Unavailable Unavailable MICHAEL, L SUZIE BARROW WORKER Unavailable Unavailable MICHAEL, L SUZIE BARROW WORKER Unavailable Unavailable MICHAEL, L SUZIE BARROW WORKER Unavailable Unavailable ANGIE, M PAYAL PA Unavailable [...] M PAYAL PA Unavailable Unavailable ANGIE, M APYAL PA Unavailable Unavailable ANGIE, M PAYAL PA [...] is protected by Article 27-F of the [place] Public [employer] law. If you continue you may have access to information: Regarding HIV / AIDS; Provided by facilities licensed or operated by the [place] Office of Mental Health; or Provided by the [place] Office for People With Developmental Disabilities. If such information is present, then the following [place] mandated warning applies: This information has been [...] law may result in a fine or care home sentence or both. A general authorization for the release of medical or other information is NOT sufficient authorization for further disc losure. 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 -NO Ebola Screening Performed completed Ebol a Screening Performed [facility] ([facility]) Note: Within the last month, have you tr aveled outside of the [place]? -NO Ebola Screening Performed completed Ebol a Screening Performed [facility] ([facility]) Note: Within the last month, have you tr aveled outside of the [place]? -NO Ebola Screening Performed completed Ebol a Screening Performed [facility] ([facility]) Note: Within the last month, have you tr aveled outside of the [place]? -NO packet given Pt Bill of Rights, Priv Prac, Ad Dir completed packet given Pt Bill of Rights, Priv Prac, Ad Dir [facility]) Note: Pt declined AD packet Ebola Screening Performed completed Ebol a Screening Performed [facility]) Note: Within the last month, have you tr aveled outside of the [place]? -NO Allergies and Adverse Reactions Type Description Substance Reaction Status Data Source(s ) Drug allergy cortisone cortisone RASH/HIVES [facility] Drug allergy cortisone cortisone RASH/HIVES [facility] Family History Family Member Name Family Member Gender Family Member Status Date o f Status Description Data Source(s) Unknown Condition [facility] Unknown Condition [facility] Unknown Condition [facility] Unknown Condition [facility] Encounters Encounter Providers Location Date Indications Data Source(s ) Outpatient Attender: PAYAL JENNINGS 08/07/2020 01:42:00 P M EST Lab [facility] Outpatient Attender: PAYAL JENNINGS 07/25/2020 09:06:00 A M EST Lab [facility] Obstetrics<td ID="encounterTypeDescripti onID0">Lab Order</td><td>Payal JENNINGS</td><td></td><td>07/24/2020</td><td></td> Attender: PAYAL JENNINGS 07/24/2020 04:28:00 PM EST - 07/24/2020 11:59:00 PM EST [facility] ([facility]) Outpatient Attender: [place] Hardinger: PAYAL JENNINGS 06/15/2020 01:06:00 PM EDT - 06/15/2020 02:23:00 PM EDT LMOM 6 mo f/u [facility] LMOM 6 mo f/u Patient discharged. Outpatient<td ID="encounterTypeDescripti onID1">Acute L2</td><td>Payal JENNINGS</td><td>[facility]</td><td>05/22/2020</td><td><content ID="encounterDiagnosisID1-0">Chest Pain Or Discomfort</content>, <content ID="encounterDiagnosisID1-1">Diabetes Mellitus</content>, <content ID="encounterDiagnosisID1-2">Herpes Zoster (shingles)</content>, <content ID="encounterDiagnosisID1-3">Atrial Fibrillation</content>, <content ID="encounterDiagnosisID1-4">Hypertension (systemic)</content>, <content ID="encounterDiagnosisID1-5">Chronic Obstructive Pulmonary Disease</content>, <content ID="encounterDiagnosisID1-6">Obesity Morbid</content>, <content ID="encounterDiagnosisID1-7">Headache Syndromes</content>, <content ID="encounterDiagnosisID1-8">Osteoarthritis Localized Primary Knee</content>, <content ID="encounterDiagnosisID1-9">Disturbance of Gait</content></td> Attender: PAYAL JENNINGS [facility] 05/22/2020 09:04:00 AM EDT - 05/22/2020 10:07:13 AM EDT Disturbance of GaitOsteoarthritis Locali zed Primary KneeObesity MorbidHerpes Zoster (shingles)Disturbance of GaitOsteoarthritis Localized Primary KneeObesity MorbidHerpes Zoster (shingles)Chest Pain Or DiscomfortChest Pain Or DiscomfortHeadache SyndromesHeadache SyndromesAtrial FibrillationDiabetes MellitusAtrial FibrillationDiabetes MellitusChronic Obstructive Pulmonary DiseaseChronic Obstructive Pulmonary DiseaseHypertension (systemic)Hypertension (systemic) [facility] ([facility]) Disturbance of Gait Osteoarthritis Localized Primary Knee [...] EDT - 04/18/2020 11:59:00 PM EDT [facility] ([facility]) Outpatient<td ID="encounterTypeDescripti onID3">Acute L2</td><td>Payal JENNINGS</td><td>[facility]</td><td>04/18/2020</td><td><content ID="encounterDiagnosisID3-0">Herpes Zoster (shingles)</content>, <content ID="encounterDiagnosisID3-1">Chest Pain Or Discomfort</content>, <content ID="encounterDiagnosisID3-2">Diabetes Mellitus</content>, <content ID="encounterDiagnosisID3-3">Atrial Fibrillation</content>, <content ID="encounterDiagnosisID3-4">Hypertension (systemic)</content>, <content ID="encounterDiagnosisID3-5">Chronic Obstructive Pulmonary Disease</content>, <content ID="encounterDiagnosisID3-6">Obesity Morbid</content>, <content ID="encounterDiagnosisID3-7">Headache Syndromes</content>, <content ID="encounterDiagnosisID3-8">Osteoarthritis Localized Primary Knee</content>, <content ID="encounterDiagnosisID3-9">Disturbance of Gait</content></td> Attender: PAYAL JENNINGS [facility] 04/18/2020 07:55:00 AM EDT - 04/18/2020 09:15:28 [...] PM EDT - 04/14/2020 11:59:00 PM EDT [facility] ([facility]) Outpatient Attender: PAYAL JENNINGS 04/12/2020 08:09:00 A M EDT lab 1 of 1 [facility] lab 1 of 1 Unknown<td ID="encounterTypeDescriptionI D5">AHR</td><td>Payal JENNINGS</td><td>[facility]</td><td>04/04/2020</td><td><content ID="encounterDiagnosisID5-0">Herpes Zoster (shingles)</content>, <content ID="encounterDiagnosisID5-1">Routine History and Physical</content>, <content ID="encounterDiagnosisID5-2">Chest Pain Or Discomfort</content>, <content ID="encounterDiagnosisID5-3">Diabetes Mellitus</content>, <content ID="encounterDiagnosisID5-4">Atrial Fibrillation</content>, <content ID="encounterDiagnosisID5-5">Hypertension (systemic)</content>, <content ID="encounterDiagnosisID5-6">Chest Pain</content>, <content ID="encounterDiagnosisID5-7">Essential Hypertension Benign</content>, <content ID="encounterDiagnosisID5-8">Chronic Obstructive Pulmonary Disease</content>, <content ID="encounterDiagnosisID5-9">Obesity Morbid</content>, <content ID="encounterDiagnosisID5-10">Headache Syndromes</content>, <content ID="encounterDiagnosisID5-11">Osteoarthritis Localized Primary Knee</content>, <content ID="encounterDiagnosisID5-12">Disturbance of Gait</content></td> Attender: PAYAL JENNINGS [facility] 04/04/2020 02:55:00 PM EDT - 04/04/2020 04:52:13 [...] Hypertension (systemic) Outpatient<td ID="encounterTypeDescripti onID6">Acute L2</td><td>Suzie Rodriguez BARROW WORKER</td><td>[facility]</td><td>03/23/2020</td><td><content ID="encounterDiagnosisID6-0">Herpes Zoster Without Complications</content></td> Attender: SUZIE RODRIGUEZ NP [facility] 03/23/2020 02:00:00 PM ED T - 03/23/2020 02:50:28 PM EDT Herpes Zoster Without ComplicationsHerpe s Zoster Without ComplicationsHerpes Zoster Without ComplicationsHerpes Zoster Without ComplicationsHerpes Zoster Without Complications [facility] ([facility]) Herpes Zoster Without Complications Herpes Zoster Without Complications Herpes Zoster Without Complications Herpes Zoster Without Complications Herpes Zoster Without Complications Outpatient Attender: Mackenzie Gavin 03/15/2020 02:42:00 PM EDT Xray [facility] Xray Outpatient<td ID="encounterTypeDescripti onID7">Acute L1</td><td>Mackenzie Gavin DO</td><td>[facility]</td><td>03/15/2020</td><td><content ID="encounterDiagnosisID7-0">Chest Pain</content>, <content ID="encounterDiagnosisID7-1">Sprain Thoracic</content></td> Attender: Mackenzie Gavin [facility] 03/15/2020 01:36:00 PM EDT - 03/15/2020 04:53:00 PM EDT Sprain ThoracicChest PainSprain ThoracicChest PainSprain ThoracicChest PainSprain ThoracicChest PainSprain ThoracicChest PainSprain ThoracicChest Pain [facility] ([facility]) Sprain Thoracic Chest Pain Sprain Thoracic Chest Pain Sprain Thoracic Chest Pain Sprain Thoracic Chest Pain Sprain Thoracic Chest Pain Sprain Thoracic Chest Pain Outpatient Attender: Lake JENNINGS 12/15/2019 02:03:00 P M EDT Lab [facility] Out[facility] Attender: Lake Diggserrer: PAYAL JENNINGS 12/14/2019 01:39:00 PM EDT - 12/14/2019 02:53:00 PM EDT Follow Up 6 mo-Confirmed ( See Chart Note) [facility], Follow Up 6 mo-Confirmed ( See Chart Not e) Patient discharged. Outpatient Attender: PAAYL JENNINGS 11/24/2019 03:30:00 P M EDT Lab [facility] Lab Outpatient<td ID="encounterTypeDescripti onID8">Chronic Disease Follow- up</td><td>Payal JENNINGS</td><td>[facility]</td><td>11/24/2019</td><td><content ID="encounterDiagnosisID8-0">Chest Pain Or Discomfort</content>, <content ID="encounterDiagnosisID8-1">Diabetes Mellitus</content>, <content ID="encounterDiagnosisID8-2">Atrial Fibrillation</content>, <content ID="encounterDiagnosisID8-3">Hypertension (systemic)</content>, <content ID="encounterDiagnosisID8-4">Chest Pain</content>, <content ID="encounterDiagnosisID8-5">Essential Hypertension Benign</content>, <content ID="encounterDiagnosisID8-6">Chronic Obstructive Pulmonary Disease</content>, <content ID="encounterDiagnosisID8-7">Obesity Morbid</content>, <content ID="encounterDiagnosisID8-8">Headache Syndromes</content>, <content ID="encounterDiagnosisID8-9">Osteoarthritis Localized Primary Knee</content>, <content ID="encounterDiagnosisID8-10"> Disturbance of Gait</content>, <content ID="encounterDiagnosisID8-11">Adjustment Disorder Grief Reaction</content></td> Attender: PAYAL JENNINGS [facility] 11/24/2019 01:50:00 PM EDT - 11/24/2019 03:26:26 [...] AM EDT - 11/08/2019 11:59:00 PM EDT [facility] ([facility]) Immunizations Vaccine Date Status Description Data Source(s) Influenza, high dose seasonal 05/22/2020 10:13:00 AM EDT complet ed Influenza, high-dose (over 65) 1 05/22/2020 Left Deltoid Complete (Adm inistered) [facility] Medications Medication Brand Name Start Date Product [...] 12:00:00 AM EST 1 active glipiZIDE XL [facility] ([facility]) tramadol hydrochloride 50 MG Oral Tablet traMADol HCl 50 MG Oral Tablet traMADol HCl 50 MG Oral Tablet 06/02/2020 12:00:00 AM EDT 1 active tramadol hydrochloride 50 MG Oral Tablet [facility] ([facility]) tramadol hydrochloride 50 MG Oral Tablet traMADol [...] PM EDT TABLET 5 MG ORAL active [facility] 20 mg 02/22/2020 12:00:00 AM EDT tablet 90 TAKE ONE TABLET BY MOUTH EVERY DAY TAKE ONE TABLET BY MOUTH EVERY DAY SOLD: 08/14/2020 [facility] 20 mg 02/22/2020 12:00:00 AM EDT [...] EDT comp leted Accu-Chek FastClix Lancets [facility] ([facility]) Accu-Chek Jody Plus In Vitro Strip Accu-Chek Jody Plus In Vitro Strip 12/16/2019 12:00:00 AM EDT 1 active Accu-Chek Jody Plus [facility]) Alcohol Pads 70% Alcohol Pads 70% 12/16/2019 12:00:00 AM EDT active Alcohol Pads [facility]) carvedilol 6.25 MG Oral Tablet [...] EDT TA BLET 20 MG ORAL active [facility] Furosemide 20 MG Oral Tablet Furosemide 12/14/2019 02:16:32 PM EDT TA BLET 20 MG ORAL active [facility] carvedilol 6.25 MG Oral Tablet Carvedilol Carvedilol 2019 02:14:34 PM EDT TABLET 6.25 MG ORAL [facility] carvedilol 6.25 MG Oral Tablet Carvedilol Carvedilol 2019 02:14:34 PM EDT TABLET 6.25 MG ORAL [facility] atorvastatin 10 MG Oral Tablet Atorvastatin Atorvastatin 12/14/2019 02:14:29 PM EDT TABLET 10 MG ORAL active [facility] atorvastatin 10 MG Oral Tablet Atorvastatin Atorvastatin 12/14/2019 02:14:29 PM EDT TABLET 10 MG ORAL active [facility] apixaban 5 MG Oral Tablet Apixaban Apixaban 12/14/2019 02:14:15 PM EDT TABLET 5 MG ORAL [facility] apixaban 5 MG Oral Tablet Apixaban (Eliquis) 5 mg tabl et Apixaban (Eliquis) 5 mg tablet 12/14/2019 02:14:15 PM EDT TABLET 5 MG ORAL completed [facility] 20 mg 11/24/2019 12:00:00 AM EDT [...] / spironolactone 25 MG Oral Tablet [facility] ([facility]) apixaban 5 MG Oral Tablet [Eliquis] Eliquis 5 MG Oral Tablet Eliquis 5 MG Oral Tablet 05/25/2019 12:00:00 AM EDT 1 aborted apixaban 5 MG Oral Tablet [Eliquis] [facility] ([facility]) carvedilol 6.25 MG Oral Tablet Carvedilol 6.25 MG Oral Tablet Carvedilol 6.25 MG Oral Tablet 05/25/2019 12:00:00 AM EDT 1 abort ed carvedilol 6.25 MG Oral Tablet [facility] ([facility]) tramadol hydrochloride 50 MG Oral Tablet traMADol HCl 50 MG Oral Tablet traMADol HCl 50 MG Oral Tablet 05/25/2019 12:00:00 AM EDT 1 aborted tramadol hydrochloride 50 MG Oral Tablet [facility] ([facility]) apixaban 5 MG Oral Tablet Apixaban (Eliquis) 5 mg tabl et Apixaban (Eliquis) 5 mg tablet 02/16/2019 05:54:19 AM EDT TABLET 5 [facility] apixaban 5 MG Oral Tablet Apixaban Apixaban 02/16/2019 05:54:19 AM EDT TABLET 5 MG ORAL [facility] 5 mg 02/16/2019 12:00:00 AM EDT tablet [...] TABLET BY MOUTH EVERY DAY SOLD: 07/17/2019 [facility] carvedilol 6.25 MG Oral Tablet Carvedilol Carvedilol 2018 11:18:55 AM EDT TABLET 6.25 MG ORAL completed [facility] carvedilol 6.25 MG Oral Tablet Carvedilol Carvedilol 2018 11:18:55 AM EDT TABLET 6.25 MG ORAL completed [facility] carvedilol 6.25 MG Oral Tablet CARVEDILOL 12/29/2018 12:00:00 AM EDT tablet 180 TAKE ONE TABLET BY MOUTH TWICE A DAY, MUST ADMINISTER WITH A MEAL / FOOD TAKE ONE TABLET BY MOUTH TWICE A DAY, MUST ADMINISTER WITH A MEAL / FOOD SOLD: 09/30/2019 [facility] atorvastatin 10 MG Oral Tablet Atorvastatin Atorvastatin 12/10/2018 01:49:04 PM EDT TABLET 10 MG ORAL completed [facility] atorvastatin 10 MG Oral Tablet Atorvastatin Atorvastatin 12/10/2018 01:49:04 PM EDT TABLET 10 MG ORAL completed [facility] 10 mg 12/10/2018 12:00:00 AM EDT tablet 90 TAKE ONE TABLET BY MOUTH EVERY EVENING TAKE ONE TABLET BY MOUTH EVERY EVENING SOLD: 09/15/2019 [facility] Accu-Chek Jody Plus In Vitro Strip Accu-Chek Jody Plus In Vitro Strip 09/21/2018 12:00:00 AM EST 1 aborted Accu-Chek Jody Plus [facility]) Accu-Chek FastClix Lancets Miscellaneous Accu-Chek Fas tClix Lancets Miscellaneous 09/21/2018 12:00:00 AM EST abor betty Accu-Chek FastClix Lancets [facility]) Losartan Potassium 100 MG Oral Tablet Losartan Potassi um 100MG Oral Tablet Losartan Potassium 100MG Oral Tablet 09/21/2018 12:00:00 AM EST 1 aborted losartan potassium 100 MG Oral T ablet [facility] ([facility]) GlipiZIDE XL 5MG Oral Tablet Extended Release 24 Hour GlipiZIDE XL 5MG Oral Tablet Extended Release 24 Hour 09/21/2018 12:00:00 AM EST 1 aborted glipiZIDE XL [facility] ([facility]) Albuterol 0.83 MG/ML Inhalant Solution A lbuterol [...] type / Coverage type Policy ID Covered green party ID Covered green party's relationship to valverde Policy [place] Plan Information ROLANDO [id number] SP [id number] MEDICARE [id number] SP [id number] [id number] SELF PAY MEDICAID [facility] [id number] SP [id number] MEDICARE [id number] SP [id number] [id number] SELF PAY MEDICAID [facility] [id number] SP [id number] MEDICARE [id number] SP [id number] F36 Medicaid [facility] Individual Policy 0 Self 0 Medicare [place] of [place] Other 0 Self 0 SELF PAY MEDICAID [facility] [id number] SP [id number] MEDICARE [id number] SP [id number] F36 Medicaid [facility] Individual Policy 0 Self 0 [place] Other 0 Self 0 Medicaid [facility] Individual Policy 0 Self 0 [place] Other 0 Self 0 SELF PAY MEDICAID [facility] [id number] SP [id number] MEDICARE [id number] SP [id number] [id number] Medicaid [facility] Individual Policy 0 Self 0 Medicare [place] Other 0 Self 0 Medicaid [facility] Individual Policy 0 Self 0 [place] Other 0 Self 0 Medicaid [facility] Individual Policy 0 Self 0 [place] Other 0 Self 0 SELF PAY MEDICAID [facility] [id number] SP [id number] MEDICARE [id number] SP [id number] [id number] SELF PAY MEDICAID [facility] [id number] SP [id number] MEDICARE [id number] SP [id number] F36 SELF PAY MEDICAID [facility] [id number] SP [id number] MEDICARE [id number] SP [id number] F36 [place] of [place] Individual Policy 0 Self 0 Medicare [place] Other 0 Self 0 SELF PAY MEDICAID [facility] [id number] SP [id number] MEDICARE [id number] SP [id number] F36 [place] Individual Policy 0 Self 0 [place] Other 0 Self 0 SELF PAY MEDICAID [facility] [id number] SP [id number] MEDICARE [id number] SP [id number] F36 Medicaid [place] Individual Policy 0 Self 0 Medicare [place] Other 0 Self 0 [place] Individual Policy 0 Self 0 Medicare [place] Other 0 Self 0 [place] Individual Policy 0 Self 0 Medicare [place] Other 0 Self 0 MEDICAID [id number] SP [id number] SELF PAY MEDICAID [facility] [id number] SP [id number] MEDICARE [id number] SP [id number] F36 [place] Individual Policy 0 Self 0 [place] Other 0 Self 0 SELF PAY MEDICAID [facility] [id number] SP [id number] MEDICARE [id number] SP [id number] F36 [place] Individual Policy 0 Self 0 [place] Other 0 Self 0 SELF PAY MEDICAID [facility] [id number] SP [id number] MEDICARE [id number] SP [id number] F36 Medicaid [facility] Individual Policy 0 Self 0 Medicare [place] Other 0 Self 0 SELF PAY MEDICAID [facility] [id number] SP AJ [id number] MEDICARE [id number] SP [id number] MEDICARE [id number] Wendy [id number] [id number] MEDICAID [id number] Wendy [id number] Medicaid of [place] Individual Policy 0 Self 0 Medicare [place] Other 0 Self 0 Medicare [id number] Medicare [id number] [id number] Medicaid - [employer] Yolanda [id number] Medica id [id number] SELF PAY MEDICAID [facility] [id number] SP AJ [id number] MEDICARE [id number] SP [id number] A MEDICARE [id number] SP [id number] A Medicaid [place] Individual Policy 0 Self 0 Medicare [place] Other 0 Self 0 [place] Individual Policy 0 Self 0 [place] Other 0 Self 0 SELF PAY MEDICAID [facility] [id number] SP AJ [id number] MEDICARE [id number] SP [id number] A SELF PAY MEDICAID [facility] [id number] SP [id number] MEDICARE [id number] SP [id number] A Medicaid [place] Individual Policy 0 Self 0 Medicare [place] Other 0 Self 0 [place] Individual Policy 0 Self 0 [place] Other 0 Self 0 [place] Individual Policy 0 Self 0 [place] Other 0 Self 0 MEDICAID [id number] S [id number] MEDICARE C [id number] S [id number] A [place] Individual Policy 0 Self 0 [place] Individual Policy 0 Wendy f 0 MEDICAID [facility] [id number] SP [id number] MEDICARE [id number] SP [id number] A [place] Individual Policy 0 Self 0 Medicare [place] Individual Policy 0 Wendy f 0 [place] Individual Policy 0 Self 0 [place] Individual Policy 0 Wendy f 0 MEDICAID [facility] [id number] SP [id number] [place] Individual Policy 0 Self 0 [place] Individual Policy 0 Wendy f 0 MEDICAID [facility] [id number] SP [id number] MEDICARE [id number] SP [id number] A Medicaid of [place] Individual Policy 0 Self 0 Medicare [place] Individual Policy 0 Wendy f 0 [place] Individual Policy 0 Self 0 [place] Individual Policy 0 Wendy f 0 [place] of [place] Individual Policy 0 Self 0 Medicare [place] of [place] Individual Policy 0 Wendy f 0 MEDICAID PI PI MEDICARE PI PI MEDICARE [id number] Wendy [id number] [place] Individual Policy 0 Self 0 Medicare [place] Individual Policy 0 Wendy f 0 [place] Individual Policy 0 Self 0 Medicare [place] Individual Policy 0 Wendy f 0 [place] Individual Policy 0 Self 0 [place] Individual Policy 0 Wendy f 0 [place] Individual Policy 0 Self 0 Medicare Part [place] Individual Policy 0 Wendy f 0 [place] Individual Policy 0 Self 0 Medicare [place] Individual Policy 0 Wendy f 0 [place] Individual Policy 0 Self 0 Medicare [place] Individual Policy 0 Wendy f 0 [place] Individual Policy 0 Self 0 Medicare [place] Individual Policy 0 Wendy f 0 [place] Individual Policy 0 Self 0 Medicare [place] Individual Policy 0 Wendy f 0 [place] Individual Policy 0 Self 0 Medicare [place] Individual Policy 0 Wendy f 0 [place] Individual Policy 0 Self 0 Medicare Part [place] Individual Policy 0 Wendy f 0 [place] Individual Policy 0 Self 0 Medicare Part [place] Individual Policy 0 Wendy f 0 MEDICAID [facility] [id number] SP AJ [id number] MEDICAID [facility] [id number] SP AJ [id number] MEDICAID [facility] [id number] SP AJ [id number] MEDICAID [facility] [id number] SP AJ [id number] MEDICAID [facility] [id number] SP AJ [id number] MEDICAID [facility] [id number] SP AJ [id number] SELF PAY 2 UNAVAILABLE 1 UNAVAILA BLE MEDICAID [facility] 3 [id number] 1 [id number] W MEDICAID [facility] [id number] SP AJ [id number] MEDICAID [facility] [id number] SP AJ [id number] Problems, Conditions, and Diagnoses Code Display Name Description Problem Type Effective Dates Data Source(s) 786.50 Chest Pain Chest Pain Finding 03/15/2020 12:00:00 AM ED T [facility] ([facility]) 848.3 Sprain Thoracic Sprain Thoracic Problem 03/15/2020 12:0 0:00 AM EDT [facility] ([facility]) 786.50 Chest Pain Chest Pain Finding 03/15/2020 12:00:00 AM ED T [facility] ([facility]) 848.3 Sprain Thoracic Sprain Thoracic Problem 03/15/2020 12:0 0:00 AM EDT [facility] ([facility]) 786.50 Chest Pain Chest Pain Finding 03/15/2020 12:00:00 AM ED T [facility] ([facility]) 848.3 Sprain Thoracic Sprain Thoracic Problem 03/15/2020 12:0 0:00 AM EDT [facility] ([facility]) 786.50 Chest Pain Chest Pain Finding 03/15/2020 12:00:00 AM ED T [facility] 848.3 Sprain Thoracic Sprain Thoracic Problem 03/15/2020 12:0 0:00 AM EDT [facility] ([facility]) 786.50 Chest Pain Chest Pain Finding 03/15/2020 12:00:00 AM ED T [facility] ([facility]) 848.3 Sprain Thoracic Sprain Thoracic Problem 03/15/2020 12:0 0:00 AM EDT [facility] ([facility]) 786.50 Chest Pain Chest Pain Finding 03/15/2020 12:00:00 AM ED T [facility] ([facility]) 848.3 Sprain Thoracic Sprain Thoracic Problem 03/15/2020 12:0 0:00 AM EDT [facility] ([facility]) 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 I50.41 - Acute combined systolic (conges tive) and diastolic (congestive) heart failure Diagnosis 07/25/2020 09:06:00 AM EST [facility] I51.89 Other ill-defined heart diseases I51.89 - [...] hyperlipidemia Diag nosis 04/12/2020 08:09:00 AM EDT [facility] R73.01 Impaired fasting glucose R73.01 - Impaired fasting glu cose Diagnosis 04/12/2020 08:09:00 AM EDT [facility] I51.9 Heart disease, unspecified I51.9 - Heart disease, unsp ecified Diagnosis 04/12/2020 08:09:00 AM EDT [facility] 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 E66.2 - Morbid (severe) obesity with alveolar hypoventilation Diagnosis 020 08:09:00 AM EDT [facility] R07.9 Chest pain, unspecified R07.9 - Chest pain, unspecifie d Diagnosis 03/15/2020 02:42:00 PM EDT [facility] [place] R60.9 Edema, unspecified R60.9 - Edema, unspecified Diagnosi s 12/15/2019 02:03:00 PM EDT [facility] R60.9 Edema, unspecified R60.9 - Edema, unspecified Diagnosi s 12/14/2019 01:39:00 PM EDT [facility], R06.02 Shortness of breath R06.02 - Shortness of breath Diagn osis 11/24/2019 03:30:00 PM EDT [facility] I48.91 Unspecified atrial fibrillation I48.91 - Unspeci fied atrial fibrillation Diagnosis 11/24/2019 03:30:00 PM EDT [facility] I10 Essential (primary) hypertension I10 - Essential (primary) hypertension Diagnosis 11/24/2019 03:30:00 PM EDT [facility] E08.00 Diabetes mellitus due to und erlying condition with hyperosmolarity without nonketotic hyperglycemic-hyperosmolar coma ([facility]) E08.00 - Diabetes mellitus due to underlying condition with hyperosmolarity without nonketotic hyperglycemic-hyperosmolar coma ([facility]) Diagnosis 11/24/2019 03:30:00 PM EDT [facility] Surgeries/Procedures Procedure Description Date Indications Data Source(s) Medicare Influenza virus vaccine, split virus, High Do se Medicare Influenza virus vaccine, split virus, High Dose 05/22/2020 12:00:00 AM [facility]) [facility] (critical access hospital) visit, established patient; a medically-necessary, qrgl-zz-tsrv encounter (one-on-one) between an established patient and a critical access hospital practitioner during which time one or more critical access hospital services are rendered and includes a typical bundle of medicare-covered services that would be furnished housekeeper home to a patient receiving a fq visit FQ Visit, established patient 05/22/2020 12:00:00 AM [facility] ([facility]) [address]192 Influenza virus vaccine, split virus, High Dose 81336 Influenza virus vaccine, split virus, High Dose 05/22/2020 12:00:00 AM [facility]) [facility] (critical access hospital) visit, established patient; a medically-necessary, xdqf-gd-kjeg encounter (one-on-one) between an established patient and a fq practitioner during which time one or more fq services are rendered and includes a typical bundle of medicare-covered services that would be furnished housekeeper home to a patient receiving a fqhc visit FQHC Visit, established patient 04/18/2020 12:00:00 AM [facility]) Annual wellness visit, includes a person alized prevention plan of service (pps), subsequent visit AHR -Subsequent Annual Wellness Visit 04/04/2020 12:00 :00 AM [facility] ([facility]) [facility] (critical access hospital) visit, ippe or awv; a fq visit that includes an initial preventive physical examination (ippe) or annual wellness visit (awv) and includes a typical bundle of medicare-covered services that would be furnished housekeeper home to a patient receiving an ippe or awv FQ Visit, IPPE or AWV 04/04/2020 12:00:00 AM [facility] ([facility] Hemoglobin; Glycated A1c Hemoglobin; Glycated A1c 04/04/2020 12:00: 00 AM [facility] ([facility]) [facility] (critical access hospital) visit, established patient; a medically-necessary, pfyq-cf-mupe encounter (one-on-one) between an established patient and a critical access hospital practitioner during which time one or more fq services are rendered and includes a typical bundle of medicare-covered services that would be furnished housekeeper home to a patient receiving a fqhc visit FQHC Visit, established patient 03/23/2020 12:00:00 AM [facility] ([facility]) Noninvasive Ear or Pulse Oximetry for Oxygen Saturatio n; Mul Noninvasive Ear or Pulse Oximetry for Oxygen Saturation; Mul 03/15/2020 12:00:00 AM [facility]) Ekg With Interpretation and Report Ekg With Interpretation a nd Report 03/15/2020 12:00:00 AM [facility]) [facility] (critical access hospital) visit, established patient; a medically-necessary, djde-az-iefq encounter (one-on-one) between an established patient and a critical access hospital practitioner during which time one or more critical access hospital services are rendered and includes a typical bundle of medicare-covered services that would be furnished housekeeper home to a patient receiving a fq visit FQHC Visit, established patient 03/15/2020 12:00:00 AM EDT [facility] ([facility]) Ekg With Interpretation and Report Ekg With Interpretation a nd Report 03/15/2020 12:00:00 AM EDT [facility] ([facility]) Noninvasive Ear or Pulse Oximetry for Oxygen Saturatio n; Mul Noninvasive Ear or Pulse Oximetry for Oxygen Saturation; Mul 03/15/2020 12:00:00 AM EDT [facility] ([facility]) Ekg With Interpretation and Report Ekg With Interpretation a nd Report 03/15/2020 12:00:00 AM EDT [facility] ([facility]) Hemoglobin; Glycated A1c Hemoglobin; Glycated A1c 11/24/2019 12:00: 00 AM EDT [facility] ([facility]) [facility] (fq) visit, established patient; a medically-necessary, rxui-yr-yyiv encounter (one-on-one) between an established patient and a fq practitioner during which time one or more critical access hospital services are rendered and includes a typical bundle of medicare-covered services that would be furnished housekeeper home to a patient receiving a fq visit FQ Visit, established patient (Signi/Sep Eval. & Man.) 11/24/2019 12:00:00 AM EDT [facility] ([facility]) Ekg With Interpretation and Report Ekg With Interpretation a nd Report 11/24/2019 12:00:00 AM EDT [facility] ([facility]) Electrocardiogram, Routine Ecg With At Least 12 Leads; Inter Electrocardiogram, Routine Ecg With At Least 12 Leads; Inter 11/24/2019 12:00:00 AM EDT [facility] ([facility]) Results ID Date Data Source [id number] 09/08/2020 12:00:00 AM EST [facility] Name Value Range Interpretation Code Description Data Ailyn rce(s) Supporting Document(s) 2019 Novel Coronavirus RNA Negative [facility] This lab was ordered by [facility] are and reported by [facility]. ID Date Data Source [id number] 08/07/2020 05:48:00 PM EST [facility] Name Value Range Interpretation Code Description Data Ailyn rce(s) Supporting Document(s) WHITE BLOOD COUNT 6.17 10^3/uL 4.00-10.50 N [facility] RED BLOOD COUNT 4.81 10^6/uL 4.30-5.80 [facility] HEMOGLOBIN 13.7 G/DL 13.0-17.5 N [facility] HEMATOCRIT 44.7 % 41.0-53.0 N [facility] MCV 92.9 FL 80.0-100.0 N [facility] MCH 28.5 PG 27.0-34.0 N [facility] MCHC 30.6 G/DL 32-36 L [facility] RDW 14.2 % 11.5-14.5 N [facility] PLATELET COUNT 245 10^3/uL 130-400 N [facility] MPV 9.7 FL 8.7-13.2 N [facility] GRAN % (AUTO) 72.2 % 42.0-75.0 N [facility] LYMPH % (AUTO) 13.8 % 20.0-51.0 L [facility] MONO % (AUTO) 11.5 % 2.0-15.0 N [facility] EOS % (AUTO) 1.6 % 0.0-11.0 N [facility] BASO % (AUTO) 0.6 % 0.0-2.0 N [facility] IG % (AUTO) 0.3 % 1.00-5.00 [facility] IG # (AUTO) 0.0 10^3/uL <0.5 [facility] GRAN # (AUTO) 4.45 10^3/uL 1.50-6.50 N [facility] LYMPH # (AUTO) 0.9 k/uL 1.0-5.0 L [facility] MONO # (AUTO) 0.71 k/uL 0.20-1.50 N [facility] EOS # (AUTO) 0.10 10^3/uL 0.00-1.10 N [facility] BASO # (AUTO) 0.04 10^3/uL 0.00-0.20 N [facility] ID Date Data Source [id number] 08/10/2020 10:55:00 AM EST [facility] Name Value Range Interpretation Code Description Data Ailyn rce(s) Supporting Document(s) Total Protein,S 5.8 g/dL 6.0-8.5 A [facility] Albumin,S 3.3 g/dL 2.9-4.4 [facility] Zdsso-7-Olmkqsel,S 0.2 g/dL 0.0-0.4 [facility] Xohef-0-Tmicubqs,S 0.9 g/dL 0.4-1.0 [facility] Beta Globulin,S 0.8 g/dL 0.7-1.3 [facility] Gamma Globulin,S 0.6 g/dL 0.4-1.8 [facility] M-Bereket,S Not Observed g/dL Not Observed [facility] Globulin Total,S 2.5 g/dL 2.2-3.9 [facility] A/G Ratio,S 1.3 0.7-1.7 [facility] Please Note,S [facility] Protein electrophoresis scan will follo w via computer, mail, or crate tier delivery. P E Intperpretation,S [facility] The SPE pattern appears unremarkable. E vidence of monoclonal protein is not apparent. Performed at: RN - [facility] [address] [id number] Handhole Machine Operator: Lisa Gong MD, Phone: [phone] ID Date Data Source [id number] 08/09/2020 08:14:00 PM EST [employer] Name Value Range Interpretation Code Description Data Ailyn rce(s) Supporting Document(s) BNP 54 PG/ML 0-100 N [facility] BNP acts as a Vasodilator and has [...] diagnosis of CHF. ID Date Data Source [id number] 08/10/2020 11:08:00 AM EST [employer] [facility] [employer] Name Value Range Interpretation Code Description Data Ailyn rce(s) Supporting Document(s) Lab Rejection Unable to Add On [facility] ADD ON DDIMER-KF We are unable to add on the additional testing, please submit new sample. ID Date Data Source [id number] 07/25/2020 01:52:00 PM EST [facility] Name Value Range Interpretation Code Description Data Ailyn rce(s) Supporting Document(s) WHITE BLOOD COUNT 6.00 10^3/uL 4.00-10.50 N [facility] RED BLOOD COUNT 4.67 10^6/uL 4.30-5.80 N [facility] HEMOGLOBIN 13.7 G/DL 13.0-17.5 N [facility] HEMATOCRIT 43.2 % 41.0-53.0 N [facility] MCV 92.5 FL 80.0-100.0 N [facility] MCH 29.3 PG 27.0-34.0 N [facility] MCHC 31.7 G/DL 32-36 L [facility] RDW 14.2 % 11.5-14.5 N [facility] PLATELET COUNT 236 10^3/uL 130-400 N [facility] MPV 9.8 FL 8.7-13.2 N [facility] GRAN % (AUTO) 75.0 % 42.0-75.0 N [facility] LYMPH % (AUTO) 11.3 % 20.0-51.0 L [facility] MONO % (AUTO) 10.2 % 2.0-15.0 N [facility] EOS % (AUTO) 2.5 % 0.0-11.0 N [facility] BASO % (AUTO) 0.7 % 0.0-2.0 N [facility] IG % (AUTO) 0.3 % 1.00-5.00 [facility] IG # (AUTO) 0.0 10^3/uL <0.5 [facility] GRAN # (AUTO) 4.50 10^3/uL 1.50-6.50 N [facility] LYMPH # (AUTO) 0.7 k/uL 1.0-5.0 L [facility] MONO # (AUTO) 0.61 k/uL 0.20-1.50 N [facility] EOS # (AUTO) 0.15 10^3/uL 0.00-1.10 N [facility] BASO # (AUTO) 0.04 10^3/uL 0.00-0.20 [facility] ID Date Data Source [id number] 07/25/2020 01:59:00 PM EST [facility] Name Value Range Interpretation Code Description Data Ailyn rce(s) Supporting Document(s) SODIUM 139 MEQ/L 135-145 N [facility] POTASSIUM 4.7 MEQ/L 3.5-5.3 N [facility] CHLORIDE 104 MEQ/L 94-110 N [facility] CARBON DIOXIDE 30 MEQ/L 22-33 N [facility] ANION GAP 10 5-16 N [facility] BLOOD UREA NITRO 27 MG/DL 7-25 H [facility] CREATININE 1.2 MG/DL 0.6-1.4 N [facility] GFR 58.0 ML/MIN [facility] Stage G3a - Mildly to moderately decrea [...] years only. BUN/CREAT RATIO 22 8-36 N [facility] GLUCOSE 109 MG/DL 70-100 H [facility] CA 8.8 MG/DL 8.7-10.5 N [facility] BILIRUBIN,TOTAL 0.6 MG/DL 0.1-1.3 N [facility] AST 16 U/L 5-40 N [facility] ALT 24 U/L 5-48 N [facility] ALKALINE PHOSPHATASE 62 U/L 40-140 N [facility]th TOTAL PROTEIN 5.4 G/DL 5.9-8.3 L [facility] ALBUMIN 4.0 G/DL 3.0-5.1 N [facility] GLOBULIN 1.4 G/DL 1.5-3.5 L [facility] ALB/GLOB RATIO 2.9 G/DL 1.0-3.0 N [facility] ID Date Data Source [id number] 07/27/2020 02:24:00 PM EST [facility] Name Value Range Interpretation Code Description Data Ailyn rce(s) Supporting Document(s) PROBNP 267 pg/mL 0-486 [facility] The following cut-points have been suganderson culp for the use of proBNP for the diagnostic evaluation of heart failure (HF) in patients with acute dyspnea: Modality Age Optimal Cut (years) Point Diagnosis (rule in HF) <50 450 pg/mL 50 - 75 900 pg/mL >75 1800 pg/mL Exclusion (rule out HF) Age independent 300 pg/mL Performed at: - [facility] [id number] Handhole Machine Operator: Dexter Stanton MD, Phone: [phone] ID Date Data Source [id number] 07/25/2020 01:59:00 PM EST [facility] Name Value Range Interpretation Code Description Data Ailyn rce(s) Supporting Document(s) GLYCOSYLATED HGBA1C 5.8 % 4.1-6.5 N [facility] ID Date Data Source [id number] 07/25/2020 01:59:00 PM [facility] Name Value Range Interpretation Code Description Data Ailyn rce(s) Supporting Document(s) TRIGLYCERIDES 81 MG/DL 45-150 N [facility] CHOLESTEROL 132 MG/DL 125-200 N [facility] LDL CHOLESTEROL 69 MG/DL 50-130 N [facility] HDL CHOLESTEROL 47 MG/DL 39-96 N [facility] CHOL/HDL RATIO 2.8 0-4.9 N [facility] ID Date Data Source [id number] 07/25/2020 01:59:00 PM EST [facility] Name Value Range Interpretation Code Description Data Ailyn rce(s) Supporting Document(s) Vitamin D,25-HYDROXY 37.5 ng/ml 30-100 N [facility] Status Range De ficiency <20 ng/ml Insufficiency 20-29.9 ng/ml Sufficiency 30-100 ng/ml Toxicity >100 ng/ml Patients should not be tested for 72 hours post fluorescein dye angiography. A false elevation of result may occur. ID Date Data Source [id number] 07/25/2020 01:59:00 PM EST [facility] Name Value Range Interpretation Code Description Data Ailyn rce(s) Supporting Document(s) TSH 1.231 uIU/ML 0.470-4.200 N [facility] Patients should not be tested for 72 ho urs post fluorescein dye angiography. A false depression of result may occur. ID Date Data Source [id number] 06/15/2020 01:15:00 PM EDT [facility] [address], [address] [place] [address] Cardiology Note : [id number] Signed Patient: Kristel Herbert Acct:[id number] Visit Date: 06/15/20 : 1935 Cardiology HPI [...] Pt denies any recent travel outside of [facility] [address] within the last 14 days. Primary Care [...] Marital Status: Occupational status: retired Comment: Retired [employer] Education Level (current or highest level completed): [...] Persistent atrial fibrillation: Status: Chronic SNOMED Code(s): 417666664 Category: Medical (2) Hypertension: Status: Chronic SNOMED Code(s): 23506545 Category: Medical (3) Mixed hyperlipidemia: Status: Chronic Code(s): E78.2 - Mixed hyperlipidemia SNOMED Code(s): 431259934 Category: Medical (4) Diastolic dysfunction: Status: Chronic SNOMED Code(s): 0827012 Category: Medical Problems Did you add a [...] 1357 for [place], [place]. Quality [facility]138 Tobacco Use how long ago did patient quit smokin Coding Level of Care Code 39150 Estab Pt Level 4 History Expanded Problem Focused Exam Detailed Diagnoses Persistent atrial fibrillation I48.19 Hypertension I10 Mixed hyperlipidemia E78.2 Diastolic dysfunction I51.89 Signed By:[place] <<Signature on File>> Signed Date/Time: 06/15/201434 Co-Signer: Anselmo Walsh MD Co-Signed Date/Time: 06/16/20 0534 Initializing User: Lake JENNINGS 06/15/205 14 14 Name Value Range Interpretation Code Description Data Ailyn rce(s) Supporting Document(s) ID Date Data Source [id number] 04/12/2020 01:57:00 PM EDT [facility] ([facility]) Name Value Range Interpretation Code Description Data Ailyn rce(s) Supporting Document(s) Reported Physicians See Note Reported Physicians [facility] ([facility]) Note: Reported Physicians:Ordering: Payal BainsAttending: Payal Gibson ID Date Data Source [id number] 04/12/2020 01:57:00 PM EDT [facility] ([facility]) [...] Age independent 300 pg/mL Performed at: - [facility] [id number] Handhole Machine Operator: Dexter Stanton MD, Phone: [phone] Observer: PROBNP PROBNP [id number] [phone] (A) ID Date Data Source [id number] 04/18/2020 04:07:00 PM EDT [facility] ADD TO 04/12 Name Value Range Interpretation Code Description Data Ailyn rce(s) Supporting Document(s) PROBNP 622 pg/mL 0-486 A [facility] The following cut-points have been sugg ested for the use of proBNP for the diagnostic evaluation of heart failure (HF) in patients with acute dyspnea: Modality Age Optimal Cut (years) Point Diagnosis (rule in HF) <50 450 pg/mL 50 - 75 900 pg/mL >75 1800 pg/mL Exclusion (rule out HF) Age independent 300 pg/mL Performed at: [facility] [address] [id number] Handhole Machine Operator: Dexter Stanton MD, Phone: [phone] ID Date Data Source [id number] 04/12/2020 09:11:00 AM EDT [employer] ([facility]) Name Value Range Interpretation Code Description Data Ailyn rce(s) Supporting Document(s) Reported Physicians See Note Reported Physicians [facility] ([facility]) Note: Reported Physicians:Ordering: Constance Bains: Payal Gibson ID Date Data Source [id number] 04/12/2020 09:11:00 AM EDT [employer] ([facility]) Name Value Range Interpretation Code Description Data Ailyn rce(s) Supporting Document(s) Lab Rejection Unable to Add On Lab Rejection [facility] ([facility]) Note: CANT ADD ON DDIMER, TUBE NOT IN L AB-KF We are unable to add on the additional testing, please submit new sample.Responsible Observer: Lab Rejection Lab Rejection [phone] (A) ID Date Data Source [id number] 04/17/2020 09:12:00 AM EDT [employer] [facility] CANT ADD ON DDIMER, TUBE NOT IN LAB-KF Name Value Range Interpretation Code Description Data Ailyn rce(s) Supporting Document(s) Lab Rejection Unable to Add On [facility] CANT ADD ON DDIMER, TUBE NOT IN LAB-KF We are unable to add on the additional testing, please submit new sample. ID Date Data Source [id number] 04/12/2020 08:16:00 AM EDT [employer] ([facility]) Name Value Range Interpretation Code Description Data Ailyn rce(s) Supporting Document(s) Reported Physicians See Note Reported Physicians [facility] ([facility]) Note: Reported Physicians:Ordering: Payal BainsAttending: Payal Gibson ID Date Data Source [id number] 04/12/2020 08:16:00 AM EDT [facility] ([facility] [employer]) Name Value Range Interpretation Code Description Data Ailyn rce(s) Supporting Document(s) Thyrotropin [Units/volume] in Serum or Plasma by Detec tion limit <= 0.05 mIU/L 1.776 uIU/ML Normal TSH [facility] ([facility]) Note: Patients should not be tested for 72 hours post fluorescein dye angiography. A false depression of result may occur.Responsible Observer: TSH TSH 300.5500 (A) ID Date Data Source [id number] 04/12/2020 08:16:00 AM EDT [facility] ([facility] [employer]) Name Value Range Interpretation Code Description Data Ailyn rce(s) Supporting Document(s) Deprecated Cholesterol.in LDL/Cholestero l.in HDL [Mass ratio] in Serum or Plasma 2.8 Normal CHOL/HDL RATIO [facility] ([facility] ) Note: Responsible Observer: CHOL/HDL RAT IO CHOL/HDL RATIO 300.4700 (A) Cholesterol in HDL [Mass/volume] in Serum or Plasma ultracen trifugate 52 MG/DL Normal HDL CHOLESTEROL [facility] ([facility]) Note: Responsible Observer: HDL HDL CHOL ESTEROL 300.4600 (A) Cholesterol crystals [Presence] in Stone by Infrared spectroscop y 145 MG/DL Normal CHOLESTEROL [place] ([facility]) Note: Responsible Observer: CHOL CHOLEST AGGIE 300.4350 (A) Triglyceride [Mass/volume] in Serum or Plasma 110 MG/DL N ormal TRIGLYCERIDES [facility] ([facility]) Note: Responsible Observer: TRIG TRIGLYC ERIDES 300.4300 (A) Cholesterol in LDL [Mass/volume] in Serum or Plasma by Direct as say 71 MG/DL Normal LDL CHOLESTEROL [facility] ([facility]) Note: Responsible Observer: LDL LDL CHOL ESTEROL 300.4400 (A) ID Date Data Source [id number] 04/12/2020 08:16:00 AM EDT [facility] ([facility] [employer]) Name Value Range Interpretation Code Description Data Ailyn rce(s) Supporting Document(s) Hemoglobin A1c/Hemoglobin.total in Blood 5.9 % Normal GLYCOSYLATED HGBA1C [facility] ([facility]) Note: Responsible Observer: HGB A1C GLYC OSYLATED HGBA1C 300.0800 (A) ID Date Data Source [id number] 04/12/2020 08:16:00 AM EDT [facility] ([place] [facility]) Name Value Range Interpretation Code Description Data Ailyn rce(s) Supporting Document(s) Albumin/Globulin [Mass Ratio] in Amniotic fluid 2.6 G/DL Normal ALB/GLOB RATIO [facility] ([facility]) Note: Responsible Observer: A/G RATIO AL B/GLOB RATIO 300.4100 (A) Alkaline phosphatase isoenzyme [Units/volume] in Serum or Plasma 51 U/L Normal ALKALINE PHOSPHATASE [facility] ([facility]) Note: Responsible Observer: ALK PHOS ALK SAMANTA PHOSPHATASE 300.3110 (A) Albumin [Mass/volume] in Synovial fluid 3.9 G/DL Normal ALBUMIN [facility] ([facility]) Note: Responsible Observer: ALB ALBUMIN 300.3900 (A) Alanine aminotransferase [Enzymatic activity/volume] in Seru m or Plasma 21 U/L Normal ALT [facility] ([facility]) Note: Responsible Observer: ALT/SGPT ALT 300.3100 (A) Aspartate aminotransferase [Enzymatic activity/volume] in Se rum or Plasma 9 U/L Normal AST [facility] ([facility]) Note: Responsible Observer: AST/SGOT AST 300.3050 (A) Urea nitrogen/Creatinine [Mass Ratio] in Serum or Plasma 27 Normal BUN/CREAT RATIO [facility] ([facility]) Note: Responsible Observer: BUN/CREAT RA MARQUIS BUN/CREAT RATIO 300.0450 (A) Bilirubin.total [Mass/volume] in Serum or Plasma 0.7 MG/DL Normal BILIRUBIN,TOTAL [facility] ([facility]) Note: Responsible Observer: TOTAL BILI T OTAL BILIRUBIN 300.2700 (A) BLOOD UREA NITRO 33 MG/DL Above high normal BLOOD UREA N ITRO [facility] ([facility]) Note: Responsible Observer: BUN BLOOD UR EA NITROGEN 300.0350 (A) Chloride [Moles/volume] in Serum, Plasma or Blood 102 MEQ/L Normal CHLORIDE [facility] ([facility]) Note: Responsible Observer: CL CHLORIDE 300.0200 (A) CA 9.0 MG/DL Normal CA [facility] ([facility]) Note: Responsible Observer: CA CALCIUM 300.2200 (A) Creatine/Creatinine [Mass Ratio] in Urine 1.2 MG/DL Ruba l CREATININE [place] ([facility]) Note: Responsible Observer: CREAT CREATI NINE 300.0400 (A) Carbon dioxide, total [Moles/volume] in Serum or Plasma 28 MEQ/L Normal CARBON DIOXIDE [facility] ([facility]) Note: Responsible Observer: CO2 CARBON D IOXIDE 300.0250 (A) GFR 58.0 ML/MIN GFR [facility] ([facility]) Note: Stage G3a - Mildly to [...] Blood 14 Normal ANION GAP [facility] ([facility]) Note: Responsible Observer: ANION GAP AN ION GAP 300.0300 (A) Globulin [Mass/volume] in Serum by calculation 1.5 G/DL Normal GLOBULIN [place] ([facility]) Note: Responsible Observer: GLOB GLOBULI N 300.4050 (A) Glucose [Presence] in Urine 92 MG/DL [facility] Note: Responsible Observer: GLU GLUCOSE 300.0500 (A) Potassium [Mass/volume] in Blood 4.4 MEQ/L Normal POT ASSIUM [place] ([facility]) Note: Responsible Observer: K POTASSIUM 300.0150 (A) Sodium [Moles/volume] in Serum, Plasma or Blood 140 MEQ/L Normal SODIUM [place] ([facility]) Note: Responsible Observer: NA SODIUM 3 00.0100 (A) Protein [Mass/volume] in Synovial fluid 5.4 G/DL B elow low normal TOTAL PROTEIN [facility] ([facility]) Note: Responsible Observer: TP TOTAL PRO TEIN 300.3750 (A) ID Date Data Source [id number] 04/12/2020 08:16:00 AM EDT [facility] ([place] [facility]) Name Value Range Interpretation Code Description Data Ailyn rce(s) Supporting Document(s) BASO # (AUTO) 0.04 10\\^3/uL Normal BASO # (AUTO) [facility] ([facility]) Note: Responsible Observer: BASO # (AUTO ) BASO # (AUTO) 100.1500 (A) BASO % (AUTO) 0.5 % Normal BASO % (AUTO) [facility] ([facility]) Note: Responsible Observer: BASO % (AUTO ) BASO % (AUTO) 100.1250 (A) EOS # (AUTO) 0.13 10\\^3/uL Normal EOS # (AUTO) [facility] ( [facility]) Note: Responsible Observer: EOS # (AUTO) EOS # (AUTO) 100.1450 (A) EOS % (AUTO) 1.7 % Normal EOS % (AUTO) [facility] ([facility]) Note: Responsible Observer: EOS % (AUTO) EOS % (AUTO) 100.1200 (A) GRAN # (AUTO) 5.23 10\\^3/uL Normal GRAN # (AUTO) [facility] ([facility]) Note: Responsible Observer: GRAN # (AUTO ) GRAN #(AUTO) 100.1325 (A) GRAN % (AUTO) 70.0 % Normal GRAN % (AUTO) [facility] ([facility]) Note: Responsible Observer: GRAN % (AUTO ) GRAN % (AUTO) 100.1000 (A) Hematocrit [Volume Fraction] of Blood by Automated count 45.8 % Normal HEMATOCRIT [facility] ([facility]) Note: Responsible Observer: HCT HEMATOCR IT 100.0400 (A) Hemoglobin [Mass/volume] in Blood 14.5 G/DL Normal HE MOGLOBIN [facility] ([facility]) Note: Responsible Observer: HGB HEMOGLOB IN 100.0300 (A) IG # (AUTO) 0.1 10\\^3/uL IG # (AUTO) [facility] ([facility]) Note: Responsible Observer: IG # (AUTO) IG # (AUTO) 100.1260 (A) IG % (AUTO) 0.7 % IG % (AUTO) [facility] ([facility]) Note: Responsible Observer: IG % (AUTO) IG % (AUTO) 100.1255 (A) LYMPH # (AUTO) 1.2 k/uL Normal LYMPH # (AUTO) [facility] ( [facility]) Note: Responsible Observer: LYMPH # (AUT O) LYMPH # (AUTO) 100.1350 (A) Erythrocyte mean corpuscular hemoglobin [Entitic mass] by Automated count 29.2 PG Normal MCH [facility] ([facility]) Note: Responsible Observer: MCH MCH 100 .0600 (A) LYMPH % (AUTO) 16.5 % Below low normal LYMPH % (AUTO) [place] ([facility]) Note: Responsible Observer: LYMPH % (AUT O) LYMPH % (AUTO) 100.1100 (A) Erythrocyte mean corpuscular hemoglobin concentration [Mass/volume] by Automated count 31.7 G/DL Below low normal [facility] Note: Responsible Observer: MCHC MCHC 1 00.0650 (A) Erythrocyte mean corpuscular volume [Entitic volume] by Auto mated count 92.2 FL Normal MCV [facility] ([facility]) Note: Responsible Observer: MCV MCV 100 .0550 (A) MONO % (AUTO) 10.6 % Normal MONO % (AUTO) [facility] ([facility]) Note: Responsible Observer: MONO % (AUTO ) MONO% (AUTO) 100.1150 (A) MONO # (AUTO) 0.79 k/uL Normal MONO # (AUTO) [facility] ([facility]) Note: Responsible Observer: MONO # (AUTO ) MONO # (AUTO) 100.1400 (A) MPV 9.7 FL Normal MPV [facility] Note: Responsible Observer: MPV MPV 100 .0950 (A) Platelets [#/volume] in Plasma by Automated count 243 10\\^3/uL Normal PLATELET COUNT [place] ([facility]) Note: Responsible Observer: PLT PLATELET COUNT 100.0850 (A) Erythrocytes [#/volume] in Blood by Automated count 4.97 10\\^6/uL Normal RED BLOOD COUNT [place] ([facility]) Note: Responsible Observer: RBC RED BLOO D COUNT 100.0250 (A) Leukocytes [#/volume] in Blood by Automated count 7.47 10\\^3/uL Normal WHITE BLOOD COUNT [place] ([facility]) Note: Responsible Observer: WBC WHITE BL OOD COUNT 100.0150 (A) Erythrocyte distribution width [Ratio] by Automated count 14.6 % Above high normal RDW [facility] ([facility]) Note: Responsible Observer: RDW RDW 100 .0700 (A) ID Date Data Source [id number] 04/12/2020 01:33:00 PM EDT [facility] Name Value Range Interpretation Code Description Data Ailyn rce(s) Supporting Document(s) WHITE BLOOD COUNT 7.47 10^3/uL 4.00-10.50 [facility] RED BLOOD COUNT 4.97 10^6/uL 4.30-5.80 [facility] HEMOGLOBIN 14.5 G/DL 13.0-17.5 [facility] HEMAT[facility]CRIT 45.8 % 41.0-53.0 [facility] MCV 92.2 FL 80.0-100.0 [facility] MCH 29.2 PG 27.0-34.0 [facility] MCHC 31.7 G/DL 32-36 [facility] RDW 14.6 % 11.5-14.5 [facility] PLATELET COUNT 243 10^3/uL 130-400 [facility] MPV 9.7 FL 8.7-13.2 N [facility] GRAN % (AUTO) 70.0 % 42.0-75.0 [facility] LYMPH % (AUTO) 16.5 % 20.0-51.0 L [facility] MONO % (AUTO) 10.6 % 2.0-15.0 N [facility] EOS % (AUTO) 1.7 % 0.0-11.0 [facility] BASO % (AUTO) 0.5 % 0.0-2.0 [facility] IG % (AUTO) 0.7 % 1.00-5.00 [facility] IG # (AUTO) 0.1 10^3/uL <0.5 [facility] GRAN # (AUTO) 5.23 10^3/uL 1.50-6.50 [facility] LYMPH # (AUTO) 1.2 k/uL 1.0-5.0 N [facility] MONO # (AUTO) 0.79 k/uL 0.20-1.50 N [facility] EOS # (AUTO) 0.13 10^3/uL 0.00-1.10 [facility] BASO # (AUTO) 0.04 10^3/uL 0.00-0.20 [facility] ID Date Data Source [id number] 04/12/2020 02:35:00 PM EDT [facility] Name Value Range Interpretation Code Description Data Ailyn rce(s) Supporting Document(s) SODIUM 140 MEQ/L 135-145 N [facility] POTASSIUM 4.4 MEQ/L 3.5-5.3 N [facility] CHLORIDE 102 MEQ/L 94-110 N [facility] CARBON DIOXIDE 28 MEQ/L 22-33 N [facility] ANION GAP 14 5-16 N [facility] BLOOD UREA NITRO 33 MG/DL 7-25 H [facility] CREATININE 1.2 MG/DL 0.6-1.4 N [facility] GFR 58.0 ML/MIN [facility] Stage G3a - Mildly to moderately decrea sed kidney function The GFR is an estimate of the Glomerular Filtration Rate. It is an aid to assess a patient's renal function. It is not a conclusive diagnosis of kidney disease. GFR normal is >=90 The MDRD GFR calculation is considered valid between the ages of 18 and 75 years only. BUN/CREAT RATIO 27 8-36 [facility] GLUCOSE 92 MG/DL 70-100 [facility] CA 9.0 MG/DL 8.7-10.5 N [facility] BILIRUBIN,TOTAL 0.7 MG/DL 0.1-1.3 [facility] AST 9 U/L 5-40 [facility] ALT 21 U/L 5-48 [facility] ALKALINE PHOSPHATASE 51 U/L 40-140 [facility] TOTAL PROTEIN 5.4 G/DL 5.9-8.3 L [facility] ALBUMIN 3.9 G/DL 3.0-5.1 [facility] GLOBULIN 1.5 G/DL 1.5-3.5 [facility] ALB/GLOB RATIO 2.6 G/DL 1.0-3.0 [facility] ID Date Data Source [id number] 04/12/2020 02:35:00 PM [facility] Name Value Range Interpretation Code Description Data Ailyn rce(s) Supporting Document(s) GLYCOSYLATED HGBA1C 5.9 % 4.1-6.5 N [facility] ID Date Data Source [id number] 04/12/2020 02:35:00 PM [facility] Name Value Range Interpretation Code Description Data Ailyn rce(s) Supporting Document(s) TRIGLYCERIDES 110 MG/DL 45-150 N [facility] CHOLESTEROL 145 MG/DL 125-200 [facility] LDL CHOLESTEROL 71 MG/DL 50-130 [facility] HDL CHOLESTEROL 52 MG/DL 39-96 [facility] CHOL/HDL RATIO 2.8 0-4.9 [facility] ID Date Data Source [id number] 04/12/2020 02:35:00 PM EDT [facility] Name Value Range Interpretation Code Description Data Ailyn rce(s) Supporting Document(s) TSH 1.776 uIU/ML 0.470-4.200 N [facility] Patients should not be tested for 72 ho urs post fluorescein dye angiography. A false depression of result may occur. ID Date Data Source [id number] 04/04/2020 04:19:00 PM EDT [place] ([facility]) Name Value Range Interpretation Code Description Data Ailyn rce(s) Supporting Document(s) Hemoglobin A1c/Hemoglobin.total in Blood 6.1% Abnormal (applies to non-numeric results) Hgb A1c [place] ([facility]) ID Date Data Source [id number] 03/15/2020 03:09:00 [place] [address] Patient Name: Kristel Herbert Exam Date: 03/15/20 [...] acute pulmonary disease. Professional interpretation performed by [facility] Medical Imaging at [facility] . End of diagnostic report: [id number] Signed: Moose Kingsley MD 03/15/20 1549 Interpreted by: Eh KingsleyoTranscribed by: Moose Kingsley Name Value Range Interpretation Code Description Data Ailyn rce(s) Supporting Document(s) ID Date Data Source [id number] 12/15/2019 05:43:00 PM EDT [facility] Name Value Range Interpretation Code Description Data Ailyn rce(s) Supporting Document(s) SODIUM 141 MEQ/L 135-145 [facility] POTASSIUM 4.4 MEQ/L 3.5-5.3 [facility] CHLORIDE 103 MEQ/L 94-110 [facility] CARBON DIOXIDE 30 MEQ/L 22-33 [facility] ANION GAP 12 5-16 [facility] BLOOD UREA NITRO 30 MG/DL 7-25 [facility] CREATININE 1.3 MG/DL 0.6-1.4 [facility] GFR 52.9 ML/MIN [facility] Stage G3a - Mildly to moderately decrea [...] years only. BUN/CREAT RATIO 23 8-36 N [facility] GLUCOSE 131 MG/DL 70-100 [facility] CA 9.2 MG/DL 8.7-10.5 N [facility] ID Date Data Source [id number] 12/14/2019 02:02:00 PM EDT [facility] Card[facility] [address] [place] [address], [address] [place] [address] Cardiology Note : [id number] Signed Patient: Kristel Herbert Acct:[id number] Visit Date: 12/14/19 : 1935 Cardiology HPI [...] does have SOB but denies chest tightness. Rivet Catcher Required: No Is patient in pain?: No [...] Marital Status: Occupational status: retired Comment: Retired [employer] Education Level (current or highest level completed): [...] Persistent atrial fibrillation: Status: Chronic SNOMED Code(s): 185965248 Category: Medical (2) Hypertension: Status: Chronic SNOMED Code(s): 67809695 Category: Medical (3) Mixed hyperlipidemia: Status: Chronic Code(s): E78.2 - Mixed hyperlipidemia SNOMED Code(s): 259025937 Category: Medical (4) Diastolic dysfunction: Status: Chronic SNOMED Code(s): 9210772 Category: Medical Medications: Refilled: apixaban (Eliquis) 5 [...] mg PO BID 180 tabs 3RF Quality [facility] Tobacco Use how long ago did patient quit smokin Coding Level of Care Code 90477 Estab Pt Level 4 History Expanded Problem Focused Exam Detailed Diagnoses Persistent atrial fibrillation I48.19 Hypertension I10 Mixed hyperlipidemia E78.2 Diastolic dysfunction I51.89 Signed By:Lake Novak <<Signature on File>> Signed Date/Time: 12/14/19 6624 Co-Signer: Anselmo Walsh MD Co-Signed Date/Time: 12/15/19 0558 Initializing User: Lake JENNINGS 12/14/19 1402 01 140 Name Value Range Interpretation Code Description Data Ailyn rce(s) Supporting Document(s) ID Date Data Source [id number] 11/24/2019 03:34:00 PM EDT [facility] ([facility]) Name Value Range Interpretation Code Description Data Ailyn rce(s) Supporting Document(s) Reported Physicians See Note Reported Physicians [facility] ([facility]) Note: Reported Physicians:Ordering: Payal BainsAttending: Payal Gibson ID Date Data Source [id number] 11/24/2019 03:34:00 PM EDT [facility] ([facility]) Name Value Range Interpretation Code Description Data Ailyn rce(s) Supporting Document(s) PROBNP 524 pg/mL Abnormal (applies to non-numeric res ults) PROBNP [facility] ([facility]) Note: The following cut-points have bee n suggested for the use of proBNP for the diagnostic evaluation of heart failure (HF) in patients with acute dyspnea: Modality Age Optimal Cut (years) Point Diagnosis (rule in HF) <50 450 pg/mL 50 - 75 900 pg/mL >75 1800 pg/mL Exclusion (rule out HF) Age independent 300 pg/mL Performed at: [facility] [id number] Handhole Machine Operator: Dexter Stanton MD, Phone: [phone] Observer: PROBNP PROBNP [id number] (A) ID Date Data Source [id number] 11/24/2019 03:34:00 PM EDT [facility] ([facility]) Name Value Range Interpretation Code Description Data Ailyn rce(s) Supporting Document(s) Thyrotropin [Units/volume] in Serum or Plasma by Detec tion limit <= 0.05 mIU/L 1.364 uIU/ML Normal TSH [facility] Note: Patients should not be tested for 72 hours post fluorescein dye angiography. A false depression of result may occur.Responsible Observer: TSH TSH 300.5500 (A) ID Date Data Source [id number] 11/24/2019 03:34:00 PM EDT [place] ([facility]) Name Value Range Interpretation Code Description Data Ailyn rce(s) Supporting Document(s) Cholesterol crystals [Presence] in Stone by Infrared spectroscop y 137 MG/DL Normal CHOLESTEROL [place] ([facility]) Note: Responsible Observer: CHOL CHOLEST AGGIE 300.4350 (A) Deprecated Cholesterol.in LDL/Cholestero l.in HDL [Mass ratio] in Serum or Plasma 3.0 Normal CHOL/HDL RATIO [place] ([facility] ) Note: Responsible Observer: CHOL/HDL RAT IO CHOL/HDL RATIO 300.4700 (A) Cholesterol in HDL [Mass/volume] in Serum or Plasma ultracen trifugate 45 MG/DL Normal HDL CHOLESTEROL [place] ([facility]) Note: Responsible Observer: HDL HDL CHOL ESTEROL 300.4600 (A) Cholesterol in LDL [Mass/volume] in Serum or Plasma by Direct as say 67 MG/DL Normal LDL CHOLESTEROL [place] ([facility]) Note: Responsible Observer: LDL LDL CHOL ESTEROL 300.4400 (A) Triglyceride [Mass/volume] in Serum or Plasma 125 MG/DL N ormal TRIGLYCERIDES [place] ([facility]) Note: Responsible Observer: TRIG TRIGLYC ERIDES 300.4300 (A) ID Date Data Source [id number] 11/24/2019 03:34:00 PM EDT [place] ([facility]) Name Value Range Interpretation Code Description Data Ailyn rce(s) Supporting Document(s) Hemoglobin A1c/Hemoglobin.total in Blood 6.4 % Normal GLYCOSYLATED HGBA1C [place] ([facility]) Note: Responsible Observer: HGB A1C GLYC OSYLATED HGBA1C 300.0800 (A) ID Date Data Source [id number] 11/24/2019 03:34:00 PM EDT [place] ([facility]) Name Value Range Interpretation Code Description Data Ailyn rce(s) Supporting Document(s) Albumin/Globulin [Mass Ratio] in Amniotic fluid 3.5 G/DL Above high normal ALB/GLOB RATIO [place] ([facility]) Note: Responsible Observer: A/G RATIO AL B/GLOB RATIO 300.4100 (A) Albumin [Mass/volume] in Synovial fluid 4.5 G/DL Normal ALBUMIN [facility] ([facility]) Note: Responsible Observer: ALB ALBUMIN 300.3900 (A) Alanine aminotransferase [Enzymatic activity/volume] in Seru m or Plasma 23 U/L Normal ALT [facility] ([facility]) Note: Responsible Observer: ALT/SGPT ALT 300.3100 (A) Alkaline phosphatase isoenzyme [Units/volume] in Serum or Plasma 62 U/L Normal ALKALINE PHOSPHATASE [facility] ([facility]) Note: Responsible Observer: ALK PHOS ALK SAMANTA PHOSPHATASE 300.3110 (A) Urea nitrogen/Creatinine [Mass Ratio] in Serum or Plasma 24 Normal BUN/CREAT RATIO [facility] ([facility]) Note: Responsible Observer: BUN/CREAT RA MARQUIS BUN/CREAT RATIO 300.0450 (A) Bilirubin.total [Mass/volume] in Serum or Plasma 0.6 MG/DL Normal BILIRUBIN,TOTAL [facility] ([facility]) Note: Responsible Observer: TOTAL BILI T OTAL BILIRUBIN 300.2700 (A) Aspartate aminotransferase [Enzymatic activity/volume] in Serum or Plasma 13 U/L Normal AST [facility] ([facility]) Note: Responsible Observer: AST/SGOT AST 300.3050 (A) CA 9.3 MG/DL Normal CA [facility] ([facility]) Note: Responsible Observer: CA CALCIUM 300.2200 (A) BLOOD UREA NITRO 29 MG/DL Above high normal BLOOD UREA N ITRO [facility] ([facility]) Note: Responsible Observer: BUN BLOOD UR EA NITROGEN 300.0350 (A) Chloride [Moles/volume] in Serum, Plasma or Blood 105 MEQ/L Normal CHLORIDE [facility] ([facility]) Note: Responsible Observer: CL CHLORIDE 300.0200 (A) Creatine/Creatinine [Mass Ratio] in Urine 1.2 MG/DL Ruba l CREATININE [facility] ([facility]) Note: Responsible Observer: CREAT CREATI NINE 300.0400 (A) Carbon dioxide, total [Moles/volume] in Serum or Plasma 28 MEQ/L Normal CARBON DIOXIDE [facility] ([facility]) Note: Responsible Observer: CO2 CARBON D IOXIDE 300.0250 (A) Anion gap in Blood 12 Normal [facility]: Responsible Observer: ANION GAP AN ION GAP 300.0300 (A) Glucose [Presence] in Urine 91 MG/DL Normal GLUCOSE GR [place] ([facility]) Note: Responsible Observer: GLU GLUCOSE 300.0500 (A) GFR 58.0 ML/MIN GFR [facility] ([facility]) Note: Stage G3a - Mildly to [...] in Blood 4.7 MEQ/L Normal POT ASSIUM [place] ([facility]) Note: Responsible Observer: K POTASSIUM 300.0150 (A) Globulin [Mass/volume] in Serum by calculation 1.3 G/DL Below low normal GLOBULIN [place] ([facility]) Note: Responsible Observer: GLOB GLOBULI N 300.4050 (A) Sodium [Moles/volume] in Serum, Plasma or Blood 140 MEQ/L Normal SODIUM [facility] ([facility]) Note: Responsible Observer: NA SODIUM 3 00.0100 (A) Protein [Mass/volume] in Synovial fluid 5.8 G/DL B elow low normal TOTAL PROTEIN [facility] ([facility]) Note: Responsible Observer: TP TOTAL PRO TEIN 300.3750 (A) ID Date Data Source [id number] 11/24/2019 03:34:00 PM EDT [facility] ([facility]) Name Value Range Interpretation Code Description Data Ailyn rce(s) Supporting Document(s) BASO # (AUTO) 0.03 3/uL Normal BASO # (AUTO) [facility] ([facility]) Note: Responsible Observer: BASO # (AUTO ) BASO # (AUTO) 100.1500 (A) BASO % (AUTO) 0.5 % Normal BASO % (AUTO) [facility] ([facility]) Note: Responsible Observer: BASO % (AUTO ) BASO % (AUTO) 100.1250 (A) EOS # (AUTO) 0.10 3/uL Normal EOS # (AUTO) [facility] ([facility]) Note: Responsible Observer: EOS # (AUTO) EOS # (AUTO) 100.1450 (A) GRAN # (AUTO) 4.77 3/uL Normal GRAN # (AUTO) [facility] ([facility]) Note: Responsible Observer: GRAN # (AUTO ) GRAN #(AUTO) 100.1325 (A) EOS % (AUTO) 1.5 % Normal EOS % (AUTO) [facility] ([facility]) Note: Responsible Observer: EOS % (AUTO) EOS % (AUTO) 100.1200 (A) Hematocrit [Volume Fraction] of Blood by Automated count 45.2 % Normal HEMATOCRIT [facility] ([facility]) Note: Responsible Observer: HCT HEMATOCR IT 100.0400 (A) Hemoglobin [Mass/volume] in Blood 14.3 G/DL Normal HE MOGLOBIN [facility] ([facility]) Note: Responsible Observer: HGB HEMOGLOB IN 100.0300 (A) GRAN % (AUTO) 72.9 % Normal GRAN % (AUTO) [facility] ([facility]) Note: Responsible Observer: GRAN % (AUTO ) GRAN % (AUTO) 100.1000 (A) IG # (AUTO) 0.0 3/uL IG # (AUTO) [facility] ([facility] [facility] Note: Responsible Observer: IG # (AUTO) IG # (AUTO) 100.1260 (A) IG % (AUTO) 0.3 % IG % (AUTO) [facility] ([facility]) Note: Responsible Observer: IG % (AUTO) IG % (AUTO) 100.1255 (A) LYMPH % (AUTO) 14.2 % Below low normal LYMPH % (AUTO) [facility] [place] ([facility]) Note: Responsible Observer: LYMPH % (AUT O) LYMPH % (AUTO) 100.1100 (A) Erythrocyte mean corpuscular hemoglobin [Entitic mass] by Automated count 28.4 PG Normal MCH [facility] ([facility]) Note: Responsible Observer: MCH MCH 100 .0600 (A) LYMPH # (AUTO) 0.9 k/uL Below low normal LYMPH # (AUTO) [facility] ([facility]) Note: Responsible Observer: LYMPH # (AUT O) LYMPH # (AUTO) 100.1350 (A) Erythrocyte mean corpuscular hemoglobin concentration [Mass/volume] by Automated count 31.6 G/DL Below low normal MCHC [facility] ([facility]) Note: Responsible Observer: MCHC MCHC 1 00.0650 (A) Erythrocyte mean corpuscular volume [Entitic volume] by Auto mated count 89.7 FL Normal MCV [place] ([facility]) Note: Responsible Observer: MCV MCV 100 .0550 (A) MONO % (AUTO) 10.6 % Normal MONO % (AUTO) [facility] ([facility]) Note: Responsible Observer: MONO % (AUTO ) MONO% (AUTO) 100.1150 (A) MONO # (AUTO) 0.69 k/uL Normal MONO # (AUTO) [facility] ([facility]) Note: Responsible Observer: MONO # (AUTO ) MONO # (AUTO) 100.1400 (A) MPV 9.6 FL Normal MPV [facility] ([facility] e) Note: Responsible Observer: MPV MPV 100 .0950 (A) Platelets [#/volume] in Plasma by Automated count 253 3/uL Normal PLATELET COUNT [place] ([facility]) Note: Responsible Observer: PLT PLATELET COUNT 100.0850 (A) Erythrocyte distribution width [Ratio] by Automated count 14.4 % Normal RDW [place] ([facility]) Note: Responsible Observer: RDW RDW 100 .0700 (A) Erythrocytes [#/volume] in Blood by Automated count 5.04 6/uL Normal RED BLOOD COUNT [place] ([facility]) Note: Responsible Observer: RBC RED BLOO D COUNT 100.0250 (A) Leukocytes [#/volume] in Blood by Automated count 6.54 3/uL Normal WHITE BLOOD COUNT [place] ([facility]) Note: Responsible Observer: WBC WHITE BL OOD COUNT 100.0150 (A) ID Date Data Source [id number] 11/24/2019 05:36:00 PM [facility] Has Patient Fasted For The Past 12 Hour s? Y Has Patient Fasted For The Past 12 Hour s? Y Has Patient Fasted For The Past 12 Hour s? Y Has Patient Fasted For The Past 12 Hour s? Y Name Value Range Interpretation Code Description Data Ailyn rce(s) Supporting Document(s) WHITE BLOOD COUNT 6.54 10^3/uL 4.00-10.50 [facility] RED BLOOD COUNT 5.04 10^6/uL 4.30-5.80 N [facility] HEMOGLOBIN 14.3 G/DL 13.0-17.5 N [facility] HEMATOCRIT 45.2 % 41.0-53.0 N [facility] MCV 89.7 FL 80.0-100.0 N [facility] MCH 28.4 PG 27.0-34.0 N [facility] MCHC 31.6 G/DL 32-36 L [facility] RDW 14.4 % 11.5-14.5 N [facility] PLATELET COUNT 253 10^3/uL 130-400 N [facility] MPV 9.6 FL 8.7-13.2 N [facility] GRAN % (AUTO) 72.9 % 42.0-75.0 [facility] LYMPH % (AUTO) 14.2 % 20.0-51.0 L [facility] MONO % (AUTO) 10.6 % 2.0-15.0 N [facility] EOS % (AUTO) 1.5 % 0.0-11.0 N [facility] BASO % (AUTO) 0.5 % 0.0-2.0 N [facility] IG % (AUTO) 0.3 % 1.00-5.00 [facility] IG # (AUTO) 0.0 10^3/uL <0.5 [facility] GRAN # (AUTO) 4.77 10^3/uL 1.50-6.50 N [facility] LYMPH # (AUTO) 0.9 k/uL 1.0-5.0 L [facility] MONO # (AUTO) 0.69 k/uL 0.20-1.50 N [facility] EOS # (AUTO) 0.10 10^3/uL 0.00-1.10 N [facility] BASO # (AUTO) 0.03 10^3/uL 0.00-0.20 [facility] ID Date Data Source [id number] 11/24/2019 05:52:00 PM EDT [facility] Has Patient Fasted For The Past 12 Hour s? Y Has Patient Fasted For The Past 12 Hour s? Y Has Patient Fasted For The Past 12 Hour s? Y Has Patient Fasted For The Past 12 Hour s? Y Name Value Range Interpretation Code Description Data Ailyn rce(s) Supporting Document(s) SODIUM 140 MEQ/L 135-145 N [facility] POTASSIUM 4.7 MEQ/L 3.5-5.3 N [facility] CHLORIDE 105 MEQ/L 94-110 N [facility] CARBON DIOXIDE 28 MEQ/L 22-33 N [facility] ANION GAP 12 5-16 N [facility] BLOOD UREA NITRO 29 MG/DL 7-25 [facility] CREATININE 1.2 MG/DL 0.6-1.4 N [facility] GFR 58.0 ML/MIN [facility] Stage G3a - Mildly to moderately decrea [...] years only. BUN/CREAT RATIO 24 8-36 N [facility] GLUCOSE 91 MG/DL 70-100 N [facility] CA 9.3 MG/DL 8.7-10.5 N [facility] BILIRUBIN,TOTAL 0.6 MG/DL 0.1-1.3 N [facility] AST 13 U/L 5-40 N [facility] ALT 23 U/L 5-48 N [facility] ALKALINE PHOSPHATASE 62 U/L 40-140 N [facility] TOTAL PROTEIN 5.8 G/DL 5.9-8.3 L [facility] ALBUMIN 4.5 G/DL 3.0-5.1 N [facility] GLOBULIN 1.3 G/DL 1.5-3.5 L [facility] ALB/GLOB RATIO 3.5 G/DL 1.0-2.7 H [facility] ID Date Data Source [id number] 11/26/2019 02:07:00 PM EDT [facility] Has Patient Fasted For The Past 12 Hour s? Y Has Patient Fasted For The Past 12 Hour s? Y Has Patient Fasted For The Past 12 Hour s? Y Has Patient Fasted For The Past 12 Hour s? Y Name Value Range Interpretation Code Description Data Ailyn rce(s) Supporting Document(s) PROBNP 524 pg/mL 0-486 A [facility] The following cut-points have been sugg ested for the use of proBNP for the diagnostic evaluation of heart failure (HF) in patients with acute dyspnea: Modality Age Optimal Cut (years) Point Diagnosis (rule in HF) <50 450 pg/mL 50 - 75 900 pg/mL >75 1800 pg/mL Exclusion (rule out HF) Age independent 300 pg/mL Performed at: [address] [id number] Handhole Machine Operator: Dexter Stanton MD, Phone: [phone] ID Date Data Source [id number] 11/24/2019 05:52:00 PM EDT [facility] Has Patient Fasted For The Past 12 Hour s? Y Has Patient Fasted For The Past 12 Hour s? Y Has Patient Fasted For The Past 12 Hour s? Y Has Patient Fasted For The Past 12 Hour s? Y Name Value Range Interpretation Code Description Data Ailyn rce(s) Supporting Document(s) GLYCOSYLATED HGBA1C 6.4 % 4.1-6.5 N [facility] ID Date Data Source [id number] 11/24/2019 05:52:00 PM T [facility] Has Patient Fasted For The Past 12 Hour s? Y Has Patient Fasted For The Past 12 Hour s? Y Has Patient Fasted For The Past 12 Hour s? Y Has Patient Fasted For The Past 12 Hour s? Y Name Value Range Interpretation Code Description Data Ailyn rce(s) Supporting Document(s) TRIGLYCERIDES 125 MG/DL 45-150 N [facility] CHOLESTEROL 137 MG/DL 125-200 N [facility] LDL CHOLESTEROL 67 MG/DL 50-130 N [facility] HDL CHOLESTEROL 45 MG/DL 39-96 N [facility] CHOL/HDL RATIO 3.0 0-4.9 N [facility] ID Date Data Source [id number] 11/24/2019 05:52:00 PM [facility] Has Patient Fasted For The Past 12 Hour s? Y Has Patient Fasted For The Past 12 Hour s? Y Has Patient Fasted For The Past 12 Hour s? Y Has Patient Fasted For The Past 12 Hour s? Y Name Value Range Interpretation Code Description Data Ailyn rce(s) Supporting Document(s) TSH 1.364 uIU/ML 0.470-4.200 N [facility] Patients should not be tested for 72 ho urs post fluorescein dye angiography. A false depression of result may occur. Procedure Social History Code Duration Value Status Description Data Source(s ) 06/15/2020 01:21:10 PM EDT Former Smoker completed Former Smoker [facility] 06/15/2020 01:21:10 PM EDT Cigarettes completed Cigarette s [facility] Smoking 06/15/2020 01:21:00 PM EDT Ex-smoker (finding) complet ed Ex-smoker (finding) [facility] Assertion 04/04/2020 12:00:00 AM EDT Finding relat ing to drug misuse behavior (finding) completed Finding relating to drug misuse behavior (finding) [facility] ([facility]) Assertion 04/04/2020 12:00:00 AM EDT Current drinker of al cohol (finding) completed Current drinker of alcohol (finding) [facility] ([facility]) Smoking 04/04/2020 12:00:00 AM EDT Ex-smoker (finding) complet ed Ex-smoker (finding) [facility] Smoking 03/23/2020 12:00:00 AM EDT Ex-smoker (finding) complet ed Ex-smoker (finding) [facility] ([facility]) Smoking 03/15/2020 12:00:00 AM EDT Ex-smoker (finding) complet ed Ex-smoker (finding) [facility] ([facility] 12/14/2019 02:05:14 PM EDT Former Smoker completed Former Smoker [facility] 12/14/2019 02:05:14 PM EDT Cigarettes completed Cigarette s [facility] Smoking 12/14/2019 02:05:00 PM EDT Ex-smoker (finding) complet ed Ex-smoker (finding) [facility] Smoking 11/24/2019 12:00:00 AM EDT Ex-smoker (finding) complet ed Ex-smoker (finding) [facility] ([facility]) Smoking 11/24/2019 12:00:00 AM EDT Ex-smoker (finding) complet ed Ex-smoker (finding) [facility] ([facility]) Vital Signs ID Date Data Source UNK Name Value Range Interpretation Code Description Data Source(s) Diastolic blood pressure 60 mm[Hg] 60 mm[Hg] [facility] Systolic blood pressure 122 mm[Hg] 122 mm[Hg] [facility] Body mass index (BMI) [Ratio] 52.7 kg/m2 52.7 k g/m2 [facility] Oxygen saturation in Arterial blood by Pulse oximetry 95 % 95 % [facility] Respiratory rate 16 /min 16 /min [facility] Heart rate 49 /min 49 /min [facility] Body temperature 96.9 [degF] 96.9 [degF] [facility] Body weight 169.30 kg 169.30 kg [facility] Body height 179.07 cm 179.07 cm [facility] Respiratory rate 22 /min 22 /min [place] ([facility]) Heart rate rhythm 1 1 ([facility]) Heart rate 63 /min 63 /min [place] ([facility]) Diastolic blood pressure 68 mm[Hg] 68 mm[Hg] [place] ([facility]) Systolic blood pressure 112 mm[Hg] 112 mm[Hg] [facility] ([facility]) Inhaled oxygen concentration 21 % 21 % [place] ([facility]) Inhaled oxygen flow rate 0 L/min 0 L/min [place] ([facility]) Oxygen saturation in Arterial blood by Pulse oximetry 93 % 93 % [place] ([facility]) PhenX - pain, abdominal - type and intensity protocol 0 0 [place] ([facility]) Body weight 373.125 [lb_av] 373.125 [lb_av] [facility] ([facility]ly [facility]) Body temperature 98.2 [degF] 98.2 [degF] [facility] ([facility]) Respiratory rate 26 /min 26 /min [place] ([facility]) Heart rate rhythm 1 1 Y ([facility]) Heart rate 69 /min 69 /min [place] [facility] Diastolic blood pressure 56 mm[Hg] 56 mm[Hg] [place] ([facility]) Systolic blood pressure 98 mm[Hg] 98 mm[Hg] [facility] ([facility]) Inhaled oxygen concentration 21 % 21 % [place] ([facility]) Inhaled oxygen flow rate 0 L/min 0 L/min [place] ([facility]) Oxygen saturation in Arterial blood by Pulse oximetry 96 % 96 % [place] ([facility]) PhenX - pain, abdominal - type and intensity protocol 5 5 [facility] ([facility]) Body weight 368 [lb_av] 368 [lb_av] [facility] ([facility]) Body temperature 97.8 [degF] 97.8 [degF] [facility] ([facility]) Respiratory rate 28 /min 28 /min [facility] ([facility]) Heart rate rhythm 1 1 [facility] ([facility]) Heart rate 66 /min 66 /min [facility] ([facility]) Diastolic blood pressure 58 mm[Hg] 58 mm[Hg] [facility] ([facility]) Systolic blood pressure 100 mm[Hg] 100 mm[Hg] [facility] ([facility]) Inhaled oxygen concentration 21 % 21 % [facility] ([facility]) Inhaled oxygen flow rate 0 L/min 0 L/min [place] ([facility]) Oxygen saturation in Arterial blood by Pulse oximetry 95 % 95 % [place] ([facility]) PhenX - pain, abdominal - type and intensity protocol 0 0 [place] ([facility]) Body surface area Derived from formula 2.39 m2 2.39 m2 [place] ([facility]) Body mass index (BMI) [Ratio] 35.7 kg/m2 35.7 k g/m2 [facility] ([facility]) Body weight 263 [lb_av] 263 [lb_av] [facility] ([facility]) Body height 72 [in_i] 72 [in_i] [facility] ([facility]) Respiratory rate 20 /min 20 /min [facility] ([facility]) Heart rate rhythm 1 1 [facility] ([facility]) Heart rate 61 /min 61 /min [facility] ([facility]) Diastolic blood pressure 80 mm[Hg] 80 mm[Hg] [facility] ([facility]) Systolic blood pressure 126 mm[Hg] 126 mm[Hg] G [place] ([facility]) Inhaled oxygen concentration 21 % 21 % [facility] ([facility]) Inhaled oxygen flow rate 0 L/min 0 L/min [place] ([facility]) Oxygen saturation in Arterial blood by Pulse oximetry 95 % 95 % [place] ([facility]) PhenX - pain, abdominal - type and intensity protocol 7 7 [facility] ([facility]) Body weight 367 [lb_av] 367 [lb_av] [facility] ([facility]) Body temperature 99.2 [degF] 99.2 [degF] [facility] ([facility]) Respiratory rate 24 /min 24 /min [facility] ([facility]) The patient ambulates with the assistanc e of a wheeled walker. Heart rate 61 /min 61 /min [facility] ([facility]) The patient ambulates with the assistanc e of a wheeled walker. Diastolic blood pressure 72 mm[Hg] 72 mm[Hg] [facility] ([facility]) The patient ambulates with the assistanc e of a wheeled walker. Systolic blood pressure 126 mm[Hg] 126 mm[Hg] [facility] [place] ([facility]) The patient ambulates with the assistanc e of a wheeled walker. Inhaled oxygen concentration 21 % 21 % [facility] ([facility]) The patient ambulates with the assistanc e of a wheeled walker. Inhaled oxygen flow rate 0 L/min 0 L/min [facility] ([facility]) The patient ambulates with the assistanc e of a wheeled walker. Oxygen saturation in Arterial blood by Pulse oximetry 96 % 96 % [facility] ([facility]) The patient ambulates with the assistanc e of a wheeled walker. PhenX - pain, abdominal - type and intensity protocol 0 0 [facility] ([facility]) The patient ambulates with the assistanc e of a wheeled walker. Body weight 368 [lb_av] 368 [lb_av] [facility] ([facility]) The patient ambulates with the assistanc e of a wheeled walker. Body temperature 98 [degF] 98 [degF] [facility] ([facility]) The patient ambulates with the assistanc e of a wheeled walker. Diastolic blood pressure 60 mm[Hg] 60 mm[Hg] [facility] Systolic blood pressure 118 mm[Hg] 118 mm[Hg] [facility] Body mass index (BMI) [Ratio] 52.3 kg/m2 52.3 k g/m2 [facility] Oxygen saturation in Arterial blood by Pulse oximetry 94 % 94 % [facility] Respiratory rate 18 /min 18 /min [facility] Heart rate 60 /min 60 /min [facility] Body temperature 98.3 [degF] 98.3 [degF] [facility] Body weight 167.79 kg 167.79 kg [facility] Body height 179.07 cm 179.07 cm [facility] Respiratory rate 28 /min 28 /min [place] ([facility]) Heart rate rhythm 1 1 [place] ([facility]) Heart rate 73 /min 73 /min [place] ([facility]) Diastolic blood pressure 82 mm[Hg] 82 mm[Hg] [place] ([facility]) Systolic blood pressure 138 mm[Hg] 138 mm[Hg] [facility] [place] ([facility]) Inhaled oxygen concentration 21 % 21 % [place] ([facility]) Inhaled oxygen flow rate 0 L/min 0 L/min [place] ([facility]) Oxygen saturation in Arterial blood by Pulse oximetry 99 % 99 % [place] ([facility]) PhenX - pain, abdominal - type and intensity protocol 0 0 [place] ([facility]) Body weight 370 [lb_av] 370 [lb_av] [place] ([facility]) Body temperature 98.9 [degF] 98.9 [degF] [facility] ([facility]) Patient Treatment Plan of Care Planned Activity Planned Date Details Description Data Source (s) glipiZIDE XL 5 MG Oral Tablet Extended Release 24 Hour 07/14/2020 12:00:00 AM [facility] ([facility]) tramadol hydrochloride 50 MG Oral Tablet 06/02/2020 12:00:00 AM [facility] ([facility]ly [facility]) gabapentin 100 MG Oral Capsule 04/04/2020 12:00:00 AM [facility] ([facility]) Prednisone 20 MG Oral Tablet 04/04/2020 12:00:00 AM [facility] ([facility]) Hydrochlorothiazide 25 MG / Spironolactone 25 MG Oral Tablet 04/03/2020 12:00:00 AM [facility] ([facility]) tramadol hydrochloride 50 MG Oral Tablet 03/27/2020 12:00:00 AM [facility] ([facility]) Lidocaine 50 MG/ML Rectal Cream 03/23/2020 12:00:00 AM [facility] ([facility]) Furosemide 20 MG Oral Tablet 02/22/2020 12:00:00 AM EDT [facility] ([facility]) Albuterol 0.83 MG/ML Inhalant Solution 02/17/2020 12:00:00 AM EDT [facility] ([facility]) tramadol hydrochloride 50 MG Oral Tablet 01/11/2020 12:00:00 AM EDT [facility] ([facility]) Alcohol Pads 70% 12/16/2019 12:00:00 AM EDT [facility] ([facility]) Accu-Chek FastClix Lancets Miscellaneous 12/16/2019 12:00:00 AM EDT [facility] ([facility]) Accu-Chek Jody Plus In Vitro Strip 12/16/2019 12:00:00 AM EDT [facility] ([facility]) Furosemide 20 MG Oral Tablet [facility]/24[facility] tramadol hydrochloride 50 MG Oral Tablet 11/01/2019 [facility] Losartan Potassium 100 MG Oral Tablet 11/01/2019 12:00:00 AM [facility] ([facility]) glipiZIDE XL 5 MG Oral Tablet Extended Release 24 Hour 10/04/2019 12:00:00 AM [facility] ([facility]) tramadol hydrochloride 50 MG Oral Tablet 08/23/2019 12:00:00 AM [facility] ([facility]) Hydrochlorothiazide 25 MG / Spironolactone 25 MG Oral Tablet 07/07/2019 12:00:00 AM EST [facility] ([facility]) tramadol hydrochloride 50 MG Oral Tablet 05/25/2019 12:00:00 AM ED [facility] ([facility]) Accu-Chek FastClix Lancets Miscellaneous 09/21/2018 12:00:00 AM EST [facility] ([facility]) GlipiZIDE XL 5MG Oral Tablet Extended Release 24 Hour 09/21/2018 12:00:00 AM EST [facility] ([facility]) Losartan Potassium 100 MG Oral Tablet 09/21/2018 12:00:00 AM EST [facility] ([facility]) Alcohol Pads 70% 09/21/2018 12:00:00 AM EST [facility] ([facility]) Albuterol 0.83 MG/ML Inhalant Solution 09/21/2018 12:00:00 AM [facility] ([facility]) Accu-Chek Jody Plus In Vitro Strip 09/21/2018 12:00:00 AM [facility] ([facility])
--- OUTSIDE RECORDS SUMMARY | 2020-09-10 16:50 | CCD ---
Author Author [facility] Organization [facility] Address Unknown Phone Unavailable Care Team Providers Care Junior Programmer Analyst Name Role Phone Ray, L Mackenzie Unavailable [...] M PAYAL PA Unavailable Unavailable ANGIE, M PAYLA PA Unavailable Unavailable ANGIE, M PAYAL PA [...] Unavailable ANGIE, M PAYAL PA Unavailable Unavailable Ringgold, R Lake PA Unavailable Unavailable Ringgold, R Lake PA Unavailable Unavailable Ringgold, R Lake PA Unavailable Unavailable Ringgold, R Lake PA Unavailable Unavailable Kishore, R Lake PA Unavailable Unavailable Ringgold, R Lake PA Unavailable Unavailable Ringgold, R Lake PA Unavailable Unavailable Kishore, R Lake PA Unavailable Unavailable Kishore, R Lake PA Unavailable Unavailable Kishore, R Lake PA Unavailable Unavailable Ringgold, R Lake PA Unavailable Unavailable Kishore, R Lake PA Unavailable Unavailable Kishore, R Lake PA Unavailable Unavailable Ringgold, R Lake PA Unavailable Unavailable Kishore, R Lake PA Unavailable Unavailable Ringgold, R Lake PA Unavailable Unavailable MICHAEL, L SUZIE FISH STRINGER ASSEMBLER Unavailable Unavailable MICHAEL, L SUZIE FISH STRINGER ASSEMBLER Unavailable Unavailable MICHAEL, L USZIE FISH STRINGER ASSEMBLER Unavailable Unavailable MICHAEL, L SUZIE FISH STRINGER ASSEMBLER Unavailable Unavailable MICHAEL, L SUZIE FISH STRINGER ASSEMBLER Unavailable Unavailable MICHAEL, L SUZIE FISH STRINGER ASSEMBLER Unavailable Unavailable MICHAEL, L SUZIE FISH STRINGER ASSEMBLER Unavailable Unavailable MICHAEL, L SUZIE FISH STRINGER ASSEMBLER Unavailable Unavailable MICHAEL, L SUZIE FISH STRINGER ASSEMBLER Unavailable Unavailable MICHAEL, L SUZIE FISH STRINGER ASSEMBLER Unavailable Unavailable MICHAEL, L SUZIE FISH STRINGER ASSEMBLER Unavailable Unavailable MICHAEL, L SUZIE FISH STRINGER ASSEMBLER Unavailable Unavailable MICHAEL, L SUZIE FISH STRINGER ASSEMBLER Unavailable Unavailable MICHAEL, L SUZIE FISH STRINGER ASSEMBLER Unavailable Unavailable MICHAEL, L SUZIE FISH STRINGER ASSEMBLER Unavailable Unavailable MICHAEL, L SUZIE FISH STRINGER ASSEMBLER Unavailable Unavailable MICHAEL, L SUZIE FISH STRINGER ASSEMBLER Unavailable Unavailable MICHAEL, L SUZIE FISH STRINGER ASSEMBLER Unavailable Unavailable MICHAEL, L SUZIE FISH STRINGER ASSEMBLER Unavailable Unavailable MICHAEL, L SUZIE FISH STRINGER ASSEMBLER Unavailable Unavailable MICHAEL, L SUZIE FISH STRINGER ASSEMBLER Unavailable Unavailable MICHAEL, L SUZIE FISH STRINGER ASSEMBLER Unavailable Unavailable MICHAEL, L SUZIE FISH STRINGER ASSEMBLER Unavailable Unavailable MICHAEL, L SUZIE FISH STRINGER ASSEMBLER Unavailable Unavailable MICHAEL, L SUZIE FISH STRINGER ASSEMBLER Unavailable Unavailable MICHAEL, L SUZIE FISH STRINGER ASSEMBLER Unavailable Unavailable MICHAEL, L SUZIE FISH STRINGER ASSEMBLER Unavailable Unavailable MICHAEL, L SUZIE FISH STRINGER ASSEMBLER Unavailable Unavailable MICHAEL, L SUZIE FISH STRINGER ASSEMBLER Unavailable Unavailable MICHAEL, L SUZIE FISH STRINGER ASSEMBLER Unavailable Unavailable MICHAEL, L SUZIE FISH STRINGER ASSEMBLER Unavailable Unavailable MICHAEL, L SUZIE FISH STRINGER ASSEMBLER Unavailable Unavailable MICHAEL, L SUZIE FISH STRINGER ASSEMBLER Unavailable Unavailable MICHAEL, L SUZIE FISH STRINGER ASSEMBLER Unavailable Unavailable ANGIE, M PAYAL PA Unavailable [...] protected by Article 27-F of the [facility] Public Health law. If you continue you may have access to information: Regarding HIV / AIDS; Provided by facilities licensed or operated by the [facility] Office of Mental Health; or Provided by the [facility] Office for People With Developmental Disabilities. If such information is present, then the following [facility] mandated warning applies: This information has [...] law may result in a fine or mcc sentence or both. A general authorization for the release of medical or other information is NOT sufficient authorization for further disc losure. Advance Directives Directive Description Silk Screen Layout Drafter Intake Clinician Status Observation Descr iption Data Source(s) Ebola Screening Performed completed Ebol a Screening Performed [facility] ([facility]) Note: Within the last month, have you tr aveled outside of the [place]? -NO Ebola Screening Performed completed Ebol a Screening Performed [facility] ([facility]) Note: Within the last month, have you tr aveled outside of the [place]? -NO Ebola Screening Performed completed Ebol a Screening Performed [facility] ([facility]) Note: Within the last month, have you tr aveled outside of the [place]? -NO Ebola Screening Performed completed Ebol a Screening Performed [facility] ([facility]) Note: Within the last month, have you tr aveled outside of the [place]? -NO packet given Pt Bill of Rights, Priv Prac, Ad Dir completed packet given Pt Bill of Rights, Priv Prac, Ad Dir [facility] ([facility]) Note: Pt declined AD packet Ebola Screening Performed completed Ebol a Screening Performed [facility] Note: Within the last month, have you tr aveled outside of the [place]? -NO Allergies and Adverse Reactions Type Description Substance Reaction Status Data Source(s ) Drug allergy cortisone cortisone RASH/HIVES [facility] Drug allergy cortisone cortisone RASH/HIVES [facility] Family History Family Member Name Family Member Gender Family Member Status Date o f Status Description Data Source(s) Unknown Condition [facility] Unknown Condition [facility] Unknown Condition [facility] Unknown Condition [facility] Encounters Encounter Providers Location Date Indications Data Source(s ) Outpatient Attender: PAYAL JENNINGS 08/07/2020 01:42:00 P M EST Lab [facility] Lab Outpatient Attender: PAYAL JENNINGS 07/25/2020 09:06:00 A M EST Lab [facility] Lab Obstetrics<td ID="encounterTypeDescripti onID0">Lab Order</td><td>Payal JENNINGS</td><td></td><td>07/24/2020</td><td></td> Attender: PAYAL JENNINGS 07/24/2020 04:28:00 PM EST - 07/24/2020 11:59:00 PM EST [place] ([facility] Outpatient Attender: Lake Hardinger: PAYAL JENNINGS 06/15/2020 01:06:00 PM EDT - 06/15/2020 02:23:00 PM EDT LMOM 6 mo f/u [facility] LMOM 6 mo f/u Patient discharged. Outpatient<td ID="encounterTypeDescripti onID1">Acute L2</td><td>Payal JENNINGS</td><td>[facility]</td><td>05/22/2020</td><td><content ID="encounterDiagnosisID1-0">Chest Pain Or Discomfort</content>, <content ID="encounterDiagnosisID1-1">Diabetes Mellitus</content>, <content ID="encounterDiagnosisID1-2">Herpes Zoster (shingles)</content>, <content ID="encounterDiagnosisID1-3">Atrial Fibrillation</content>, <content ID="encounterDiagnosisID1-4">Hypertension (systemic)</content>, <content ID="encounterDiagnosisID1-5">Chronic Obstructive Pulmonary Disease</content>, <content ID="encounterDiagnosisID1-6">Obesity Morbid</content>, <content ID="encounterDiagnosisID1-7">Headache Syndromes</content>, <content ID="encounterDiagnosisID1-8">Osteoarthritis Localized Primary Knee</content>, <content ID="encounterDiagnosisID1-9">Disturbance of Gait</content></td> Attender: PAYAL JENNINGS [facility] 05/22/2020 09:04:00 AM EDT - 05/22/2020 10:07:13 AM EDT Disturbance of GaitOsteoarthritis Locali zed Primary KneeObesity MorbidHerpes Zoster (shingles)Disturbance of GaitOsteoarthritis Localized Primary KneeObesity MorbidHerpes Zoster (shingles)Chest Pain Or DiscomfortChest Pain Or DiscomfortHeadache SyndromesHeadache SyndromesAtrial FibrillationDiabetes MellitusAtrial FibrillationDiabetes MellitusChronic Obstructive Pulmonary DiseaseChronic Obstructive Pulmonary DiseaseHypertension (systemic)Hypertension (systemic) [facility] ([facility] Disturbance of Gait Osteoarthritis Localized Primary Knee [...] EDT - 04/18/2020 11:59:00 PM EDT [facility] ([facility] Outpatient<td ID="encounterTypeDescripti onID3">Acute L2</td><td>Payal JENNINGS</td><td>[facility]</td><td>04/18/2020</td><td><content ID="encounterDiagnosisID3-0">Herpes Zoster (shingles)</content>, <content ID="encounterDiagnosisID3-1">Chest Pain Or Discomfort</content>, <content ID="encounterDiagnosisID3-2">Diabetes Mellitus</content>, <content ID="encounterDiagnosisID3-3">Atrial Fibrillation</content>, <content ID="encounterDiagnosisID3-4">Hypertension (systemic)</content>, <content ID="encounterDiagnosisID3-5">Chronic Obstructive Pulmonary Disease</content>, <content ID="encounterDiagnosisID3-6">Obesity Morbid</content>, <content ID="encounterDiagnosisID3-7">Headache Syndromes</content>, <content ID="encounterDiagnosisID3-8">Osteoarthritis Localized Primary Knee</content>, <content ID="encounterDiagnosisID3-9">Disturbance of Gait</content></td> Attender: PAYAL JENNINGS [facility] 04/18/2020 07:55:00 AM EDT - 04/18/2020 09:15:28 [...] PM EDT - 04/14/2020 11:59:00 PM EDT [place] ([facility]) Outpatient Attender: PAYAL JENNINGS 04/12/2020 08:09:00 A M EDT lab 1 of 1 [facility] lab 1 of 1 Unknown<td ID="encounterTypeDescriptionI D5">AHR</td><td>Payal JENNINGS</td><td>[facility]</td><td>04/04/2020</td><td><content ID="encounterDiagnosisID5-0">Herpes Zoster (shingles)</content>, <content ID="encounterDiagnosisID5-1">Routine History and Physical</content>, <content ID="encounterDiagnosisID5-2">Chest Pain Or Discomfort</content>, <content ID="encounterDiagnosisID5-3">Diabetes Mellitus</content>, <content ID="encounterDiagnosisID5-4">Atrial Fibrillation</content>, <content ID="encounterDiagnosisID5-5">Hypertension (systemic)</content>, <content ID="encounterDiagnosisID5-6">Chest Pain</content>, <content ID="encounterDiagnosisID5-7">Essential Hypertension Benign</content>, <content ID="encounterDiagnosisID5-8">Chronic Obstructive Pulmonary Disease</content>, <content ID="encounterDiagnosisID5-9">Obesity Morbid</content>, <content ID="encounterDiagnosisID5-10">Headache Syndromes</content>, <content ID="encounterDiagnosisID5-11">Osteoarthritis Localized Primary Knee</content>, <content ID="encounterDiagnosisID5-12">Disturbance of Gait</content></td> Attender: PAYAL JENNINGS [facility] 04/04/2020 02:55:00 PM EDT - 04/04/2020 04:52:13 [...] Hypertension (systemic) Outpatient<td ID="encounterTypeDescripti onID6">Acute L2</td><td>Suzie Rodriguez FISH STRINGER ASSEMBLER</td><td>[facility]</td><td>03/23/2020</td><td><content ID="encounterDiagnosisID6-0">Herpes Zoster Without Complications</content></td> Attender: SUZIE RODRIGUEZ NP [facility] 03/23/2020 02:00:00 PM ED T - 03/23/2020 02:50:28 PM EDT Herpes Zoster Without ComplicationsHerpe s Zoster Without ComplicationsHerpes Zoster Without ComplicationsHerpes Zoster Without ComplicationsHerpes Zoster Without Complications [facility] ([facility]) Herpes Zoster Without Complications Herpes Zoster Without Complications Herpes Zoster Without Complications Herpes Zoster Without Complications Herpes Zoster Without Complications Outpatient Attender: Mackenzie Gavin 03/15/2020 02:42:00 PM EDT Xray [facility] Xray Outpatient<td ID="encounterTypeDescripti onID7">Acute L1</td><td>Mackenzie Gavin DO</td><td>[facility]</td><td>03/15/2020</td><td><content ID="encounterDiagnosisID7-0">Chest Pain</content>, <content ID="encounterDiagnosisID7-1">Sprain Thoracic</content></td> Attender: Mackenzie Gavin [facility] 03/15/2020 01:36:00 PM EDT - 03/15/2020 04:53:00 PM EDT Sprain ThoracicChest PainSprain ThoracicChest PainSprain ThoracicChest PainSprain ThoracicChest PainSprain ThoracicChest PainSprain ThoracicChest Pain [facility] ([facility]) Sprain Thoracic Chest Pain Sprain Thoracic Chest Pain Sprain Thoracic Chest Pain Sprain Thoracic Chest Pain Sprain Thoracic Chest Pain Sprain Thoracic Chest Pain Outpatient Attender: Lake JENNINGS 12/15/2019 02:03:00 P M EDT [facility] Attender: [place] Diggserrer: PAYAL JENNINGS 12/14/2019 01:39:00 PM EDT - 12/14/2019 02:53:00 PM EDT Follow Up 6 mo-Confirmed ( See Chart Note) [facility] Follow Up 6 mo-Confirmed ( See Chart Not e) Patient discharged. Outpatient Attender: PAYAL JENNINGS 11/24/2019 03:30:00 P M EDT Lab [facility] Lab Outpatient<td ID="encounterTypeDescripti onID8">Chronic Disease Follow- up</td><td>Payal JENNINGS</td><td>[facility]</td><td>11/24/2019</td><td><content ID="encounterDiagnosisID8-0">Chest Pain Or Discomfort</content>, <content ID="encounterDiagnosisID8-1">Diabetes Mellitus</content>, <content ID="encounterDiagnosisID8-2">Atrial Fibrillation</content>, <content ID="encounterDiagnosisID8-3">Hypertension (systemic)</content>, <content ID="encounterDiagnosisID8-4">Chest Pain</content>, <content ID="encounterDiagnosisID8-5">Essential Hypertension Benign</content>, <content ID="encounterDiagnosisID8-6">Chronic Obstructive Pulmonary Disease</content>, <content ID="encounterDiagnosisID8-7">Obesity Morbid</content>, <content ID="encounterDiagnosisID8-8">Headache Syndromes</content>, <content ID="encounterDiagnosisID8-9">Osteoarthritis Localized Primary Knee</content>, <content ID="encounterDiagnosisID8-10"> Disturbance of Gait</content>, <content ID="encounterDiagnosisID8-11">Adjustment Disorder Grief Reaction</content></td> Attender: PAYAL JENNINGS [facility] 11/24/2019 01:50:00 PM EDT - 11/24/2019 03:26:26 [...] AM EDT - 11/08/2019 11:59:00 PM EDT [place] ([facility]) Immunizations Vaccine Date Status Description Data Source(s) Influenza, high dose seasonal 05/22/2020 10:13:00 AM EDT complet ed Influenza, high-dose (over 65) 1 05/22/2020 Left Deltoid Complete (Adm inistered) [facility] ([facility]) Medications Medication Brand Name Start Date [...] 12:00:00 AM EST 1 active glipiZIDE XL [place] ([facility]) tramadol hydrochloride 50 MG Oral Tablet traMADol HCl 50 MG Oral Tablet traMADol HCl 50 MG Oral Tablet 06/02/2020 12:00:00 AM EDT 1 active tramadol hydrochloride 50 MG Oral Tablet [place] ([facility] tramadol hydrochloride 50 MG Oral Tablet traMADol [...] activ e gabapentin 100 MG Oral Capsule [facility] ([facility]) Prednisone 20 MG Oral Tablet predniSONE [...] PM EDT TABLET 5 MG ORAL active [facility] 20 mg 02/22/2020 12:00:00 AM EDT [...] EDT comp leted Accu-Chek FastClix Lancets [facility] ([facility]) Accu-Chek Jody Plus In Vitro Strip Accu-Chek Jody Plus In Vitro Strip 12/16/2019 12:00:00 AM EDT 1 active Accu-Chek Jody Plus [facility] ([facility]) Alcohol Pads 70% Alcohol Pads 70% 12/16/2019 12:00:00 AM EDT active Alcohol Pads [facility] ([facility]) carvedilol 6.25 MG Oral Tablet [...] EDT TA BLET 20 MG ORAL active [facility] Furosemide 20 MG Oral Tablet Furosemide 12/14/2019 02:16:32 PM EDT TA BLET 20 MG ORAL [facility] carvedilol 6.25 MG Oral Tablet Carvedilol Carvedilol 2019 02:14:34 PM EDT TABLET 6.25 MG ORAL [facility] carvedilol 6.25 MG Oral Tablet Carvedilol Carvedilol 2019 02:14:34 PM EDT TABLET 6.25 MG ORAL [facility] at[facility]vastatin 10 MG Oral Tablet Atorvastatin Atorvastatin 12/14/2019 02:14:29 PM EDT TABLET 10 MG ORAL active [facility] atorvastatin 10 MG Oral Tablet Atorvastatin Atorvastatin 12/14/2019 02:14:29 PM EDT TABLET 10 MG ORAL active [facility] apixaban 5 MG Oral Tablet Apixaban Apixaban 12/14/2019 02:14:15 PM EDT TABLET 5 MG [facility] MG Oral Tablet Apixaban (Eliquis) 5 mg tabl et Apixaban (Eliquis) 5 mg tablet 12/14/2019 02:14:15 PM EDT TABLET 5 MG ORAL completed [facility] 20 mg 11/24/2019 12:00:00 AM EDT [...] / spironolactone 25 MG Oral Tablet [facility] ([facility]) apixaban 5 MG Oral Tablet [Eliquis] Eliquis 5 MG Oral Tablet Eliquis 5 MG Oral Tablet 05/25/2019 12:00:00 AM EDT 1 aborted apixaban 5 MG Oral Tablet [Eliquis] [facility] ([facility]) carvedilol 6.25 MG Oral Tablet Carvedilol 6.25 MG Oral Tablet Carvedilol 6.25 MG Oral Tablet 05/25/2019 12:00:00 AM EDT 1 abort ed carvedilol 6.25 MG Oral Tablet [place] ([facility]) tramadol hydrochloride 50 MG Oral Tablet traMADol HCl 50 MG Oral Tablet traMADol HCl 50 MG Oral Tablet 05/25/2019 12:00:00 AM EDT 1 aborted tramadol hydrochloride 50 MG Oral Tablet [place] ([facility]) apixaban 5 MG Oral Tablet Apixaban (Eliquis) 5 mg tabl et Apixaban (Eliquis) 5 mg tablet 02/16/2019 05:54:19 AM EDT TABLET [facility] MG Oral Tablet Apixaban Apixaban 02/16/2019 05:54:19 AM EDT TABLET 5 MG ORAL [facility] 5 mg 02/16/2019 12:00:00 AM EDT tablet 180 TAKE ONE TABLET BY MOUTH TWICE A DAY TAKE ONE TABLET BY MOUTH TWICE A DAY SOLD: 11/19/2019 [facility] 5 mg 02/16/2019 12:00:00 AM EDT tablet 180 TAKE ONE TABLET BY MOUTH TWICE A DAY TAKE ONE TABLET BY MOUTH TWICE A DAY SOLD: 08/19/2019 [facility] 5 mg 01/21/2019 12:00:00 AM EDT tablet extended release 24hr 90 TAKE ONE TABLET BY MOUTH EVERY DAY TAKE ONE TABLET BY MOUTH EVERY DAY SOLD: 07/17/2019 [facility] carvedilol 6.25 MG Oral Tablet Carvedilol Carvedilol 2018 11:18:55 AM EDT TABLET 6.25 MG ORAL completed [facility] carvedilol 6.25 MG Oral Tablet Carvedilol Carvedilol 2018 11:18:55 AM EDT TABLET 6.25 MG ORAL completed [facility] carvedilol 6.25 MG Oral Tablet CARVEDILOL 12/29/2018 12:00:00 AM EDT tablet 180 TAKE ONE TABLET BY MOUTH TWICE A DAY, MUST ADMINISTER WITH A MEAL / FOOD TAKE ONE TABLET BY MOUTH TWICE A DAY, MUST ADMINISTER WITH A MEAL / FOOD SOLD: 09/30/2019 [facility] atorvastatin 10 MG Oral Tablet Atorvastatin Atorvastatin 12/10/2018 01:49:04 PM EDT TABLET 10 MG ORAL completed [facility] atorvastatin 10 MG Oral Tablet Atorvastatin Atorvastatin 12/10/2018 01:49:04 PM EDT TABLET 10 MG ORAL completed [facility] 10 mg 12/10/2018 12:00:00 AM EDT tablet 90 TAKE ONE TABLET BY MOUTH EVERY EVENING TAKE ONE TABLET BY MOUTH EVERY EVENING SOLD: 09/15/2019 [facility] Accu-Chek Jody Plus In Vitro Strip Accu-Chek Jody Plus In Vitro Strip 09/21/2018 12:00:00 AM EST 1 aborted Accu-Chek Jody Plus [facility] ([facility]) Accu-Chek FastClix Lancets Miscellaneous Accu-Chek Fas tClix Lancets Miscellaneous 09/21/2018 12:00:00 AM EST abor betty Accu-Chek FastClix Lancets [facility] ([facility]) Losartan Potassium 100 MG Oral Tablet Losartan Potassi um 100MG Oral Tablet Losartan Potassium 100MG Oral Tablet 09/21/2018 12:00:00 AM EST 1 aborted losartan potassium 100 MG Oral T ablet [facility] ([facility]) GlipiZIDE XL 5MG Oral Tablet Extended Release 24 Hour GlipiZIDE XL 5MG Oral Tablet Extended Release 24 Hour 09/21/2018 12:00:00 AM EST 1 aborted glipiZIDE XL [facility] ([facility]) Albuterol 0.83 MG/ML Inhalant Solution A [...] to valverde Policy [place] Plan Information ROLANDO [id number] SP [id number] MEDICARE [id number] SP [id number] [id number] SELF PAY MEDICAID [facility] [id number] SP [id number] MEDICARE [id number] SP [id number] [id number] SELF PAY MEDICAID [facility] [id number] SP [id number] MEDICARE [id number] SP [id number] F36 Medicaid [facility] Individual Policy 0 Self 0 Medicare Part [place] of [place] Other 0 Self 0 SELF PAY MEDICAID [facility] [id number] SP [id number] MEDICARE [id number] SP [id number] [id number] Medicaid [facility] Individual Policy 0 Self 0 Medicare Part [place] of [place] Other 0 Self 0 Medicaid [facility] Individual Policy 0 Self 0 Medicare Part [place] of [place] Other 0 Self 0 SELF PAY MEDICAID [facility] [id number] SP [id number] MEDICARE [id number] SP [id number] [id number] Medicaid [facility] Individual Policy 0 Self 0 Medicare Part [place] of [place] Other 0 Self 0 Medicaid [facility] Individual Policy 0 Self 0 Medicare Part [place] of [place] Other 0 Self 0 Medicaid [facility] Individual Policy 0 Self 0 Medicare Part [place] of [place] Other 0 Self 0 SELF PAY MEDICAID [facility] [id number] SP [id number] MEDICARE [id number] SP [id number] [id number] SELF PAY MEDICAID [facility] [id number] SP [id number] MEDICARE [id number] SP [id number] [id number] SELF PAY MEDICAID [facility] [id number] SP [id number] MEDICARE [id number] SP [id number] [id number] Medicaid of [place] Individual Policy 0 Self 0 Medicare Part [place] of [place] Other 0 Self 0 SELF PAY MEDICAID [facility] [id number] SP [id number] MEDICARE [id number] SP [id number] [id number] [place] Individual Policy 0 Self 0 Medicare Part [place] of [place] Other 0 Self 0 SELF PAY MEDICAID [facility] [id number] SP [id number] MEDICARE [id number] SP [id number] [id number] [place] Individual Policy 0 Self 0 Medicare Part [place] of [place] Other 0 Self 0 [place] Individual Policy 0 Self 0 Medicare [place] of [place] Other 0 Self 0 [place] Individual Policy 0 Self 0 Medicare [place] Other 0 Self 0 MEDICAID [id number] SP [id number] SELF PAY MEDICAID [facility] [id number] SP [id number] MEDICARE [id number] SP [id number] [id number] [place] Individual Policy 0 Self 0 Medicare Part [place] of [place] Other 0 Self 0 SELF PAY MEDICAID [facility] [id number] SP [id number] MEDICARE [id number] SP [id number] [id number] [place] Individual Policy 0 Self 0 Medicare Part [place] of [place] Other 0 Self 0 SELF PAY MEDICAID [facility] [id number] SP [id number] MEDICARE [id number] SP [id number] [id number] Medicaid [facility] Individual Policy 0 Self 0 Medicare Part [place] of [place] Other 0 Self 0 SELF PAY MEDICAID [facility] [id number] SP [id number] MEDICARE [id number] SP [id number] A MEDICARE [id number] Wendy [id number] [id number] MEDICAID [id number] Wendy [id number] [place] of [place] Individual Policy 0 Self 0 Medicare Part [place] of [place] Other 0 Self 0 Medicare [id number] Medicare [id number] [id number] Medicaid - [email or web address] Yolanda [id number] Medica id [id number] SELF PAY MEDICAID [facility] [id number] SP AJ [id number] MEDICARE [id number] SP [id number] A MEDICARE [id number] SP [id number] A Medicaid of [place] Individual Policy 0 Self 0 Medicare Part [place] of [place] Other 0 Self 0 [place] Individual Policy 0 Self 0 Medicare Part [place] of [place] Other 0 Self 0 SELF PAY MEDICAID [facility] [id number] SP [id number] MEDICARE [id number] SP [id number] A SELF PAY MEDICAID [facility] [id number] SP [id number] MEDICARE [id number] SP [id number] Medicaid of [place] Individual Policy 0 Self 0 Medicare Part [place] of [place] Other 0 Self 0 [place] Individual Policy 0 Self 0 Medicare Part [place] Other 0 Self 0 [place] Individual Policy 0 Self 0 Medicare Part [place] Other 0 Self 0 MEDICAID [id number] MEDICARE C [id number] S [id number] A [place] Individual Policy 0 Self 0 Medicare Part [place] Individual Policy 0 Wendy f 0 MEDICAID [facility] [id number] SP [id number] MEDICARE [id number] SP [id number] A Medicaid of [place] Individual Policy 0 Self 0 Medicare Part [place] of [place] Individual Policy 0 Wendy f 0 [place] Individual Policy 0 Self 0 Medicare Part [place] of [place] Individual Policy 0 Wendy f 0 MEDICAID [facility] [id number] SP [id number] Medicaid of [place] Individual Policy 0 Self 0 Medicare Part A of [place] Individual Policy 0 Wendy f 0 MEDICAID [facility] [id number] SP AJ [id number] MEDICARE [id number] SP [id number] [place] of [place] Individual Policy 0 Self 0 Medicare Part [place] of [place] Individual Policy 0 Wendy f 0 [place] Individual Policy 0 Self 0 Medicare [place] Individual Policy 0 Wendy f 0 [place] Individual Policy 0 Self 0 Medicare [place] Individual Policy 0 Wendy f 0 MEDICAID PI PI MEDICARE PI PI MEDICARE [id number] Wendy [id number] A Medicaid of [place] Individual Policy 0 Self 0 Medicare [place] Individual Policy 0 Wendy f 0 [place] Individual Policy 0 Self 0 Medicare [place] Individual Policy 0 Wendy f 0 [place] Individual Policy 0 Self 0 Medicare [place] Individual Policy 0 Wendy f 0 [place] Individual Policy 0 Self 0 Medicare [place] Individual Policy 0 Wendy f 0 Medicaid [place] Individual Policy 0 Self 0 Medicare Part [place] Individual Policy 0 Wendy f 0 [place] Individual Policy 0 Self 0 Medicare Part [place] Individual Policy 0 Wendy f 0 Medicaid [place] Individual Policy 0 Self 0 Medicare Part [place] Individual Policy 0 Wendy f 0 Medicaid [place] Individual Policy 0 Self 0 Medicare Part [place] Individual Policy 0 Wendy f 0 Medicaid [place] Individual Policy 0 Self 0 Medicare Part [place] Individual Policy 0 Wendy f 0 [place] Individual Policy 0 Self 0 Medicare Part [place] Individual Policy 0 Wendy f 0 [place] Individual Policy 0 Self 0 Medicare Part [place] Individual Policy 0 Wendy f 0 MEDICAID [facility] [id number] SP AJ [id number] MEDICAID [facility] [id number] SP AJ [id number] MEDICAID [facility] [id number] SP AJ [id number] MEDICAID [facility] [id number] SP AJ [id number] MEDICAID [facility] [id number] SP AJ [id number] MEDICAID [facility] [id number] SP AJ [id number] SELF PAY 2 UNAVAILABLE 1 UNAVAILA BLE MEDICAID [facility] 3 [id number] 1 [id number] MEDICAID [facility] [id number] SP AJ [id number] MEDICAID [facility] [id number] SP [id number] Problems, Conditions, and Diagnoses Code Display Name Description Problem Type Effective Dates Data Source(s) 786.50 Chest Pain Chest Pain Finding 03/15/2020 12:00:00 AM ED T [facility] 848.3 Sprain Thoracic Sprain Thoracic Problem 03/15/2020 12:0 0:00 AM EDT [facility] 786.50 Chest Pain Chest Pain Finding 03/15/2020 12:00:00 AM ED T [facility] 848.3 Sprain Thoracic Sprain Thoracic Problem 03/15/2020 12:0 0:00 AM EDT [facility] 786.50 Chest Pain Chest Pain Finding 03/15/2020 12:00:00 AM ED T [facility] 848.3 Sprain Thoracic Sprain Thoracic Problem 03/15/2020 12:0 0:00 AM EDT [facility] 786.50 Chest Pain Chest Pain Finding 03/15/2020 12:00:00 AM ED T [facility] 848.3 Sprain Thoracic Sprain Thoracic Problem 03/15/2020 12:0 0:00 AM EDT [facility] ([facility]) 786.50 Chest Pain Chest Pain Finding 03/15/2020 12:00:00 AM ED T [place] ([facility]) 848.3 Sprain Thoracic Sprain Thoracic Problem 03/15/2020 12:0 0:00 AM EDT [place] ([facility]) 786.50 Chest Pain Chest Pain Finding 03/15/2020 12:00:00 AM ED T [place] ([facility]) 848.3 Sprain Thoracic Sprain Thoracic Problem 03/15/2020 12:0 0:00 AM EDT [place] ([facility]) 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 I50.41 - Acute combined systolic (conges tive) and diastolic (congestive) heart failure Diagnosis 07/25/2020 09:06:00 AM EST [facility] I51.89 Other ill-defined heart diseases I51.89 - [...] hyperlipidemia Diag nosis 04/12/2020 08:09:00 AM EDT [facility] R73.01 Impaired fasting glucose R73.01 - Impaired fasting glu cose Diagnosis 04/12/2020 08:09:00 AM EDT [facility] I51.9 Heart disease, unspecified I51.9 - Heart disease, unsp ecified Diagnosis 04/12/2020 08:09:00 AM EDT [email or web address] 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 E66.2 - Morbid (severe) obesity with alveolar hypoventilation Diagnosis 020 08:09:00 AM EDT [facility] R07.9 Chest pain, unspecified R07.9 - Chest pain, unspecifie d Diagnosis 03/15/2020 02:42:00 PM EDT [facility] R60.9 Edema, unspecified R60.9 - Edema, unspecified Diagnosi s 12/15/2019 02:03:00 PM EDT [facility] R60.9 Edema, unspecified R60.9 - Edema, unspecified Diagnosi s 12/14/2019 01:39:00 PM EDT [facility], R06.02 Shortness of breath R06.02 - Shortness of breath Diagn osis 11/24/2019 03:30:00 PM EDT [facility] I48.91 Unspecified atrial fibrillation I48.91 - Unspeci fied atrial fibrillation Diagnosis 11/24/2019 03:30:00 PM EDT [facility] I10 Essential (primary) hypertension I10 - Essential (primary) hypertension Diagnosis 11/24/2019 03:30:00 PM EDT [facility] E08.00 Diabetes mellitus due to und erlying condition with hyperosmolarity without nonketotic hyperglycemic-hyperosmolar coma ([facility]) E08.00 - Diabetes mellitus due to underlying condition with hyperosmolarity without nonketotic hyperglycemic-hyperosmolar coma ([facility]) Diagnosis 11/24/2019 03:30:00 PM EDT [facility] Surgeries/Procedures Procedure Description Date Indications Data Source(s) Medicare Influenza virus vaccine, split virus, High Do se Medicare Influenza virus vaccine, split virus, High Dose 05/22/2020 12:00:00 AM [facility] visit, established patient; a medically-necessary, fdsb-zq-mtnn encounter (one-on-one) between an established patient and a [facility] practitioner during which time one or more [facility] services are rendered and includes a typical bundle of medicare-covered services that would be furnished power generation turbine room operator to a patient receiving a fq visit FQ Visit, established patient 05/22/2020 12:00:00 AM [facility] [address]169 Influenza virus vaccine, split virus, High Dose 93774 Influenza virus vaccine, split virus, High Dose 05/22/2020 12:00:00 AM [facility] visit, established patient; a medically-necessary, rltj-ii-irzs encounter (one-on-one) between an established patient and a fq practitioner during which time one or more fq services are rendered and includes a typical bundle of medicare-covered services that would be furnished power generation turbine room operator to a patient receiving a fqhc visit FQHC Visit, established patient 04/18/2020 12:00:00 AM [facility] ([facility]) Annual wellness visit, includes a person alized prevention plan of service (pps), subsequent visit AHR -Subsequent Annual Wellness Visit 04/04/2020 12:00 :00 AM [facility] ([facility]) [facility] visit, ippe or awv; a fq visit that includes an initial preventive physical examination (ippe) or annual wellness visit (awv) and includes a typical bundle of medicare-covered services that would be furnished power generation turbine room operator to a patient receiving an ippe or awv FQ Visit, IPPE or AWV 04/04/2020 12:00:00 AM [facility] Hemoglobin; Glycated A1c Hemoglobin; Glycated A1c 04/04/2020 12:00: 00 AM [facility] ([facility]) [facility] visit, established patient; a medically-necessary, fvbz-qp-cieg encounter (one-on-one) between an established patient and a [facility] practitioner during which time one or more fq services are rendered and includes a typical bundle of medicare-covered services that would be furnished power generation turbine room operator to a patient receiving a fqhc visit [facility]QHC Visit, established patient 03/23/2020 12:00:00 AM [facility] ([place]) Noninvasive Ear or Pulse Oximetry for Oxygen Saturatio n; Mul Noninvasive Ear or Pulse Oximetry for Oxygen Saturation; Mul 03/15/2020 12:00:00 AM [facility] Ekg With Interpretation and Report Ekg With Interpretation a nd Report 03/15/2020 12:00:00 AM [facility] visit, established patient; a medically-necessary, vtvn-qn-gcjx encounter (one-on-one) between an established [facility] and a [facility] during which time one or more [facility] services are rendered and includes a typical bundle of medicare-covered services that would be furnished power generation turbine room operator to a patient receiving a fq visit FQHC Visit, established patient 03/15/2020 12:00:00 AM EDT [facility] ([facility]) Ekg With Interpretation and Report Ekg With Interpretation a nd Report 03/15/2020 12:00:00 AM EDT [facility] ([facility]) Noninvasive Ear or Pulse Oximetry for Oxygen Saturatio n; Mul Noninvasive Ear or Pulse Oximetry for Oxygen Saturation; Mul 03/15/2020 12:00:00 AM EDT [facility] ([facility]) Ekg With Interpretation and Report Ekg With Interpretation a nd Report 03/15/2020 12:00:00 AM EDT [facility] ([facility]) Hemoglobin; Glycated A1c Hemoglobin; Glycated A1c 11/24/2019 12:00: 00 AM EDT [facility] ([facility]) [facility] (fq) visit, established patient; a medically-necessary, vxdc-vi-ayoz encounter (one-on-one) between an established patient and a fq practitioner during which time one or more [facility] are rendered and includes a typical bundle of medicare-covered services that would be furnished power generation turbine room operator to a patient receiving a fq visit FQ Visit, established patient (Signi/Sep Eval. & Man.) 11/24/2019 12:00:00 AM EDT [facility] ([facility]) Ekg With Interpretation and Report Ekg With Interpretation a nd Report 11/24/2019 12:00:00 AM EDT [facility] ([facility]) Electrocardiogram, Routine Ecg With At Least 12 Leads; Inter Electrocardiogram, Routine Ecg With At Least 12 Leads; Inter 11/24/2019 12:00:00 AM EDT [facility] Results ID Date Data Source [id number] 09/08/2020 12:00:00 AM EST [facility] Name Value Range Interpretation Code Description Data Ailyn rce(s) Supporting Document(s) 2019 Novel Coronavirus RNA Negative [facility] This lab was ordered by [facility] are and reported by [facility]. ID Date Data Source [id number] 08/07/2020 05:48:00 PM EST [facility] Name Value Range Interpretation Code Description Data Ailyn rce(s) Supporting Document(s) WHITE BLOOD COUNT 6.17 10^3/uL 4.00-10.50 N [facility] RED BLOOD COUNT 4.81 10^6/uL 4.30-5.80 [facility] HEMOGLOBIN 13.7 G/DL 13.0-17.5 N [facility] HEMATOCRIT 44.7 % 41.0-53.0 N [facility] MCV 92.9 FL 80.0-100.0 [facility] MCH 28.5 PG 27.0-34.0 N [facility] MCHC 30.6 G/DL 32-36 L [facility] RDW 14.2 % 11.5-14.5 N [facility] PLATELET COUNT 245 10^3/uL 130-400 N [facility] MPV 9.7 FL 8.7-13.2 N [facility] GRAN % (AUTO) 72.2 % 42.0-75.0 N [facility] LYMPH % (AUTO) 13.8 % 20.0-51.0 L [facility] MONO % (AUTO) 11.5 % 2.0-15.0 N [facility] EOS % (AUTO) 1.6 % 0.0-11.0 N [facility] BASO % (AUTO) 0.6 % 0.0-2.0 N [facility] IG % (AUTO) 0.3 % 1.00-5.00 [facility] IG # (AUTO) 0.0 10^3/uL <0.5 [facility] GRAN # (AUTO) 4.45 10^3/uL 1.50-6.50 N [facility] LYMPH # (AUTO) 0.9 k/uL 1.0-5.0 L [facility] MONO # (AUTO) 0.71 k/uL 0.20-1.50 N [facility] EOS # (AUTO) 0.10 10^3/uL 0.00-1.10 N [facility] BASO # (AUTO) 0.04 10^3/uL 0.00-0.20 N [facility] ID Date Data Source [id number] 08/10/2020 10:55:00 AM EST [facility] Name Value Range Interpretation Code Description Data Ailyn rce(s) Supporting Document(s) Total Protein,S 5.8 g/dL 6.0-8.5 A [facility] Albumin,S 3.3 g/dL 2.9-4.4 [facility] Riowm-6-Sibodtdu,S 0.2 g/dL 0.0-0.4 [facility] Rsdnw-4-Uqluarue,S 0.9 g/dL 0.4-1.0 [facility] th Beta Globulin,S 0.8 g/dL 0.7-1.3 [facility] Gamma Globulin,S 0.6 g/dL 0.4-1.8 [facility] M-Bereket,S Not Observed g/dL Not Observed [facility] Globulin Total,S 2.5 g/dL 2.2-3.9 [facility] A/G Ratio,S 1.3 0.7-1.7 [facility] Please Note,S [facility] Protein electrophoresis scan will follo w via computer, mail, or weight loss centre manager delivery. P E Intperpretation,S [facility] The SPE pattern appears unremarkable. E vidence of monoclonal protein is not apparent. Performed at: RN - [facility] [address] [id number] Boat Pilot: iLsa Gong MD, Phone: [phone] ID Date Data Source [id number] 08/09/2020 08:14:00 PM EST [employer] ADD ON [employer] Name Value Range Interpretation Code Description Data Ailyn rce(s) Supporting Document(s) BNP 54 PG/ML 0-100 N [email or web address] BNP acts as a Vasodilator and has [...] diagnosis of CHF. ID Date Data Source [id number] 08/10/2020 11:08:00 AM EST [employer] ADD ON [employer] Name Value Range Interpretation Code Description Data Ailyn rce(s) Supporting Document(s) Lab Rejection Unable to Add On [facility]CHRAN ADD ON DDIMER-KF We are unable to add on the additional testing, please submit new sample. ID Date Data Source [id number] 07/25/2020 01:52:00 PM EST [facility] Name Value Range Interpretation Code Description Data Ailyn rce(s) Supporting Document(s) WHITE BLOOD COUNT 6.00 10^3/uL 4.00-10.50 N [facility] RED BLOOD COUNT 4.67 10^6/uL 4.30-5.80 [facility] HEMOGLOBIN 13.7 G/DL 13.0-17.5 N [facility] HEMATOCRIT 43.2 % 41.0-53.0 N [facility] MCV 92.5 FL 80.0-100.0 N [facility] MCH 29.3 PG 27.0-34.0 N [facility] MCHC 31.7 G/DL 32-36 L [facility] RDW 14.2 % 11.5-14.5 N [facility] PLATELET COUNT 236 10^3/uL 130-400 N [facility] MPV 9.8 FL 8.7-13.2 N [facility] GRAN % (AUTO) 75.0 % 42.0-75.0 N [facility] LYMPH % (AUTO) 11.3 % 20.0-51.0 L [facility] MONO % (AUTO) 10.2 % 2.0-15.0 N [facility] EOS % (AUTO) 2.5 % 0.0-11.0 N [facility] BASO % (AUTO) 0.7 % 0.0-2.0 N [facility] IG % (AUTO) 0.3 % 1.00-5.00 [facility] IG # (AUTO) 0.0 10^3/uL <0.5 [facility] GRAN # (AUTO) 4.50 10^3/uL 1.50-6.50 N [facility] LYMPH # (AUTO) 0.7 k/uL 1.0-5.0 L [facility] MONO # (AUTO) 0.61 k/uL 0.20-1.50 N [facility] EOS # (AUTO) 0.15 10^3/uL 0.00-1.10 N [facility] BASO # (AUTO) 0.04 10^3/uL 0.00-0.20 [facility] ID Date Data Source [id number] 07/25/2020 01:59:00 PM EST [facility] Name Value Range Interpretation Code Description Data Ailyn rce(s) Supporting Document(s) SODIUM 139 MEQ/L 135-145 [facility] POTASSIUM 4.7 MEQ/L 3.5-5.3 [facility] CHLORIDE 104 MEQ/L 94-110 [facility] CARBON DIOXIDE 30 MEQ/L 22-33 [facility] ANION GAP 10 5-16 N [facility] BLOOD UREA NITRO 27 MG/DL 7-25 [facility] CREATININE 1.2 MG/DL 0.6-1.4 N [facility] GFR 58.0 ML/MIN [facility] Stage G3a - Mildly to moderately decrea [...] years only. BUN/CREAT RATIO 22 8-36 N [facility] GLUCOSE 109 MG/DL 70-100 H [facility] CA 8.8 MG/DL 8.7-10.5 N [facility] BILIRUBIN,TOTAL 0.6 MG/DL 0.1-1.3 N [facility] AST 16 U/L 5-40 N [facility] ALT 24 U/L 5-48 N [facility] ALKALINE PHOSPHATASE 62 U/L 40-140 N [facility] alth TOTAL PROTEIN 5.4 G/DL 5.9-8.3 L [facility] ALBUMIN 4.0 G/DL 3.0-5.1 N [facility] GLOBULIN 1.4 G/DL 1.5-3.5 L [facility] ALB/GLOB RATIO 2.9 G/DL 1.0-3.0 N [facility] ID Date Data Source [id number] 07/27/2020 02:24:00 PM EST [facility] Name Value Range Interpretation Code Description Data Ailyn rce(s) Supporting Document(s) PROBNP 267 pg/mL 0-486 [facility] The following cut-points have been suganderson culp for the use of proBNP for the diagnostic evaluation of heart failure (HF) in patients with acute dyspnea: Modality Age Optimal Cut (years) Point Diagnosis (rule in HF) <50 450 pg/mL 50 - 75 900 pg/mL >75 1800 pg/mL Exclusion (rule out HF) Age independent 300 pg/mL Performed at: - [address] [id number] Boat Pilot: Dexter Stanton MD, Phone: [phone] ID Date Data Source [id number] 07/25/2020 01:59:00 PM EST [facility] Name Value Range Interpretation Code Description Data Ailyn rce(s) Supporting Document(s) GLYCOSYLATED HGBA1C 5.8 % 4.1-6.5 N [facility] ID Date Data Source [id number] 07/25/2020 01:59:00 PM [facility] Name Value Range Interpretation Code Description Data Ailyn rce(s) Supporting Document(s) TRIGLYCERIDES 81 MG/DL 45-150 N [facility] CHOLESTEROL 132 MG/DL 125-200 N [facility] LDL CHOLESTEROL 69 MG/DL 50-130 N [facility] HDL CHOLESTEROL 47 MG/DL 39-96 N [facility] CHOL/HDL RATIO 2.8 0-4.9 N [facility] ID Date Data Source [id number] 07/25/2020 01:59:00 PM EST [facility] Name Value Range Interpretation Code Description Data Ailyn rce(s) Supporting Document(s) Vitamin D,25-HYDROXY 37.5 ng/ml 30-100 N [facility] D Status Range De ficiency <20 ng/ml Insufficiency 20-29.9 ng/ml Sufficiency 30-100 ng/ml Toxicity >100 ng/ml Patients should not be tested for 72 hours post fluorescein dye angiography. A false elevation of result may occur. ID Date Data Source [id number] 07/25/2020 01:59:00 PM EST [facility] Name Value Range Interpretation Code Description Data Ailyn rce(s) Supporting Document(s) TSH 1.231 uIU/ML 0.470-4.200 N [facility] Patients should not be tested for 72 ho urs post fluorescein dye angiography. A false depression of result may occur. ID Date Data Source [id number] 06/15/2020 01:15:00 PM EDT [facility] Card[facility] [address], [address] [place] [address] Cardiology Note : [id number] Signed Patient: Kristel Herbert Acct:[id number] Visit Date: 06/15/20 : 1935 Cardiology HPI [...] Pt denies any recent travel outside of [facility] within the last 14 days. 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 Quality [facility] Tobacco Use how long ago did patient quit smokin Coding Level of Care Code 46437 Estab Pt Level 4 History Expanded Problem Focused Exam Detailed Diagnoses Persistent atrial fibrillation I48.19 Hypertension I10 Mixed hyperlipidemia E78.2 Diastolic dysfunction I51.89 Signed By:[place] <<Signature on File>> Signed Date/Time: 06/15/201434 Co-Signer: Anselmo Walsh MD Co-Signed Date/Time: 06/16/20 0534 Initializing User: Lake JENNINGS 06/15/205 14 14 Name Value Range Interpretation Code Description Data Ailyn rce(s) Supporting Document(s) ID Date Data Source [id number] 04/12/2020 01:57:00 PM EDT [facility] ([facility]) Name Value Range Interpretation Code Description Data Ailyn rce(s) Supporting Document(s) Reported Physicians See Note Reported Physicians [facility] ([facility]) Note: Reported Physicians:Ordering: Payal BainsAttending: Payal Gibson ID Date Data Source [id number] 04/12/2020 01:57:00 PM EDT [facility] ([facility]) [...] Age independent 300 pg/mL Performed at: - [address] [id number] Boat Pilot: Dexter Stanton MD, Phone: [phone] Observer: PROBNP PROBNP [id number] [phone] (A) ID Date Data Source [id number] 04/18/2020 04:07:00 PM EDT [facility] ADD TO 04/12 Name Value Range Interpretation Code Description Data Ailyn rce(s) Supporting Document(s) PROBNP 622 pg/mL 0-486 [facility] The following cut-points have been sugg ested for the use of proBNP for the diagnostic evaluation of heart failure (HF) in patients with acute dyspnea: Modality Age Optimal Cut (years) Point Diagnosis (rule in HF) <50 450 pg/mL 50 - 75 900 pg/mL >75 1800 pg/mL Exclusion (rule out HF) Age independent 300 pg/mL Performed at: [facility] [address] [id number] Boat Pilot: Dexter Stanton MD, Phone: [phone] ID Date Data Source [id number] 04/12/2020 09:11:00 AM EDT [facility] [place] ([place] Name Value Range Interpretation Code Description Data Ailyn rce(s) Supporting Document(s) Reported Physicians See Note Reported Physicians [facility] ([facility]) Note: Reported Physicians:Ordering: Constance Bains: Payal Gibson ID Date Data Source [id number] 04/12/2020 09:11:00 AM EDT [facility] [place] [facility] Name Value Range Interpretation Code Description Data Ailyn rce(s) Supporting Document(s) Lab Rejection Unable to Add On Lab Rejection [facility] ([facility]) Note: CANT ADD ON DDIMER, TUBE NOT IN L AB-KF We are unable to add on the additional testing, please submit new sample.Responsible Observer: Lab Rejection Lab Rejection 999.0100 (A) ID Date Data Source [id number] 04/17/2020 09:12:00 AM EDT [facility] CANT ADD ON DDIMER, TUBE NOT IN LAB-KF Name Value Range Interpretation Code Description Data Ailyn rce(s) Supporting Document(s) Lab Rejection Unable to Add On [facility] CANT ADD ON DDIMER, TUBE NOT IN LAB-KF We are unable to add on the additional testing, please submit new sample. ID Date Data Source [id number] 04/12/2020 08:16:00 AM EDT [facility] [place] [facility] Name Value Range Interpretation Code Description Data Ailyn rce(s) Supporting Document(s) Reported Physicians See Note Reported Physicians [facility] ([facility]) Note: Reported Physicians:Ordering: Payal BainsAttending: Payal Gibson ID Date Data Source [id number] 04/12/2020 08:16:00 AM EDT [facility] ([facility]) Name Value Range Interpretation Code Description Data Ailyn rce(s) Supporting Document(s) Thyrotropin [Units/volume] in Serum or Plasma by Detec tion limit <= 0.05 mIU/L 1.776 uIU/ML Normal TSH [facility] ([facility]) Note: Patients should not be tested for 72 hours post fluorescein dye angiography. A false depression of result may occur.Responsible Observer: TSH TSH 300.5500 (A) ID Date Data Source [id number] 04/12/2020 08:16:00 AM EDT [facility] ([facility]) Name Value Range Interpretation Code Description Data Ailyn rce(s) Supporting Document(s) Deprecated Cholesterol.in LDL/Cholestero l.in HDL [Mass ratio] in Serum or Plasma 2.8 Normal CHOL/HDL RATIO [place] ([facility] ) Note: Responsible Observer: CHOL/HDL RAT IO CHOL/HDL RATIO 300.4700 (A) Cholesterol in HDL [Mass/volume] in Serum or Plasma ultracen trifugate 52 MG/DL Normal HDL CHOLESTEROL [facility] ([facility]) Note: Responsible Observer: HDL HDL CHOL ESTEROL 300.4600 (A) Cholesterol crystals [Presence] in Stone by Infrared spectroscop y 145 MG/DL Normal CHOLESTEROL [place] ([facility]) Note: Responsible Observer: CHOL CHOLEST AGGIE 300.4350 (A) Triglyceride [Mass/volume] in Serum or Plasma 110 MG/DL N ormal TRIGLYCERIDES [place] ([facility]) Note: Responsible Observer: TRIG TRIGLYC ERIDES 300.4300 (A) Cholesterol in LDL [Mass/volume] in Serum or Plasma by Direct as say 71 MG/DL Normal LDL CHOLESTEROL [place] ([facility]) Note: Responsible Observer: LDL LDL CHOL ESTEROL 300.4400 (A) ID Date Data Source [id number] 04/12/2020 08:16:00 AM EDT [place] ([facility]) Name Value Range Interpretation Code Description Data Ailyn rce(s) Supporting Document(s) Hemoglobin A1c/Hemoglobin.total in Blood 5.9 % Normal GLYCOSYLATED HGBA1C [place] ([facility]) Note: Responsible Observer: HGB A1C GLYC OSYLATED HGBA1C 300.0800 (A) ID Date Data Source [id number] 04/12/2020 08:16:00 AM EDT [place] ([facility]) Name Value Range Interpretation Code Description Data Ailyn rce(s) Supporting Document(s) Albumin/Globulin [Mass Ratio] in Amniotic fluid 2.6 G/DL Normal ALB/GLOB RATIO [place] ([facility]) Note: Responsible Observer: A/G RATIO AL B/GLOB RATIO 300.4100 (A) Alkaline phosphatase isoenzyme [Units/volume] in Serum or Plasma 51 U/L Normal ALKALINE PHOSPHATASE [place] ([facility]) Note: Responsible Observer: ALK PHOS ALK SAMANTA PHOSPHATASE 300.3110 (A) Albumin [Mass/volume] in Synovial fluid 3.9 G/DL Normal ALBUMIN [place] ([facility]) Note: Responsible Observer: ALB ALBUMIN 300.3900 (A) Alanine aminotransferase [Enzymatic activity/volume] in Seru m or Plasma 21 U/L Normal ALT [place] ([facility]) Note: Responsible Observer: ALT/SGPT ALT 300.3100 (A) Aspartate aminotransferase [Enzymatic activity/volume] in Se rum or Plasma 9 U/L Normal AST [place] ([facility]) Note: Responsible Observer: AST/SGOT AST 300.3050 (A) Urea nitrogen/Creatinine [Mass Ratio] in Serum or Plasma 27 Normal BUN/CREAT RATIO [place] ([facility]) Note: Responsible Observer: BUN/CREAT RA MARQUIS BUN/CREAT RATIO 300.0450 (A) Bilirubin.total [Mass/volume] in Serum or Plasma 0.7 MG/DL Normal BILIRUBIN,TOTAL [place] ([facility]) Note: Responsible Observer: TOTAL BILI T OTAL BILIRUBIN 300.2700 (A) BLOOD UREA NITRO 33 MG/DL Above high normal BLOOD UREA N ITRO [place] ([facility]) Note: Responsible Observer: BUN BLOOD UR EA NITROGEN 300.0350 (A) Chloride [Moles/volume] in Serum, Plasma or Blood 102 MEQ/L Normal CHLORIDE [place] ([facility]) Note: Responsible Observer: CL CHLORIDE 300.0200 (A) CA 9.0 MG/DL Normal CA [place] ([facility]) Note: Responsible Observer: CA CALCIUM 300.2200 (A) Creatine/Creatinine [Mass Ratio] in Urine 1.2 MG/DL Ruba l CREATININE [place] ([facility]) Note: Responsible Observer: CREAT CREATI NINE 300.0400 (A) Carbon dioxide, total [Moles/volume] in Serum or Plasma 28 MEQ/L Normal CARBON DIOXIDE [place] ([facility]) Note: Responsible Observer: CO2 CARBON D IOXIDE 300.0250 (A) GFR 58.0 ML/MIN GFR [place] ([facility]) Note: Stage G3a - Mildly to [...] Blood 14 Normal ANION GAP [place] ([facility] [place]) Note: Responsible Observer: ANION GAP AN ION GAP 300.0300 (A) Globulin [Mass/volume] in Serum by calculation 1.5 G/DL Normal GLOBULIN [place] ([facility]) Note: Responsible Observer: GLOB GLOBULI N 300.4050 (A) Glucose [Presence] in Urine 92 MG/DL Normal GLUCOSE [facility] ([facility]) Note: Responsible Observer: GLU GLUCOSE 300.0500 (A) Potassium [Mass/volume] in Blood 4.4 MEQ/L Normal POT ASSIUM [place] ([facility]) Note: Responsible Observer: K POTASSIUM 300.0150 (A) Sodium [Moles/volume] in Serum, Plasma or Blood 140 MEQ/L Normal SODIUM [place] ([facility]) Note: Responsible Observer: NA SODIUM 3 00.0100 (A) Protein [Mass/volume] in Synovial fluid 5.4 G/DL B elow low normal TOTAL PROTEIN [place] ([facility]) Note: Responsible Observer: TP TOTAL PRO TEIN 300.3750 (A) ID Date Data Source [id number] 04/12/2020 08:16:00 AM EDT [place] ([facility]) Name Value Range Interpretation Code Description Data Ailyn rce(s) Supporting Document(s) BASO # (AUTO) 0.04 10\\^3/uL Normal BASO # (AUTO) [place] ([facility]) Note: Responsible Observer: BASO # (AUTO ) BASO # (AUTO) 100.1500 (A) BASO % (AUTO) 0.5 % Normal BASO % (AUTO) [place] ([facility]) Note: Responsible Observer: BASO % (AUTO ) BASO % (AUTO) 100.1250 (A) EOS # (AUTO) 0.13 10\\^3/uL Normal EOS # (AUTO) [place] ( [facility]) Note: Responsible Observer: EOS # (AUTO) EOS # (AUTO) 100.1450 (A) EOS % (AUTO) 1.7 % Normal EOS % (AUTO) [place] ([facility]) Note: Responsible Observer: EOS % (AUTO) EOS % (AUTO) 100.1200 (A) GRAN # (AUTO) 5.23 10\\^3/uL Normal GRAN # (AUTO) [place] ([facility]) Note: Responsible Observer: GRAN # (AUTO ) GRAN #(AUTO) 100.1325 (A) GRAN % (AUTO) 70.0 % Normal GRAN % (AUTO) [place] ([facility]) Note: Responsible Observer: GRAN % (AUTO ) GRAN % (AUTO) 100.1000 (A) Hematocrit [Volume Fraction] of Blood by Automated count 45.8 % Normal HEMATOCRIT [place] ([facility]) Note: Responsible Observer: HCT HEMATOCR IT 100.0400 (A) Hemoglobin [Mass/volume] in Blood 14.5 G/DL Normal HE MOGLOBIN [place] ([facility]) Note: Responsible Observer: HGB HEMOGLOB IN 100.0300 (A) IG # (AUTO) 0.1 10\\^3/uL IG # (AUTO) [place] ([facility]) Note: Responsible Observer: IG # (AUTO) IG # (AUTO) 100.1260 (A) IG % (AUTO) 0.7 % IG % (AUTO) [place] ([facility]) Note: Responsible Observer: IG % (AUTO) IG % (AUTO) 100.1255 (A) LYMPH # (AUTO) 1.2 k/uL Normal LYMPH # (AUTO) [place] ( [facility]) Note: Responsible Observer: LYMPH # (AUT O) LYMPH # (AUTO) 100.1350 (A) Erythrocyte mean corpuscular hemoglobin [Entitic mass] by Automated count 29.2 PG Normal MCH [place] ([facility]) Note: Responsible Observer: MCH MCH 100 .0600 (A) LYMPH % (AUTO) 16.5 % Below low normal LYMPH % (AUTO) [place] ([facility]) Note: Responsible Observer: LYMPH % (AUT O) LYMPH % (AUTO) 100.1100 (A) Erythrocyte mean corpuscular hemoglobin concentration [Mass/volume] by Automated count 31.7 G/DL Below low normal MCHC [facility] [facility] Note: Responsible Observer: MCHC MCHC 1 00.0650 (A) Erythrocyte mean corpuscular volume [Entitic volume] by Auto mated count 92.2 FL Normal MCV [place] ([facility]) Note: Responsible Observer: MCV MCV 100 .0550 (A) MONO % (AUTO) 10.6 % Normal MONO % (AUTO) [place] ([facility]) Note: Responsible Observer: MONO % (AUTO ) MONO% (AUTO) 100.1150 (A) MONO # (AUTO) 0.79 k/uL Normal MONO # (AUTO) [place] ([facility]) Note: Responsible Observer: MONO # (AUTO ) MONO # (AUTO) 100.1400 (A) MPV 9.7 FL Normal MPV [facility] Note: Responsible Observer: MPV MPV 100 .0950 (A) Platelets [#/volume] in Plasma by Automated count 243 10\\^3/uL Normal PLATELET COUNT [place] ([facility]) Note: Responsible Observer: PLT PLATELET COUNT 100.0850 (A) Erythrocytes [#/volume] in Blood by Automated count 4.97 10\\^6/uL Normal RED BLOOD COUNT [place] ([facility]) Note: Responsible Observer: RBC RED BLOO D COUNT 100.0250 (A) Leukocytes [#/volume] in Blood by Automated count 7.47 10\\^3/uL Normal WHITE BLOOD COUNT [place] ([facility]) Note: Responsible Observer: WBC WHITE BL OOD COUNT 100.0150 (A) Erythrocyte distribution width [Ratio] by Automated count 14.6 % Above high normal RDW [place] ([facility]) Note: Responsible Observer: RDW RDW 100 .0700 (A) ID Date Data Source [id number] 04/12/2020 01:33:00 PM EDT [facility] Name Value Range Interpretation Code Description Data Ailyn rce(s) Supporting Document(s) WHITE BLOOD COUNT 7.47 10^3/uL 4.00-10.50 [facility] RED [facility]LO[facility] 4.97 10^6/uL 4.30-5.80 [facility] 14.5 G/DL 13.0-17.5 [facility] 45.8 % 41.0-53.0 [facility] MCV 92.2 FL 80.0-100.0 [facility] MCH 29.2 PG 27.0-34.0 [facility] 31.7 G/DL 32-36 [facility] RDW 14.6 % 11.5-14.5 [facility] PLATELET COUNT 243 10^3/uL 130-400 [facility] MPV 9.7 FL 8.7-13.2 [facility] GRAN % (AUTO) 70.0 % 42.0-75.0 [facility] LYMPH % (AUTO) 16.5 % 20.0-51.0 [facility] MONO % (AUTO) 10.6 % 2.0-15.0 [facility] EOS % (AUTO) 1.7 % 0.0-11.0 [facility] BASO % (AUTO) 0.5 % 0.0-2.0 [facility] IG % (AUTO) 0.7 % 1.00-5.00 [facility] IG # (AUTO) 0.1 10^3/uL <0.5 [facility] GRAN # (AUTO) 5.23 10^3/uL 1.50-6.50 [facility] LYMPH # (AUTO) 1.2 k/uL 1.0-5.0 [facility] MONO # (AUTO) 0.79 k/uL 0.20-1.50 [facility] EOS # (AUTO) 0.13 10^3/uL 0.00-1.10 [facility] BASO # (AUTO) 0.04 10^3/uL 0.00-0.20 [facility] ID Date Data Source [id number] 04/12/2020 02:35:00 PM EDT [facility] Name Value Range Interpretation Code Description Data Ailyn rce(s) Supporting Document(s) SODIUM 140 MEQ/L 135-145 N [facility] POTASSIUM 4.4 MEQ/L 3.5-5.3 N [facility] CHLORIDE 102 MEQ/L 94-110 N [facility] CARBON DIOXIDE 28 MEQ/L 22-33 N [facility] ANION GAP 14 5-16 N [facility] BLOOD UREA NITRO 33 MG/DL 7-25 H [facility] CREATININE 1.2 MG/DL 0.6-1.4 N [facility] GFR 58.0 ML/MIN [facility] Stage G3a - Mildly to moderately decrea sed kidney function The GFR is an estimate of the Glomerular Filtration Rate. It is an aid to assess a patient's renal function. It is not a conclusive diagnosis of kidney disease. GFR normal is >=90 The MDRD GFR calculation is considered valid between the ages of 18 and 75 years only. BUN/CREAT RATIO 27 8-36 [facility] GLUCOSE 92 MG/DL 70-100 [facility] CA 9.0 MG/DL 8.7-10.5 N [facility] BILIRUBIN,TOTAL 0.7 MG/DL 0.1-1.3 [facility] AST 9 U/L 5-40 [facility] ALT 21 U/L 5-48 [facility] ALKALINE PHOSPHATASE 51 U/L 40-140 [facility] TOTAL PROTEIN 5.4 G/DL 5.9-8.3 L [facility] ALBUMIN 3.9 G/DL 3.0-5.1 [facility] GLOBULIN 1.5 G/DL 1.5-3.5 [facility] ALB/GLOB RATIO 2.6 G/DL 1.0-3.0 [facility] ID Date Data Source [id number] 04/12/2020 02:35:00 PM [facility] Name Value Range Interpretation Code Description Data Ailyn rce(s) Supporting Document(s) GLYCOSYLATED HGBA1C 5.9 % 4.1-6.5 N [facility] ID Date Data Source [id number] 04/12/2020 02:35:00 PM [facility] Name Value Range Interpretation Code Description Data Ailyn rce(s) Supporting Document(s) TRIGLYCERIDES 110 MG/DL 45-150 N [facility] CHOLESTEROL 145 MG/DL 125-200 [facility] LDL CHOLESTEROL 71 MG/DL 50-130 [facility] HDL CHOLESTEROL 52 MG/DL 39-96 [facility] CHOL/HDL RATIO 2.8 0-4.9 [facility] ID Date Data Source [id number] 04/12/2020 02:35:00 PM EDT [facility] Name Value Range Interpretation Code Description Data Ailyn rce(s) Supporting Document(s) TSH 1.776 uIU/ML 0.470-4.200 N [facility] Patients should not be tested for 72 ho urs post fluorescein dye angiography. A false depression of result may occur. ID Date Data Source [id number] 04/04/2020 04:19:00 PM EDT [place] ([facility]) Name Value Range Interpretation Code Description Data Ailyn rce(s) Supporting Document(s) Hemoglobin A1c/Hemoglobin.total in Blood 6.1% Abnormal (applies to non-numeric results) Hgb A1c [place] ([facility]) ID Date Data Source [id number] 03/15/2020 03:09:00 [place] [address] Patient Name: Kristel Herbert Exam Date: 03/15/20 [...] acute pulmonary disease. Professional interpretation performed by [facility] at [facility] . End of diagnostic report: [id number] Signed: Moose Kingsley MD 03/15/20 1549 Interpreted by: Eh KingsleyoTranscribed by: Moose Kingsley Name Value Range Interpretation Code Description Data Ailyn rce(s) Supporting Document(s) ID Date Data Source [id number] 12/15/2019 05:43:00 PM EDT [facility] Name Value Range Interpretation Code Description Data Ailyn rce(s) Supporting Document(s) SODIUM 141 MEQ/L 135-145 [facility] POTASSIUM 4.4 MEQ/L 3.5-5.3 [facility] CHLORIDE 103 MEQ/L 94-110 [facility] CARBON DIOXIDE 30 MEQ/L 22-33 [facility] ANION GAP 12 5-16 [facility] BLOOD UREA NITRO 30 MG/DL 7-25 [facility] CREATININE 1.3 MG/DL 0.6-1.4 [facility] GFR 52.9 ML/MIN [facility] Stage G3a - Mildly to moderately decrea [...] years only. BUN/CREAT RATIO 23 8-36 N [facility] GLUCOSE 131 MG/DL 70-100 [facility] CA 9.2 MG/DL 8.7-10.5 N [facility] ID Date Data Source [id number] 12/14/2019 02:02:00 PM EDT [facility] Card[facility] [address] [place] [address], [address] [place] [address] Cardiology Note : [phone] Signed Patient: Kristel Herbert Acct:[id number] Visit Date: 12/14/19 : 1935 Cardiology HPI [...] does have SOB but denies chest tightness. 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[employer] Education Level (current or highest level completed): [...] Persistent atrial fibrillation: Status: Chronic SNOMED Code(s): 092327440 Category: Medical (2) Hypertension: Status: Chronic SNOMED Code(s): 16392896 Category: Medical (3) Mixed hyperlipidemia: Status: Chronic Code(s): E78.2 - Mixed hyperlipidemia SNOMED Code(s): 390837871 Category: Medical (4) Diastolic dysfunction: Status: Chronic SNOMED Code(s): 4174172 Category: Medical Medications: Refilled: apixaban (Eliquis) 5 [...] mg PO BID 180 tabs 3RF Quality [facility] Tobacco Use how long ago did patient quit smokin Coding Level of Care Code 68996 Estab Pt Level 4 History Expanded Problem Focused Exam Detailed Diagnoses Persistent atrial fibrillation I48.19 Hypertension I10 Mixed hyperlipidemia E78.2 Diastolic dysfunction I51.89 Signed By:Lake Novak <<Signature on File>> Signed Date/Time: 12/14/19 9273 Co-Signer: Anselmo Walsh MD Co-Signed Date/Time: 12/15/19 0558 Initializing User: Lake JENNINGS 12/14/19 1402 01 140 Name Value Range Interpretation Code Description Data Ailyn rce(s) Supporting Document(s) ID Date Data Source [id number] 11/24/2019 03:34:00 PM EDT [place] ([facility]) Name Value Range Interpretation Code Description Data Ailyn rce(s) Supporting Document(s) Reported Physicians See Note Reported Physicians [place] ([facility]) Note: Reported Physicians:Ordering: Payal BainsAttending: Payal Gibson ID Date Data Source [id number] 11/24/2019 03:34:00 PM EDT [place] ([facility]) Name Value Range Interpretation Code Description Data Ailyn rce(s) Supporting Document(s) PROBNP 524 pg/mL Abnormal (applies to non-numeric res ults) PROBNP [place] ([facility]) Note: The following cut-points have bee n suggested for the use of proBNP for the diagnostic evaluation of heart failure (HF) in patients with acute dyspnea: Modality Age Optimal Cut (years) Point Diagnosis (rule in HF) <50 450 pg/mL 50 - 75 900 pg/mL >75 1800 pg/mL Exclusion (rule out HF) Age independent 300 pg/mL Performed at: [facility] [address] [id number] Boat Pilot: Dexter Stanton MD, Phone: [phone] Observer: PROBNP PROBNP [id number] (A) ID Date Data Source [id number] 11/24/2019 03:34:00 PM EDT [place] ([facility]) Name Value Range Interpretation Code Description Data Ailyn rce(s) Supporting Document(s) Thyrotropin [Units/volume] in Serum or Plasma by Detec tion limit <= 0.05 mIU/L 1.364 uIU/ML Normal TSH [place] [facility] Note: Patients should not be tested for 72 hours post fluorescein dye angiography. A false depression of result may occur.Responsible Observer: TSH TSH 300.5500 (A) ID Date Data Source [id number] 11/24/2019 03:34:00 PM EDT [place] ([facility]) Name Value Range Interpretation Code Description Data Ailyn rce(s) Supporting Document(s) Cholesterol crystals [Presence] in Stone by Infrared spectroscop y 137 MG/DL Normal CHOLESTEROL [place] ([facility]) Note: Responsible Observer: CHOL CHOLEST AGGIE 300.4350 (A) Deprecated Cholesterol.in LDL/Cholestero l.in HDL [Mass ratio] in Serum or Plasma 3.0 Normal CHOL/HDL RATIO [place] ([facility] ) Note: Responsible Observer: CHOL/HDL RAT IO CHOL/HDL RATIO 300.4700 (A) Cholesterol in HDL [Mass/volume] in Serum or Plasma ultracen trifugate 45 MG/DL Normal HDL CHOLESTEROL [place] ([facility]) Note: Responsible Observer: HDL HDL CHOL ESTEROL 300.4600 (A) Cholesterol in LDL [Mass/volume] in Serum or Plasma by Direct as say 67 MG/DL Normal LDL CHOLESTEROL [place] ([facility]) Note: Responsible Observer: LDL LDL CHOL ESTEROL 300.4400 (A) Triglyceride [Mass/volume] in Serum or Plasma 125 MG/DL N ormal TRIGLYCERIDES [place] ([facility]) Note: Responsible Observer: TRIG TRIGLYC ERIDES 300.4300 (A) ID Date Data Source [id number] 11/24/2019 03:34:00 PM EDT [place] ([facility]) Name Value Range Interpretation Code Description Data Ailyn rce(s) Supporting Document(s) Hemoglobin A1c/Hemoglobin.total in Blood 6.4 % Normal GLYCOSYLATED HGBA1C [place] ([facility]) Note: Responsible Observer: HGB A1C GLYC OSYLATED HGBA1C 300.0800 (A) ID Date Data Source [id number] 11/24/2019 03:34:00 PM EDT [place] ([facility]) Name Value Range Interpretation Code Description Data Ailyn rce(s) Supporting Document(s) Albumin/Globulin [Mass Ratio] in Amniotic fluid 3.5 G/DL Above high normal ALB/GLOB RATIO [place] ([facility]) Note: Responsible Observer: A/G RATIO AL B/GLOB RATIO 300.4100 (A) Albumin [Mass/volume] in Synovial fluid 4.5 G/DL Normal ALBUMIN [place] ([facility]) Note: Responsible Observer: ALB ALBUMIN 300.3900 (A) Alanine aminotransferase [Enzymatic activity/volume] in Seru m or Plasma 23 U/L Normal ALT [place] ([facility]) Note: Responsible Observer: ALT/SGPT ALT 300.3100 (A) Alkaline phosphatase isoenzyme [Units/volume] in Serum or Plasma 62 U/L Normal ALKALINE PHOSPHATASE [place] ([facility]) Note: Responsible Observer: ALK PHOS ALK SAMANTA PHOSPHATASE 300.3110 (A) Urea nitrogen/Creatinine [Mass Ratio] in Serum or Plasma 24 Normal BUN/CREAT RATIO [place] ([facility]) Note: Responsible Observer: BUN/CREAT RA MARQUIS BUN/CREAT RATIO 300.0450 (A) Bilirubin.total [Mass/volume] in Serum or Plasma 0.6 MG/DL Normal BILIRUBIN,TOTAL [place] ([facility]) Note: Responsible Observer: TOTAL BILI T OTAL BILIRUBIN 300.2700 (A) Aspartate aminotransferase [Enzymatic activity/volume] in Serum or Plasma 13 U/L Normal AST [place] ([facility]) Note: Responsible Observer: AST/SGOT AST 300.3050 (A) CA 9.3 MG/DL Normal CA [place] ([facility]) Note: Responsible Observer: CA CALCIUM 300.2200 (A) BLOOD UREA NITRO 29 MG/DL Above high normal BLOOD UREA N ITRO [place] ([facility]) Note: Responsible Observer: BUN BLOOD UR EA NITROGEN 300.0350 (A) Chloride [Moles/volume] in Serum, Plasma or Blood 105 MEQ/L Normal CHLORIDE [place] ([facility]) Note: Responsible Observer: CL CHLORIDE 300.0200 (A) Creatine/Creatinine [Mass Ratio] in Urine 1.2 MG/DL Ruba l CREATININE [place] ([facility]) Note: Responsible Observer: CREAT CREATI NINE 300.0400 (A) Carbon dioxide, total [Moles/volume] in Serum or Plasma 28 MEQ/L Normal CARBON DIOXIDE [place] ([facility]) Note: Responsible Observer: CO2 CARBON D IOXIDE 300.0250 (A) Anion gap in Blood 12 Normal ANION GAP [place] [facility] Note: Responsible Observer: ANION GAP AN ION GAP 300.0300 (A) Glucose [Presence] in Urine 91 MG/DL Normal GLUCOSE GR [place] ([facility]) Note: Responsible Observer: GLU GLUCOSE 300.0500 (A) GFR 58.0 ML/MIN GFR [place] ([facility]) Note: Stage G3a - Mildly to [...] in Blood 4.7 MEQ/L Normal POT ASSIUM [place] ([facility]) Note: Responsible Observer: K POTASSIUM 300.0150 (A) Globulin [Mass/volume] in Serum by calculation 1.3 G/DL Below low normal GLOBULIN [place] ([facility]) Note: Responsible Observer: GLOB GLOBULI N 300.4050 (A) Sodium [Moles/volume] in Serum, Plasma or Blood 140 MEQ/L Normal SODIUM [place] ([facility]) Note: Responsible Observer: NA SODIUM 3 00.0100 (A) Protein [Mass/volume] in Synovial fluid 5.8 G/DL B elow low normal TOTAL PROTEIN [place] ([facility]) Note: Responsible Observer: TP TOTAL PRO TEIN 300.3750 (A) ID Date Data Source [id number] 11/24/2019 03:34:00 PM EDT [facility] ([facility]) Name Value Range Interpretation Code Description Data Ailyn rce(s) Supporting Document(s) BASO # (AUTO) 0.03 3/uL Normal BASO # (AUTO) [facility] ([facility]) Note: Responsible Observer: BASO # (AUTO ) BASO # (AUTO) 100.1500 (A) BASO % (AUTO) 0.5 % Normal BASO % (AUTO) [facility] ([facility]) Note: Responsible Observer: BASO % (AUTO ) BASO % (AUTO) 100.1250 (A) EOS # (AUTO) 0.10 3/uL Normal EOS # (AUTO) [place] ([facility]) Note: Responsible Observer: EOS # (AUTO) EOS # (AUTO) 100.1450 (A) GRAN # (AUTO) 4.77 3/uL Normal GRAN # (AUTO) [facility] ([facility]) Note: Responsible Observer: GRAN # (AUTO ) GRAN #(AUTO) 100.1325 (A) EOS % (AUTO) 1.5 % Normal EOS % (AUTO) [place] ([facility]) Note: Responsible Observer: EOS % (AUTO) EOS % (AUTO) 100.1200 (A) Hematocrit [Volume Fraction] of Blood by Automated count 45.2 % Normal HEMATOCRIT [place] ([facility]) Note: Responsible Observer: HCT HEMATOCR IT 100.0400 (A) Hemoglobin [Mass/volume] in Blood 14.3 G/DL Normal HE MOGLOBIN [place] ([facility]) Note: Responsible Observer: HGB HEMOGLOB IN 100.0300 (A) GRAN % (AUTO) 72.9 % Normal GRAN % (AUTO) [place] ([facility]) Note: Responsible Observer: GRAN % (AUTO ) GRAN % (AUTO) 100.1000 (A) IG # (AUTO) 0.0 3/uL IG # (AUTO) [place] ([facility]) Note: Responsible Observer: IG # (AUTO) IG # (AUTO) 100.1260 (A) IG % (AUTO) 0.3 % IG % (AUTO) [place] ([facility]) Note: Responsible Observer: IG % (AUTO) IG % (AUTO) 100.1255 (A) LYMPH % (AUTO) 14.2 % Below low normal LYMPH % (AUTO) [place] ([facility]) Note: Responsible Observer: LYMPH % (AUT O) LYMPH % (AUTO) 100.1100 (A) Erythrocyte mean corpuscular hemoglobin [Entitic mass] by Automated count 28.4 PG Normal MCH [place] ([facility]) Note: Responsible Observer: MCH MCH 100 .0600 (A) LYMPH # (AUTO) 0.9 k/uL Below low normal LYMPH # (AUTO) [facility] ([facility]) Note: Responsible Observer: LYMPH # (AUT O) LYMPH # (AUTO) 100.1350 (A) Erythrocyte mean corpuscular hemoglobin concentration [Mass/volume] by Automated count 31.6 G/DL Below low normal MCHC [facility] ([facility] re) Note: Responsible Observer: MCHC MCHC 1 00.0650 (A) Erythrocyte mean corpuscular volume [Entitic volume] by Auto mated count 89.7 FL Normal MCV [place] ([facility]) Note: Responsible Observer: MCV MCV 100 .0550 (A) MONO % (AUTO) 10.6 % Normal MONO % (AUTO) [facility] ([facility]) Note: Responsible Observer: MONO % (AUTO ) MONO% (AUTO) 100.1150 (A) MONO # (AUTO) 0.69 k/uL Normal MONO # (AUTO) [facility] ([facility]) Note: Responsible Observer: MONO # (AUTO ) MONO # (AUTO) 100.1400 (A) MPV 9.6 FL Normal MPV [facility] ([facility]) Note: Responsible Observer: MPV MPV 100 .0950 (A) Platelets [#/volume] in Plasma by Automated count 253 3/uL Normal PLATELET COUNT [place] ([facility]) Note: Responsible Observer: PLT PLATELET COUNT 100.0850 (A) Erythrocyte distribution width [Ratio] by Automated count 14.4 % Normal RDW [place] ([facility]) Note: Responsible Observer: RDW RDW 100 .0700 (A) Erythrocytes [#/volume] in Blood by Automated count 5.04 6/uL Normal RED BLOOD COUNT [place] ([facility]) Note: Responsible Observer: RBC RED BLOO D COUNT 100.0250 (A) Leukocytes [#/volume] in Blood by Automated count 6.54 3/uL Normal WHITE BLOOD COUNT [place] ([facility]) Note: Responsible Observer: WBC WHITE BL OOD COUNT 100.0150 (A) ID Date Data Source [id number] 11/24/2019 05:36:00 PM [facility] Has Patient Fasted For The Past 12 Hour s? Y Has Patient Fasted For The Past 12 Hour s? Y Has Patient Fasted For The Past 12 Hour s? Y Has Patient Fasted For The Past 12 Hour s? Y Name Value Range Interpretation Code Description Data Ailyn rce(s) Supporting Document(s) WHITE BLOOD COUNT 6.54 10^3/uL 4.00-10.50 [facility] RED BLOOD COUNT 5.04 10^6/uL 4.30-5.80 [facility] HEMOGLOBIN 14.3 G/DL 13.0-17.5 N [facility] HEMATOCRIT 45.2 % 41.0-53.0 N [facility] MCV 89.7 FL 80.0-100.0 N [facility] MCH 28.4 PG 27.0-34.0 N [facility] MCHC 31.6 G/DL 32-36 L [facility] RDW 14.4 % 11.5-14.5 N [facility] PLATELET COUNT 253 10^3/uL 130-400 N [facility] MPV 9.6 FL 8.7-13.2 N [facility] GRAN % (AUTO) 72.9 % 42.0-75.0 [facility] % (AUTO) 14.2 % 20.0-51.0 L [facility] MONO % (AUTO) 10.6 % 2.0-15.0 N [facility] EOS % (AUTO) 1.5 % 0.0-11.0 N [facility] BASO % (AUTO) 0.5 % 0.0-2.0 N [facility] IG % (AUTO) 0.3 % 1.00-5.00 [facility] IG # (AUTO) 0.0 10^3/uL <0.5 [facility] GRAN # (AUTO) 4.77 10^3/uL 1.50-6.50 [facility] LYMPH # (AUTO) 0.9 k/uL 1.0-5.0 L [facility] MONO # (AUTO) 0.69 k/uL 0.20-1.50 [facility] EOS # (AUTO) 0.10 10^3/uL 0.00-1.10 [facility] BASO # (AUTO) 0.03 10^3/uL 0.00-0.20 [facility] ID Date Data Source [id number] 11/24/2019 05:52:00 PM EDT [facility] Has Patient Fasted For The Past 12 Hour s? Y Has Patient Fasted For The Past 12 Hour s? Y Has Patient Fasted For The Past 12 Hour s? Y Has Patient Fasted For The Past 12 Hour s? Y Name Value Range Interpretation Code Description Data Ailyn rce(s) Supporting Document(s) SODIUM 140 MEQ/L 135-145 N [facility] POTASSIUM 4.7 MEQ/L 3.5-5.3 N [facility] CHLORIDE 105 MEQ/L 94-110 N [facility] CARBON DIOXIDE 28 MEQ/L 22-33 N [facility] ANION GAP 12 5-16 N [facility] BLOOD UREA NITRO 29 MG/DL 7-25 [facility] CREATININE 1.2 MG/DL 0.6-1.4 N [facility] GFR 58.0 ML/MIN [facility] Stage G3a - Mildly to moderately decrea [...] years only. BUN/CREAT RATIO 24 8-36 N [facility] GLUCOSE 91 MG/DL 70-100 N [facility] CA 9.3 MG/DL 8.7-10.5 N [facility] BILIRUBIN,TOTAL 0.6 MG/DL 0.1-1.3 N [facility] AST 13 U/L 5-40 N [facility] ALT 23 U/L 5-48 N [facility] ALKALINE PHOSPHATASE 62 U/L 40-140 N [facility]th TOTAL PROTEIN 5.8 G/DL 5.9-8.3 L [facility] ALBUMIN 4.5 G/DL 3.0-5.1 N [facility] GLOBULIN 1.3 G/DL 1.5-3.5 L [facility] ALB/GLOB RATIO 3.5 G/DL 1.0-2.7 H [facility] ID Date Data Source [id number] 11/26/2019 02:07:00 PM EDT [facility] Has Patient Fasted For The Past 12 Hour s? Y Has Patient Fasted For The Past 12 Hour s? Y Has Patient Fasted For The Past 12 Hour s? Y Has Patient Fasted For The Past 12 Hour s? Y Name Value Range Interpretation Code Description Data Ailyn rce(s) Supporting Document(s) PROBNP 524 pg/mL 0-486 A [facility] The following cut-points have been sugg ested for the use of proBNP for the diagnostic evaluation of heart failure (HF) in patients with acute dyspnea: Modality Age Optimal Cut (years) Point Diagnosis (rule in HF) <50 450 pg/mL 50 - 75 900 pg/mL >75 1800 pg/mL Exclusion (rule out HF) Age independent 300 pg/mL Performed at: [address] [id number] Boat Pilot: Dexter Stanton MD, Phone: [phone] ID Date Data Source [id number] 11/24/2019 05:52:00 PM EDT [facility] Has Patient Fasted For The Past 12 Hour s? Y Has Patient Fasted For The Past 12 Hour s? Y Has Patient Fasted For The Past 12 Hour s? Y Has Patient Fasted For The Past 12 Hour s? Y Name Value Range Interpretation Code Description Data Ailyn rce(s) Supporting Document(s) GLYCOSYLATED HGBA1C 6.4 % 4.1-6.[address] [facility] ID Date Data Source [id number] 11/24/2019 05:52:00 PM T [facility] Has Patient Fasted For The Past 12 Hour s? Y Has Patient Fasted For The Past 12 Hour s? Y Has Patient Fasted For The Past 12 Hour s? Y Has Patient Fasted For The Past 12 Hour s? Y Name Value Range Interpretation Code Description Data Ailyn rce(s) Supporting Document(s) TRIGLYCERIDES 125 MG/DL 45-150 [facility] CHOLESTEROL 137 MG/DL 125-200 [facility] LDL CHOLESTEROL 67 MG/DL 50-130 N [facility] HDL CHOLESTEROL 45 MG/DL 39-96 N [facility] CHOL/HDL RATIO 3.0 0-4.9 N [facility] ID Date Data Source [id number] 11/24/2019 05:52:00 PM [facility] Milk Has Patient Fasted For The Past 12 Hour s? Y Has Patient Fasted For The Past 12 Hour s? Y Has Patient Fasted For The Past 12 Hour s? Y Has Patient Fasted For The Past 12 Hour s? Y Name Value Range Interpretation Code Description Data Ailyn rce(s) Supporting Document(s) TSH 1.364 uIU/ML 0.470-4.200 N [facility] Patients should not be tested for 72 ho urs post fluorescein dye angiography. A false depression of result may occur. Procedure Social History Code Duration Value Status Description Data Source(s ) 06/15/2020 01:21:10 PM EDT Former Smoker completed Former Smoker [facility] 06/15/2020 01:21:10 PM EDT Cigarettes completed Cigarette s [facility] Smoking 06/15/2020 01:21:00 PM EDT Ex-smoker (finding) complet ed Ex-smoker (finding) [facility] Assertion 04/04/2020 12:00:00 AM EDT Finding relat ing to drug misuse behavior (finding) completed Finding relating to drug misuse behavior (finding) [facility] ([facility]) Assertion 04/04/2020 12:00:00 AM EDT Current drinker of al cohol (finding) completed Current drinker of alcohol (finding) [facility] ([facility]) Smoking 04/04/2020 12:00:00 AM EDT Ex-smoker (finding) complet ed Ex-smoker (finding) [facility] Smoking 03/23/2020 12:00:00 AM EDT Ex-smoker (finding) complet ed Ex-smoker (finding) [facility] ([facility]) Smoking 03/15/2020 12:00:00 AM EDT Ex-smoker (finding) complet ed Ex-smoker (finding) [facility] 12/14/2019 02:05:14 PM EDT Former Smoker completed Former Smoker [facility] 12/14/2019 02:05:14 PM EDT Cigarettes completed Cigarette s [facility] Smoking 12/14/2019 02:05:00 PM EDT Ex-smoker (finding) complet ed Ex-smoker (finding) [facility] Smoking 11/24/2019 12:00:00 AM EDT Ex-smoker (finding) complet ed Ex-smoker (finding) [facility] ([facility]) Smoking 11/24/2019 12:00:00 AM EDT Ex-smoker (finding) complet ed Ex-smoker (finding) [facility] Vital Signs ID Date Data Source UNK Name Value Range Interpretation Code Description Data Source(s) Diastolic blood pressure 60 mm[Hg] 60 mm[Hg] [facility] Systolic blood pressure 122 mm[Hg] 122 mm[Hg] [facility] Body mass index (BMI) [Ratio] 52.7 kg/m2 52.7 k g/m2 [facility] Oxygen saturation in Arterial blood by Pulse oximetry 95 % 95 % [facility] Respiratory rate 16 /min 16 /min [facility] Heart rate 49 /min 49 /min [facility] Body temperature 96.9 [degF] 96.9 [degF] [facility] Body weight 169.30 kg 169.30 kg [facility] Body height 179.07 cm 179.07 cm [facility] Respiratory rate 22 /min 22 /min [place] ([facility]) Heart rate rhythm 1 1 ([facility]) Heart rate 63 /min 63 /min [place] ([facility]) Diastolic blood pressure 68 mm[Hg] 68 mm[Hg] [place] ([facility]) Systolic blood pressure 112 mm[Hg] 112 mm[Hg] [facility] ([facility]) Inhaled oxygen concentration 21 % 21 % [place] ([facility]) Inhaled oxygen flow rate 0 L/min 0 L/min [place] ([facility]) Oxygen saturation in Arterial blood by Pulse oximetry 93 % 93 % [place] ([facility]) PhenX - pain, abdominal - type and intensity protocol 0 0 [place] ([facility]) Body weight 373.125 [lb_av] 373.125 [lb_av] [facility] ([facility]) Body temperature 98.2 [degF] 98.2 [degF] [facility] ([facility]) Respiratory rate 26 /min 26 /min [place] ([facility]) Heart rate rhythm 1 1 Y ([facility]) Heart rate 69 /min 69 /min [place] ([facility] Diastolic blood pressure 56 mm[Hg] 56 mm[Hg] [place] ([facility]) Systolic blood pressure 98 mm[Hg] 98 mm[Hg] [facility] ([facility]) Inhaled oxygen concentration 21 % 21 % [place] ([facility]) Inhaled oxygen flow rate 0 L/min 0 L/min [place] ([facility]) Oxygen saturation in Arterial blood by Pulse oximetry 96 % 96 % [place] ([facility]) PhenX - pain, abdominal - type and intensity protocol 5 5 [facility] ([facility]) Body weight 368 [lb_av] 368 [lb_av] [facility] ([facility]) Body temperature 97.8 [degF] 97.8 [degF] [facility] ([facility]) Respiratory rate 28 /min 28 /min [facility] ([facility]) Heart rate rhythm 1 1 [place] ([facility]) Heart rate 66 /min 66 /min [facility] ([facility]) Diastolic blood pressure 58 mm[Hg] 58 mm[Hg] [facility] ([facility]) Systolic blood pressure 100 mm[Hg] 100 mm[Hg] [facility] ([facility]) Inhaled oxygen concentration 21 % 21 % [place] ([facility]) Inhaled oxygen flow rate 0 L/min 0 L/min [place] ([facility]) Oxygen saturation in Arterial blood by Pulse oximetry 95 % 95 % [place] ([facility]) PhenX - pain, abdominal - type and intensity protocol 0 0 [place] ([facility]) Body surface area Derived from formula 2.39 m2 2.39 m2 [place] ([facility]) Body mass index (BMI) [Ratio] 35.7 kg/m2 35.7 k g/m2 [facility] ([facility]) Body weight 263 [lb_av] 263 [lb_av] [facility] ([facility]) Body height 72 [in_i] 72 [in_i] [facility] ([facility]) Respiratory rate 20 /min 20 /min [facility] ([facility]) Heart rate rhythm 1 1 [place] ([facility]) Heart rate 61 /min 61 /min [facility] ([facility]) Diastolic blood pressure 80 mm[Hg] 80 mm[Hg] [facility] ([facility]) Systolic blood pressure 126 mm[Hg] 126 mm[Hg] [facility] [place] ([facility]) Inhaled oxygen concentration 21 % 21 % [place] ([facility]) Inhaled oxygen flow rate 0 L/min 0 L/min [place] ([facility]) Oxygen saturation in Arterial blood by Pulse oximetry 95 % 95 % [place] ([facility]) PhenX - pain, abdominal - type and intensity protocol 7 7 [facility] ([facility]) Body weight 367 [lb_av] 367 [lb_av] [facility] ([facility]) Body temperature 99.2 [degF] 99.2 [degF] [facility] ([facility]) Respiratory rate 24 /min 24 /min [facility] ([facility]) The patient ambulates with the assistanc e of a wheeled walker. Heart rate 61 /min 61 /min [facility] ([facility]) The patient ambulates with the assistanc e of a wheeled walker. Diastolic blood pressure 72 mm[Hg] 72 mm[Hg] [facility] ([facility]) The patient ambulates with the assistanc e of a wheeled walker. Systolic blood pressure 126 mm[Hg] 126 mm[Hg] [place] ([facility]) The patient ambulates with the assistanc e of a wheeled walker. Inhaled oxygen concentration 21 % 21 % [facility] ([facility]) The patient ambulates with the assistanc e of a wheeled walker. Inhaled oxygen flow rate 0 L/min 0 L/min [facility] ([facility]) The patient ambulates with the assistanc e of a wheeled walker. Oxygen saturation in Arterial blood by Pulse oximetry 96 % 96 % [facility] ([facility]) The patient ambulates with the assistanc e of a wheeled walker. PhenX - pain, abdominal - type and intensity protocol 0 0 [facility] ([facility]) The patient ambulates with the assistanc e of a wheeled walker. Body weight 368 [lb_av] 368 [lb_av] [facility] ([facility]) The patient ambulates with the assistanc e of a wheeled walker. Body temperature 98 [degF] 98 [degF] [facility] ([facility]) The patient ambulates with the assistanc e of a wheeled walker. Diastolic blood pressure 60 mm[Hg] 60 mm[Hg] [facility] Systolic blood pressure 118 mm[Hg] 118 mm[Hg] [facility] Body mass index (BMI) [Ratio] 52.3 kg/m2 52.3 k g/m2 [facility] Oxygen saturation in Arterial blood by Pulse oximetry 94 % 94 % [facility] Respiratory rate 18 /min 18 /min [facility] Heart rate 60 /min 60 /min [facility] Body temperature 98.3 [degF] 98.3 [degF] [facility] Body weight 167.79 kg 167.79 kg [facility] Body height 179.07 cm 179.07 cm [facility] Respiratory rate 28 /min 28 /min [place] ([facility]) Heart rate rhythm 1 1 [place] ([facility]) Heart rate 73 /min 73 /min [place] ([facility]) Diastolic blood pressure 82 mm[Hg] 82 mm[Hg] [place] ([facility]) Systolic blood pressure 138 mm[Hg] 138 mm[Hg] [place] ([facility]) Inhaled oxygen concentration 21 % 21 % [place] ([facility]) Inhaled oxygen flow rate 0 L/min 0 L/min [place] ([facility]) Oxygen saturation in Arterial blood by Pulse oximetry 99 % 99 % [place] ([facility]) PhenX - pain, abdominal - type and intensity protocol 0 0 [place] ([facility]) Body weight 370 [lb_av] 370 [lb_av] [place] ([facility] [place] Body temperature 98.9 [degF] 98.9 [degF] [facility] ([facility]) Patient Treatment Plan of Care Planned Activity Planned Date Details Description Data Source (s) glipiZIDE XL 5 MG Oral Tablet Extended Release 24 Hour 07/14/2020 12:00:00 AM [facility] ([facility]) tramadol hydrochloride 50 MG Oral Tablet 06/02/2020 12:00:00 AM [facility] ([facility]) gabapentin 100 MG Oral Capsule 04/04/2020 12:00:00 AM [facility] ([facility]) Prednisone 20 MG Oral Tablet 04/04/2020 12:00:00 AM [facility] ([facility]) Hydrochlorothiazide 25 MG / Spironolactone 25 MG Oral Tablet 04/03/2020 12:00:00 AM [facility] ([facility]) tramadol hydrochloride 50 MG Oral Tablet 03/27/2020 12:00:00 AM [facility] ([facility]) Lidocaine 50 MG/ML Rectal Cream 03/23/2020 12:00:00 AM [facility] ([facility]) Furosemide 20 MG Oral Tablet 02/22/2020 12:00:00 AM EDT [facility] ([facility]) Albuterol 0.83 MG/ML Inhalant Solution 02/17/2020 12:00:00 AM EDT [facility] ([facility]) tramadol hydrochloride 50 MG Oral Tablet 01/11/2020 12:00:00 AM EDT [facility] ([facility]) Alcohol Pads 70% 12/16/2019 12:00:00 AM EDT [place] ([facility]) Accu-Chek FastClix Lancets Miscellaneous 12/16/2019 12:00:00 AM EDT [place] ([facility]) Accu-Chek Jody Plus In Vitro Strip 12/16/2019 12:00:00 AM EDT [facility] ([facility]) Furosemide 20 MG Oral Tablet 11/24/2019 [facility] tramadol hydrochloride 50 MG Oral Tablet 11/01/2019 [facility] Losartan Potassium 100 MG Oral Tablet 11/01/2019 12:00:00 AM [facility] ([facility]) glipiZIDE XL 5 MG Oral Tablet Extended Release 24 Hour 10/04/2019 12:00:00 AM [facility] ([facility]) tramadol hydrochloride 50 MG Oral Tablet 08/23/2019 12:00:00 AM [facility] ([facility]) Hydrochlorothiazide 25 MG / Spironolactone 25 MG Oral Tablet 07/07/2019 12:00:00 AM EST [facility] ([facility]) tramadol hydrochloride 50 MG Oral Tablet 05/25/2019 12:00:00 AM ED [facility] ([facility]) Accu-Chek FastClix Lancets Miscellaneous 09/21/2018 12:00:00 AM EST [facility] ([facility]) GlipiZIDE XL 5MG Oral Tablet Extended Release 24 Hour 09/21/2018 12:00:00 AM EST [facility] ([facility]) Losartan Potassium 100 MG Oral Tablet 09/21/2018 12:00:00 AM EST [place] ([facility]) Alcohol Pads 70% 09/21/2018 12:00:00 AM EST [place] ([facility]) Albuterol 0.83 MG/ML Inhalant Solution 09/21/2018 12:00:00 AM [facility] ([facility]) Accu-Chek Jody Plus In Vitro Strip 09/21/2018 12:00:00 AM [facility] ([facility])
[2020-09-10 17:10] LABS: RSV AMPLIFICATION NEGATIVE (NEGATIVE)
[2020-09-10] MEDS ORDERED: ELIQ5TAB PO (17:31)
[2020-09-10] MEDS ORDERED: TRAM50TA2 PO (17:31)
[2020-09-10] MEDS ORDERED: FURO20TA2 PO (17:31)
[2020-09-10] MEDS ORDERED: LOSA100T50 PO (17:31)
[2020-09-10] MEDS ORDERED: DEXTROSE 50% 50 ML SYRINGE IV PRN (17:45)
[2020-09-10] MEDS ORDERED: GLUCOSE 4GM CHEW TABLET PO PRN (17:45)
[2020-09-10] MEDS ORDERED: GLUCAGON INJ 1MG VIAL SC PRN (17:45)
[2020-09-10] MEDS ORDERED: MORPHINE 2 MG/ML 1ML VIAL (J2270) IV PRN (17:45)
[2020-09-10 17:58] VITALS: BP 128/82
[2020-09-10] MEDS ORDERED: D31000TA2 PO (18:07)
[2020-09-10] MEDS: NS 1,000 ML IV SCH (18:35)
[2020-09-10] MEDS: LACTOBACILLUS ACIDOPHILUS CAP (BACID) PO SCH (18:37)
--- NOTE | 2020-09-10 19:14 | REPVR ---
PROCEDURE INFORMATION: Exam: CT Left Lower Extremity Without Contrast; Lower Leg Exam date and time: 09/10/2020 6:26 PM Age: 85 years old Clinical indication: Injury or trauma; Fall; Swelling, leg or foot; Blunt trauma; Lower leg; Left; Additional info: Left lle swelling, tenderness S/P trauma TECHNIQUE: Imaging protocol: CT of the Left lower extremity without contrast was performed. Exam focused on the lower leg. Radiation optimization: All CT scans at this facility use at least one of these dose optimization techniques: automated exposure control; mA and/or kV adjustment per patient size (includes targeted exams where dose is matched to clinical indication); or iterative reconstruction. COMPARISON: CR Tibia, Fibula lower leg 09/10/2020 4:10 PM FINDINGS: Bones/joints: There is no fracture or dislocation of the left knee, tibia, fibula, or ankle. There is a 12 mm ossified body in the intercondylar notch just above the medial tibial spine. There is tricompartmental osteoarthritis of the left knee, with degenerative changes that are most severe in the medial compartment. There is chondrocalcinosis in the medial and lateral compartments of the left knee. There is a small left knee joint effusion. Soft tissues: There is soft tissue swelling and edema in the subcutaneous tissues around the left knee, left calf, and left ankle. There is fatty atrophy of the semimembranosus, gastrocnemius, and soleus muscles. No gas is noted in the soft tissues. Vasculature: There are atherosclerotic calcifications. IMPRESSION: 1. No fracture or dislocation of the left knee, tibia, fibula, or ankle. 2. 12 mm ossified body in the left intercondylar notch just above the medial tibial spine. 3. Tricompartmental osteoarthritis of the left knee, with degenerative changes that are most severe in the medial compartment and a small left knee joint effusion. 4. Soft tissue swelling and edema in the subcutaneous tissues of the left knee, left calf, and left ankle. Electronically signed by: Gerald Wong On 09/10/2020 19:13:37 PM
--- NOTE | 2020-09-10 19:28 | REP ---
INDICATION: LLE swelling s/p trauma, r/o DVT COMPARISON: None. TECHNIQUE: Real time compression and duplex Doppler interrogation of the left lower extremity deep venous system is performed. FINDINGS: The left common femoral, superficial femoral and popliteal veins are fully compressible with transducer pressure and demonstrate normal spontaneous and phasic flow, without evidence of deep venous thrombosis. IMPRESSION: No evidence of deep venous thrombosis of the left lower extremity femoral popliteal venous system. <Electronically signed by Steven Mcdaniel > 09/10/20 1923
[2020-09-10] MEDS: HumaLOG INSULIN (NovoLOG) PER UNIT SC SCH (20:43)
[2020-09-10] MEDS: CLINDAMYCIN 600 MG in IV 1 EA IV SCH (20:43)
[2020-09-10] MEDS ORDERED: LOSARTAN 50MG TABLET PO SCH (21:00)
[2020-09-10 22:00] VITALS: BP 115/64
[2020-09-11] MEDS: CLINDAMYCIN 600 MG in IV 1 EA IV SCH ×4 (01:22→20:32)
[2020-09-11] MEDS: ANEXSIA, NORCO 7.5MG/325MG TABLET(HYDROCODONE/APAP) PO PRN ×2 (02:54→20:33)
[2020-09-11] MEDS ORDERED: traMADol 50 MG TAB PO PRN (03:45)
[2020-09-11] MEDS: NS 1,000 ML IV SCH (03:56)
[2020-09-11] MEDS ORDERED: ALBUTEROL SULFATE 2.5 MG/0.5 ML INH NEB SOLN INH PRN (04:00)
[2020-09-11] MEDS: VITAMIN D 1,000 INTERNATIONAL UNITS TABLET PO SCH ×2 (04:21→20:37)
[2020-09-11] MEDS: ATORVASTATIN 10 MG TAB PO SCH ×2 (04:22→20:33)
[2020-09-11] MEDS: CYANOCOBALAMIN 500 MCG TAB PO SCH ×2 (04:22→20:38)
[2020-09-11 06:00] VITALS: BP 117/65
[2020-09-11 06:20] LABS: MEAN CORPUSCULAR HEMOGLOBIN 28.9 pg (27.0-33.0); MEAN CORPUSCULAR HGB CONC 30.8 g/dl (32.0-36.5); PLATELET COUNT, AUTOMATED 180 10^3/uL (150-450); RED BLOOD COUNT 4.15 10^6/uL (4.30-6.10); WHITE BLOOD COUNT 6.3 10^3/uL (4.0-10.0)
[2020-09-11 06:52] LABS: ALBUMIN 2.8 GM/DL (3.2-5.2); BILIRUBIN,TOTAL 0.8 MG/DL (0.2-1.0); CALCIUM LEVEL 8.4 MG/DL (8.8-10.2); CREATININE FOR GFR 1.29 MG/DL (0.70-1.30); GLOMERULAR FILTRATION RATE 56.6 (>35); POTASSIUM SERUM 4.3 MEQ/L (3.5-5.1); TOTAL PROTEIN 5.9 GM/DL (6.4-8.2)
[2020-09-11] MEDS: HumaLOG INSULIN (NovoLOG) PER UNIT SC SCH ×4 (07:24→21:00)
[2020-09-11] MEDS: APIXABAN 5 MG TAB (ELIQUIS) PO SCH ×2 (08:22→20:38)
[2020-09-11] MEDS: LACTOBACILLUS ACIDOPHILUS CAP (BACID) PO SCH ×2 (08:23→17:02)
[2020-09-11] MEDS: CARVedilol 6.25 MG TAB PO SCH ×2 (08:23→20:38)
[2020-09-11] MEDS ORDERED: SPIRONOLACTONE 25 MG TAB PO SCH (09:00)
[2020-09-11] MEDS ORDERED: FUROSEMIDE 20 MG TAB PO SCH (09:00)
[2020-09-11] MEDS ORDERED: FUROSEMIDE 20MG/2ML VIAL (J1940) IV ONE (11:15)
--- NOTE | 2020-09-11 12:58 | IPNPDOC ---
Date Seen The patient was seen on 09/11/20. Progress Note SUBJECTIVE: Improved left lower ext redness, swelling persists. Stopped IVFs as DAGO resolved, received all AM diuretics from home (HCTZ, lasix, spironolactone) and given extra dose lasix 20 mg IV x 1. F/u u/o. Grossly fluid overloaded in the lower ext, placed on fluid restriction. Denies increased SOB, n/v/d, chest pain. OBJECTIVE: PHYSICAL EXAMINATION: VS: Please see below CONSTITUTIONAL: No acute distress, resting comfortably, AAO x 3 EYES: PERRLA, EOM intact HENT, MOUTH: Normocephalic, atraumatic, moist mucous membranes NECK: SUPPLE, no JVD, no lymphadenopathy, no carotid bruit, large diameter CV: Regular rate and rhythm, S1S2 normal, no murmurs/rubs/gallops RESPIRATORY: Clear to auscultation bilaterally, no rales/rhonchi/wheezes GI: obese abd, BS positive in 4 quadrants, soft, nontender, nondistended, no rebound or guarding, no organomegaly : Deferred MUSCULOSKELETAL: decreased ROM of LLE knee, ankle, increased swelling +2 pitting. No cyanosis, clubbing, joint deformity. +2 pitting edema in the RLE. INTEGUMENTARY: Anterior kwan wound, clean, nonsuppurative with surrounding erythema. Large area of bruising behind right knee/calf, tender to touch- not worsened. NEUROLOGIC: Cranial Nerves II-XII are intact, no focal deficits PSYCHIATRIC: Mood and affect are normal LABORATORY DATA: Please see below IMAGING: CT tib/fib: 1. No fracture or dislocation of the left knee, tibia, fibula, or ankle. 2. 12 mm ossified body in the left intercondylar notch just above the medial tibial spine. 3. Tricompartmental osteoarthritis of the left knee, with degenerative changes that are most severe in the medial compartment and a small left knee joint effusion. 4. Soft tissue swelling and edema in the subcutaneous tissues of the left knee, left calf, and left ankle. Doppler LE: No evidence of deep venous thrombosis of the left lower extremity femoral popli teal venous system. Tib/fib XR: No dislocation or fracture Echocardiogram 2019: 1. Study is of very limited technical quality. 2. Probably normal or near normal systolic function based on limited views. This is not very reliable information. reveal grade 1 diastolic dysfunction 3. No significant aortic and mitral valvular disease. 4. Likely high central venous pressure. 5. Unable to estimate pulmonary artery pressure. ASSESSMENT: Patient is an 85-year-old male with extensive past medical history including atrial fibrillation on eliquis, COPD, hypertension, history of lung cancer s/p resection, diabetes, hyperlipidemia, CAD status post [place] admitted for LLE pain/swelling 2/2 to left lower extremity cellulitis, r/o DVT, unsteadiness on his feet requiring evaluation by physical therapy. PLAN: LLE pain/increased swelling 2/2 cellulitis and hematoma, s/p trauma after mechanical fall -Wound appears more improved, nonsuppurative but entire leg below knee appears increasingly swollen, tender, bruised behind knee -CT leg, doppler above -C/w clindamycin IV for 1 more day, can likely switch to PO by 09/12/20. C/w probiotic -PT: Would benefit from 1-2 more sessions -Pain control HFpEF with bilateral lower ext swelling, likely acutely worsened on chronic (Note: on several medications that may indicate SYSTOLIC dysfunction but no recent echo on file) -+2 pitting edema in lower ext, Grossly fluid overloaded in lower ext up to abd -F/u BNP -Received all home diuretics this AM; however, will try diuresing with lasix alone IV, monitor Cr closely. C/w other cardiac meds -Monitor I&O's, daily weight, low salt diet Unsteady gait likely 2/2 to acute on chronic physical deconditioning, s/p mechanical fall -Uses walker at baseline, concerned for falling further with new LLE pain, wound -F/u PT/OT Acute kidney injury- resolved with gentle IVFs -Per patient his providers have been "watching" his kidneys but no diagnosis of CKD -All prior Cr on file here have been wnl -Cr wnl -Diuresing currently -Holding losartan -Daily labs Atrial fibrillation -C/w home medications COPD -Stable -C/w home med Hypertension -Stable -C/w home meds OA -Stable DM type II -ISS, FS AC/HS -Consistent carb diet HLD -statin CAD s/p [place] -C/w diuresis with lasix (holding other diuretics), hold ARB. c/w other cardiac meds morbid obesity -complicates care, f/u PCP Hx of GI bleed -No s/s of bleeding, on chronic eliquis BID cataracts -Due to have laser surgery on 09/11/20 migraine headaches -C/w home med -Stable, f/u with neuro o/p DVT px -Eliquis BID DISPOSITION: Admitted as acute inpatient. PT states possibly 1-2 more days then plan is discharge home when medically improved. VS, I&O, 24H, Fishbone Vital Signs/I&O Vital Signs Date Time Temp Pulse Resp B/P (MAP) Pulse Ox O2 Delivery O2 Flow Rate FiO2 09/11/20 08:23 65 118/54 09/11/20 06:00 97.0 20 93 Room Air I&O- Last 24 Hours up to 6 AM 09/11/20 06:00 Intake Total 850 ml Output Total 775 ml Balance 75 ml Laboratory Data 24H LABS Laboratory Tests 2 09/10/20 15:46: Immature Granulocyte % (Auto) 0.4, Neutrophils (%) (Auto) 74.1H, Lymphocytes (%) (Auto) 10.5L, Monocytes (%) (Auto) 12.1H, Eosinophils (%) (Auto) 2.5, Basophils (%) (Auto) 0.4, Neutrophils # (Auto) 5.0, Lymphocytes # (Auto) 0.7L, Monocytes # (Auto) 0.8, Eosinophils # (Auto) 0.2, Basophils # (Auto) 0.0, Nucleated Red Blood Cells % (auto) 0.0, Prothrombin Time 16.3H, Prothromb Time International Ratio 1.28, Activated Partial Thromboplast Time 30.8, Anion Gap 5L, Glomerular Filtration Rate 49.9, Calcium Level 8.5L 09/10/20 16:04: Lactic Acid Level 1.2 09/10/20 16:29: Coronavirus (COVID-19)(PCR) NEGATIVE, Influenza Type A (RT-PCR) NEGATIVE, Influenza Type B (RT-PCR) NEGATIVE, Respiratory Syncytial Virus (PCR) NEGATIVE 09/10/20 20:06: Bedside Glucose (Misc Panel) 145H 09/10/20 20:53: Urine Color YELLOW, Urine Appearance CLEAR, Urine pH 5.0, Urine Specific [place] 1.013, Urine Protein NEGATIVE, Urine Glucose (UA) NEGATIVE, Urine Ketones NEGATIVE, Urine Blood NEGATIVE, Urine Nitrite NEGATIVE, Urine Bilirubin NEGATIVE, Urine Urobilinogen 0.2, Urine Leukocyte Esterase NEGATIVE, Urine WBC (Auto) 0, Urine RBC (Auto) 0, Urine Hyaline Casts (Auto) 7, Urine Bacteria (Auto) NEGATIVE, Urine Squamous Epithelial Cells 0, Urine Sperm (Auto) 09/11/20 06:13: Nucleated Red Blood Cells % (auto) 0.0, Anion Gap 5L, Glomerular Filtration Rate 56.6, Calcium Level 8.4L, Total Bilirubin 0.8, Aspartate Amino Transf (AST/SGOT) 8, Alanine Aminotransferase (ALT/SGPT) 19, Alkaline Phosphatase 55, Total Protein 5.9L, Albumin 2.8L, Albumin/Globulin Ratio 0.9 09/11/20 11:31: Bedside Glucose (Misc Panel) 129H CBC/BMP Laboratory Tests 09/10/20 15:46 09/11/20 06:13 Current Medications Current Medications Medications (Trade) Dose Ordered Sig/Juanjo Route PRN Reason Start Time Stop Time Status Last Admin Dose Admin Acetaminophen (Tylenol Tab) 650 mg Q4H PRN PO PAIN OR FEVER 09/10/20 16:45 Acetaminophen/ Hydrocodone Bitart (Anexsia, Jeff 7.5mg/325mg) 1 tab Q6HP PRN PO SEVERE PAIN (PS 8-10) 09/10/20 17:45 09/11/20 02:54 Acetaminophen/ Hydrocodone Bitart (Jeff, Anexsia 5/325) 1 tab Q4HP PRN PO MILD/MODERATE PAIN (PS 1-7) 09/10/20 17:45 Albuterol Sulfate (Proventil Neb) 2.5 mg Q6H PRN INH SHORTNESS OF BREATH 09/11/20 04:00 Apixaban (Eliquis) 5 mg BID PO 09/11/20 09:00 09/11/20 08:22 Atorvastatin Calcium (Lipitor) 10 mg QHS PO 09/10/20 21:00 09/11/20 04:22 Carvedilol (COReg) 6.25 mg BID PO 09/11/20 09:00 09/11/20 08:23 Clindamycin Phosphate 600 mg/ IV Miscellaneous Supplies 50 ml @ 100 mls/hr Q6H IV 09/10/20 20:00 09/11/20 08:23 Cyanocobalamin (Vitamin B12) 500 mcg QHS PO 09/10/20 21:00 09/11/20 04:22 Dextrose (Dextrose 50%) 25 ml ASDIRECTED PRN IV SEE LABEL COMMENTS 09/10/20 17:45 Furosemide (Lasix) 20 mg DAILY PO 09/11/20 09:00 09/11/20 11:15 DC 09/11/20 08:22 Glucagon (Glucagon) 1 mg ASDIRECTED PRN SC SEE LABEL COMMENTS 09/10/20 17:45 Glucose (Glucose) 16 GM ASDIRECTED PRN PO SEE LABEL COMMENTS 09/10/20 17:45 Home Med (Med Rec Complete!) ASDIRECTED XX 09/10/20 18:15 09/10/20 18:15 DC Hydrochlorothiazide (Hydrodiuril) 25 mg DAILY PO 09/11/20 09:00 09/11/20 11:15 DC 09/11/20 08:22 Insulin Human Lispro (HumaLOG INSULIN) SEE PROTOCOL TABLE AC SC 09/11/20 07:30 09/11/20 11:41 Insulin Human Lispro (HumaLOG INSULIN) SEE PROTOCOL TABLE QHS SC 09/10/20 21:00 Lactobacillus Acidophilus (Bacid) 1 ea BIDWM PO 09/10/20 18:00 09/11/20 08:23 Losartan Potassium (Cozaar) 100 mg QHS PO 09/10/20 21:00 09/11/20 11:15 DC 09/11/20 04:25 Morphine Sulfate (Morphine Sulfate Inj) 1 mg Q6H PRN IV SEVERE PAIN (PS 8-10) 09/10/20 17:45 Sodium Chloride 1,000 ml @ 100 mls/hr Q10H IV 09/10/20 17:00 09/11/20 08:54 DC 09/11/20 03:56 Spironolactone (Aldactone) 25 mg QAM PO 09/11/20 09:00 09/11/20 11:15 DC 09/11/20 08:23 Tramadol HCl (Ultram) 50 mg BID PRN PO PAIN 09/11/20 03:45 Vitamin D (Vitamin D) 1,000 units QHS PO 09/10/20 21:00 09/11/20 04:21 Allergies Coded Allergies: cortisone (Verified Allergy, Mild, HVIES, 11/20/18) Vicky Breen MD Sep 11, 2020 12:58
[2020-09-11 14:00] VITALS: BP 120/53
[2020-09-11 22:00] VITALS: BP 131/63
[2020-09-12] MEDS: CLINDAMYCIN 600 MG in IV 1 EA IV SCH ×4 (01:02→20:24)
[2020-09-12 06:00] VITALS: BP 116/63
[2020-09-12 07:12] LABS: HEMATOCRIT 39.8 % (42.0-52.0); HEMOGLOBIN 12.3 g/dl (13.5-17.5); MEAN CORPUSCULAR HEMOGLOBIN 28.7 pg (27.0-33.0); MEAN CORPUSCULAR HGB CONC 30.9 g/dl (32.0-36.5); PLATELET COUNT, AUTOMATED 187 10^3/uL (150-450); RED BLOOD COUNT 4.28 10^6/uL (4.30-6.10); WHITE BLOOD COUNT 5.1 10^3/uL (4.0-10.0)
[2020-09-12] MEDS: HumaLOG INSULIN (NovoLOG) PER UNIT SC SCH ×4 (07:30→20:26)
[2020-09-12 07:39] LABS: ALBUMIN 2.8 GM/DL (3.2-5.2); ALT/SGPT 19 U/L (12-78); BILIRUBIN,TOTAL 0.6 MG/DL (0.2-1.0); BLOOD UREA NITROGEN 28 MG/DL (7-18); CALCIUM LEVEL 8.5 MG/DL (8.8-10.2); CARBON DIOXIDE LEVEL 32 MEQ/L (21-32); CHLORIDE LEVEL 99 MEQ/L (98-107); CREATININE FOR GFR 1.16 MG/DL (0.70-1.30); GLOMERULAR FILTRATION RATE > 60.0 (>35); GLUCOSE, FASTING 106 MG/DL (70-100); POTASSIUM SERUM 4.4 MEQ/L (3.5-5.1); SODIUM LEVEL 133 MEQ/L (136-145); TOTAL PROTEIN 5.4 GM/DL (6.4-8.2)
[2020-09-12] MEDS: LACTOBACILLUS ACIDOPHILUS CAP (BACID) PO SCH ×2 (08:15→17:07)
[2020-09-12] MEDS: APIXABAN 5 MG TAB (ELIQUIS) PO SCH ×2 (08:15→20:25)
[2020-09-12] MEDS: FUROSEMIDE 40MG/4ML VIAL (J1940) IV SCH (08:16)
[2020-09-12] MEDS: CARVedilol 6.25 MG TAB PO SCH ×2 (08:17→20:25)
--- NOTE | 2020-09-12 10:20 | IPNPDOC ---
Text Note Date of Service The patient was seen on 09/12/20. NOTE SUBJECTIVE: Patient seen and examined at bedside this morning. No acute overnight events reported. Patient has no new medical complaints. OBJECTIVE: VS: Please see below General: sitting comfortably in chair, eating breakfast HEENT: NC/AT, EOMI CV: +S1S2, RRR RESPIRATORY: CTA B/L Abd: soft, NT, ND, +BS, obese Ext: 1-2+ peripheral edema ASSESSMENT: 85M with extensive past medical history including atrial fibrillation on eliquis, COPD, hypertension, history of lung cancer s/p resection, diabetes, hyperlipidemia, CAD status post [place] admitted for LLE pain/swelling 2/2 to left lower extremity cellulitis, r/o DVT, unsteadiness on his feet requiring evaluation by physical therapy. PLAN: #LLE pain/increased swelling 2/2 cellulitis and hematoma, s/p trauma after mechanical fall -Wound appears more improved, nonsuppurative but entire leg below knee appears increasingly swollen, tender, bruised behind knee -CT leg, doppler above -c/w IV clindamycin -PT: Would benefit from 1-2 more sessions -Pain control #HFpEF with bilateral lower ext swelling, likely acutely worsened on chronic (Note: on several medications that may indicate SYSTOLIC dysfunction but no recent echo on file) -continue IV lasix - creatinine improving - C/w other cardiac meds -Monitor I&O's, daily weight, low salt diet #Unsteady gait likely 2/2 to acute on chronic physical deconditioning, s/p mechanical fall -Uses walker at baseline, concerned for falling further with new LLE pain, wound -F/u PT/OT #Acute kidney injury- resolved with gentle IVFs -Per patient his providers have been "watching" his kidneys but no diagnosis of CKD -All prior Cr on file here have been wnl -Diuresing currently -Holding losartan -Daily labs #Atrial fibrillation -C/w home medications #COPD -Stable -C/w home med #Hypertension -Stable -C/w home meds #OA -Stable #DM type II -ISS, FS AC/HS -Consistent carb diet #HLD -statin #CAD s/p [place] #morbid obesity -complicates care, f/u PCP #Hx of GI bleed -No s/s of bleeding, on chronic eliquis BID #cataracts -Due to have laser surgery on 09/11/20 #migraine headaches -C/w home med -Stable, f/u with neuro o/p #DVT px -Eliquis BID DISPOSITION: Pending clinical improvement, IV diuresis VS,Fishbone, I+O VS, Fishbone, I+O Laboratory Tests 09/12/20 06:43 Vital Signs Date Time Temp Pulse Resp B/P (MAP) Pulse Ox O2 Delivery O2 Flow Rate FiO2 09/12/20 08:17 63 135/71 09/12/20 06:00 97.7 20 95 Room Air I&O- Last 24 Hours up to 6 AM 09/12/20 06:00 Intake Total 2780 ml Output Total 2275 ml Balance 505 ml SWAPNA DOMINGUEZ MD Sep 12, 2020 10:20
[2020-09-12 13:25] VITALS: BP 123/60
[2020-09-12] MEDS: ATORVASTATIN 10 MG TAB PO SCH (20:24)
[2020-09-12] MEDS: CYANOCOBALAMIN 500 MCG TAB PO SCH (20:26)
[2020-09-12] MEDS: VITAMIN D 1,000 INTERNATIONAL UNITS TABLET PO SCH (20:26)
[2020-09-12] MEDS: ANEXSIA, NORCO 7.5MG/325MG TABLET(HYDROCODONE/APAP) PO PRN (20:28)
[2020-09-12 22:00] VITALS: BP 131/71
[2020-09-13] MEDS: CLINDAMYCIN 600 MG in IV 1 EA IV SCH ×4 (01:55→20:59)
[2020-09-13 06:00] VITALS: BP 105/54
[2020-09-13 06:32] LABS: HEMATOCRIT 39.3 % (42.0-52.0); HEMOGLOBIN 12.4 g/dl (13.5-17.5); MEAN CORPUSCULAR HEMOGLOBIN 28.8 pg (27.0-33.0); MEAN CORPUSCULAR HGB CONC 31.6 g/dl (32.0-36.5); MEAN CORPUSCULAR VOLUME 91.4 fl (80.0-96.0); PLATELET COUNT, AUTOMATED 193 10^3/uL (150-450); WHITE BLOOD COUNT 5.5 10^3/uL (4.0-10.0)
[2020-09-13 07:01] LABS: BILIRUBIN,TOTAL 0.6 MG/DL (0.2-1.0); CALCIUM LEVEL 8.6 MG/DL (8.8-10.2); CREATININE FOR GFR 1.26 MG/DL (0.70-1.30); GLOMERULAR FILTRATION RATE 58.2 (>35); POTASSIUM SERUM 4.1 MEQ/L (3.5-5.1); TOTAL PROTEIN 5.6 GM/DL (6.4-8.2)
[2020-09-13] MEDS: HumaLOG INSULIN (NovoLOG) PER UNIT SC SCH ×4 (07:30→20:36)
[2020-09-13] MEDS: LACTOBACILLUS ACIDOPHILUS CAP (BACID) PO SCH ×2 (08:22→18:14)
[2020-09-13] MEDS: APIXABAN 5 MG TAB (ELIQUIS) PO SCH ×2 (08:22→20:59)
[2020-09-13] MEDS: FUROSEMIDE 40MG/4ML VIAL (J1940) IV SCH (08:22)
[2020-09-13] MEDS: CARVedilol 6.25 MG TAB PO SCH ×2 (08:23→21:00)
[2020-09-13] MEDS: FUROSEMIDE 20 MG TAB PO SCH ×2 (10:38→18:14)
--- NOTE | 2020-09-13 10:47 | IPNPDOC ---
Text Note Date of Service The patient was seen on 09/13/20. NOTE SUBJECTIVE: Patient seen and examined at bedside this morning. No acute overnight events reported. Patient has no new medical complaints. OBJECTIVE: VS: Please see below General: sitting comfortably in chair, eating breakfast, in good spirits HEENT: NC/AT, EOMI CV: +S1S2, RRR RESPIRATORY: CTA B/L Abd: soft, NT, ND, +BS, obese Ext: 1+ peripheral edema ASSESSMENT: 85M with extensive past medical history including atrial fibrillation on eliquis, COPD, hypertension, history of lung cancer s/p resection, diabetes, hyperlipidemia, CAD status post [place] admitted for LLE pain/ swelling 2/2 to left lower extremity cellulitis, r/o DVT, unsteadiness on his feet requiring evaluation by physical therapy. PLAN: #LLE pain/increased swelling 2/2 cellulitis and hematoma, s/p trauma after mechanical fall -Wound appears more improved, nonsuppurative but entire leg below knee appears increasingly swollen, tender, bruised behind knee -CT leg, doppler above -c/w IV clindamycin day #4 -PT: cleared -Pain control #HFpEF with bilateral lower ext swelling, likely acutely worsened on chronic (Note: on several medications that may indicate SYSTOLIC dysfunction but no recent echo on file) -continue IV lasix - creatinine improving - C/w other cardiac meds -Monitor I&O's, daily weight, low salt diet #Unsteady gait likely 2/2 to acute on chronic physical deconditioning, s/p mechanical fall -Uses walker at baseline, concerned for falling further with new LLE pain, wound -F/u PT/OT #Acute kidney injury- resolved with gentle IVFs -Per patient his providers have been "watching" his kidneys but no diagnosis of CKD -All prior Cr on file here have been wnl -Diuresing currently -Holding losartan -Daily labs #Atrial fibrillation -C/w home medications #COPD -Stable -C/w home med #Hypertension -Stable -C/w home meds #OA -Stable #DM type II -ISS, FS AC/HS -Consistent carb diet #HLD -statin #CAD s/p [place] #morbid obesity -complicates care, f/u PCP #Hx of GI bleed -No s/s of bleeding, on chronic eliquis BID #cataracts -Due to have laser surgery on 09/11/20 #migraine headaches -C/w home med -Stable, f/u with neuro o/p #DVT px -Eliquis BID DISPOSITION: Pending clinical improvement, anticipate discharge in 24 hours VS,Fishbone, I+O VS, Fishbone, I+O Laboratory Tests 09/13/20 06:11 Vital Signs Date Time Temp Pulse Resp B/P (MAP) Pulse Ox O2 Delivery O2 Flow Rate FiO2 09/13/20 08:23 73 114/57 09/13/20 06:00 97.3 19 95 Room Air I&O- Last 24 Hours up to 6 AM 09/13/20 06:00 Intake Total 1360 ml Output Total 2500 ml Balance -1140 ml SWAPNA DOMINGUEZ MD Sep 13, 2020 10:47
[2020-09-13 14:00] VITALS: BP 146/91
[2020-09-13] MEDS: NORCO, ANEXSIA 5/325MG TABLET (HYDROcodone/ACETAMINOPHEN) PO PRN (18:21)
[2020-09-13] MEDS: VITAMIN D 1,000 INTERNATIONAL UNITS TABLET PO SCH (20:59)
[2020-09-13] MEDS: ATORVASTATIN 10 MG TAB PO SCH (20:59)
[2020-09-13] MEDS: CYANOCOBALAMIN 500 MCG TAB PO SCH (20:59)
[2020-09-13 22:00] VITALS: BP 139/60
[2020-09-14] MEDS: CLINDAMYCIN 600 MG in IV 1 EA IV SCH ×2 (02:03→08:26)
[2020-09-14 06:00] VITALS: BP 113/71
[2020-09-14 06:50] LABS: HEMATOCRIT 39.8 % (42.0-52.0); HEMOGLOBIN 12.9 g/dl (13.5-17.5); MEAN CORPUSCULAR HEMOGLOBIN 29.6 pg (27.0-33.0); MEAN CORPUSCULAR HGB CONC 32.4 g/dl (32.0-36.5); MEAN CORPUSCULAR VOLUME 91.3 fl (80.0-96.0); PLATELET COUNT, AUTOMATED 209 10^3/uL (150-450); RED BLOOD COUNT 4.36 10^6/uL (4.30-6.10); WHITE BLOOD COUNT 5.7 10^3/uL (4.0-10.0)
[2020-09-14 07:21] LABS: BLOOD UREA NITROGEN 21 MG/DL (7-18); CALCIUM LEVEL 8.7 MG/DL (8.8-10.2); CARBON DIOXIDE LEVEL 32 MEQ/L (21-32); CHLORIDE LEVEL 98 MEQ/L (98-107); CREATININE FOR GFR 1.15 MG/DL (0.70-1.30); GLOMERULAR FILTRATION RATE > 60.0 (>35); GLUCOSE, FASTING 113 MG/DL (70-100); NT-PRO BNP 1500 PG/ML (<450); POTASSIUM SERUM 4.3 MEQ/L (3.5-5.1); SODIUM LEVEL 138 MEQ/L (136-145)
[2020-09-14] MEDS: HumaLOG INSULIN (NovoLOG) PER UNIT SC SCH ×2 (07:30→12:00)
[2020-09-14 08:26] VITALS: BP 134/70
[2020-09-14] MEDS: FUROSEMIDE 20 MG TAB PO SCH (08:26)
[2020-09-14] MEDS: APIXABAN 5 MG TAB (ELIQUIS) PO SCH (08:26)
[2020-09-14] MEDS: CARVedilol 6.25 MG TAB PO SCH (08:26)
[2020-09-14] MEDS: LACTOBACILLUS ACIDOPHILUS CAP (BACID) PO SCH (08:26)
[2020-09-14] MEDS: NORCO, ANEXSIA 5/325MG TABLET (HYDROcodone/ACETAMINOPHEN) PO PRN (08:36)
[2020-09-14] MEDS ORDERED: CLEO300C2 PO (09:54)
--- NOTE | 2020-09-14 14:03 | DS.PDOC ---
Discharge Summary General Date of Admission Sep 10, 2020 at 16:33 Date of Discharge 09/14/20 Discharge Summary PROCEDURES PERFORMED DURING STAY: [None]. Discharge Diagnoses: #decompensated CHF #LE cellulitis PMH: Atrial fibrillation on eliquis COPD Hypertension OA DJD Lung cancer DM type II HLD vertigo CAD s/p [place] morbid obesity Hx of GI bleed cataracts migraine headaches PSURGHX: L lung resection shrapnel removal right elbow repair surgery L rotator cuff repair Exploratory laparotomy Testicle removal COMPLICATIONS/CHIEF COMPLAINT: Cellulitis Of Leg Unsteady Gait. HISTORY OF PRESENT ILLNESS: Patient is an 85-year-old male with extensive past medical history including atrial fibrillation on eliquis, COPD, hypertension, history of lung cancer, diabetes, hyperlipidemia, CAD status post [place] who presented to [facility] emergency room with increasing left lower extremity pain and swelling over the past several days. The patient states 7 days ago he had lost his balance and fell down 2 stairs at his home. He had a large wound on the anterior left kwan which has been getting treated at home by his with [id number] topical antibiotics and antibiotic spray. At baseline the patient uses a walker and has found it increasingly difficult to ambulate over the past 7 days. He also states his pain has been increasing with today it being 10/10, sharp, localized to the left lower extremity. He describes the left lower extremity wound is beginning to wheeze more and noticed increased swelling with erythema as well. The patient has been trying not to come to the hospital because he has a scheduled outpatient procedure for his cataracts but today the pain was so severe he came in to get evaluated. In the emergency room his vital signs were stable. WBC within normal limits, creatinine elevated at 1.44 (all prior creatinines were within normal limits). The patient had tenderness to palpation of the left lower extremity and had a large area of bruising behind the left knee and left calf. X-ray of the tib-fib was negative for dislocation or fracture. When attempted to be stood up patient could not stand and ambulate at his baseline and there was concern for fall in the emergency room. The patient was admitted for LLE pain/swelling 2/2 to left lower extremity cellulitis, r/o DVT, unsteadiness on his feet requiring evaluation by physical therapy. HOSPITAL COURSE: 85M with extensive past medical history including atrial fibrillation on eliquis, COPD, hypertension, history of lung cancer s/p resection, diabetes, hyperlipidemia, CAD status post [place] admitted for LLE pain/swelling 2/2 to left lower extremity cellulitis, CHF, r/o DVT, unsteadiness on his feet requiring evaluation by physical therapy. #LLE pain/increased swelling 2/2 cellulitis and hematoma, s/p trauma after mechanical fall -Wound appears more improved, nonsuppurative but entire leg below knee appears increasingly swollen, tender, bruised behind knee -dopplers negative - treated with clindamycin -PT: cleared -Pain control #HFpEF with bilateral lower ext swelling - compensated - treated with IV lasix #Unsteady gait likely 2/2 to acute on chronic physical deconditioning, s/p mechanical fall -Uses walker at baseline, concerned for falling further with new LLE pain, wound -F/u PT/OT #Acute kidney injury - resolved -Per patient his providers have been monitoring his kidneys but no diagnosis of CKD -All prior Cr on file here have been wnl #Atrial fibrillation -C/w home medications #COPD -Stable -C/w home med #Hypertension -Stable -C/w home meds #OA -Stable #DM type II -ISS, FS AC/HS -Consistent carb diet #HLD -statin #CAD s/p [place] #morbid obesity -complicates care, f/u PCP #Hx of GI bleed -No s/s of bleeding, on chronic eliquis BID #cataracts - was Due to have laser surgery on 09/11/20 #migraine headaches -C/w home med -Stable, f/u with neuro o/p DISCHARGE MEDICATIONS: Please see below. ALLERGIES: Please see below. PHYSICAL EXAMINATION ON DISCHARGE: VS: Please see below General: sitting comfortably in chair, eating breakfast, in good spirits HEENT: NC/AT, EOMI CV: +S1S2, RRR RESPIRATORY: CTA B/L Abd: soft, NT, ND, +BS, obese Ext: 1+ peripheral edema LABORATORY DATA: Please see below. ACTIVITY: [As tolerated]. DIET: DISCHARGE PLAN: DISPOSITION: Home, Self-Care. DISCHARGE INSTRUCTIONS: 1. Follow up with PCP in 3-5 days. 2. Follow up with cardiology in 3-7 days. DISCHARGE CONDITION: [Stable]. TIME SPENT ON DISCHARGE: 35 minutes. Vital Signs/I&Os Vital Signs Date Time Temp Pulse Resp B/P (MAP) Pulse Ox O2 Delivery O2 Flow Rate FiO2 09/14/20 09:06 20 09/14/20 08:26 73 134/70 09/14/20 06:00 98.8 91 Room Air I&O- Last 24 Hours up to 6 AM 09/14/20 06:00 Intake Total 1330 ml Output Total 3600 ml Balance -2270 ml Laboratory Data Labs 24H Laboratory Tests 2 09/13/20 17:00: Bedside Glucose (Misc Panel) 152H 09/13/20 19:34: Bedside Glucose (Misc Panel) 146H 09/14/20 06:18: Nucleated Red Blood Cells % (auto) 0.0, Anion Gap 8, Glomerular Filtration Rate > 60.0, Calcium Level 8.7L, EP-Syv-S-Type Natriuretic Peptide 1500H CBC/BMP Laboratory Tests 09/14/20 06:18 FSBS Laboratory Tests Test 09/13/20 17:00 09/13/20 19:34 Range/Units Bedside Glucose (Misc Panel) 152 146 83-110 MG/DL Discharge Medications Scheduled Apixaban (Eliquis) 5 Mg Tablet, 5 MG PO BID, (Reported) Atorvastatin Calcium (Atorvastatin Calcium) 10 Mg Tab, 10 MG PO QHS, (Reported) Carvedilol (Carvedilol) 6.25 Mg Tab, 6.25 MG PO BID, (Reported) Cholecalciferol (Vitamin D3) (Vitamin D3) 1,000 Unit Tablet, 1,000 UNITS PO QHS, (Reported) Clindamycin Hcl (Cleocin HCl) 300 Mg Capsule, 300 MG PO BID Cyanocobalamin (Vitamin B-12) (Vitamin B-12) 500 Mcg Tab, 500 MCG PO QHS, (Reported) Furosemide (Furosemide) 20 Mg Tablet, 20 MG PO DAILY, (Reported) Glipizide (Glipizide ER) 5 Mg Tab, 5 MG PO DAILY, (Reported) Losartan Potassium (Losartan Potassium) 100 Mg Tablet, 100 MG PO QHS, (Reported) Spironolact/Hydrochlorothiazid (Spironolactone-Hctz 25-25 Tab) 1 Ea Tab, 1 TAB PO DAILY, (Reported) Scheduled PRN Albuterol Sulf (Albuterol Sulfate) 2.5 Mg/3 Ml Nebu, 2.5 MG INH Q6H PRN for SHORTNESS OF BREATH, (Reported) Tramadol HCl (Tramadol HCl) 50 Mg Tablet, 50 MG PO BID PRN for PAIN, (Reported) Allergies Coded Allergies: cortisone (Verified Allergy, Mild, HVIES, 11/20/18) SWAPNA DOMINGUEZ MD Sep 14, 2020 14:03
== END 2020-09-14 13:03 | disposition home or self-care (01) | DRG 602 ==
LOC: M ED 15:12 → M ED INP 16:33 → M MSPAV 18:00
PROVIDERS: ADMIT Internal Medicine; ATTEND Internal Medicine
DX: L03.116 Cellulitis of left lower limb (principal); I50.23 Acute on chronic systolic (congestive) heart failure; N17.9 Acute kidney failure, unspecified; Z68.43 Body mass index [BMI] 50.0-59.9, adult; R26.81 Unsteadiness on feet; J44.9 Chronic obstructive pulmonary disease, unspecified; I11.0 Hypertensive heart disease with heart failure; E11.9 Type 2 diabetes mellitus without complications; E78.5 Hyperlipidemia, unspecified; E66.01 Morbid (severe) obesity due to excess calories; G43.909 Migraine, unspecified, not intractable, without status migrainosus; I48.91 Unspecified atrial fibrillation; H26.9 Unspecified cataract; I25.10 Atherosclerotic heart disease of native coronary artery without angina pectoris; M25.462 Effusion, left knee; I25.2 Old myocardial infarction; S80.12XA Contusion of left lower leg, initial encounter; Z90.2 Acquired absence of lung [part of]; Z87.891 Personal history of nicotine dependence; Z85.118 Personal history of other malignant neoplasm of bronchus and lung; Z79.01 Long term (current) use of anticoagulants; Z79.84 Long term (current) use of oral hypoglycemic drugs; Z79.891 Long term (current) use of opiate analgesic; Z79.899 Other long term (current) drug therapy; Z88.8 Allergy status to other drugs, medicaments and biological substances; Z11.52 Encounter for screening for COVID-19; W10.8XXA Fall (on) (from) other stairs and steps, initial encounter; Y92.018 Other place in single-family (private) house as the place of occurrence of the external cause; Y99.8 Other external cause status

== ENCOUNTER 2021-05-15 21:09 | Inpatient (IN) | payer MEDICARE, MEDICAID ==
[~2021-05-15] VITALS: Ht 182.9 cm; Wt 158.0 kg
[2021-05-15] MEDS: ATORVASTATIN 10 MG TAB PO SCH (10:20)
[~2021-05-15 21:09] MED LIST changes: +CLEO300C2 PO; +D31000TA2 PO; +ELIQ5TAB PO; +FURO20TA2 PO; +LOSARTAN 50MG TABLET PO SCH
[2021-05-15 22:18] LABS: BASO % 0.4 % (0.0-1.0); EOS # 0.1 10^3/uL (0.0-0.5); EOS % 0.9 % (0.0-3.0); HEMATOCRIT 42.9 % (42.0-52.0); HEMOGLOBIN 14.1 g/dl (13.5-17.5); LYMPH # 0.4 10^3/uL (1.5-5.0); LYMPH % 4.8 % (24.0-44.0); MEAN CORPUSCULAR HEMOGLOBIN 30.3 pg (27.0-33.0); MEAN CORPUSCULAR HGB CONC 32.9 g/dl (32.0-36.5); MEAN CORPUSCULAR VOLUME 92.1 fl (80.0-96.0); MONO # 0.7 10^3/uL (0.0-0.8); MONO % 7.7 % (2.0-8.0); NEUTROPHILS # 7.9 10^3/uL (1.5-8.5); NEUTROPHILS % 85.4 % (36.0-66.0); PLATELET COUNT, AUTOMATED 188 10^3/uL (150-450); RED BLOOD COUNT 4.66 10^6/uL (4.30-6.10); WHITE BLOOD COUNT 9.3 10^3/uL (4.0-10.0)
[2021-05-15] MEDS ORDERED: ADV250INH INH (22:25)
[2021-05-15 22:55] LABS: ALBUMIN 2.7 GM/DL (3.2-5.2); BILIRUBIN,TOTAL 0.8 MG/DL (0.2-1.0); CALCIUM LEVEL 8.5 MG/DL (8.8-10.2); CK-MB VALUE MASS 1.4 NG/ML (<3.6); CREATININE FOR GFR 1.3 MG/DL (0.70-1.30); GLOMERULAR FILTRATION RATE 56.1 (>35); MAGNESIUM LEVEL 2.1 MG/DL (1.8-2.4); MB/CK RELATIVE INDEX 3.59 (< OR =4); POTASSIUM SERUM 3.9 MEQ/L (3.5-5.1); TOTAL PROTEIN 5.5 GM/DL (6.4-8.2); TROPONIN I 0.17 NG/ML (< 0.10)
[2021-05-15 23:17] LABS: AMORPHOUS SEDIMENT SMALL (NEGATIVE); APPEARANCE, URINE CLOUDY (CLEAR); BACTERIA, URINE AUTO NEGATIVE (NEGATIVE); BILIRUBIN, URINE AUTO NEGATIVE (NEGATIVE); BLOOD, URINE BLOOD 1+ (NEGATIVE); COLOR, URINE YELLOW (YELLOW); GLUCOSE, URINE (UA) AUTO 1+ mg/dL (NEGATIVE); KETONE, URINE AUTO NEGATIVE (NEGATIVE); LEUKOCYTE ESTERASE, URINE AUTO NEGATIVE (NEGATIVE); MUCUS, URINE SMALL (NEGATIVE); NITRITE, URINE AUTO NEGATIVE (NEGATIVE); PROTEIN, URINE AUTO 2+ mg/dL (NEGATIVE); RBC, URINE AUTO 7 /HPF (0-3); SPECIFIC GRAVITY URINE AUTO 1.019 (1.002-1.035); SQUAMOUS EPITHELIAL CELL UR AU 1 /HPF (0-6); UROBILINOGEN, URINE AUTO 0.2 mg/dL (0.0-2.0); WBC, URINE AUTO 6 /HPF (0-3)
--- NOTE | 2021-05-15 23:23 | REPVR ---
PROCEDURE INFORMATION: Exam: XR Chest Exam date and time: 05/15/2021 10:19 PM Age: 85 years old Clinical indication: Shortness of breath; Additional info: SOB TECHNIQUE: Imaging protocol: XR of the chest. Views: 1 view. COMPARISON: [facility] PORTABLE CHEST X-RAY 03/21/2019 2:07 PM FINDINGS: Lungs: There is increased density at the left lung base some of which is the result of scarring and chronic change. There could be some atelectasis or infiltrate at the left lung base. There is decrease in the markings in the left upper lung and if there is continued concern a possible pulmonary embolus suggest CT scan of the chest with contrast. Pleural spaces: There is no evidence of pneumothorax. Heart/Mediastinum: There is moderate cardiomegaly. Bones/joints: Unremarkable. IMPRESSION: 1. Moderate cardiomegaly. 2. Chronic changes at the left lung base. However there could be atelectasis or infiltrate. 3. Decrease in the markings in the left upper lung and if there are continued concern for pulmonary embolus recommend CT with IV contrast. Electronically signed by: James Zamorano On 05/15/2021 23:23:16 PM
[2021-05-15] MEDS ORDERED: MORPHINE 4 MG/ML 1ML VIAL/SYRINGE (J2270) IV ONE (23:25)
[2021-05-16] VITALS (13 sets, daily range): BP systolic 112–152; BP diastolic 53–79; O2SAT 97
[2021-05-16 00:54] LABS: CK-MB VALUE MASS 2.1 NG/ML (<3.6); MB/CK RELATIVE INDEX 4.38 (< OR =4); TROPONIN I 0.38 NG/ML (< 0.10)
[2021-05-16] MEDS ORDERED: ISOVUE-370 76% 100ML VIAL As Ordered ONE (00:54)
--- NOTE | 2021-05-16 02:31 | REPVR ---
PROCEDURE INFORMATION: Exam: CTA Chest With Contrast Exam date and time: 05/16/2021 12:36 AM Age: 85 years old Clinical indication: Shortness of breath; Additional info: SOB, rads request TECHNIQUE: Imaging protocol: Computed tomographic angiography of the chest with contrast. 3D rendering (Not supervised by radiologist): MIP and/or 3D reconstructed images were created by the technologist. Radiation optimization: All CT scans at this facility use at least one of these dose optimization techniques: automated exposure control; mA and/or kV adjustment per patient size (includes targeted exams where dose is matched to clinical indication); or iterative reconstruction. Contrast material: ISO; Contrast volume: 75 ml; Contrast route: INTRAVENOUS (IV); COMPARISON: CT ANGIO CHEST 03/21/2019 3:33 PM FINDINGS: Pulmonary arteries: No large acute central pulmonary embolus. Evaluation of distal segmental and subsegmental pulmonary arterial branches is limited due to poor opacification. Aorta: Atherosclerotic disease of the thoracic aorta. Lungs: Status post wedge resection involving left upper lobe. Atelectasis or scarring in the lingula and bilateral lower lobes. Interval development of a 8 mm subpleural pulmonary nodule in the anterior inferior right lower lobe best seen the number 92. Stable 6-7 mm pulmonary nodule in the left lower lobe on image number 74. Decreased size of subpleural pulmonary nodule in the right upper lobe. Pleural spaces: Unremarkable. No pneumothorax. No pleural effusion. Heart: Atherosclerotic disease in the coronary arteries. Mild cardiomegaly. Mediastinal space: Aspirated material in trachea. Lymph nodes: Unremarkable. No enlarged lymph nodes. Liver: Simple right hepatic lobe cyst. Gallbladder and bile ducts: Cholelithiasis. No evidence of acute cholecystitis. Bones/joints: Diffuse idiopathic skeletal hyperostosis of the thoracic spine. Soft tissues: Unremarkable. IMPRESSION: No large acute central pulmonary embolus. Evaluation of distal segmental and subsegmental pulmonary arterial branches is limited due to poor opacification. Interval development of a 8 mm subpleural pulmonary nodule in the anterior inferior right lower lobe best seen the number 92. For patients at low risk (minimal or absent history of smoking and of other known risk factors), recommend CT Chest at 6-12 months, then consider CT Chest at 18-24 months. For patients at high risk (history of smoking or of other known risk factors), recommend CT Chest at 6-12 months, then CT Chest at 18-24 months. (Reference: Marie) References: Marie Ramirez, et al. Guidelines for Management of Incidental Pulmonary Nodules Detected on CT Images: From the Fleischner Society 2017. Radiology. 2017;284(1):228-243. Electronically signed by: Koko Ponce On 05/16/2021 02:17:29 AM
[2021-05-16] MEDS ORDERED: FUROSEMIDE 40MG/4ML VIAL (J1940) IV ONE (03:20)
[2021-05-16 05:10] LABS: CK-MB VALUE MASS 2.1 NG/ML (<3.6); MB/CK RELATIVE INDEX 4.04 (< OR =4); TROPONIN I 0.41 NG/ML (< 0.10)
--- NOTE | 2021-05-16 05:34 | ECGEPIP ---
[facility] - ED Test Date: 2021-05-15 Pat Name: KRISTEL LUKE Department: Room: - Gender: Male Hospital Intern: : 1935 Requested By: AYUSH Brasher Order Number: [id number] Reading MD: Finesse Sam Measurements Intervals [place] Rate: 77 P: 250 RI: QRS: -12 QRSD: 88 T: 17 QT: 398 QTc: 450 Interpretive Statements Atrial flutter with variable AV block Low voltage QRS RHYTHM/RATE CHANGE COMPARED TO 03/21/19 Electronically Signed on 05-16-2021 5:34:09 EDT by Finesse Sam
--- NOTE | 2021-05-16 05:37 | ECGEPIP ---
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
--- NOTE | 2021-05-16 05:39 | ECGEPIP ---
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
[2021-05-16] MEDS ORDERED: HumaLOG INSULIN (NovoLOG) PER UNIT SC SCH ×2 (06:00→21:00)
[2021-05-16] MEDS ORDERED: ACETAMINOPHEN TAB 650MG DOSE (2X325MG) PO PRN (06:10)
[2021-05-16] MEDS ORDERED: SPIR-10 PO (06:13)
[2021-05-16] MEDS ORDERED: TORS20TA2 PO (06:13)
[2021-05-16] MEDS ORDERED: LOSA50TA88 PO (06:13)
[2021-05-16] MEDS ORDERED: HOME MED LIST COMPLETE! XX SCH (06:15)
--- NOTE | 2021-05-16 06:42 | HPEPDOC ---
General Date of Admission Date of Service: May 16, 2021 Attending Physician: GREG SALTER MD Chief Complaint CC: SOB HISTORY OF PRESENT ILLNESS: This is a morbidly obese 85-year-old male who presents to [facility] ER with chief complaint of progressive shortness of breath and generalized weakness. He states that he has felt short of breath for the past 2 weeks is gotten progressively worse but denies paroxysmal nocturnal dyspnea. He does not use home oxygen. He also states that he has had a cough that is productive of greenish sputum around the same time as the shortness of breath however the weakness was more pronounced this weekend. Prior to arriving to the ER patient's reports that patient did fall and patient reports that he tripped over the front door and did land on his side and reports hitting the front of his head. He denies loss of consciousness presyncope, syncope any dizziness, headache. In the ER patient was hypoxic with SPO2 in the 80s requiring supplemental oxygen to sat above 90%. He was given a dose of 40 IV of Lasix with clinical improvement of his shortness of breath. He was also noted to have elevated troponins. Any recent travels or have not been in contact with anyone sick. REVIEW OF SYSTEMS: General: Denies fevers but does report mild chills, loss of appetite over the past year and as a result had about a 40Lb weight loss. HEENT: Denies changes in vision including blurry vision or double vision, or hearing loss nasal congestion or sore throat Heart: Denies chest pain or chest pressure or discomfort, or palpitations, or increased lower extremity edema from his usual. Pulm: Increased cough with greenish sputum production and orthopnea GI: Denies nausea vomiting diarrhea abdominal pain or bloody stools Psych: Denies sadness or loss of interest in doing things, no thoughts of self- harm or suicidal ideation PAST MEDICAL HISTORY: Essential hypertension DM2 Hypercholesterolemia Lung Disease Heart Disease Atrial Fibrillation on AC Myocardial Infarction - 2017 SURGICAL HISTORY: Shoulder Surgery - LEFT - 1972, LEFT ROTOR CUFF - 2003 Elbow - RIGHT - 1974 Lung - COLON SURGERY - 2010 - [facility] Cataract Surgery - 2012 Abdominal - 1964 Orchiectomy - 12/2016 Colonoscopy - 10/2018 Hemmorhoid Surgery FAMILY HISTORY: Father: due to Leukemia. Mother: due to Parkinson's Disease. Brother 1:Heart Disease Sister 1:Heart Disease, Parkinson's Disease. SOCIAL HISTORY: Patient is a former smoker - quit in 1963 but prior to this: 2 packs/week. Denies ETOH or illicit drug use. 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 Denies any occupational exposures or chemical exposures at work. Able to do ADLs by self with help of walker IMAGING: X-ray impression: Moderate cardiomegaly, chronic changes at the left lung base however there could be atelectasis versus infiltrate. Decrease in lung markings specifically in the left upper lung. CTA chest impression: No large acute central pulmonary embolus. Eval of distal segmental and subsegmental pulmonary artery branches limited due to poor opacification. Interval development of a 8 mm subpleural pulmonary nodule in the anterior inferior right lower lobe. Follow-up CT chest recommended at 6 to [address] chest at 18-24 months. PHYSICAL EXAM: GENERAL: Obese male resting in bed with head of the bed about 30 degrees satting 95% on 3 L nasal cannula. Able to speak to me in full sentences without publications sales representative muscle use or respiratory distress, AAOx3 NEURO: No focal neurological deficits, 4 out of 5 strength throughout HEENT: Head is normocephalic and atraumatic. Extraocular muscles are intact. Pupils are equal, round, and reactive to light and accommodation. Nares appears normal. Moist mucous membranes. Mallampati score 4. PULM: No wheezing, rhonchi or rales appreciated. There crackles appreciated in lung bases bilaterally. CARDIO: Normal S1, S2. no significant murmurs, gallops, rubs or clicks. 3+ pitting edema bilaterally. Very difficult to appreciate JVP due to body habitus. ABDOMEN: Obese, soft, nontender, and nondistended. Normal bowel sounds. Unable to appreciate organomegaly secondary to body habitus EXTREMITIES: No cyanosis, there is a scrape on his right elbow, there are fingernail clubbing noted bilaterally no rashes petechiae or lesions. ASSESSMENT AND PLAN: This is a morbidly obese 85-year-old who presents with chief complaint of shortness of breath and generalized weakness who presented initially to the ER hypoxic and required supplemental oxygen he will be admitted under the hospitalist service for acute decompensated CHF versus COPD exacerbation. Acute hypoxemic respiratory failure likely secondary to acute decompensated CHF (unspecified) versus COPD exacerbation although lower on the differential Status post 40 mg IV Lasix x1 in ERcontinue 40 mg IV twice daily with strict ins and outs and daily weigh ins. Consider upping the dose if patient does not diurese. Strict 1.5 L to 2 L fluid restrictions daily O2 sat titrate O2 sat between 88% to 92% [place] Continue home inhalers Troponemia Likely due to ischemic demand Patient does not have any chest pain EKG shows A. fib with rate controlled low voltage likely due to COPD versus body habitus, incomplete RBBB nonspecific ST abnormalities A. fib on anticoagulation Continue with Eliquis Pulmonary nodule Interval development of a 8 mm subpleural pulmonary nodule in the anterior inferior right lower lobe Patient will need to follow with pulmonary outpatient to follow-up. Essential hypertension Continue with home meds DM 2 We will hold glipizide and add ISS with FSBS plus hypoglycemic protocol Consistent carb diet HLD Continue with home meds -statin CAD s/p IL Continue with home meds morbid obesity complicating care migraine headaches -C/w home med -Stable, f/u with neuro o/p DVT ppx: Eliquis DISPOSITION: Pending clinical improvement Home Medications Scheduled Atorvastatin Calcium (Atorvastatin Calcium) 10 Mg Tab, 10 MG PO QHS, (Reported) Carvedilol (Carvedilol) 6.25 Mg Tab, 6.25 MG PO BID, (Reported) Cyanocobalamin (Vitamin B-12) (Vitamin B-12) 500 Mcg Tab, 500 MCG PO DAILY, (Reported) Furosemide (Furosemide) 10 Mg/1 Ml Vial, 40 MG IV Q8H Insulin Human Lispro (Humalog) 100 Unit/1 Ml Vial, 0 UNITS SC ACHS Based on [facility] sliding scale Spironolactone (Spironolactone) 25 Mg Tablet, 25 MG PO DAILY, (Reported) Scheduled PRN Albuterol Sulf (Albuterol Sulfate) 2.5 Mg/3 Ml Nebu, 2.5 MG INH Q6H PRN for SHORTNESS OF BREATH, (Reported) Tramadol HCl (Tramadol HCl) 50 Mg Tablet, 50 MG PO BID PRN for MODERATE/SEVERE PAIN (PS 5-10), (Reported) Allergies Coded Allergies: cortisone (Verified Allergy, Mild, HVIES, 11/20/18) A-FIB/CHADSVASC A-FIB History Current/History of A-Fib/PAF?: Yes Current PO Anticoag Therapy: Yes Vital Signs Vital Signs Date Time Temp Pulse Resp B/P (MAP) Pulse Ox O2 Delivery O2 Flow Rate FiO2 05/16/21 05:48 72 20 144/70 (94) 96 Nasal Cannula 3.0 05/15/21 21:30 97.5 Laboratory Data Labs 24H Laboratory Tests 2 05/15/21 21:37: Bedside Glucose (Misc Panel) 138H 05/15/21 22:03: Urine Color YELLOW, Urine Appearance CLOUDYH, Urine pH 5.0, Urine Specific [place] 1.019, Urine Protein 2+H, Urine Glucose (Auto)(UA) 1+H, Urine Ketones (Auto) NEGATIVE, Urine Blood 1+H, Urine Nitrite NEGATIVE, Urine Bilirubin NEGATIVE, Urine Urobilinogen 0.2, Urine Leukocyte Esterase (Auto) NEGATIVE, Urine WBC (Auto) 6H, Urine RBC (Auto) 7H, Urine Hyaline Casts (Auto) 1, Urine Bacteria (Auto) NEGATIVE, Urine Squamous Epithelial Cells 1, Urine Amorphous Sediment (Auto) SMALLH, Urine Mucus (Auto) SMALL, Urine Sperm (Auto) 05/15/21 22:05: Lactic Acid Level 1.5 05/15/21 22:06: Immature Granulocyte % (Auto) 0.8, Neutrophils (%) (Auto) 85.4H, Lymphocytes (%) (Auto) 4.8L, Monocytes (%) (Auto) 7.7, Eosinophils (%) (Auto) 0.9, Basophils (%) (Auto) 0.4, Neutrophils # (Auto) 7.9, Lymphocytes # (Auto) 0.4L, Monocytes # (Auto) 0.7, Eosinophils # (Auto) 0.1, Basophils # (Auto) 0.0, Nucleated Red Blood Cells % (auto) 0.0, Anion Gap 6L, Glomerular Filtration Rate 56.1, Calcium Level 8.5L, Magnesium Level 2.1, Total Bilirubin 0.8, Aspartate Amino Transf (AST/SGOT) 14, Alanine Aminotransferase (ALT/SGPT) 24, Alkaline Phosphatase 59, Total Creatine Kinase 39, Creatine Kinase MB 1.4, Creatine Kinase MB Relative Index 3.59, Troponin I 0.17H, UM-Foo-I-Type Natriuretic Peptide 540H, Total Protein 5.5L, Albumin 2.7L, Albumin/Globulin Ratio 1.0, Lipase 112 05/16/21 00:18: Total Creatine Kinase 48, Creatine Kinase MB 2.1, Creatine Kinase MB Relative Index 4.38H, Troponin I 0.38#H 05/16/21 00:46: POC pH (Misc Panel) 7.386, POC Base Excess (Misc Panel) 1.0, POC Saturated Percent O2 (Misc) 99H, POC pO2 (Misc Panel) 120.0H, POC pCO2 (Misc Panel) 43.9, POC HCO3 (Misc Panel) 26.3H, POC Total CO2 (Misc Panel) 28.0H 05/16/21 04:21: Total Creatine Kinase 52, Creatine Kinase MB 2.1, Creatine Kinase MB Relative Index 4.04H, Troponin I 0.41H CBC/BMP Laboratory Tests 05/15/21 22:06 Microbiology Microbiology 05/15/21 Respiratory Virus Panel (PCR) (DOMINICK) - Final, Complete 05/15/21 Blood Culture, Received Pending 05/15/21 Blood Culture, Received Pending Plan / VTE VTE Prophylaxis Ordered?: Yes GME ATTESTATION GME ATTESTATION My faculty preceptor for this patient encounter was physically present during the encounter and was fully available. All aspects of the patient interview, examination, medical decision making process, and medical care plan development were reviewed and approved by the faculty preceptor. The faculty preceptor is aware and concurs with the plan as stated in the body of this note and will attest to such by his/her cosignature. ATTENDING NOTE ILondonf, have independently examined this patient and performed my own physical exam, as well as reviewed the documentation and edited where necessary. I have discussed in detail with the resident / student the findings and plan of treatment as documented by the resident / student and edited their note. I agree with their findings and treatment plan and have edited their documentation. I will continue to follow the patient during this hospital stay. Mukesh Sanchez DO May 16, 2021 06:42 GREG SALTER MD May 20, 2021 06:33
[2021-05-16] MEDS ORDERED: DEXTROSE 50% 50 ML SYRINGE IV PRN (06:50)
[2021-05-16] MEDS ORDERED: traMADol 50 MG TAB PO PRN (06:50)
[2021-05-16] MEDS ORDERED: ALBUTEROL SULFATE 2.5 MG/0.5 ML INH NEB SOLN INH PRN (06:50)
[2021-05-16] MEDS ORDERED: GLUCAGON INJ 1MG VIAL SC PRN (06:50)
[2021-05-16] MEDS ORDERED: GLUCOSE 4GM CHEW TABLET PO PRN (06:50)
[2021-05-16] MEDS ORDERED: FUROSEMIDE 40MG/4ML VIAL (J1940) IV SCH (09:00)
[2021-05-16] MEDS ORDERED: glipiZIDE XL 5 MG TABCR PO SCH (09:00)
[2021-05-16] MEDS ORDERED: APIXABAN 5 MG TAB (ELIQUIS) PO SCH (09:00)
[2021-05-16 09:24] LABS: BASO % 0.3 % (0.0-1.0); EOS # 0.1 10^3/uL (0.0-0.5); EOS % 0.9 % (0.0-3.0); HEMATOCRIT 43.1 % (42.0-52.0); HEMOGLOBIN 13.7 g/dl (13.5-17.5); LYMPH # 0.7 10^3/uL (1.5-5.0); LYMPH % 10.3 % (24.0-44.0); MEAN CORPUSCULAR HEMOGLOBIN 29.6 pg (27.0-33.0); MEAN CORPUSCULAR HGB CONC 31.8 g/dl (32.0-36.5); MEAN CORPUSCULAR VOLUME 93.1 fl (80.0-96.0); MONO # 0.7 10^3/uL (0.0-0.8); MONO % 11.6 % (2.0-8.0); NEUTROPHILS # 4.9 10^3/uL (1.5-8.5); NEUTROPHILS % 76.4 % (36.0-66.0); PLATELET COUNT, AUTOMATED 214 10^3/uL (150-450); RED BLOOD COUNT 4.63 10^6/uL (4.30-6.10); WHITE BLOOD COUNT 6.4 10^3/uL (4.0-10.0)
[2021-05-16 09:55] LABS: BLOOD UREA NITROGEN 22 MG/DL (7-18); CALCIUM LEVEL 8.3 MG/DL (8.8-10.2); CARBON DIOXIDE LEVEL 31 MEQ/L (21-32); CHLORIDE LEVEL 103 MEQ/L (98-107); CREATININE FOR GFR 1.09 MG/DL (0.70-1.30); GLOMERULAR FILTRATION RATE > 60.0 (>35); GLUCOSE, FASTING 118 MG/DL (70-100); MAGNESIUM LEVEL 2.3 MG/DL (1.8-2.4); POTASSIUM SERUM 3.7 MEQ/L (3.5-5.1); SODIUM LEVEL 140 MEQ/L (136-145)
[2021-05-16] MEDS: HumaLOG INSULIN (NovoLOG) PER UNIT SC SCH ×3 (10:14→18:48)
--- NOTE | 2021-05-16 10:16 | REP ---
INDICATION: Evaluate for ascites. COMPARISON: None. TECHNIQUE: Real-time sonographic evaluation of all 4 quadrants FINDINGS: There is no free fluid. IMPRESSION: There is no ascites. <Electronically signed by Toribio Pitt > 05/16/21 [id number]
[2021-05-16] MEDS: SPIRONOLACTONE 25 MG TAB PO SCH (10:19)
[2021-05-16] MEDS: CYANOCOBALAMIN 500 MCG TAB PO SCH (10:19)
[2021-05-16] MEDS: CARVedilol 6.25 MG TAB PO SCH ×2 (10:20→20:32)
--- NOTE | 2021-05-16 10:39 | REP ---
INDICATION: fall. COMPARISON: Comparison head CT studies are reviewed from December 11, 2010 and December 04, 2018. TECHNIQUE: Helical scanning is acquired. 5 mm axial images were reformatted. Coronal MPR images were generated. FINDINGS: Preliminary digital head animal trainer radiograph is unremarkable. Bone window settings demonstrate intact bony calvarium. No skull fracture is appreciated. No scalp hematoma is seen. There are mucosal changes in the maxillary sinuses bilaterally. The visualized paranasal sinuses are otherwise clear. Vascular calcification is noted in the distal internal and vertebral arteries bilaterally. On soft tissue window settings, there is generalized volume loss. Mild small vessel changes are noted. There is subtle low density in the left basal ganglia which may be a subacute or acute lacunar infarct. In addition, there is a subtle lesion in the left temporal lobe characterized by mixed density. There are small components of higher density within this lesion. These could represent petechial hemorrhage. The temporal horn of the left lateral ventricle appears to be effaced by this edematous lesion. Study is otherwise unremarkable. IMPRESSION: New mixed density lesion in the left temporal lobe with new low-density area in the left basal ganglia. Acute ischemic infarct versus contusion versus mass lesion. I cannot exclude petechial hemorrhage in the left temporal lobe. Recommend MRI without and with IV gadolinium if feasible. Critical Findings: The critical information above was relayed directly by me by telephone to Dr. Abdulaziz Schmidt On 05/16/2021 at 10:33 am with readback verification. <Electronically signed by Hira Ferrera > 05/16/21 [id number]
[2021-05-16] MEDS ORDERED: FLUID PLACE HOLDER IV ONE (11:00)
[2021-05-16] MEDS ORDERED: PROTHROMBIN COMPLEX CONCENTRAT IV ONE (11:00)
--- NOTE | 2021-05-16 12:52 | REP ---
INDICATION: Intracranial hemorrhage. 12:[address] study. COMPARISON: Comparison head CT study is from 9:46 a.m. on this same date. TECHNIQUE: Helical scanning is acquired. 5 mm axial images were reformatted. Coronal MPR images were generated. FINDINGS: There is been no interval change in the mixed density lesion in the left inferior temporal lobe or in the low-density area in the left basal ganglia when compared with the study done 3 hours earlier. There are tiny areas of increased density in the temporal lobe lesion which may represent petechial hemorrhage. This is unchanged. IMPRESSION: No significant change from the study done earlier this same date. <Electronically signed by Hira Ferrera > 05/16/21 [id number]
[2021-05-16] MEDS ORDERED: CHARCOAL ACTIVATED LIQUID 25 GM/120 ML BTL PO ONE (13:00)
--- NOTE | 2021-05-16 13:01 | IPNPDOC ---
Text Note Date of Service The patient was seen on 05/16/21. NOTE Subjective: Patient is an 85-year-old male with a PMHx of A. basil (on Eliquis), Hx of [place] (2018), HTN, DM2, DLP , who presented to the emergency room after experiencing progressive shortness of breath and generalized weakness. Upon arrival to emergency room, patient had reported that the symptoms have been going on for at least 2 weeks. Patient was admitted to the hospital service for further evaluation and treatment. Of note, patient has also reported that he had a fall while at home; this was confirmed with his and with his son after I spoke with them this morning. While in the emergency room, his had reported that he had fallen after he had tripped on the front door and landed on his side and hit his head. Patient had a CT scan that was ordered at [address] scan was completed and reported at 10:33AM with evidence that suggested possible petechial hemorrhage in the left temporal lobe. I have contacted at least 4 different facilities; [facility], [facility] and [facility]. Unfortunately none of them have any bed capacity to take patient on transfer. I have consulted thermo processor and neurologist this morning and case was discussed. Patient was urgently transferred to the intensive care unit so that he can continue with frequent neuro checks and serial CT scans. After discussing with neurology in-house and neurology at [facility], recommendation for getting an MRI to help confirm or exclude petechial hemorrhage was ordered. Unfortunately the MRI machine at this facility has ceased to function. Patient was seen and examined at the bedside at multiple locations throughout this morning. Patient is oriented to person, place and time. He does not exhibit any focal neurologic deficits. Reports shortness of breath with some cough. Denies any chest pain or palpitations. Has not experienced any nausea, vomiting, abdominal pain or diarrhea. He does report leg swelling and difficulty with breathing when lying flat. Objective: Vitals (See below) General: Lying in bed, appears comfortable, AAOx3, some slurring of speech HEENT: NC, AT, Pupils equal, round and reactive bilaterally CVS: +S1S2 Lungs: Fair air entry b/l, crackles appreciated at bases. No rhonchi or wheezing Abdomen: Soft, ND, NT, Obese Extremities: 2+ pitting edema bilaterally Neuro: 5/5 strength at bilateral upper and lower extremities bilaterally Imaging: CXR 05/15: 1. Moderate cardiomegaly. 2. Chronic changes at the left lung base. However there could be atelectasis or infiltrate. 3. Decrease in the markings in the left upper lung and if there are continued concern for pulmonary embolus recommend CT with IV contrast. CTA Chest 05/16: No large acute central pulmonary embolus. Evaluation of distal segmental and subsegmental pulmonary arterial branches is limited due to poor opacification. Interval development of a 8 mm subpleural pulmonary nodule in the anterior inferior right lower lobe best seen the number 92. For patients at low risk (minimal or absent history of smoking and of other known risk factors), recommend CT Chest at 6-12 months, then consider CT Chest at 18-24 months. For patients at high risk (history of smoking or of other known risk factors), recommend CT Chest at 6-12 months, then CT Chest at 18-24 months. (Reference: Marie) CT head 05/16: New mixed density lesion in the left temporal lobe with new low-density area in the left basal ganglia. Acute ischemic infarct versus contusion versus mass lesion. I cannot exclude petechial hemorrhage in the left temporal lobe. Recommend MRI without and with IV gadolinium if feasible. Abdomen US 05/16: There is no ascites. Assessment and plan: Left temporal lobe lesion - possibly 2/2 intracranial bleed (Petechial hemorrhage) - Currently patient is oriented to person, place and time and able to follow commands - Physical exam does not reveal any focal neurologic deficits - Imaging noted above - Attempted to get MRI, however, machine is no longer functional at [facility]; discussed with nursing boiler repair supervisor in the process of getting this corrected within the hour - In the meantime, will continue with serial CT scans - Patient has been transferred to the intensive care unit where he can continue with frequent neuro checks every hour - Discontinued Eliquis; unfortunately, because he has received an a.m. dose. He will be given activated charcoal to help prevent its absorption - Will provide prothrombin complex concentrate based on MRI/serial CT scans - Neurology and intensive care has been consulted for further recommendations - Have reached out to multiple facilities to transfer patient to a higher level of care; unfortunately no beds available at [facility] Hypoxic respiratory failure - likely 2/2 exacerbation of CHF - Clinically patient is exhibiting signs of fluid overload - Physical reveals evidence of pitting edema and crackles - Patient is requiring supplemental oxygen at 3 L - Strict ins/outs, Daily weight, Head of bed elevation, Fluid restriction - Will get ECHO stat - Will c/w Diuresis with Furosemide 40 IV every 8 / Spironolactone Elevated troponin - likely 2/2 ischemic demand - Denies any CP or palpitations - EKG reveals A. fib, rate controlled - c/w Telemetry monitoring - c/w Carvedilol, Atorvastatin A. fib - Rate appears well controlled - c/w rate control with Carvedilol - Will hold full anticoagulation with Eliquis (re: Possible ICH) Pulmonary nodule - Interval development of a 8 mm subpleural pulmonary nodule in the anterior inferior right lower lobe - Will have outpatient follow-up with pulmonology on discharge HTN - Given acute findings on imaging above; will maintain blood pressure ideally <140 in the interim - Losartan on hold (re: Diuresis / Received contrast in the ER) - c/w Carvedilol, Furosemide, Spironolactone DM2 - c/w ISS DLP - c/w Atorvastatin CAD s/p [place] - Discontinued Eliquis - c/w Atorvastatin, Carvedilol, Morbid obesity - BMI of 46.2 - Complicating medical care Migraine headaches - c/w Tramadol PRN DVT prophylaxis - Discontinued Eliquis - Will start TEDs / Sequentials Disposition: - Pending clinical improvement - Called and discussed case with patient's son; Silvio - [phone] provided him with updates and plan of care Zack MATHEWS, I+O VSZack, I+O Laboratory Tests 05/15/21 22:06 05/16/21 06:43 Vital Signs Date Time Temp Pulse Resp B/P (MAP) Pulse Ox O2 Delivery O2 Flow Rate FiO2 05/16/21 10:20 78 133/60 05/16/21 08:33 97.2 18 98 Nasal Cannula 3.0 I&O- Last 24 Hours up to 6 AM 05/16/21 05:59 Output Total 900 ml Balance -900 ml CAMMY DOMINGUEZ MD May 16, 2021 13:01
[2021-05-16] MEDS: FUROSEMIDE 40MG/4ML VIAL (J1940) IV SCH ×2 (13:14→20:00)
--- NOTE | 2021-05-16 13:49 | CR.PDOC ---
General Date of Consultation: May 16, 2021 Referring Provider: CAMMY DOMINGUEZ MD Consultation REASON FOR CONSULTATION/CHIEF COMPLAINT: Reason for consult is concern for intracerebral hemorrhage. Chief complaint is shortness of breath and weakness. HISTORY OF PRESENT ILLNESS: 85-year-old male with past medical history of A. fib on Eliquis, CAD, hypertension, morbid obesity, diabetes mellitus presenting with a chief complaint of generalized weakness and fatigue. For 1 week he has been complaining of weakness and fatigue and progressive dyspnea on exertion. He also endorses some lower extremity swelling in both legs over the past week. He endorses compliance with diet and medication. He endorses that he had a mechanical fall a few days ago and that he hit his head. He denies any loss of consciousness or presyncopal symptoms. He was admitted to the medical floor for acute decompensated heart failure and was diuresed. On admission due to his head trauma history a CT scan of the head was ordered and results were concerning for small intracerebral hemorrhage. ICU called to evaluate. ALLERGIES: Please see below. HOME MEDICATIONS: Please see below. PAST MEDICAL HISTORY: Hypertension CAD A. fib Diabetes Morbid obesity. PAST SURGICAL HISTORY: Shoulder Surgery - LEFT - 1972, LEFT ROTOR CUFF - 2003 Elbow - RIGHT - 1974 Lung - COLON SURGERY - 2010 - [facility] Cataract Surgery - 2012 Abdominal - 1964 Orchiectomy - 12/2016 Colonoscopy - 10/2018 Hemmorhoid Surgery. FAMILY HISTORY: No significant cardiopulmonary disease. SOCIAL HISTORY: Former smoker quit 60 years ago. 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 No chills. No dizziness. EYES: No pain, erythema, or discharge. No blurring of vision. ENT: No sore throat, URI symptoms. No epistaxis. No tinnitus. CARDIOVASCULAR: No chest pain. No palpitations. No lower extremity edema. RESPIRATORY: Chronic cough nonproductive, no pleuritic chest pain. No hemoptysis. No dyspnea. No paroxysmal nocturnal dyspnea. GASTROINTESTINAL: No nausea, vomiting, diarrhea. No pain. No bloating. No melena. GENITOURINARY: No frequency, urgency, nocturia. No hematuria or dysuria. MUSCULOSKELETAL: No arthralgias or myalgias. INTEGUMENTARY: No swelling. No bruising. No contusions. No abrasions. No lymphangitis. NEUROLOGIC: No headache. No neck pain. No numbness or tingling of the extremities. PSYCHIATRIC: No confusion. ENDOCRINE: No fatigue. No weakness. No history of thyroid, diabetes or adrenal problems. HEMATOLOGICAL: No bleeding. No petechiae. No bruising. PHYSICAL EXAMINATION: VITAL SIGNS: Please see below. GENERAL APPEARANCE: Morbidly obese , not in distress. . HEENT: no thyromegaly, trachea midline, PERRLA. normal mucous membranes . RESPIRATORY: CTA B/L on anterior exam, good air entry. CARDIOVASCULAR: +s1 s2, no murmurs. ABDOMEN: nontender, not distended. EXTREMITIES: bilateral LE edema, 2+ NEUROLOGICAL: no sensory or motor deficits, orientedx3. LABORATORY DATA: Please see below. BNP: 540 Blood Gas: Imaging personally reviewed by me. ASSESSMENT: 1. Acute hypoxic respiratory failure secondary to decompensated CHF improved with diuresis currently on 3 L oxygen nasal cannula and sat is 100%. Chest imaging not impressive for pulmonary edema, just mild bibasilar atelectasis but cardiomegaly is present. 2. Possible small intracerebral petechial hemorrhage in the left temporal lobe status post mechanical fall. Also in the differential is ischemic infarct versus contusion versus mass. No neurological symptoms and no objective findings of increased ICP 3. History of A. fib on Eliquis 4. History of CAD and hypertension 5. Morbid obesity and suspect ROWENA/OHS given elevated bicarb. 6. Multiple bilateral subcentimeter pulmonary nodules. New incidentally found 8 mm right lower lobe pulmonary nodule. 7. History of left upper lobe wedge resection noted on CT chest, patient is poor historian and does not know the circumstances regarding this. 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 Repeat CT head is unchanged. Would repeat CT head stat if there is any neurological deterioration. Neuro consult. neurochecks every hour. MRI brain when possible. Maintain normothermia. Avoid hypotonic IV fluids. PULM: Check Blood gas to evaluate for chronic hypercapnia. [ABG or VBG]. HOB 30 degrees. Maintain Sp02 94-98%. Titrate off oxygen as tolerated. Outpatient follow-up for the pulmonary nodule. Patient is high risk per Mahmood risk score, he should have follow-up CT scan noncontrast in 3-6 months per Fleischner criteria. CARDIO: Check echo. BNP may be falsely low in the setting of obesity. BP control to keep SBP <140-160. Continue rate control medication for A. fib. Continue to diurese as tolerated, I<O. GI: P.o. diet if tolerating RENAL: Monitor daily lytes ID: No antibiotics for now ENDO: Monitor FS per routine. Goal range 140-180. Continue with subcutaneous insulin HEME: Check PT INR and PTT stat. Hold all anticoagulation LINES/CATHETERS: Peripheral iv line, no Morales for now DVT/GI PPX: Sequential compression device bilaterally, does not need GI prophylaxis CODE STATUS: Full code DISPOSITION: ICU monitoring, consider transfer to hospital with neurosurgical services when bed available. Vital Signs/I&O Vital Signs Date Time Temp Pulse Resp B/P (MAP) Pulse Ox O2 Delivery O2 Flow Rate FiO2 05/16/21 10:20 78 133/60 05/16/21 09:00 97 Nasal Cannula 3.0 05/16/21 08:33 97.2 18 I&O- Last 24 Hours up to 6 AM 05/16/21 06:00 Output Total 900 ml Balance -900 ml Laboratory Data Labs 24H Laboratory Tests 2 05/15/21 21:37: Bedside Glucose (Misc Panel) 138H 05/15/21 22:03: Urine Color YELLOW, Urine Appearance CLOUDYH, Urine pH 5.0, Urine Specific [place] 1.019, Urine Protein 2+H, Urine Glucose (Auto)(UA) 1+H, Urine Ketones (Auto) NEGATIVE, Urine Blood 1+H, Urine Nitrite NEGATIVE, Urine Bilirubin NEGATIVE, Urine Urobilinogen 0.2, Urine Leukocyte Esterase (Auto) NEGATIVE, Urine WBC (Auto) 6H, Urine RBC (Auto) 7H, Urine Hyaline Casts (Auto) 1, Urine Bacteria (Auto) NEGATIVE, Urine Squamous Epithelial Cells 1, Urine Amorphous Sediment (Auto) SMALLH, Urine Mucus (Auto) SMALL, Urine Sperm (Auto) 05/15/21 22:05: Lactic Acid Level 1.5 05/15/21 22:06: Immature Granulocyte % (Auto) 0.8, Neutrophils (%) (Auto) 85.4H, Lymphocytes (%) (Auto) 4.8L, Monocytes (%) (Auto) 7.7, Eosinophils (%) (Auto) 0.9, Basophils (%) (Auto) 0.4, Neutrophils # (Auto) 7.9, Lymphocytes # (Auto) 0.4L, Monocytes # (Auto) 0.7, Eosinophils # (Auto) 0.1, Basophils # (Auto) 0.0, Nucleated Red Blood Cells % (auto) 0.0, Anion Gap 6L, Glomerular Filtration Rate 56.1, Calcium Level 8.5L, Magnesium Level 2.1, Total Bilirubin 0.8, Aspartate Amino Transf (AST/SGOT) 14, Alanine Aminotransferase (ALT/SGPT) 24, Alkaline Phosphatase 59, Total Creatine Kinase 39, Creatine Kinase MB 1.4, Creatine Kinase MB Relative Index 3.59, Troponin I 0.17H, HB-Iif-H-Type Natriuretic Peptide 540H, Total Protein 5.5L, Albumin 2.7L, Albumin/Globulin Ratio 1.0, Lipase 112 05/16/21 00:18: Total Creatine Kinase 48, Creatine Kinase MB 2.1, Creatine Kinase MB Relative Index 4.38H, Troponin I 0.38#H 05/16/21 00:46: POC pH (Misc Panel) 7.386, POC Base Excess (Misc Panel) 1.0, POC Saturated Percent O2 (Misc) 99H, POC pO2 (Misc Panel) 120.0H, POC pCO2 (Misc Panel) 43.9, POC HCO3 (Misc Panel) 26.3H, POC Total CO2 (Misc Panel) 28.0H 05/16/21 04:21: Total Creatine Kinase 52, Creatine Kinase MB 2.1, Creatine Kinase MB Relative Index 4.04H, Troponin I 0.41H 05/16/21 06:43: Immature Granulocyte % (Auto) 0.5, Neutrophils (%) (Auto) 76.4H, Lymphocytes (%) (Auto) 10.3L, Monocytes (%) (Auto) 11.6H, Eosinophils (%) (Auto) 0.9, Basophils (%) (Auto) 0.3, Neutrophils # (Auto) 4.9, Lymphocytes # (Auto) 0.7L, Monocytes # (Auto) 0.7, Eosinophils # (Auto) 0.1, Basophils # (Auto) 0.0, Nucleated Red Blood Cells % (auto) 0.0, Anion Gap 6L, Glomerular Filtration Rate > 60.0, Calcium Level 8.3L, Magnesium Level 2.3 05/16/21 06:49: Lactic Acid Level 1.0 05/16/21 07:16: Bedside Glucose (Misc Panel) 117H 05/16/21 12:42: Bedside Glucose (Misc Panel) 109 CBC/BMP Laboratory Tests 05/15/21 22:06 05/16/21 06:43 Microbiology Microbiology 05/16/21 Blood Culture, Received Pending 05/16/21 Blood Culture, Received Pending 05/15/21 Respiratory Virus Panel (PCR) (DOMINICK) - Final, Complete 05/15/21 Blood Culture, Received Pending 05/15/21 Blood Culture, Received Pending Allergies Coded Allergies: cortisone (Verified Allergy, Mild, HVIES, 11/20/18) Home Medications Scheduled Apixaban (Eliquis) 5 Mg Tablet, 5 MG PO BID, (Reported) Atorvastatin Calcium (Atorvastatin Calcium) 10 Mg Tab, 10 MG PO QHS, (Reported) Carvedilol (Carvedilol) 6.25 Mg Tab, 6.25 MG PO BID, (Reported) Cyanocobalamin (Vitamin B-12) (Vitamin B-12) 500 Mcg Tab, 500 MCG PO DAILY, (Reported) Glipizide (Glipizide ER) 5 Mg Tab, 5 MG PO DAILY, (Reported) Losartan Potassium (Losartan Potassium) 50 Mg Tablet, 50 MG PO QHS, (Reported) Spironolactone (Spironolactone) 25 Mg Tablet, 25 MG PO DAILY, (Reported) Torsemide (Torsemide) 20 Mg Tablet, 20 MG PO DAILY, (Reported) Scheduled PRN Albuterol Sulf (Albuterol Sulfate) 2.5 Mg/3 Ml Nebu, 2.5 MG INH Q6H PRN for SHORTNESS OF BREATH, (Reported) Tramadol HCl (Tramadol HCl) 50 Mg Tablet, 50 MG PO BID PRN for MODERATE/SEVERE PAIN (PS 5-10), (Reported) MINERVA OH MD May 16, 2021 13:49
[2021-05-16 14:13] LABS: INR 1.17; PARTIAL THROMBOPLASTIN TIME 30.7 SECONDS (25.9-37.0); PROTHROMBIN TIME 15.4 SECONDS (12.7-14.5)
[2021-05-16] MEDS ORDERED: LORazepam 2 MG/ML VIAL IV STA (18:15)
--- NOTE | 2021-05-16 19:36 | REPVR ---
PROCEDURE INFORMATION: Exam: CT Head Without Contrast Exam date and time: 05/16/2021 6:35 PM Age: 85 years old Clinical indication: Condition or disease; Brain lesion; Additional info: Intracranial bleed TECHNIQUE: Imaging protocol: Computed tomography of the head without contrast. Radiation optimization: All CT scans at this facility use at least one of these dose optimization techniques: automated exposure control; mA and/or kV adjustment per patient size (includes targeted exams where dose is matched to clinical indication); or iterative reconstruction. COMPARISON: CT Head without contrast 05/16/2021 12:17 PM FINDINGS: Brain: Small focus of hyperdensity in the left temporal lobe with surrounding vasogenic edema is stable in appearance and size and measures 5 x 5 mm unchanged from prior study. There are moderate periventricular and subcortical lucencies consistent with chronic microvascular ischemic changes. Chronic lacunar infarcts in the left basal ganglia. Cerebral ventricles: No ventriculomegaly. Paranasal sinuses: Visualized sinuses are unremarkable. No fluid levels. Mastoid air cells: Visualized mastoid air cells are well aerated. Bones/joints: Unremarkable. No acute fracture. Soft tissues: Unremarkable. IMPRESSION: Small focus of hyperdensity measuring 5 x 5 mm with surrounding vasogenic edema unchanged from prior study. Findings may suggest a small focus of calcification versus hemorrhage. Underlying neoplasm cannot be excluded. MRI with and without contrast can be obtained for complete evaluation. Electronically signed by: Jose Juan Castillo On 05/16/2021 19:36:27 PM
[2021-05-16] MEDS: ATORVASTATIN 10 MG TAB PO SCH (20:32)
--- NOTE | 2021-05-16 20:37 | ECHO ---
ECHOCARDIOGRAM DATE OF PROCEDURE: 05/16/2021 Age: 85 Gender: Male Height: 72 inches Weight: 350 pounds Body surface area: 2.71 m2 Inpatient, intensive care unit (ICU), room 3207. REFERRING PROVIDER: Josias Schmidt M.D. INDICATION: Dyspnea. MEASUREMENTS: 2D Measurements: RV - 3.6 cm LV - 4.4 cm Septum 1.3 cm Posterior wall 1.3 cm Aortic root 4.0 cm Ascending aorta 3.4 cm LA - 4.2 cm LVEF 65% Doppler Measurements: AV - 1.2 m/s LVOT - 0.7 m/s LVOT diameter 2.2 cm MV-E 87 Early mitral deceleration time 200 msec E prime medial 6.3 E prime lateral 9 Average E/E prime ratio 11.4/PCWP - 16 mmHg PV - 0.93 m/s Pulmonary artery acceleration time 90 msec PASP 45 mmHg IVC 2.3 cm COMMENTS: Underlying atrial fibrillation with controlled ventricular response. No intraventricular conduction disturbance. Occasional PVC. Technically difficult study in light of the patient's body habitus, but some diagnostically useful information was still obtained. M-mode and 2-dimensional echocardiography was performed with pulse, continuous wave, color flow, and tissue Doppler studies. Mild concentric left ventricular hypertrophy with normal to hyperkinetic wall motion. Mildly dilated left atrium with current estimated mean left atrial pressure upper limits of normal. Normal right ventricular size with slight right ventricular free wall hypokinesis and Doppler evidence of at least moderate pulmonary hypertension. Right atrium appeared to be mildly dilated with IVC size upper limits of normal with reduced respiratory collapse, in keeping with an elevated central venous pressure. Mildly dilated aortic root but normal ascending aorta. Mild aortic valvular sclerosis without functional abnormality. Mild mitral annular calcification without inflow tract obstruction or significant insufficiency. Normal-appearing tricuspid valve with very mild insufficiency. Unable to detect any intracardiac mass or pericardial effusion.
[2021-05-17] VITALS (13 sets, daily range): BP systolic 125–158; BP diastolic 58–78
--- NOTE | 2021-05-17 01:04 | REPVR ---
PROCEDURE INFORMATION: Exam: CT Head Without Contrast Exam date and time: 05/17/2021 12:00 AM Age: 85 years old Clinical indication: Other: F/u study; Additional info: Intracranial bleed TECHNIQUE: Imaging protocol: Computed tomography of the head without contrast. Radiation optimization: All CT scans at this facility use at least one of these dose optimization techniques: automated exposure control; mA and/or kV adjustment per patient size (includes targeted exams where dose is matched to clinical indication); or iterative reconstruction. COMPARISON: CT Head without contrast 05/16/2021 6:30 PM, 12:17 p.m., 9:46 a.m. FINDINGS: Brain: See "Dental" finding. Cerebral ventricles: No ventriculomegaly. Paranasal sinuses: Visualized sinuses are unremarkable. No fluid levels. Mastoid air cells: Visualized mastoid air cells are well aerated. Bones/joints: Unremarkable. No acute fracture. Soft tissues: Unremarkable. Dental: There is a small focus of hemorrhage in left temporal lobe extent of hemorrhage it has not significantly changed from the 3 prior scans.there is surrounding lucency. There is also increased size of the temporal lobe including the hippocampus best appreciated on the coronal reconstructions. These findings are unchanged from the previous scans. IMPRESSION: Stable small focus of hemorrhage in the left temporal lobe. There is surrounding lucency and mass like enlargement of the left temporal lobe. This is highly suspicious for underlying neoplasm as previously stated. MRI follow-up with contrast recommended. Electronically signed by: Abhi Lieberman On 05/17/2021 01:03:50 AM
[2021-05-17] MEDS: FUROSEMIDE 40MG/4ML VIAL (J1940) IV SCH ×2 (04:08→12:00)
[2021-05-17 04:38] LABS: BASO % 0.5 % (0.0-1.0); EOS # 0.2 10^3/uL (0.0-0.5); HEMATOCRIT 42.7 % (42.0-52.0); HEMOGLOBIN 13.6 g/dl (13.5-17.5); LYMPH # 0.8 10^3/uL (1.5-5.0); LYMPH % 11.3 % (24.0-44.0); MEAN CORPUSCULAR HEMOGLOBIN 29.8 pg (27.0-33.0); MEAN CORPUSCULAR HGB CONC 31.9 g/dl (32.0-36.5); MEAN CORPUSCULAR VOLUME 93.6 fl (80.0-96.0); MONO # 0.8 10^3/uL (0.0-0.8); MONO % 11.9 % (2.0-8.0); NEUTROPHILS # 4.9 10^3/uL (1.5-8.5); NEUTROPHILS % 72.8 % (36.0-66.0); PLATELET COUNT, AUTOMATED 190 10^3/uL (150-450); RED BLOOD COUNT 4.56 10^6/uL (4.30-6.10); WHITE BLOOD COUNT 6.7 10^3/uL (4.0-10.0)
[2021-05-17 05:00] LABS: BLOOD UREA NITROGEN 21 MG/DL (7-18); CALCIUM LEVEL 8.6 MG/DL (8.8-10.2); CARBON DIOXIDE LEVEL 34 MEQ/L (21-32); CHLORIDE LEVEL 104 MEQ/L (98-107); GLOMERULAR FILTRATION RATE > 60.0 (>35); GLUCOSE, FASTING 110 MG/DL (70-100); MAGNESIUM LEVEL 2.3 MG/DL (1.8-2.4); POTASSIUM SERUM 3.8 MEQ/L (3.5-5.1); SODIUM LEVEL 141 MEQ/L (136-145)
--- NOTE | 2021-05-17 06:31 | REPVR ---
PROCEDURE INFORMATION: Exam: CT Head Without Contrast Exam date and time: 05/17/2021 6:00 AM Age: 85 years old Clinical indication: Other: F/u/ study; Additional info: Possible ich TECHNIQUE: Imaging protocol: Computed tomography of the head without contrast. Radiation optimization: All CT scans at this facility use at least one of these dose optimization techniques: automated exposure control; mA and/or kV adjustment per patient size (includes targeted exams where dose is matched to clinical indication); or iterative reconstruction. COMPARISON: 1. CT Head without contrast 05/16/2021 6:30:[address] Head without contrast 05/16/2021 11:[address] Head without contrast 12/04/2018 12:04:16 PM FINDINGS: Brain: There is age-appropriate, diffuse parenchymal volume loss. There is heterogeneity of the white matter attenuation, most consistent with mild chronic white matter ischemic changes. There is heterogeneous low-attenuation, loss of betancourt-white differentiation, and mild swelling in the anterior left temporal lobe, similar to the recent prior exams. Small foci of hyperdensity within this region are also unchanged and probably represent hemorrhage. Calcification is possible but less likely. No calcification was present at the site on the CT scan from November,. Additional poorly defined areas of low attenuation are again seen in the inferior aspect of the left insula, the left basal ganglia, and the left internal capsule, similar to the recent prior exams. There is no midline shift. Cerebral ventricles: The ventricular system demonstrates mild diffuse compensatory enlargement. Paranasal sinuses: There are sinus mucous retention cysts or polyps in the bilateral maxillary sinuses. No fluid levels.. Mastoid air cells: The mastoid air cells are clear. Vasculature: Atherosclerotic calcifications are seen in the cerebral arteries at the skull base. Bones/joints: No acute fractures of the skull are identified. Soft tissues: The soft tissues appear unremarkable. IMPRESSION: No significant change in the appearance of the left temporal lobe, with continued swelling, low-attenuation, and small foci of hyperdensity, probably representing hemorrhage. Additional poorly defined areas of low attenuation in the left insula, basal ganglia, and internal capsule also appear similar to the recent prior exams. The findings may represent acute infarcts with petechial hemorrhage or may be related to an underlying lesion. Electronically signed by: Patricia Adame On 05/17/2021 06:30:48 AM
--- NOTE | 2021-05-17 07:30 | REP ---
INDICATION: Possible Stroke COMPARISON: None. TECHNIQUE: Real-time ultrasound evaluation and duplex Doppler interrogation of the extracranial carotid vasculature is performed. FINDINGS: There is mild to moderate plaquing and narrowing in both carotid bulbs extending into the internal and external carotid arteries. Luminal narrowing is less than 50%. There is no evidence of hemodynamically significant stenosis of either internal carotid artery. Normal flow velocities are seen. The vertebral arteries demonstrate normal direction of flow. RIGHT LEFT Peak systolic velocity ICA 121.4 cm/s 71.8 cm/s End diastolic velocity ICA 15.5 cm/s 14.1 cm/s Peak systolic velocity CCA 105.9 cm/s 114.0cm/s Peak systolic velocity ECA 112.5 cm/s 84.4 cm/s ICA/CCA ratio 1.2 0.6 IMPRESSION: Bilateral luminal narrowing of the internal carotid arteries less than 50%. No evidence of hemodynamically significant stenosis. <Electronically signed by Steven Mcdaniel > 05/16/21 [id number]
[2021-05-17] MEDS: HumaLOG INSULIN (NovoLOG) PER UNIT SC SCH ×2 (08:50→13:44)
[2021-05-17] MEDS: CARVedilol 6.25 MG TAB PO SCH (08:51)
[2021-05-17] MEDS: SPIRONOLACTONE 25 MG TAB PO SCH (08:51)
[2021-05-17] MEDS: CYANOCOBALAMIN 500 MCG TAB PO SCH (08:51)
[2021-05-17] MEDS ORDERED: FLUBLOK(EGG FREE)(QUAD)INFLUENZA VACC 0.5ML SYRINGE 18YRS & OLDER IM ONE (09:00)
--- NOTE | 2021-05-17 10:24 | CR ---
CONSULTATION DATE OF CONSULTATION: 05/16/2021 REASON FOR CONSULTATION: Suspected acute stroke with hemorrhagic conversion. Zach Herbert is an 85-year-old, male who presented to [facility] Emergency Department with chief complaint of progressive shortness of breath and generalized weakness, found to have congestive heart failure. The patient was hypoxic in the emergency department, SpO2 was in the 80% requiring oxygenation. He was diuresed with Lasix. At home, he had a fall, so a head CT was performed which ended up revealing that he had a lower left temporal lobe low density area with possible hemorrhagic conversion. The patient was, at that time, on Eliquis which was held. Repeat scans were completed, which so far have showed stable size of ischemia and hemorrhagic component thought to be petechial hemorrhage. The patient could not be transferred to an outside facility for higher level of care due to lack of beds being available. Kcentra was held as the patient was asymptomatic and the serial CT scans have been stable. His systolic blood pressure has remained less than 140. He himself feels quite fine. He does have some intermittent symptoms of aphasia, speaking the wrong words at times. He is adamant about not getting an MRI of the brain. We will repeat serial CTs over the next few days. If stable by the end of the week, we can restart aspirin. After approximately 3-4 weeks, I would recommend repeating a head CT if the hemorrhage is stable and resolved, and then I would consider having him restart his Eliquis. He was previously on Xarelto, at one point, was stopped back in 2019 for gastrointestinal (GI) bleeding. PAST MEDICAL HISTORY: Essential hypertension, type 2 diabetes, hyperlipidemia, lung disease, heart disease, atrial fibrillation on anticoagulation, myocardial infarction 2017, GI bleed 2018 followed by GI, right-sided occipital neuralgia, chronic obstructive pulmonary disease (COPD). PAST SURGICAL HISTORY: Shoulder surgery left 1972, left rotator cuff 2003, right elbow 1974, lung and colon surgery 2010, cataract surgery 2012, abdominal surgery 1963, orchiectomy in 03/2017, colonoscopy 10/2018, hemorrhoid surgery. FAMILY HISTORY: Mother with Parkinson's disease. Sister with Parkinson's disease. SOCIAL HISTORY: Patient is a former smoker, quit in 1963. Denies use of any alcohol or illicit drugs. REVIEW OF SYSTEMS: 14-point review of systems obtained and is negative except as per history of present illness (HPI). Patient continues to have productive cough and shortness of breath. He denies any chest pain or headaches, numbness or weakness at this time. PHYSICAL EXAMINATION: Vital signs: Blood pressure 131/68, pulse rate 66, respiratory rate is 22, 98% oxygen saturation on 2 liters nasal cannula, temperature 97.6 degrees Fahrenheit. IMAGING: Head CT 05/17/2021 at 6 a.m. reveals no significant change in the appearance of left temporal lobe with continued swelling, low attenuation, and small foci of hyperdensity probably representing hemorrhage. Additional poorly defined areas of low attenuation in the left insular basal ganglia and internal capsule also appears similar to recent of prior exams. The findings may represent acute infarct with petechial hemorrhage or may be related to an underlying lesion. Patient is oriented to person, place, and time. Speech, language, comprehension, and repetition are intact. Patient's speech has some paraphrasic areas in speech with aphasia, mild, he is able to repeat. There is no pronator drift. There is no loss of coordination with [id number], ataxia. There is no loss of strength in deltoid, biceps, triceps, and clinical services director, quadriceps, anterior tibialis. Deep tendon reflexes are 2+ throughout with decreased Achilles reflexes. Gait is cautious, patient ambulates with the use of a cane. Sensory is intact to light touch in all four extremities with a sensory gradient. Cranial nerves are intact. ASSESSMENT: Suspect left temporal basal ganglia insular ischemic stroke with hemorrhagic conversion. Hold anticoagulation. Repeat head CTs daily for the next few days. If lesion is stable by the end of the week, resume aspirin 81 mg daily. In 3-4 weeks, repeat head CT, if no further hemorrhage, then resume anticoagulation. Continue physical therapy (PT)/occupational therapy (OT). Keep systolic blood pressures less than 140. Continue management of underlying congestive heart failure (CHF). Fluid overload as per primary care team. Consider rehabilitation before going home.
[2021-05-17] MEDS ORDERED: INSUHUMDS SC (11:41)
[2021-05-17] MEDS ORDERED: FURO80VL IV (11:41)
--- NOTE | 2021-05-17 12:39 | CCN ---
CRITICAL CARE NOTE DATE: 05/17/2021 Patient was seen and examined this morning during bedside rounds. Overnight, he did not have any acute events. Patient was getting a head CT every 6 hours with his repeat CT this morning unchanged from prior. He was ordered for an MRI which he refused and was unable to tolerate due to claustrophobia. This morning, patient denies any change in his symptoms. He is alert and oriented and is answering questions appropriately but occasionally does take time to find the correct words. He denies any headache, no vision changes, no nausea or vomiting. He denies any chest pain, denies any worsening dyspnea. He does feel his lower extremity edema has been improving. He chronically has more swelling on the left than on the right and he did have an injury on his left leg previously. PHYSICAL EXAMINATION: Vital signs: Temperature 96.7, pulse 84, respirations 18, blood pressure 138/70, oxygen saturation is 92% on room air. In 750, out 2 liters, net negative 1.2 liters. General: Patient is a morbidly obese male, is sitting in the bed in no acute distress. Is speaking in full sentence and is not using any accessory muscles for respiration. HEENT: Normocephalic, atraumatic. Pupils are reactive to light bilaterally. Moist mucous membranes noted. Unable to clearly evaluate jugular venous distension (JVD). Cardiovascular: Irregularly irregular, normal S1, S2, no clear murmurs auscultated. Pulmonary: Good air entry noted bilaterally, few crackles at the bases. Abdomen: Morbidly obese, soft, nontender, nondistended. Extremities: There is +1 to +2 pitting edema in the bilateral lower extremities. The left lower extremity is larger than the right with some evidence of resolving ecchymosis. LABORATORY DATA: WBC is 6.7, hemoglobin is 13.6, platelets 190. Chemistry: Sodium 141, potassium 3.8, chloride 108, bicarbonate 34, BUN 21, creatinine 1.10, glucose is 110. Troponin trended down to 0.15. Microbiology: Blood cultures are negative. Head CT this morning shows unchanged area in the anterior left temporal lobe lesion with some mild swelling. There is small foci of likely hemorrhage. There is also additional areas in the left insula basal ganglia and internal capsule which are unchanged and may represent acute infarcts with petechial hemorrhage. ASSESSMENT AND PLAN: Mr. Herbert is an 85-year-old male with a past medical history of atrial fibrillation on anticoagulation, coronary artery disease (CAD), hypertension, morbid obesity, and diabetes who presented initially with weakness, fatigue, and worsening shortness of breath. Patient was initially admitted for decompensated heart failure with demand ischemia and was being diuresed. He had also mentioned an episode a few days ago of a mechanical fall where he had hit his head. His CT of the head had shown a small lesion in the anterior left temporal lobe with some focal area of hemorrhage. There was also an area in the basal ganglia and insula region and he was thought to have an ischemic stroke with some hemorrhagic conversion. His anticoagulation was held and he was having repeat CTs every 6 hours which have been unchanged. Patient was ordered for an MRI which he refused. - Patient's neurologic status is unchanged this morning. His CT head this morning is also unchanged. Appreciate neurology consult and recommendations. - Continue with neurologic checks and continue with supportive measurements including head of bed elevation, maintaining normothermia, and avoiding hypotonic IV fluids. - There was a call to [place] for a possible transfer, however there have been no beds available and with his stable imaging and exam there was recommendation to continue monitoring him in his current location in intensive care unit (ICU). Decompensated congestive heart failure (CHF) with evidence of demand ischemia. - Patient is being diuresed as per the primary team. They are continuing rate control medications as well for his atrial fibrillation. - Will continue to monitor his intake and output. - Continue blood pressure control to keep systolic blood pressures between 140s-160s. History of lung nodules with new 8 mm subpleural nodule in the right lower lobe. - Patient does need continued imaging followup for this nodule and he can followup with pulmonary as an outpatient. - Suspect patient also has a degree of untreated and undiagnosed obstructive sleep apnea given witnessed apneas by nurses overnight and with his morbid obesity. Patient can followup with pulmonary as well as an outpatient for sleep testing. Deep venous thrombosis (DVT) prophylaxis. Thromboembolic deterrents (TEDs) and sequential compression devices (SCDs). Will restart anticoagulation as per neurology timeline. Code status: FULL CODE. Total critical care time not including any procedures approx 40 mins Please do not hesitate to call if any further questions or concerns. Patient can schedule followup with pulmonary in 3-4 weeks after discharge from the hospital. HARRIET
--- NOTE | 2021-05-17 15:15 | DS.PDOC ---
Discharge Summary General Date of Admission May 16, 2021 at 06:16 Date of Discharge 05/17/2021 Discharge Summary PROCEDURES PERFORMED DURING STAY: [None]. 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 fib Pulmonary nodule HTN DM2 DLP CAD s/p MN Morbid obesity Migraine headaches DVT prophylaxis COMPLICATIONS/CHIEF COMPLAINT: Shortness of breath HISTORY OF PRESENT ILLNESS: Patient is an 85-year-old male with a PMHx of A. fib (on Eliquis), Hx of MN (2018), HTN, DM2, DLP , who presented to the emergency room after experiencing progressive shortness of breath and generalized weakness. Upon arrival to emergency room, patient had reported that the symptoms have been going on for at least 2 weeks. Patient was admitted to the hospital service for further evaluation and treatment. Of note, patient has also reported that he had a fall while at home; this was confirmed with his and with his son after I spoke with them this morning. While in the ER, his had reported that he had fallen after he had tripped on the front door and landed on his side and hit his head. Patient had a CT scan that was ordered at [address] scan was completed and reported at 10:33AM with evidence that suggested possible petechial hemorrhage in the left temporal lobe. Multiple facilities were contacted; [facility], [facility]. Unfortunately none of them have any bed capacity to take patient on transfer on 05/16. I have consulted director of intercollegiate athletics and neurologist this morning and case was discussed. Patient was urgently transferred to the intensive care unit so that he can continue with frequent neuro checks and serial CT scans; all of which have remained stable. After discussing with neurology in-house and neurology at [facility], recommendation for getting an MRI to help confirm or exclude petechial hemorrhage was ordered. Unfortunately the MRI machine at this facility has ceased to function. Once MRI machine was functional. Patient had refused MRI because of claustrophobia. He refused to proceed with this imaging modality even with medication. He reported that he accepted the risks of this decision. Patient was seen and examined at the bedside at multiple locations throughout this morning. Patient remains relatively well. Denies any nausea, vomiting, chest pain or palpitations. Reports that his breathing is doing better. Denies any abdominal pain or diarrhea. Has been urinating significantly with diuresis, his mentation remains intact. 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 for evaluation by neurosurgical service, given potential for progression - They have been excepted to the service of Dr. Ashley. Hypoxic respiratory failure - likely 2/2 exacerbation of CHF - Clinically patient is exhibiting signs of fluid overload - Physical reveals evidence of pitting edema and crackles - Patient is requiring supplemental oxygen at 3 L - Strict ins/outs, Daily weight, Head of bed elevation, Fluid restriction - ECHO noted below - c/w Diuresis with Furosemide / Spironolactone Elevated troponin - likely 2/2 ischemic demand - Agains has denied any CP or palpitations - EKG reveals A. fib, rate controlled - Troponin trend improved - c/w Telemetry monitoring - c/w Carvedilol, Atorvastatin A. fib - Rate appears well controlled - c/w rate control with Carvedilol - Will continue to full anticoagulation with Eliquis (re: Possible ICH) Pulmonary nodule - Interval development of a 8 mm subpleural pulmonary nodule in the anterior inferior right lower lobe - Will have outpatient follow-up with pulmonology on discharge HTN - Given acute findings on imaging above; will maintain blood pressure ideally <140 in the interim - Losartan on hold (re: Diuresis / Received contrast in the ER) - c/w Carvedilol, Furosemide, Spironolactone DM2 - c/w ISS DLP - c/w Atorvastatin CAD s/p MN - Eliquis was discontinued - c/w Atorvastatin, Carvedilol, Morbid obesity - BMI of 46.2 - Complicating medical care Migraine headaches - c/w Tramadol PRN DVT prophylaxis - Eliquis discontinued - c/w TEDs / Sequentials DISCHARGE MEDICATIONS: Please see below. ALLERGIES: Please see below. PHYSICAL EXAMINATION ON DISCHARGE: Vitals (See below) General: Patient is laying in bed, appears to be comfortable, conversive awake and alert, Oriented 3 HEENT: Head remains normocephalic and atraumatic CVS: +S1S2 Lungs: Air entry appears to be fair bilaterally without any auscultated evidence of wheezing or rhonchi Abdomen: Abdomen is soft without any distention or tenderness, and he is morbidly obese Extremities: There is 1+ pitting edema bilaterally Neuro: Again, evaluation of strength reveals 5/5 strength of his bilateral lower and upper extremities LABORATORY DATA: Please see below. IMAGING: CXR 05/15: 1. Moderate cardiomegaly. 2. Chronic changes at the left lung base. However there could be atelectasis or infiltrate. 3. Decrease in the markings in the left upper lung and if there are continued concern for pulmonary embolus recommend CT with IV contrast. CTA Chest 05/16: No large acute central pulmonary embolus. Evaluation of distal segmental and subsegmental pulmonary arterial branches is limited due to poor opacification. Interval development of a 8 mm subpleural pulmonary nodule in the anterior inferior right lower lobe best seen the number 92. For patients at low risk (minimal or absent history of smoking and of other known risk factors), recommend CT Chest at 6-12 months, then consider CT Chest at 18-24 months. For patients at high risk (history of smoking or of other known risk factors), recommend CT Chest at 6-12 months, then CT Chest at 18-24 months. (Reference: Marie) CT head 05/16: New mixed density lesion in the left temporal lobe with new low-density area in the left basal ganglia. Acute ischemic infarct versus contusion versus mass lesion. I cannot exclude petechial hemorrhage in the left temporal lobe. Recommend MRI without and with IV gadolinium if feasible. ECHO 05/16: Underlying atrial fibrillation with controlled ventricular response. No intraventricular conduction disturbance. Occasional PVC. Technically difficult study in light of the patient's body habitus, but some diagnostically useful information was still obtained. M-mode and 2-dimensional echocardiography was performed with pulse, continuous wave, color flow, and tissue Doppler studies. Mild concentric left ventricular hypertrophy with normal to hyperkinetic wall motion. Mildly dilated left atrium with current estimated mean left atrial pressure upper limits of normal. Normal right ventricular size with slight right ventricular free wall hypokinesis and Doppler evidence of at least moderate pulmonary hypertension. Right atrium appeared to be mildly dilated with IVC size upper limits of normal with reduced respiratory collapse, in keeping with an elevated central venous pressure. Mildly dilated aortic root but normal ascending aorta. Mild aortic valvular sclerosis without functional abnormality. Mild mitral annular calcification without inflow tract obstruction or significa nt insufficiency. Normal-appearing tricuspid valve with very mild insufficiency. Unable to detect any intracardiac mass or pericardial effusion. Abdomen US 05/16: There is no ascites. Vascular US 05/17: Bilateral luminal narrowing of the internal carotid arteries less than 50%. No evidence of hemodynamically significant stenosis. Head CT 05/16: No significant change from the study done earlier this same date. Head CT 05/16: Small focus of hyperdensity measuring 5 x 5 mm with surrounding vasogenic edema unchanged from prior study. Findings may suggest a small focus of calcification versus hemorrhage. Underlying neoplasm cannot be excluded. MRI with and without contrast can be obtained for complete evaluation. Head CT 05/17: Stable small focus of hemorrhage in the left temporal lobe. There is surrounding lucency and mass like enlargement of the left temporal lobe. This is highly suspicious for underlying neoplasm as previously stated. MRI follow-up with contrast recommended. Head CT 05/17: No significant change in the appearance of the left temporal lobe, with continued swelling, low-attenuation, and small foci of hyperdensity, probably representing hemorrhage. Additional poorly defined areas of low attenuation in the left insula, basal ganglia, and internal capsule also appear similar to the recent prior exams. The findings may represent acute infarcts with petechial hemorrhage or may be related to an underlying lesion. ACTIVITY: [As tolerated]. DISCHARGE PLAN: Follow-up with Dr. Vale on transfer to [facility] Remain compliant with treatment plan and medications DISPOSITION: Transfer to [facility] DISCHARGE CONDITION: [Stable]. TIME SPENT ON DISCHARGE: 35 minutes. Vital Signs/I&Os Vital Signs Date Time Temp Pulse Resp B/P (MAP) Pulse Ox O2 Delivery O2 Flow Rate FiO2 05/17/21 13:40 111 21 140/78 (98) 93 Room Air 05/17/21 12:15 98.7 05/17/21 07:45 2.0 I&O- Last 24 Hours up to 6 AM 05/17/21 05:59 Intake Total 750 ml Output Total 1725 ml Balance -975 ml Laboratory Data Labs 24H Laboratory Tests 2 05/16/21 18:40: Bedside Glucose (Misc Panel) 128H 05/16/21 20:00: Bedside Glucose (Misc Panel) 192H 05/16/21 20:27: Troponin I 0.15#H 05/17/21 04:17: Immature Granulocyte % (Auto) 0.5, Neutrophils (%) (Auto) 72.8H, Lymphocytes (%) (Auto) 11.3L, Monocytes (%) (Auto) 11.9H, Eosinophils (%) (Auto) 3.0, Basophils (%) (Auto) 0.5, Neutrophils # (Auto) 4.9, Lymphocytes # (Auto) 0.8L, Monocytes # (Auto) 0.8, Eosinophils # (Auto) 0.2, Basophils # (Auto) 0.0, Nucleated Red Blood Cells % (auto) 0.0, Anion Gap 3L, Glomerular Filtration Rate > 60.0, Calcium Level 8.6L, Magnesium Level 2.3 05/17/21 08:21: Bedside Glucose (Misc Panel) 137H 05/17/21 11:30: Bedside Glucose (Misc Panel) 160H CBC/BMP Laboratory Tests 05/17/21 04:17 FSBS Laboratory Tests Test 05/16/21 18:40 05/16/21 20:00 05/17/21 08:21 05/17/21 11:30 Range/Units Bedside Glucose (Misc Panel) 128 192 137 160 83-110 MG/DL Microbiology Microbiology 05/16/21 Blood Culture - Preliminary, Resulted No growth after 24 hours . All specim... 05/16/21 Blood Culture - Preliminary, Resulted No growth after 24 hours . All specim... 05/15/21 Respiratory Virus Panel (PCR) (DOMINICK) - Final, Complete 05/15/21 Blood Culture - Preliminary, Resulted No growth after 24 hours . All specim... 05/15/21 Blood Culture - Preliminary, Resulted No growth after 24 hours . All specim... Discharge Medications Scheduled Atorvastatin Calcium (Atorvastatin Calcium) 10 Mg Tab, 10 MG PO QHS, (Reported) Carvedilol (Carvedilol) 6.25 Mg Tab, 6.25 MG PO BID, (Reported) Cyanocobalamin (Vitamin B-12) (Vitamin B-12) 500 Mcg Tab, 500 MCG PO DAILY, (Reported) Furosemide (Furosemide) 10 Mg/1 Ml Vial, 40 MG IV Q8H Insulin Human Lispro (Humalog) 100 Unit/1 Ml Vial, 0 UNITS SC ACHS Based on [facility] sliding scale Spironolactone (Spironolactone) 25 Mg Tablet, 25 MG PO DAILY, (Reported) Scheduled PRN Albuterol Sulf (Albuterol Sulfate) 2.5 Mg/3 Ml Nebu, 2.5 MG INH Q6H PRN for SHORTNESS OF BREATH, (Reported) Tramadol HCl (Tramadol HCl) 50 Mg Tablet, 50 MG PO BID PRN for MODERATE/SEVERE PAIN (PS 5-10), (Reported) Allergies Coded Allergies: cortisone (Verified Allergy, Mild, HVIES, 11/20/18) CAMMY DOMINGUEZ MD May 17, 2021 15:15
== END 2021-05-17 14:25 | disposition short-term general hospital (02) | DRG 291 ==
LOC: M ED 21:09 → M ED INP 05-16 06:16 → ENRESERV 05-16 06:45 → M PCU 05-16 08:22 → M ICU 05-16 11:04 → M PCU 05-16 11:23 → M ICU 05-16 11:35
PROVIDERS: ADMIT Family Medicine; ATTEND Internal Medicine
DX: I11.0 Hypertensive heart disease with heart failure (principal); S06.360A Traumatic hemorrhage of cerebrum, unspecified, without loss of consciousness, initial encounter; J96.01 Acute respiratory failure with hypoxia; I63.59 Cerebral infarction due to unspecified occlusion or stenosis of other cerebral artery; I24.8 Other forms of acute ischemic heart disease; E66.2 Morbid (severe) obesity with alveolar hypoventilation; Z68.42 Body mass index [BMI] 45.0-49.9, adult; J44.9 Chronic obstructive pulmonary disease, unspecified; I50.9 Heart failure, unspecified; I48.91 Unspecified atrial fibrillation; R91.1 Solitary pulmonary nodule; E11.9 Type 2 diabetes mellitus without complications; E78.5 Hyperlipidemia, unspecified; I25.2 Old myocardial infarction; I25.10 Atherosclerotic heart disease of native coronary artery without angina pectoris; G43.909 Migraine, unspecified, not intractable, without status migrainosus; Z79.4 Long term (current) use of insulin; Z79.899 Other long term (current) drug therapy; Z88.8 Allergy status to other drugs, medicaments and biological substances; Z79.01 Long term (current) use of anticoagulants; Z98.49 Cataract extraction status, unspecified eye; W18.09XA Striking against other object with subsequent fall, initial encounter; Y92.9 Unspecified place or not applicable; Y93.9 Activity, unspecified; Y99.9 Unspecified external cause status; Z87.891 Personal history of nicotine dependence